=== PATIENT | male | born 1945 | race Caucasian/White ===

== ENCOUNTER 2019-10-27 06:15 | Outpatient (RCR) | payer OTHER, SELFPAY | END 2019-11-16 00:01 | LOC: ONCMED 06:15 | PROVIDERS: Family Provider Internal Medicine; Visit Provider Internal Medicine Hematology & Oncology | DX: Z45.2 Encounter for adjustment and management of vascular access device (principal) ==

== ENCOUNTER 2019-11-24 05:56 | Outpatient (RCR) | payer OTHER, SELFPAY | END 2019-12-17 23:59 | disposition home or self-care (01) | LOC: ONCMED 05:56 | PROVIDERS: Family Provider Internal Medicine; PCP Internal Medicine; Visit Provider Internal Medicine Hematology & Oncology | DX: Z45.2 Encounter for adjustment and management of vascular access device (principal) | CPT/HCPCS: 36591 ==

== ENCOUNTER 2019-12-22 05:53 | Outpatient (RCR) | payer OTHER, SELFPAY | END 2019-12-22 23:59 | disposition home or self-care (01) | LOC: ONCMED 05:53 | PROVIDERS: Family Provider Internal Medicine; PCP Internal Medicine; Visit Provider Internal Medicine Hematology & Oncology | DX: Z45.2 Encounter for adjustment and management of vascular access device (principal) | CPT/HCPCS: 96523 ==

== ENCOUNTER 2020-01-10 08:06 | Outpatient (CLI) | payer OTHER, SELFPAY ==
--- NOTE | 2020-01-10 08:15 | CT_ITS ---
WS: [id number] CT ABDOMEN AND PELVIS WITH CONTRAST HISTORY: HEMATURIA, history of lymphoma. TECHNIQUE: Imaging performed of the abdomen and pelvis with IV contrast. Two phase imaging of the ab domen. Coronal and sagittal reformats are submitted. All CT scans at [facility] use at le ast one of these dose optimization techniques: automated exposure control; mA and/or kV adjustment pe r patient size (includes targeted exams where dose is matched to clinical indication); or iterative r econstruction. IV CONTRAST: Omnipaque 300; 95 mL IV. Oral contrast: No DLP: 2261.94 mGycm COMPARISON: PET/CT 07/31/2019 Lower thorax: Mild dependent changes at the lung bases. No pneumonia. Heart is normal size. Small hia jazmyne hernia. Liver/biliary system: Normal size liver with diffuse decreased attenuation from hepatic steatosis. Mi ld variable density throughout the liver with a few scattered hypodensities. These are too small to c haracterize and could've been present on prior studies but not very well seen. No bile duct dilatatio n. Gallbladder: Single gallstone present without acute cholecystitis. Pancreas: Normal. Spleen: Small splenule. No enlargement. 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 Presen t on prior studies with no increase in size and measures 10 mm in diameter. LEFT adrenal gland is neg ative. Right kidney: Normal size kidney. 3 mm hypodensity posterior RIGHT upper pole. Mild perinephric stran ding. No stones or obstruction. No filling defects in the urological system. Left kidney: Normal size kidney with a few scattered hypodensities. The largest in the upper pole sheri sures 8 mm. These are probably small cysts but too small to characterize. No solid mass. No stone or obstruction. Good excretion from the kidney with no filling defects. Aorta: Mild atherosclerosis with no aneurysm. Lymphadenopathy: None. Free fluid: None. GI tract: Mild fecal retention. No evidence for appendicitis. No diverticulitis or diverticulosis. Abdominal wall: Fat-containing umbilical hernia. Pelvis: Negative urinary bladder. There are no filling defects in the urinary bladder. No bladder wal l thickening. There are a few calcifications in the central prostate gland. Benign inguinal lymph nod es. Bones: Straightening of the normal lumbar lordosis. Advanced degenerative disc disease at L4-5 throug h L5-S1. No fractures. No osteoblastic or osteolytic bone disease. CT/CT abdomen pelvis w con* [id number] IMPRESSION: 1. No renal mass, obstruction or calcifications identified. 2. A few scattered cysts within each kidney. 3. Negative urinary bladder. 4. Prostate gland calcifications. 5. Mild constipation. 6. Hepatic steatosis.
[2020-01-10] MEDS: iohexol 300 mg/mL 100 mL Btl IV (08:35)
== END 2020-01-10 08:07 | disposition home or self-care (01) ==
PROVIDERS: Family Provider Internal Medicine; PCP Internal Medicine; Visit Provider Internal Medicine
DX: K59.00 Constipation, unspecified (principal); K76.0 Fatty (change of) liver, not elsewhere classified; R31.9 Hematuria, unspecified; N42.9 Disorder of prostate, unspecified; Z85.72 Personal history of non-Hodgkin lymphomas
CPT/HCPCS: 74177; Q9967

== ENCOUNTER 2020-01-19 09:47 | Outpatient (CLI) | payer OTHER, SELFPAY ==
[2020-01-19 10:13] LABS: Basophils % 0.5 %; Eosinophils # 0.1 10^3/uL (0.0-0.8); Eosinophils % 1.6 %; Hematocrit 40.6 % (42.0-52.0); Hemoglobin 13.2 g/dL (11.7-16.6); Lymphocytes # 2.5 10^3/uL (0.8-4.8); Lymphocytes % 33.9 %; Mean Corpuscular HGB Conc 32.5 g/dL (30.0-36.0); Mean Corpuscular Hemoglobin 27.6 pg (28.0-34.0); Mean Corpuscular Volume 84.9 fL (80-94); Mean Platelet Volume 9.8 fL (7.4-10.4); Monocytes # 0.8 10^3/uL (0.2-0.9); Monocytes % 11.2 %; Neutrophils # 3.9 10^3/uL (1.8-7.7); Neutrophils % 52.7 %; Nucleated Red Blood Cells % 0 %; Platelet Count 226 10^3/cmm (130-400); Red Blood Count 4.78 10^6/uL (4.1-5.3); Red Cell Distribution Width 15.4 % (12.1-15.1); White Blood Count 7.4 10^3/uL (4.0-10.0)
[2020-01-19 10:29] LABS: Alanine Aminotransferase 52 U/L (0-41); Albumin Level 4.1 g/dL (3.5-5.2); Alkaline Phosphatase 92 IU/L (40-130); Anion Gap 15.7 (5-19); Aspartate Amino Transferase 37 U/L (0-40); Blood Urea Nitrogen 19 mg/dL (8-23); Calcium 9.5 mg/dL (8.5-10.5); Carbon Dioxide 24 mmol/L (22-29); Chloride 102 mmol/L (98-107); Globulin 3.1 g/dL (1.3-4.6); Glucose 153 mg/dL (65-115); Lactate Dehydrogenase 167 U/L (135-225); Potassium 3.7 mmol/L (3.5-5.1); Sodium 138 mmol/L (136-145); Total Bilirubin 0.4 mg/dL (0.15-1.2); Total Protein 7.2 g/dL (6.6-8.7)
--- NOTE | 2020-01-19 12:54 | ONC FU_ITS ---
Dr. Catalan follow up note Patient: Lion Aiken Unit #: [id number]: [id number] Dicatated By: Stephanie Catalan M.D.Date of Visit:Jan 19, 2020 Onc Med Follow-up/Prog Note History of Present Illness: Mr. Aiken is a 74-year-old, gentleman with a recent history of progressive right cervical/supraclavicular lymphadenopathy. He has been following with his primary care physician and was given course of oral antibiotic. He did not have any improvement and was referred to ENT for evaluation. On 11/28/[address] scan of neck showed significant right cervical chain lymphadenopathy with extension into supraclavicular region. The largest lymph node at the supraclavicular level III regions measured 3.5 x 2.3 cm. Right intraparotid lobulated mass measuring 1.8 x 1.8 cm. There was an additional cluster along the tail of parotid gland. No laryngeal mass seen. On 12/04/2017 he underwent needle core biopsy of right neck mass. 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 PET/CT from 01/17/18 reported adenopathy at the head and neck area consisting of multiple hypermetabolic lymph nodes bilaterally, more prominent on the right than the left. Intra-parotid, right jugulodigastric, right posterior triangle, bilateral submental, bilateral submandibular and bilateral supraclavicular nodes are consistent with described lymphoma. Right posterior triangle nodes with SUVs of up to 36.2 with right jugulodigastric chain nodes having SUV up to 31.8. Bilateral axillary nodes are FDG positive. There are hypermetabolic mediastinal lymph nodes, subcarinal, paratracheal and bilateral hilar territories at the level of the abdomen- small FDG positive nodes are noted. Most pelvic lymph nodes are radiographically benign and FDG negative. There was no evidence of involvement in the bone marrow. Mr Aiken was offered treatment with R-CHOP. He began his first cycle on 02/10/2018. He did present to the ER on 02/20/2018 with abdominal pain and was treated for gastritis. responded well to Zantac BID. PET/CT imaging from 03/28/2018 reveals partial response to therapy with complete resolution of lymphoma from the level of the chest to the level of the pelvis. No evidence of new lesions, marrow involvement or extranodal disease . Mr Aiken completed his 6th cycle of R-CHOP on 05/26/2018. He has been advised to proceed with maintenance Rituxan 375 mg/m2 every other month on 07/27/18. Patient was referred to lymphoma clinic at [facility] where, on January 25 [address] Florence, and his recommendations were considering involved field radiation therapy to the right neck and observation and if there is a recurrence he would consider R-JOELLE regimen, considering patient age he would not consider hyper CVAD and also as per his evaluation patient is not a candidate for allogeneic stem cell transplantation. Other option would be BTK inhibitors such as ibrutinib or acalabrutinib He also has clinical trial for mentle cell lymphoma but patient is not interested in going to the [facility]. And he also suggested to discontinue maintenance therapy with Rituxan , tolerated radiation therapy to the right neck well and Completed on 03/01/2019 Follow-up CT PET scan done on 07/31/2019 showed the right posterior triangle lymph node seen on prior study has resolved. Reactive mediastinal nodes are stable. Mild inflammatory activity in chronic right lower lobe infiltrate is stable. Patient had episode of hematuria for which he underwent CT scan of abdomen pelvis on 01/10/2020 which showed no renal mass, obstruction or calcification. A few scattered cysts within each kidney. Negative urinary bladder. Hepatic steatosis Came for follow-up, denies any specific complaints, no night sweats, no fever, no weight loss and other weight gain. Denies any peripheral lymphadenopathy. Off-and-on mild hematuria, recently underwent CT scan of abdomen pelvis showed no obvious abnormality , as per patient he is supposed to see urologist in [place] ,[place]. Denies jaundice denies any right upper quadrant pain or discomfort denies starting any new medication. Medications: Airborne 1 Tablet Tablet, chewable Oral daily, AmLODIPine Besylate 1 (10 mg) Tablet Oral daily, Aspirin 1 Tablet (of 81 mg) Oral daily, Atenolol 0.5 Tablet (of 100 mg) Oral daily, Atorvastatin Calcium 0.5 Tablet (of 40 mg) Oral daily, BuPROPion HCl 1 (150 mg) Tablet Oral daily, Cholecalciferol 1 (2000 Units) Capsule Oral daily, Gabapentin 2 Tablet (of 300 mg) Oral b.i.d., HydroCHLOROthiazide 0.5 Tablet (of 25 mg) Oral daily, Lisinopril 1 (40 mg) Tablet Oral daily, MetFORMIN HCl 0.5 Tablet (of 1000 mg) Oral b.i.d. Allergies: No Known Allergies. Review of Systems: Review of Systems is not available for this patient. Vital Signs: Performed on Jan 19, 2020 11:43 Height - 73.00 in Weight - 229.8 lbs (LOW) BSA - 2.28 sq.m BMI - 30.32 (HIGH) Temperature - 98.0 F (LOW) Pulse - 65 /min Respiration - 20 /min BP - 148/75 mm(hg) (HIGH) O2 Sat - 97 % Pain - 0 Performance Status: 0 - Fully active, able to carry on all predisease activities without restrictions. (ECOG) Physical Examination: ENMT - No oral exudates, ulcers, masses, thrush or mucositis. Oropharynx clear. Tongue normal, Respiratory - Lungs are clear to auscultation without rhonchi or wheezing, Cardiovascular - Regular rate and rhythm of heart, Abdomen - Non-tender, non-distended, Good bowel sounds. No guarding or rebound tenderness. No pulsatile masses, Extremities - no edema. Lab/Imaging: Test performed on Aug 04, 2019 10:35 LDH (Total) 166 U/L Sodium 138 mmol/L Potassium 3.8 mmol/L Chloride 101 mmol/L CO2 23 mmol/L Anion Gap 17.8 BUN 16 mg/dL Creatinine 1.0 mg/dL Cr Clearance (Est) 98.6200 mL/min Glucose 151 mg/dl Calcium 9.4 mg/dL Protein, Total 7.3 g/dL Albumin 4.2 g/dL Globulin 3.1 gm/dL Bilirubin, Total 0.2 mg/dL ALT (SGPT) 34 U/L AST (SGOT) 23 U/L Alkaline Phosphatase 90 U/L WBC 6.1 /cmm RBC 4.74 10 6/cmm HGB 13.6 g/dl HCT 39.8 % MCV 84.0 /cmm MCH 28.7 pg MCHC 34.2 g/dl RDW 15.8 % Platelet Count 221 10 3/cmm MPV 8.1 fl Neutrophils 3.2 10 3/cmm Lymphocytes 2.0 10 3/cmm Monocytes 0.7 10 3/cmm Eosinophils 0.1 10 3/cmm Basophils 0.0 10 3/cmm Neutrophil % 52.4 % Lymphocyte % 33.2 % Monocyte % 11.5 % Eosinophil % 2.4 % Basophils % 0.5 % Impression: Large B-cell lymphoma, mantle cell lymphoma, blastoid variant. Immunohistochemistry showed strongly positive for CD20, CD5, cyclin D1,SOX 11, BCL 2, CMYC, Mum 1, and CD23 Ki-67 demonstrated marked increased proliferative rate 60-80% IPI score 3 with high proliferative index and strongly positive for SOX 11, CT scan of neck done on 11/28/2017 showed significant right cervical chain lymphadenopathy with extension into supraclavicular and level III regions. The largest lymph node measured 3.5 x 2.3 cm, next Right intraparotid lobulated mass measuring 1.8 x 1.8 cm, there is an additional cluster along the tail of parotid gland. These may be abnormal lymph nodes or a primary parotid tumor. No laryngeal mass seen CT PET scan done on 01/17/2018 showed multiple hypermetabolic cervical lymph nodes more prominent on right side, intra parotid, right jugulodigastric, right posterior triangle, bilateral submental and bilateral submandibular bilateral supraclavicular, there are hypermetabolic mediastinal lymph nodes in the subcarinal, paratracheal, bilateral hilar and external iliac lymph nodes bilaterally. With a normal spleen and liver. Stage III. discussed with Mr Aiken the CT PET scan report which showed lymph node involvement on both sides of diaphragm which was making stage III with no B symptoms. He was complaining of heartburn, indigestion could be simple PUD or need to rule out mantle cell involvement. Mr Aiken was advised to consider EGD and colonoscopy. Colonoscopy is pending at this visit. His IPI score is high intermediate risk, but highly Ki-67 in the range of 60-80% with strong expression of SOX 11 and being blastoid variant; Mr Aiken was advised to consider systemic chemotherapy upfront. Mr Aiken has no WEBBING WEAVER symptoms and the PET/CT did not report bone marrow involvement, so we will not pursue spinal fluid evaluation at this time. Mr Aiken was offered treatment with R-CHOP. He began his first cycle on 02/10/2018. Cycle 3 was given on 03/24/2018. PET/CT imaging from 03/28/20185 reveals partial response to therapy with complete resolution of lymphoma from th level of the chest to the level of the pelvis. No evidence of new lesions, marrow involvement or extranodal disease . He has completed [address]-CHOP. [address] PET scan done on 06/20/2018 showed interval improvement in the right cervical posterior triangle lymph node since prior study however there is new, subtle increased activity in mediastinal lymph nodes, in the right peritracheal and bilateral hilar distributions this. Right hilar lymph node has SUV 3.9 concerning for recurrent malignancy. Mr Aiken has been offered maintenance therapy with Rituxan 375 mg/M2 every 2 months Starting on 07/27/2018 followup PET/CT after 3rd dose . Done on 12/26/2018 showed this is recurrence of lymphoma in right posterior cervical triangle lymph node. The index node now measure 1.4 x 1.2 cm with an SUV of 28.8. Other, subcentimeter nodes in the same territory are FDG positive as well consistent with micrometastatic disease. Low-grade activity in mediastinal nodes is not significant different from the previous study and are most likely reactive Patient was referred to lymphoma clinic at [facility] where he saw , on 01/25/2019 and his recommendations were clinical trial for Mantle cell lymphoma but patient declined. And other option would be involved field radiation therapy to right neck and followed by observation in case relapse then consider R-JOELLE regimen as patient is not a candidate for allogeneic stem cell transplantation. Other option would be BTK inhibitor like ibrutinib or acalabrutinib. And also suggested to discontinue maintenance therapy with Rituxan considering toxicity and questionable benefits Status post involved field radiation therapy to the right neck completed on 03/01/2019 Plan: Discussed with patient regarding his labs white blood count 7.4 hemoglobin 13.2 hematocrit 40.6 platelets 226,000 CMP and LDH within normal limit except ALT 52, AST 37 compared to in normal range in 08/05/2019 Clinically, patient is doing well with no B symptoms or peripheral lymphadenopathy. His follow-up lab shows normal CBC and CMP except mild elevated transaminases and patient had CT scan of abdomen pelvis done for evaluation of off-and-on hematuria showed normal size liver with diffuse decreased attenuation from hepatic steatosis, patient admit gaining weight. Patient was advised to lose weight and keep up appointment with urologist in [place], [place] for evaluation of hematuria. As far as lymphoma is concern clinically, and radiologically and metabolically he is in remission, we'll continue monitor and he will return to clinic in 6 months with CBC CMP and LDH and will monitor his liver function test visit worsening we'll consider referring him to [facility] for evaluation. Signed By: Stephanie Catalan M.D. <<Signature on File>>
== END 2020-01-19 09:48 | disposition home or self-care (01) ==
LOC: ONCMED 09:51
PROVIDERS: Family Provider Internal Medicine; PCP Internal Medicine; Visit Provider Internal Medicine Hematology & Oncology
DX: C83.11 Mantle cell lymphoma, lymph nodes of head, face, and neck (principal); K76.0 Fatty (change of) liver, not elsewhere classified; R31.9 Hematuria, unspecified; Z79.891 Long term (current) use of opiate analgesic; Z79.82 Long term (current) use of aspirin; Z79.84 Long term (current) use of oral hypoglycemic drugs; Z92.21 Personal history of antineoplastic chemotherapy; Z92.25 Personal history of immunosuppression therapy; Z92.3 Personal history of irradiation
CPT/HCPCS: 36591; 80053; 83615; 85025; G0463

== ENCOUNTER 2020-02-16 10:14 | Outpatient (CLI) | payer OTHER, SELFPAY | END 2020-02-16 10:15 | disposition home or self-care (01) | LOC: ONCMED 10:15 | PROVIDERS: Family Provider Internal Medicine; PCP Internal Medicine; Visit Provider Internal Medicine Hematology & Oncology | DX: Z45.2 Encounter for adjustment and management of vascular access device (principal) | CPT/HCPCS: 96523 ==

== ENCOUNTER 2020-03-17 10:17 | Outpatient (CLI) | payer OTHER, SELFPAY | END 2020-03-17 10:18 | disposition home or self-care (01) | LOC: ONCMED 10:18 | PROVIDERS: Family Provider Internal Medicine; PCP Internal Medicine; Visit Provider Internal Medicine Hematology & Oncology | DX: C83.11 Mantle cell lymphoma, lymph nodes of head, face, and neck (principal); D70.8 Other neutropenia | CPT/HCPCS: 96523 ==

== ENCOUNTER 2020-04-19 10:06 | Outpatient (CLI) | payer OTHER, SELFPAY | END 2020-04-19 10:07 | disposition home or self-care (01) | LOC: ONCMED 10:08 | PROVIDERS: Family Provider Internal Medicine; PCP Internal Medicine; Visit Provider Internal Medicine Hematology & Oncology | DX: Z45.2 Encounter for adjustment and management of vascular access device (principal); C83.11 Mantle cell lymphoma, lymph nodes of head, face, and neck; D70.8 Other neutropenia | CPT/HCPCS: 96523 ==

== ENCOUNTER 2020-05-22 10:17 | Outpatient (CLI) | payer OTHER, SELFPAY | END 2020-05-22 10:18 | disposition home or self-care (01) | LOC: ONCMED 10:19 | PROVIDERS: PCP Emergency Medicine Emergency Medical Services; Visit Provider Internal Medicine Hematology & Oncology | DX: Z45.2 Encounter for adjustment and management of vascular access device (principal); C83.11 Mantle cell lymphoma, lymph nodes of head, face, and neck; D70.8 Other neutropenia | CPT/HCPCS: 96523 ==

== ENCOUNTER 2020-06-30 09:45 | Outpatient (CLI) | payer OTHER, SELFPAY ==
[2020-06-30 10:24] LABS: Basophils % 0.6 %; Eosinophils % 0.7 %; Hematocrit 42.2 % (42.0-52.0); Hemoglobin 13.7 g/dL (11.7-16.6); Lymphocytes # 2.2 10^3/uL (0.8-4.8); Lymphocytes % 39.5 %; Mean Corpuscular HGB Conc 32.5 g/dL (30.0-36.0); Mean Corpuscular Hemoglobin 28.6 pg (28.0-34.0); Mean Corpuscular Volume 88.1 fL (80-94); Mean Platelet Volume 10.2 fL (7.4-10.4); Monocytes # 0.8 10^3/uL (0.2-0.9); Monocytes % 14.2 %; Neutrophils # 2.44 10^3/uL (1.8-7.7); Neutrophils % 44.8 %; Nucleated Red Blood Cells % 0 %; Platelet Count 173 10^3/cmm (130-400); Red Blood Count 4.79 10^6/uL (4.1-5.3); Red Cell Distribution Width 15.9 % (12.1-15.1); White Blood Count 5.4 10^3/uL (4.0-10.0)
[2020-06-30 10:36] LABS: Alanine Aminotransferase 107 U/L (0-41); Albumin Level 4.1 g/dL (3.5-5.2); Alkaline Phosphatase 81 IU/L (40-130); Anion Gap 13.7 (5-19); Aspartate Amino Transferase 84 U/L (0-40); Blood Urea Nitrogen 18 mg/dL (8-23); Calcium 9.2 mg/dL (8.5-10.5); Carbon Dioxide 25 mmol/L (22-29); Chloride 103 mmol/L (98-107); Globulin 2.8 g/dL (1.3-4.6); Glucose 128 mg/dL (65-115); Lactate Dehydrogenase 205 U/L (135-225); Osmolality Calculated 284 mOsm/kg (285-295); Potassium 3.7 mmol/L (3.5-5.1); Sodium 138 mmol/L (136-145); Total Bilirubin 0.5 mg/dL (0.15-1.2); Total Protein 6.9 g/dL (6.6-8.7)
--- NOTE | 2020-06-30 12:32 | ONC FU_ITS ---
Dr. Catalan follow up note Patient: Lion Aiken Unit #: [id number]: 1945 Dicatated By: Stephanie Catalan M.D.Date of Visit:Jun 30, 2020 Onc Med Follow-up/Prog Note History of Present Illness: Mr. Aiken is a 74-year-old, gentleman with a recent history of progressive right cervical/supraclavicular lymphadenopathy. He has been following with his primary care physician and was given course of oral antibiotic. He did not have any improvement and was referred to ENT for evaluation. On 11/28/[address] scan of neck showed significant right cervical chain lymphadenopathy with extension into supraclavicular region. The largest lymph node at the supraclavicular level III regions measured 3.5 x 2.3 cm. Right intraparotid lobulated mass measuring 1.8 x 1.8 cm. There was an additional cluster along the tail of parotid gland. No laryngeal mass seen. On 12/04/2017 he underwent needle core biopsy of right neck mass. 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 PET/CT from 01/17/18 reported adenopathy at the head and neck area consisting of multiple hypermetabolic lymph nodes bilaterally, more prominent on the right than the left. Intra-parotid, right jugulodigastric, right posterior triangle, bilateral submental, bilateral submandibular and bilateral supraclavicular nodes are consistent with described lymphoma. Right posterior triangle nodes with SUVs of up to 36.2 with right jugulodigastric chain nodes having SUV up to 31.8. Bilateral axillary nodes are FDG positive. There are hypermetabolic mediastinal lymph nodes, subcarinal, paratracheal and bilateral hilar territories at the level of the abdomen- small FDG positive nodes are noted. Most pelvic lymph nodes are radiographically benign and FDG negative. There was no evidence of involvement in the bone marrow. Mr Aiken was offered treatment with R-CHOP. He began his first cycle on 02/10/2018. He did present to the ER on 02/20/2018 with abdominal pain and was treated for gastritis. responded well to Zantac BID. PET/CT imaging from 03/28/2018 reveals partial response to therapy with complete resolution of lymphoma from the level of the chest to the level of the pelvis. No evidence of new lesions, marrow involvement or extranodal disease . Mr Aiken completed his 6th cycle of R-CHOP on 05/26/2018. He has been advised to proceed with maintenance Rituxan 375 mg/m2 every other month on 07/27/18. Patient was referred to lymphoma clinic at [facility] where, on January 25 [address] Florecne, and his recommendations were considering involved field radiation therapy to the right neck and observation and if there is a recurrence he would consider R-JOELLE regimen, considering patient age he would not consider hyper CVAD and also as per his evaluation patient is not a candidate for allogeneic stem cell transplantation. Other option would be BTK inhibitors such as ibrutinib or acalabrutinib He also has clinical trial for mentle cell lymphoma but patient is not interested in going to the [facility]. And he also suggested to discontinue maintenance therapy with Rituxan , tolerated radiation therapy to the right neck well and Completed on 03/01/2019 Follow-up CT PET scan done on 07/31/2019 showed the right posterior triangle lymph node seen on prior study has resolved. Reactive mediastinal nodes are stable. Mild inflammatory activity in chronic right lower lobe infiltrate is stable. Patient had episode of hematuria for which he underwent CT scan of abdomen pelvis on 01/10/2020 which showed no renal mass, obstruction or calcification. A few scattered cysts within each kidney. Negative urinary bladder. Hepatic steatosis Came for follow-up, denies any specific complaints, no fever chills, no nausea or vomiting, no diarrhea or constipation, no night sweats, no peripheral lymphadenopathy, no abdominal fullness, no recurrent fever, no weight loss. Medications: Airborne 1 Tablet Tablet, chewable Oral daily, AmLODIPine Besylate 1 (10 mg) Tablet Oral daily, Aspirin 1 Tablet (of 81 mg) Oral daily, Atenolol 0.5 Tablet (of 100 mg) Oral daily, Atorvastatin Calcium 0.5 Tablet (of 40 mg) Oral daily, BuPROPion HCl 1 (150 mg) Tablet Oral daily, Cholecalciferol 1 (2000 Units) Capsule Oral daily, Gabapentin 2 Tablet (of 300 mg) Oral b.i.d., HydroCHLOROthiazide 0.5 Tablet (of 25 mg) Oral daily, Lisinopril 1 (40 mg) Tablet Oral daily, MetFORMIN HCl 0.5 Tablet (of 1000 mg) Oral b.i.d. Allergies: No Known Allergies. Review of Systems: Constitutional - Appetite is fair and weight is stable. No fever, chills, hot flashes, or night sweats. Energy level is fair, ENMT - No sinus congestion/drainage. No mouth sores. No sore throat or difficulty swallowing, Hematologic/Lymphatic - No abnormal bruising or bleeding, Respiratory - No shortness of breath. No cough. No pleuritic pain or hemoptysis, Cardiovascular - No angina pain. No palpitations, Gastrointestinal - No nausea or vomiting. Occasional heartburn or acid reflux. No diarrhea or constipation. No blood in the stool or black stools, Genitourinary (M) - No dysuria or hematuria. No urinary frequency. No urgency or incontinence, Musculoskeletal - No joint or bone pain, Integumentary - denies rash or skin lesions, Neurologic - No headache or dizziness. No numbness/paresthesias or other focal neurologic symptoms, Psychiatric - No anxiety or depression. No insomnia. Vital Signs: Performed on Jun 30, 2020 11:24 Height - 73.00 in Weight - 230.0 lbs (HIGH) BSA - 2.28 sq.m BMI - 30.35 (HIGH) Temperature - 98.8 F Pulse - 74 /min Respiration - 20 /min BP - 142/72 mm(hg) (HIGH) O2 Sat - 96 % Pain - 0 Performance Status: 0 - Fully active, able to carry on all predisease activities without restrictions. (ECOG) Physical Examination: ENMT - No mouth sores, no thrush, no Jaundice, Respiratory - Lungs are clear, Cardiovascular - Regular rate and rhythm of heart, Abdomen - Soft, bowel sounds present, Extremities - No visible edema, no rash, no peripheral lymphadenopathy. Lab/Imaging: Test performed on Jan 19, 2020 10:00 LDH (Total) 167 U/L Sodium 138 mmol/L Potassium 3.7 mmol/L Chloride 102 mmol/L CO2 24 mmol/L Anion Gap 15.7 BUN 19 mg/dL Creatinine 1.1 mg/dL Cr Clearance (Est) 89.50 mL/min Glucose 153 mg/dL Calcium 9.5 mg/dL Protein, Total 7.2 g/dL Albumin 4.1 g/dL Globulin 3.1 g/dL Bilirubin, Total 0.4 mg/dL ALT (SGPT) 52 U/L AST (SGOT) 37 U/L Alkaline Phosphatase 92 IU/L WBC 7.4 10 3/uL RBC 4.78 10 6/uL HGB 13.2 g/dL HCT 40.6 % MCV 84.9 fL MCH 27.6 pg MCHC 32.5 g/dL RDW 15.4 % Platelet Count 226 10 3/cmm MPV 9.8 fL Neutrophils 3.9 10 3/uL Lymphocytes 2.5 10 3/uL Monocytes 0.8 10 3/uL Eosinophils 0.1 10 3/uL Basophils 0.0 10 3/uL Neutrophil % 52.7 % Lymphocyte % 33.9 % Monocyte % 11.2 % Eosinophil % 1.6 % Basophils % 0.5 % Impression: Large B-cell lymphoma, mantle cell lymphoma, blastoid variant. Immunohistochemistry showed strongly positive for CD20, CD5, cyclin D1,SOX 11, BCL 2, CMYC, Mum 1, and CD23 Ki-67 demonstrated marked increased proliferative rate 60-80% IPI score 3 with high proliferative index and strongly positive for SOX 11, CT scan of neck done on 11/28/2017 showed significant right cervical chain lymphadenopathy with extension into supraclavicular and level III regions. The largest lymph node measured 3.5 x 2.3 cm, next Right intraparotid lobulated mass measuring 1.8 x 1.8 cm, there is an additional cluster along the tail of parotid gland. These may be abnormal lymph nodes or a primary parotid tumor. No laryngeal mass seen CT PET scan done on 01/17/2018 showed multiple hypermetabolic cervical lymph nodes more prominent on right side, intra parotid, right jugulodigastric, right posterior triangle, bilateral submental and bilateral submandibular bilateral supraclavicular, there are hypermetabolic mediastinal lymph nodes in the subcarinal, paratracheal, bilateral hilar and external iliac lymph nodes bilaterally. With a normal spleen and liver. Stage III. discussed with Mr Aiken the CT PET scan report which showed lymph node involvement on both sides of diaphragm which was making stage III with no B symptoms. He was complaining of heartburn, indigestion could be simple PUD or need to rule out mantle cell involvement. Mr Aiken was advised to consider EGD and colonoscopy. Colonoscopy is pending at this visit. His IPI score is high intermediate risk, but highly Ki-67 in the range of 60-80% with strong expression of SOX 11 and being blastoid variant; Mr Aiken was advised to consider systemic chemotherapy upfront. Mr Aiken has no [employer] symptoms and the PET/CT did not report bone marrow involvement, so we will not pursue spinal fluid evaluation at this time. Mr Aiken was offered treatment with R-CHOP. He began his first cycle on 02/10/2018. Cycle 3 was given on 03/24/2018. PET/CT imaging from 03/28/20185 reveals partial response to therapy with complete resolution of lymphoma from th level of the chest to the level of the pelvis. No evidence of new lesions, marrow involvement or extranodal disease . He has completed 6 cycles [address] R-CHOP. CT PET scan done on 06/20/2018 showed interval improvement in the right cervical posterior triangle lymph node since prior study however there is new, subtle increased activity in mediastinal lymph nodes, in the right peritracheal and bilateral hilar distributions this. Right hilar lymph node has SUV 3.9 concerning for recurrent malignancy. Mr Aiken has been offered maintenance therapy with Rituxan 375 mg/M2 every 2 months Starting on 07/27/2018 followup PET/CT after 3rd dose . Done on 12/26/2018 showed this is recurrence of lymphoma in right posterior cervical triangle lymph node. The index node now measure 1.4 x 1.2 cm with an SUV of 28.8. Other, subcentimeter nodes in the same territory are FDG positive as well consistent with micrometastatic disease. Low-grade activity in mediastinal nodes is not significant different from the previous study and are most likely reactive Patient was referred to lymphoma clinic at [facility] where he saw , on 01/25/2019 and his recommendations were clinical trial for Mantle cell lymphoma but patient declined. And other option would be involved field radiation therapy to right neck and followed by observation in case relapse then consider R-JOELLE regimen as patient is not a candidate for allogeneic stem cell transplantation. Other option would be BTK inhibitor like ibrutinib or acalabrutinib. And also suggested to discontinue maintenance therapy with Rituxan considering toxicity and questionable benefits Status post involved field radiation therapy to the right neck completed on 03/01/2019 Plan: Discussed with patient regarding his labs white blood count 5.4, hemoglobin 13.7 hematocrit 42.2 platelets 173,000 CMP within normal limit except ALT 107 compared to 52 on January 19, 2020 and AST 84 compared to 37 previously bilirubin 0.5 alk phos 83 LDH 205 Clinically, patient is doing well with no new signs symptom suggestive of recurrence of disease but there is a worsening of transaminases level, etiology unclear could be due to fatty liver or infection, we will consider hepatitis profile and also CT scan of abdomen pelvis. Return to clinic in 2 weeks with CMP, hepatitis profile and CT scan of abdomen pelvis. Signed By: Stephanie Catalan M.D. <<Signature on File>>
== END 2020-06-30 09:46 | disposition home or self-care (01) ==
LOC: ONCMED 09:45
PROVIDERS: Visit Provider Internal Medicine Hematology & Oncology
DX: Z08 Encounter for follow-up examination after completed treatment for malignant neoplasm (principal); Z85.72 Personal history of non-Hodgkin lymphomas; F43.10 Post-traumatic stress disorder, unspecified; E11.9 Type 2 diabetes mellitus without complications; Z92.3 Personal history of irradiation
CPT/HCPCS: 36591; 80053; 83615; 85025; 99214

== ENCOUNTER 2020-07-07 13:07 | Emergency (ER) | payer OTHER, SELFPAY ==
[2020-07-07] VITALS (66 sets, daily range): BP systolic 99–187; BP diastolic 49–105; PULSE 57–92; RESP 12–32; TEMP 36.9; O2SAT 87–98; BMI 30.7
--- NOTE | 2020-07-07 13:11 | XR_ITS ---
WS: [id number] EXAM: AP CHEST: PORTABLE UPRIGHT DATE OF EXAM: 07/07/2020, 1406 hours COMPARISON: NONE HISTORY: Patient is 74 years old with dyspnea. History of colon infection.. FINDINGS: The cardiac silhouette is hard to determine secondary to the degree of infiltrate. Considered slight ly enlarged The mediastinal contours are distorted secondary to lordotic positioning. Considered sl ightly prominent. The pulmonary vascularity is is hard to determine secondary to the degree of infi ltrate. Bilateral interstitial infiltrates are demonstrated within both upper lung zones. Additional patchy infiltrate within the left hilar and both lower lobe regions as well. There is no effusion or pneumothorax. Left subclavian port in place with the catheter ending in the SVC region. XR/XR chest 1V portable [id number] IMPRESSION: Fairly extensive bilateral infiltrates. No pneumothorax.
--- NOTE | 2020-07-07 13:14 | ECG_ITS ---
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 Measurements Intervals [place] Rate: 63 P: 58 VA: 158 QRS: -6 QRSD: 98 T: -12 QT: 358 QTc: 368 Interpretive Statements SINUS RHYTHM NONSPECIFIC T-WAVE ABNORMALITY Compared to ECG 12/12/2017 15:38:16 T-wave abnormality now present Electronically Signed On 07-08-2020 19:35:29 CDT by Moo Chatman M.D. [email or web address] Image by [email or web address] [id number]
--- NOTE | 2020-07-07 13:20 | ED_ITS ---
HPI - SOB/Dyspnea General: Chief Complaint: Shortness of Breath/Dyspnea Stated Complaint: Covid +, SOB Source: patient and EMS Mode of arrival: EMS Limitations: no limitations History of Present Illness: HPI Narrative: Mr. Aiken is a nice 74-year-old male who comes in with report of altered mental status and hypoxia. Patient was found by family who called EMS secondary to these findings. EMS reports that first responders got a pulse ox in the 60s and then upon EMS arrival the patient had a pulse ox in the low 80s. The patient was placed on a nonrebreather with an and 95 mask over this and brought in for evaluation by EMS without any other interventions. EMS stated that this got the patient's pulse ox into the low 90s. The patient has been sick for the past 5 days and tested positive for the COVID-19 virus last Friday. He states that he must have gotten sicker through the night but otherwise denies any other complaints. He denies chest pain, back pain, headache, abdominal pain, vomiting or diarrhea. The patient is short of breath. Associated symptoms: Reports fever(s); Deny abdominal pain, chest congestion, chest pain, diaphoresis, dizziness, extremity pain, hemoptysis, lightheadedness, nausea, orthopnea, palpitations, syncope or vomiting Review of Systems Const: Reports: fever(s), chills, body aches, fatigue and malaise; Denies: diaphoresis Eyes: Denies: change in vision, blurry vision, photophobia, eye discomfort, eye discharge or eye redness ENMT: Denies: throat pain, odynophagia, hoarseness, swelling of lips/tongue, ear or mastoid pain, ear discharge, change in hearing or nasal discharge Card: Denies: chest pain, palpitations, irregular heart rhythm, edema, lightheadedness, syncope, pre-syncope, dyspnea on exertion or orthopnea Resp: Reports: dyspnea; Denies: non-productive cough, wheezing, hemoptysis or chest congestion GI: Denies: abdominal pain, nausea, vomiting, hematemesis, coffee ground emesis, heartburn, diarrhea, constipation, GI cramping, hematochezia or melena : Denies: flank pain, dysuria, urinary frequency, urinary urgency or hematuria Musc: Denies: neck pain, back pain, extremity pain, extremity swelling, joint pain, joint swelling, joint redness, joint warmth or joint stiffness Skin/Breast: Denies: rash, pruritus, erythema or skin tenderness Neuro: Denies: headache(s), numbness in extremities, weakness in extremities, sensory changes, lack of coordination, difficulty walking, dizziness, vertigo, confusion, Slurred speech present or seizure-like activity Theo/Lymph: Denies: easy bruising, easy bleeding, petechiae, purpura or enlarged lymph nodes All/Imm: Denies: urticaria, throat swelling, tongue swelling, facial swelling or acute wheezing PFSH ED PFSH: Medical History (Updated 07/07/20 @ 23:27 by Marika Johnson) Atrial fibrillation DM type 2 (diabetes mellitus, type 2) GERD (gastroesophageal reflux disease) History of lymphoma Hyperlipidemia Hypertension Social History (Updated 07/07/20 @ 13:21 by Rinku Hutchinson RN) Smoking and tobacco status: never smoked Alcohol intake: never Physical Exam Const: COMMON NORMALS: patient oriented x3, no limitations, healthy appearing and well nourished GENERAL APPEARANCE: cooperative, well kempt and well developed HENMT: COMMON NORMALS: normocephalic, atraumatic, external ears normal, EAC's normal and Normal external nose present HEAD & SCALP: normal to inspection, normocephalic and atraumatic FACE & SINUS: normal facial exam and face symmetric NOSE: Normal external nose present and Normal nares present EXTERNAL EAR: Yes external ears normal EXTERNAL AUDITORY CANAL: EAC's normal MOUTH: Normal oral and palatal mucosa present, lip normal and tongue normal Eye: COMMON NORMALS: Equal, round and reactive pupils present and conjunctivae normal GENERAL EYE: appearance normal, both eyes and all related structures ALIGNMENT: Yes alignment normal PERIORBITAL: periorbital findings normal EYELID: eyelids normal CONJUNCTIVA: Yes conjunctivae normal SCLERA: sclerae normal PUPIL: Yes Equal, round and reactive pupils present Neck/C-Spine: COMMON NORMALS: full ROM, no lymphadenopathy, supple, no meningeal signs and no JVD GENERAL: Yes normal visual inspection and Yes trachea midline Chest: COMMONS NORMALS: normal inspection of the chest and normal palpation of entire chest wall Resp: COMMON NORMALS: normal respiratory effort, No retractions, No use of accessory muscles and clear to auscultation bilaterally EFFORT & INSPECTION: Yes able to speak in complete sentences and Yes symmetric chest movement AUSCULTATION: clear to auscultation bilaterally, no crackles, no rales, no rhonchi and no wheezes Cardio: COMMON NORMALS: no JVD, regular rate, regular rhythm, S1 normal heart sound present and S2 normal heart sound present RATE: regular rate RHYTHM: regular rhythm HEART SOUNDS: S1 normal heart sound present, S2 normal heart sound present, no click, no gallops, no murmurs, no rubs and abnormal split S2 GI: COMMON NORMALS: Soft to palpation and No hepatosplenomegaly present PALPATION: Yes Soft to palpation, No Tenderness to palpation present (GI), No Guarding due to palpation present (GI), No Rigid due to palpation, Yes No hep atosplenomegaly present, No Hernia present, No Palpable mass present and No Pulsatile mass present : COMMON NORMALS: Yes no CVA tenderness BLADDER/KIDNEY EXAM: Yes no CVA tenderness Back/Pelvis: COMMON NORMALS: no CVA tenderness, thoracic and lumbar spine normal to inspection, no thoracic nor lumbar tenderness and thoraco-lumbar ROM normal Extremity: COMMON NORMALS: normal to inspection, full ROM, capillary refill normal, no joint enlargement, no clubbing, cyanosis or edema and no calf tenderness Neuro: COMMON NORMALS: patient oriented x3, CN's II-XII intact bilaterally, moves all extremities, no focal motor deficits and no sensory deficits noted MENINGEAL SIGNS: Yes no meningeal signs SPEECH: speech normal Psych: COMMON NORMALS: mental status grossly normal, Normal thought process present, cooperative, normal affect, speech normal and activity/motor behavior normal APPEARANCE: Yes well kempt SPEECH: Yes normal speech THOUGHT PROCESS: Normal thought process present Skin: COMMON NORMALS: no rashes or lesions noted, turgor normal, no jaundice, no petechiae and no mottling GENERAL SKIN EXAM: no rashes or lesions noted and turgor normal Procedures Intubation Time out performed: Yes sedative: Etomidate Mg Given: 20 paralytic: Succinylcholine Mg Given: 150 Laryngoscope: fiber optic video scope ET Tube Size: 8 ET Tube Uncuffed: Yes Tube Placement Confirmation: visualized tube passing through cords, equal breath sounds bilaterally, no breath sounds over epigastrium and confirmation by capnometry Patient Tolerated Procedure: well and no complications Intubation Complications: none Course Vital Signs: Vital signs: Vital Signs Temperature 98.5 F 07/07/20 13:00 Pulse Rate 53 L 07/08/20 03:01 Respiratory Rate 12 07/08/20 03:01 Blood Pressure 120/77 07/08/20 03:01 Pulse Oximetry 90 07/08/20 03:01 MDM - SOB/Dyspnea MDM Narrative: Medical decision making narrative: The patient from time of arrival on has been very sick. He necessitated high flow heated nasal cannula oxygen at 35 L/min and began at 65% FiO2 but this had to be titrated up all the way to 100%. As long as he was upright he had been stable. Both hospitals in [place] could not accept the patient and [facility] with [facility] had no beds. I was able to secure a bed through Dr. Cottrell at the [facility] in [place]. He agreed except the patient in transfer. After discussion he agreed that the patient would need to be intubated as no ground or air ambulance services have the ability to do high flow nasal cannula oxygen and none could do BiPAP because of his COVID status. Patient tolerated intubation well and is currently sedated on fentanyl and propofol. Chest x-ray showed good placement and currently [facility] is in route to come get the patient. 2335 -patient's ABG shows him to be slightly acidotic but more metabolic. I will increase his respiratory rate on his current settings to help compensate. Lab Data: Attestation: I reviewed the patient's lab results. Labs: Lab Results 07/07/20 07/07/20 07/07/20 Range/Units 13:16 13:16 13:16 WBC 9.5 (4.0-10.0) 10^3/ uL RBC 4.70 (4.1-5.3) 10^6/u L Hgb 13.1 (11.7-16.6) g/dL Hct 39.9 L (42.0-52.0) % MCV 84.9 (80-94) fL MCH 27.9 L (28.0-34.0) pg MCHC 32.8 (30.0-36.0) g/dL RDW 15.9 H (12.1-15.1) % Plt Count 159 (130-400) 10^3/c mm MPV 10.6 H (7.4-10.4) fL Neut % (Auto) 73.0 % Lymph % (Auto) 21.8 % Jones % (Auto) 4.5 % Eos % (Auto) 0.0 % Baso % (Auto) 0.2 % Neut # (Auto) 6.91 (1.8-7.7) 10^3/u L Lymph # (Auto) 2.1 (0.8-4.8) 10^3/u L Jones # (Auto) 0.4 (0.2-0.9) 10^3/u L Eos # (Auto) 0.0 (0.0-0.8) 10^3/u L Baso # (Auto) 0.0 (0.0-0.1) 10^3/u L Nucleated RBC % (a uto) 0 % Nucleated RBCs # 0.0 /100WBC ESR (0-10) mm/hr PT 12.70 (12.1-14.9) SECO NDS INR 0.92 (0.8-1.2) D-Dimer (0-0.59) ug/mIFE U Specimen Type Sample Site ABG pH (7.35-7.45) ABG pCO2 (35-45) mmHg ABG pO2 (80.0-100.0) mmH g ABG HCO3 (22-26) mmol/L ABG O2 Saturation ABG Base Excess (-2.0-2.0) mmol/ L Nabeel Test A-a O2 Gradient Hematocrit (42-52) % Hgb O2 Saturation (95-100) % Carboxyhemoglobin (0.4-20.1) %THgb Methemoglobin (0.4-1.5) % Total Hemoglobin (14-18) g/dL Ionized Calcium (1.1-1.4) mmol/L O2 Delivery Device O2 Liters/Min % Mechanical Rate FiO2 % PEEP cmH20 Check Writer ID Sodium 139 (136-145) mmol/L Potassium 3.6 (3.5-5.1) mmol/L Chloride 102 (98-107) mmol/L Carbon Dioxide 23 (22-29) mmol/L Anion Gap 17.6 (5-19) BUN 26 H (8-23) mg/dL Creatinine 1.6 H (0.7-1.2) mg/dL GFR Calculation Not Reportable Glucose 119 H (65-115) mg/dL Calculated Osmolal ity 286 (285-295) mOsm/k g Lactic Acid (0.5-2.2) mmol/L Calcium 8.0 L (8.5-10.5) mg/dL Ferritin (30-400) ng/mL Total Bilirubin 0.6 (0.15-1.2) mg/dL AST 120 H (0-40) U/L ALT 91 H (0-41) U/L Alkaline Phosphata se 59 (40-130) IU/L Troponin T Baselin e (0-15) ng/L Troponin T 120 Min quinault (0-15) ng/L Delta Troponin T (0-10) ABS# Troponin T Hi Sens 6Hr (0-15) ng/L Troponin T Hi Sens 6Hr Delta (0-12) ng/L C-Reactive Protein (0.0-4.9) mg/L NT-Pro-B Natriuret Pep 730 H (0-125) pg/mL Total Protein 6.4 L (6.6-8.7) g/dL Albumin 3.8 (3.5-5.2) g/dL Globulin 2.6 (1.3-4.6) g/dL Urine Color (Yellow) Urine Appearance (CLEAR) Urine pH (5-7) Ur Specific Gravit y (1.005-1.030) Urine Protein (Negative) Urine Glucose (UA) (Normal) Urine Ketones (Negative) Urine Blood (Negative) Urine Nitrate (Negative) Urine Bilirubin (NEGATIVE) Urine Urobilinogen (Negative) mg/dL Ur Leukocyte Karen ase (Negative) Urine RBC (0-2) /hpf Urine WBC (0-5) /hpf Ur Squamous Epith Cells (0-5) Amorphous Sediment Urine Bacteria (NONE) Hyaline Casts Urine Mucus SARS-CoV-2 Ag (Rap id) (Negative) 07/07/20 07/07/20 07/07/20 Range/Units 13:16 13:16 13:16 WBC (4.0-10.0) 10^3/ uL RBC (4.1-5.3) 10^6/u L Hgb (11.7-16.6) g/dL Hct (42.0-52.0) % MCV (80-94) fL MCH (28.0-34.0) pg MCHC (30.0-36.0) g/dL RDW (12.1-15.1) % Plt Count (130-400) 10^3/c mm MPV (7.4-10.4) fL Neut % (Auto) % Lymph % (Auto) % Jones % (Auto) % Eos % (Auto) % Baso % (Auto) % Neut # (Auto) (1.8-7.7) 10^3/u L Lymph # (Auto) (0.8-4.8) 10^3/u L Jones # (Auto) (0.2-0.9) 10^3/u L Eos # (Auto) (0.0-0.8) 10^3/u L Baso # (Auto) (0.0-0.1) 10^3/u L Nucleated RBC % (a uto) % Nucleated RBCs # /100WBC ESR 58 H (0-10) mm/hr PT (12.1-14.9) SECO NDS INR (0.8-1.2) D-Dimer (0-0.59) ug/mIFE U Specimen Type Sample Site ABG pH (7.35-7.45) ABG pCO2 (35-45) mmHg ABG pO2 (80.0-100.0) mmH g ABG HCO3 (22-26) mmol/L ABG O2 Saturation ABG Base Excess (-2.0-2.0) mmol/ L Nabeel Test A-a O2 Gradient Hematocrit (42-52) % Hgb O2 Saturation (95-100) % Carboxyhemoglobin (0.4-20.1) %THgb Methemoglobin (0.4-1.5) % Total Hemoglobin (14-18) g/dL Ionized Calcium (1.1-1.4) mmol/L O2 Delivery Device O2 Liters/Min % Mechanical Rate FiO2 % PEEP cmH20 Check Writer ID Sodium (136-145) mmol/L Potassium (3.5-5.1) mmol/L Chloride (98-107) mmol/L Carbon Dioxide (22-29) mmol/L Anion Gap (5-19) BUN (8-23) mg/dL Creatinine (0.7-1.2) mg/dL GFR Calculation Glucose (65-115) mg/dL Calculated Osmolal ity (285-295) mOsm/k g Lactic Acid 2.2 (0.5-2.2) mmol/L Calcium (8.5-10.5) mg/dL Ferritin (30-400) ng/mL Total Bilirubin (0.15-1.2) mg/dL AST (0-40) U/L ALT (0-41) U/L Alkaline Phosphata se (40-130) IU/L Troponin T Baselin e 52 H (0-15) ng/L Troponin T 120 Min quinault (0-15) ng/L Delta Troponin T (0-10) ABS# Troponin T Hi Sens 6Hr (0-15) ng/L Troponin T Hi Sens 6Hr Delta (0-12) ng/L C-Reactive Protein (0.0-4.9) mg/L NT-Pro-B Natriuret Pep (0-125) pg/mL Total Protein (6.6-8.7) g/dL Albumin (3.5-5.2) g/dL Globulin (1.3-4.6) g/dL Urine Color (Yellow) Urine Appearance (CLEAR) Urine pH (5-7) Ur Specific Gravit y (1.005-1.030) Urine Protein (Negative) Urine Glucose (UA) (Normal) Urine Ketones (Negative) Urine Blood (Negative) Urine Nitrate (Negative) Urine Bilirubin (NEGATIVE) Urine Urobilinogen (Negative) mg/dL Ur Leukocyte Karen ase (Negative) Urine RBC (0-2) /hpf Urine WBC (0-5) /hpf Ur Squamous Epith Cells (0-5) Amorphous Sediment Urine Bacteria (NONE) Hyaline Casts Urine Mucus SARS-CoV-2 Ag (Rap id) (Negative) 07/07/20 07/07/20 07/07/20 Range/Units 13:16 13:16 13:28 WBC (4.0-10.0) 10^3/ uL RBC (4.1-5.3) 10^6/u L Hgb (11.7-16.6) g/dL Hct (42.0-52.0) % MCV (80-94) fL MCH (28.0-34.0) pg MCHC (30.0-36.0) g/dL RDW (12.1-15.1) % Plt Count (130-400) 10^3/c mm MPV (7.4-10.4) fL Neut % (Auto) % Lymph % (Auto) % Jones % (Auto) % Eos % (Auto) % Baso % (Auto) % Neut # (Auto) (1.8-7.7) 10^3/u L Lymph # (Auto) (0.8-4.8) 10^3/u L Jones # (Auto) (0.2-0.9) 10^3/u L Eos # (Auto) (0.0-0.8) 10^3/u L Baso # (Auto) (0.0-0.1) 10^3/u L Nucleated RBC % (a uto) % Nucleated RBCs # /100WBC ESR (0-10) mm/hr PT (12.1-14.9) SECO NDS INR (0.8-1.2) D-Dimer 1.39 H (0-0.59) ug/mIFE U Specimen Type Arterial Sample Site Radial, left ABG pH 7.42 (7.35-7.45) ABG pCO2 32.7 L (35-45) mmHg ABG pO2 108.0 H (80.0-100.0) mmH g ABG HCO3 21.1 L (22-26) mmol/L ABG O2 Saturation 98.3 ABG Base Excess -2.6 L (-2.0-2.0) mmol/ L Nabeel Test Pos A-a O2 Gradient Not Reportable Hematocrit 39.7 L (42-52) % Hgb O2 Saturation 96.8 (95-100) % Carboxyhemoglobin 0.6 (0.4-20.1) %THgb Methemoglobin 0.9 (0.4-1.5) % Total Hemoglobin 12.9 L (14-18) g/dL Ionized Calcium 1.1 (1.1-1.4) mmol/L O2 Delivery Device Nrb O2 Liters/Min 15.0 % Mechanical Rate FiO2 % PEEP cmH20 Check Writer ID Cak Sodium 138.0 (136-145) mmol/L Potassium 3.3 L (3.5-5.1) mmol/L Chloride (98-107) mmol/L Carbon Dioxide (22-29) mmol/L Anion Gap (5-19) BUN (8-23) mg/dL Creatinine (0.7-1.2) mg/dL GFR Calculation Glucose 116.0 H (65-115) mg/dL Calculated Osmolal ity (285-295) mOsm/k g Lactic Acid (0.5-2.2) mmol/L Calcium (8.5-10.5) mg/dL Ferritin 1567 H (30-400) ng/mL Total Bilirubin (0.15-1.2) mg/dL AST (0-40) U/L ALT (0-41) U/L Alkaline Phosphata se (40-130) IU/L Troponin T Baselin e (0-15) ng/L Troponin T 120 Min quinault (0-15) ng/L Delta Troponin T (0-10) ABS# Troponin T Hi Sens 6Hr (0-15) ng/L Troponin T Hi Sens 6Hr Delta (0-12) ng/L C-Reactive Protein 158.5 H (0.0-4.9) mg/L NT-Pro-B Natriuret Pep (0-125) pg/mL Total Protein (6.6-8.7) g/dL Albumin (3.5-5.2) g/dL Globulin (1.3-4.6) g/dL Urine Color (Yellow) Urine Appearance (CLEAR) Urine pH (5-7) Ur Specific Gravit y (1.005-1.030) Urine Protein (Negative) Urine Glucose (UA) (Normal) Urine Ketones (Negative) Urine Blood (Negative) Urine Nitrate (Negative) Urine Bilirubin (NEGATIVE) Urine Urobilinogen (Negative) mg/dL Ur Leukocyte Karen ase (Negative) Urine RBC (0-2) /hpf Urine WBC (0-5) /hpf Ur Squamous Epith Cells (0-5) Amorphous Sediment Urine Bacteria (NONE) Hyaline Casts Urine Mucus SARS-CoV-2 Ag (Rap id) (Negative) 07/07/20 07/07/20 07/07/20 Range/Units 13:33 15:15 17:57 WBC (4.0-10.0) 10^3/ uL RBC (4.1-5.3) 10^6/u L Hgb (11.7-16.6) g/dL Hct (42.0-52.0) % MCV (80-94) fL MCH (28.0-34.0) pg MCHC (30.0-36.0) g/dL RDW (12.1-15.1) % Plt Count (130-400) 10^3/c mm MPV (7.4-10.4) fL Neut % (Auto) % Lymph % (Auto) % Jones % (Auto) % Eos % (Auto) % Baso % (Auto) % Neut # (Auto) (1.8-7.7) 10^3/u L Lymph # (Auto) (0.8-4.8) 10^3/u L Jones # (Auto) (0.2-0.9) 10^3/u L Eos # (Auto) (0.0-0.8) 10^3/u L Baso # (Auto) (0.0-0.1) 10^3/u L Nucleated RBC % (a uto) % Nucleated RBCs # /100WBC ESR (0-10) mm/hr PT (12.1-14.9) SECO NDS INR (0.8-1.2) D-Dimer (0-0.59) ug/mIFE U Specimen Type Sample Site ABG pH (7.35-7.45) ABG pCO2 (35-45) mmHg ABG pO2 (80.0-100.0) mmH g ABG HCO3 (22-26) mmol/L ABG O2 Saturation ABG Base Excess (-2.0-2.0) mmol/ L Nabeel Test A-a O2 Gradient Hematocrit (42-52) % Hgb O2 Saturation (95-100) % Carboxyhemoglobin (0.4-20.1) %THgb Methemoglobin (0.4-1.5) % Total Hemoglobin (14-18) g/dL Ionized Calcium (1.1-1.4) mmol/L O2 Delivery Device O2 Liters/Min % Mechanical Rate FiO2 % PEEP cmH20 Check Writer ID Sodium (136-145) mmol/L Potassium (3.5-5.1) mmol/L Chloride (98-107) mmol/L Carbon Dioxide (22-29) mmol/L Anion Gap (5-19) BUN (8-23) mg/dL Creatinine (0.7-1.2) mg/dL GFR Calculation Glucose (65-115) mg/dL Calculated Osmolal ity (285-295) mOsm/k g Lactic Acid (0.5-2.2) mmol/L Calcium (8.5-10.5) mg/dL Ferritin (30-400) ng/mL Total Bilirubin (0.15-1.2) mg/dL AST (0-40) U/L ALT (0-41) U/L Alkaline Phosphata se (40-130) IU/L Troponin T Baselin e (0-15) ng/L Troponin T 120 Min quinault 45.19 H (0-15) ng/L Delta Troponin T -6.81 L (0-10) ABS# Troponin T Hi Sens 6Hr (0-15) ng/L Troponin T Hi Sens 6Hr Delta (0-12) ng/L C-Reactive Protein (0.0-4.9) mg/L NT-Pro-B Natriuret Pep (0-125) pg/mL Total Protein (6.6-8.7) g/dL Albumin (3.5-5.2) g/dL Globulin (1.3-4.6) g/dL Urine Color Yellow (Yellow) Urine Appearance Clear (CLEAR) Urine pH 5 (5-7) Ur Specific Gravit y 1.010 (1.005-1.030) Urine Protein Neg (Negative) Urine Glucose (UA) Norm (Normal) Urine Ketones Negative (Negative) Urine Blood Neg (Negative) Urine Nitrate Negative (Negative) Urine Bilirubin Neg (NEGATIVE) Urine Urobilinogen Norm (Negative) mg/dL Ur Leukocyte Karen ase Negative (Negative) Urine RBC 0-4 H (0-2) /hpf Urine WBC 0-4 H (0-5) /hpf Ur Squamous Epith Cells 0-4 H (0-5) Amorphous Sediment Not Reportable Urine Bacteria Trace (NONE) Hyaline Casts 0-4 H Urine Mucus Trace SARS-CoV-2 Ag (Rap id) Positive H (Negative) 07/07/20 07/07/20 Range/Units 19:19 23:25 WBC (4.0-10.0) 10^3/ uL RBC (4.1-5.3) 10^6/u L Hgb (11.7-16.6) g/dL Hct (42.0-52.0) % MCV (80-94) fL MCH (28.0-34.0) pg MCHC (30.0-36.0) g/dL RDW (12.1-15.1) % Plt Count (130-400) 10^3/c mm MPV (7.4-10.4) fL Neut % (Auto) % Lymph % (Auto) % Jones % (Auto) % Eos % (Auto) % Baso % (Auto) % Neut # (Auto) (1.8-7.7) 10^3/u L Lymph # (Auto) (0.8-4.8) 10^3/u L Jones # (Auto) (0.2-0.9) 10^3/u L Eos # (Auto) (0.0-0.8) 10^3/u L Baso # (Auto) (0.0-0.1) 10^3/u L Nucleated RBC % (a uto) % Nucleated RBCs # /100WBC ESR (0-10) mm/hr PT (12.1-14.9) SECO NDS INR (0.8-1.2) D-Dimer (0-0.59) ug/mIFE U Specimen Type Arterial Sample Site Radial, left ABG pH 7.33 L (7.35-7.45) ABG pCO2 41.1 (35-45) mmHg ABG pO2 133.0 H (80.0-100.0) mmH g ABG HCO3 21.6 L (22-26) mmol/L ABG O2 Saturation 98.6 ABG Base Excess -4.2 L (-2.0-2.0) mmol/ L Nabeel Test N/a A-a O2 Gradient 68.2 H Hematocrit 42.5 (42-52) % Hgb O2 Saturation 97.7 (95-100) % Carboxyhemoglobin 0.2 L (0.4-20.1) %THgb Methemoglobin 0.8 (0.4-1.5) % Total Hemoglobin 13.9 L (14-18) g/dL Ionized Calcium 1.0 L (1.1-1.4) mmol/L O2 Delivery Device Vent O2 Liters/Min % Mechanical Rate 12.0 FiO2 100.0 % PEEP 10.0 cmH20 Check Writer ID [email or web address] Sodium 143.0 (136-145) mmol/L Potassium 3.3 L (3.5-5.1) mmol/L Chloride (98-107) mmol/L Carbon Dioxide (22-29) mmol/L Anion Gap (5-19) BUN (8-23) mg/dL Creatinine (0.7-1.2) mg/dL GFR Calculation Glucose 179.0 H (65-115) mg/dL Calculated Osmolal ity (285-295) mOsm/k g Lactic Acid (0.5-2.2) mmol/L Calcium (8.5-10.5) mg/dL Ferritin (30-400) ng/mL Total Bilirubin (0.15-1.2) mg/dL AST (0-40) U/L ALT (0-41) U/L Alkaline Phosphata se (40-130) IU/L Troponin T Baselin e (0-15) ng/L Troponin T 120 Min quinault (0-15) ng/L Delta Troponin T (0-10) ABS# Troponin T Hi Sens 6Hr 30.11 H (0-15) ng/L Troponin T Hi Sens 6Hr Delta -21.89 L (0-12) ng/L C-Reactive Protein (0.0-4.9) mg/L NT-Pro-B Natriuret Pep (0-125) pg/mL Total Protein (6.6-8.7) g/dL Albumin (3.5-5.2) g/dL Globulin (1.3-4.6) g/dL Urine Color (Yellow) Urine Appearance (CLEAR) Urine pH (5-7) Ur Specific Gravit y (1.005-1.030) Urine Protein (Negative) Urine Glucose (UA) (Normal) Urine Ketones (Negative) Urine Blood (Negative) Urine Nitrate (Negative) Urine Bilirubin (NEGATIVE) Urine Urobilinogen (Negative) mg/dL Ur Leukocyte Karen ase (Negative) Urine RBC (0-2) /hpf Urine WBC (0-5) /hpf Ur Squamous Epith Cells (0-5) Amorphous Sediment Urine Bacteria (NONE) Hyaline Casts Urine Mucus SARS-CoV-2 Ag (Rap id) (Negative) Imaging Data^: CXR: Radiologist's impression: [address] [id number] XRay Report Signed Patient: Lion Aiken Unit #: [id number] : 1945 Age/Sex: 74 / M ADM Date: 07/07/20 Loc: ER Room/Bed: Attending Dr: Ordering Provider/Ordering MD: Marika Johnson DO Date of Service: 07/07/20 Procedure(s): XR chest 1V portable [id number] Accession Number(s): [id number] Report Number: [id number] WS: [id number] EXAM: AP CHEST: PORTABLE UPRIGHT DATE OF EXAM: 07/07/2020, 1406 hours COMPARISON: NONE HISTORY: Patient is 74 years old with dyspnea. History of colon infection.. FINDINGS: The cardiac silhouette is hard to determine secondary to the degree of infiltrate. Considered slightly enlarged The mediastinal contours are distorted secondary to lordotic positioning. Considered slightly prominent. The pulmonary vascularity is is hard to determine secondary to the degree of infiltrate. Bilateral interstitial infiltrates are demonstrated within both upper lung zones. Additional patchy infiltrate within the left hilar and both lower lobe regions as well. There is no effusion or pneumothorax. Left subclavian port in place with the catheter ending in the SVC region. XR/XR chest 1V portable [id number] IMPRESSION: Fairly extensive bilateral infiltrates. No pneumothorax. Dictated By: Nehemiah Wlaton MD Signed By: Nehemiah Walton MD Signed Date/Time: 07/07/20 1404 DD/ 1400 Post Intubation CXR: Attestation: I personally reviewed and interpreted this imaging study as fo llows: My impression: ET tube and NG tube with good placement. Bilateral infiltrates present. EKG Data^: EKG 1: Attestation: I personally reviewed and interpreted this EKG as follows: EKG Interpretation Date: 07/07/20 EKG interpretation time: 13:40 Interpretation: Normal sinus rhythm at 63 beats a minute, nonspecific ST and T wave changes. EKG 2: Attestation: I personally reviewed and interpreted this EKG as follows: EKG Interpretation Date: 07/07/20 EKG interpretation time: 15:19 Interpretation: Normal sinus rhythm at 63 beats a minute, no acute ST or T wave changes. EKG 3: Attestation: I personally reviewed and interpreted this EKG as follows: EKG Interpretation Date: 07/07/20 EKG interpretation time: 19:53 Interpretation: Normal sinus rhythm at 62 beats a minute, nonspecific ST and T wave changes. Discharge Plan Discharge Patient Disposition: Xfer Short-Term Hosp Clinical Impression: Viral pneumonia, COVID-19 virus infection, Hypoxemia Condition: Stable Discharge Date/Time: 07/08/20 02:50 Coding Level of Care Code ED Price Accuracy Supervisor for Chg Fwd Exam Comprehensive
[2020-07-07] MEDS: piperacillin-tazobactam 3.375 GM in sodium chloride 0.9% (plus) 50 ML IV (13:22)
[2020-07-07] MEDS: ondansetron 2 mg/ML SDV 2 mL 4 MG IVP (13:23)
[2020-07-07] MEDS: dexamethasone 4 mg/mL INJ 8 MG IVP (13:23)
[2020-07-07 13:28] LABS: Basophils % 0.2 %; Hematocrit 39.9 % (42.0-52.0); Hemoglobin 13.1 g/dL (11.7-16.6); Lymphocytes # 2.1 10^3/uL (0.8-4.8); Lymphocytes % 21.8 %; Mean Corpuscular HGB Conc 32.8 g/dL (30.0-36.0); Mean Corpuscular Hemoglobin 27.9 pg (28.0-34.0); Mean Corpuscular Volume 84.9 fL (80-94); Mean Platelet Volume 10.6 fL (7.4-10.4); Monocytes # 0.4 10^3/uL (0.2-0.9); Monocytes % 4.5 %; Neutrophils # 6.91 10^3/uL (1.8-7.7); Nucleated Red Blood Cells % 0 %; Platelet Count 159 10^3/cmm (130-400); Red Cell Distribution Width 15.9 % (12.1-15.1); White Blood Count 9.5 10^3/uL (4.0-10.0)
[2020-07-07] MEDS: sodium chloride 0.9% 1,000 ML 100 ML IV (13:28)
[2020-07-07 13:40] LABS: ABG PCO2 32.7 mmHg (35-45); ABG PH Result 7.42 (7.35-7.45); Arterial Blood Gas Hematocrit 39.7 % (42-52); Base Excess ABG -2.6 mmol/L (-2.0-2.0); Blood Gas Allen Test Pos; Blood Gas Operator Identificat CAK; Blood Gas Sample Site Radial, left; Blood Gas Sample Type Arterial; Carboxyhemoglobin 0.6 %THgb (0.4-20.1); HCO3 ABG 21.1 mmol/L (22-26); HGB O2 Sat 96.8 % (95-100); Ionized Calcium Level - ABG 1.1 mmol/L (1.1-1.4); Methemoglobin 0.9 % (0.4-1.5); Oxygen Device NRB; Oxygen Saturation ABG 98.3; Potassium Level - ABG 3.3 mmol/L (3.5-5.0); Total Hemoglobin 12.9 g/dL (14-18)
[2020-07-07 13:42] LABS: INR 0.92 (0.8-1.2)
[2020-07-07 13:48] LABS: Lactic Sepsis W/Reflex 2.2 mmol/L (0.5-2.2); Troponin(5th) Baseline 52 ng/L (0-15)
[2020-07-07 13:57] LABS: Alanine Aminotransferase 91 U/L (0-41); Albumin Level 3.8 g/dL (3.5-5.2); Alkaline Phosphatase 59 IU/L (40-130); Anion Gap 17.6 (5-19); Aspartate Amino Transferase 120 U/L (0-40); Blood Urea Nitrogen 26 mg/dL (8-23); Carbon Dioxide 23 mmol/L (22-29); Chloride 102 mmol/L (98-107); Globulin 2.6 g/dL (1.3-4.6); Glucose 119 mg/dL (65-115); NT Pro B Type Natriuretic Pept 730 pg/mL (0-125); Osmolality Calculated 286 mOsm/kg (285-295); Potassium 3.6 mmol/L (3.5-5.1); Sodium 139 mmol/L (136-145); Total Bilirubin 0.6 mg/dL (0.15-1.2); Total Protein 6.4 g/dL (6.6-8.7)
--- NOTE | 2020-07-07 14:02 | PC.NURSE ---
nurse swabbed pt for COVID 19 perez virus. pt already on droplet isolation precautions
[2020-07-07 14:03] LABS: SARS Covid-2 Antigen Positive (Negative)
[2020-07-07 15:06] LABS: Reflex Lactate Order REFLEX LACTIC ORDERD
--- NOTE | 2020-07-07 15:14 | ECG_ITS ---
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 Measurements Intervals [place] Rate: 63 P: 52 [place]: 169 QRS: -11 QRSD: 92 T: -12 QT: 415 QTc: 426 Interpretive Statements SINUS RHYTHM NONSPECIFIC T-WAVE ABNORMALITY Compared to ECG 07/07/2020 13:40:15 No significant changes Electronically Signed On 07-09-2020 20:02:21 CDT by Moo Chatman M.D. [email or web address]
[2020-07-07 15:50] LABS: Troponin 5 2HR 45.19 ng/L (0-15); Troponin 5 2HR Delta -6.81 ABS# (0-10)
[2020-07-07 18:04] LABS: D Dimer 1.39 ug/mIFEU (0-0.59)
[2020-07-07 18:08] LABS: C Reactive Protein 158.5 mg/L (0.0-4.9)
[2020-07-07 18:17] LABS: Bilirubin Urine Neg (NEGATIVE); Blood Urine Neg (Negative); Glucose Urine UA Norm (Normal); Ketones Urine Negative (Negative); Leukocyte Esterase Urine Negative (Negative); Nitrate Urine Negative (Negative); Protein Urine Neg (Negative); RBC Urine 0-4 /hpf (0-2); Urine Appearance Clear (CLEAR); Urine Color Yellow (Yellow); Urobilinogen Urine Norm (Negative); pH Urine 5 (5-7)
[2020-07-07 18:18] LABS: Add Urine Culture? No; Bacteria Urine TRACE; Hyaline Casts Urine 0-4; Mucus Urine TRACE; Squamous Epithelial Cell Urine 0-4 (0-5); WBC Urine 0-4 /hpf (0-5)
[2020-07-07 18:26] LABS: Ferritin 1567 ng/mL (30-400)
[2020-07-07 18:35] LABS: Erythrocyte Sedimentation Rate 58 mm/hr (0-10)
--- NOTE | 2020-07-07 19:04 | PC.NURSE ---
patient report received from EMA Dobbs and care transferred to EMA Alfaro
--- NOTE | 2020-07-07 19:14 | ECG_ITS ---
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 Measurements Intervals [place] Rate: 62 P: 52 [place]: 164 QRS: -13 QRSD: 97 T: -11 QT: 421 QTc: 431 Interpretive Statements SINUS RHYTHM NONSPECIFIC T-WAVE ABNORMALITY Compared to ECG 07/07/2020 15:19:29 No significant changes Electronically Signed On 07-09-2020 19:57:03 CDT by Moo Chatman M.D. [email or web address]
[2020-07-07 19:48] LABS: Troponin 5 6HR 30.11 ng/L (0-15)
--- NOTE | 2020-07-07 19:55 | PC.NURSE ---
EKG done at 1950 and shown to ER doctor
[2020-07-07] MEDS: FUROsemide 10 mg/mL SDV 4mL 40 MG IVP (19:58)
[2020-07-07] MEDS: succinylcholine 20 mg/mL SDV 10mL 150 MG IVP (22:51)
[2020-07-07] MEDS: vecuronium 10 mg SDV IVP (22:52)
[2020-07-07] MEDS: propofol 1,000 MG/100 ML INJ 9 MG IV (22:54)
--- NOTE | 2020-07-07 22:55 | XR_ITS ---
WS: [id number] EXAM: AP CHEST: PORTABLE UPRIGHT DATE OF EXAM: 07/07/2020, 2302 hours COMPARISON: Chest x-ray from 1406 hours same date. HISTORY: Patient is 74 years old with respiratory failure. Status post intubation.. FINDINGS: The cardiac silhouette is normal in size. The mediastinal contours show interval placement of an e ndotracheal tube ending midclavicular level. There is also has been placement of a enteric tube which crosses the thoracic esophagus. Left subclavian port remains in place with the catheter tip ending i n the SVC region.. The pulmonary vascularity is congested. There is progressive developing interst itial and slight alveolar infiltrates bilaterally considered fairly severe. Whether this is pneumonia or pulmonary edema or a combination of both is uncertain. There is no effusion or pneumothorax. No acute bony abnormality is seen. XR/XR chest 1V portable [id number] IMPRESSION: Supporting devices as described. Worsening bilateral interstitial and alveolar infiltrate/edema.
[2020-07-07 23:32] LABS: ABG PCO2 41.1 mmHg (35-45); ABG PH Result 7.33 (7.35-7.45); Alveolar-Arterial Oxygen Gradi 68.2 mmHg (5-10); Arterial Blood Gas Hematocrit 42.5 % (42-52); Base Excess ABG -4.2 mmol/L (-2.0-2.0); Blood Gas Sample Site Radial, left; Blood Gas Sample Type Arterial; Carboxyhemoglobin 0.2 %THgb (0.4-20.1); HCO3 ABG 21.6 mmol/L (22-26); HGB O2 Sat 97.7 % (95-100); Methemoglobin 0.8 % (0.4-1.5); Oxygen Device VENT; Oxygen Saturation ABG 98.6; Potassium Level - ABG 3.3 mmol/L (3.5-5.0); Total Hemoglobin 13.9 g/dL (14-18)
[2020-07-08] VITALS (21 sets, daily range): BP systolic 80–134; BP diastolic 49–77; PULSE 51–71; RESP 12–20; O2SAT 88–97
[2020-07-08] MEDS: propofol 1,000 MG/100 ML INJ 24 MG IV (02:51)
--- NOTE | 2020-07-08 03:04 | PC.NURSE ---
Patient loaded into stretcher by [employer] crew and nurse. Patient taken back into [facility] at approx 0055 due to helicopter having technical difficulties unable to fly. Patient taken by second [employer] crew and nurses and respiratory helicopter.
== END 2020-07-08 02:50 | disposition short-term general hospital (02) ==
PROVIDERS: Emergency Provider Emergency Medicine
DX: U07.1 COVID-19 (principal); J12.89 Other viral pneumonia; R09.02 Hypoxemia; I48.91 Unspecified atrial fibrillation; E11.9 Type 2 diabetes mellitus without complications; E78.5 Hyperlipidemia, unspecified; I10 Essential (primary) hypertension; Z85.72 Personal history of non-Hodgkin lymphomas
CPT/HCPCS: 12345; 31500; 36600; 71045; 80051; 80053; 81001; 82728; 82810; 83605; 83880; 83986; 84484; 85025; 85378; 85610; 85651; 86140; 87040; 87205; 87426; 93005; 94799; 96360; 96361; 96365; 96366; 96367; 96368; 96375; 99285; 99291; J0330; J1100; J1940; J2405; J2543; J2704; J3010; J3490; J7030

== ENCOUNTER 2020-08-30 06:14 | Outpatient (CLI) | payer OTHER, SELFPAY | END 2020-08-30 06:15 | disposition home or self-care (01) | LOC: ONCMED 06:16 | PROVIDERS: Visit Provider Internal Medicine Hematology & Oncology | DX: Z45.2 Encounter for adjustment and management of vascular access device (principal) | CPT/HCPCS: 96523 ==

== ENCOUNTER 2020-09-04 08:56 | Outpatient (CLI) | payer OTHER, SELFPAY ==
[2020-09-01] MEDS: iohexol 300 mg/mL 50 mL Btl PO (14:26)
--- NOTE | 2020-09-04 09:00 | CT_ITS ---
WS: [id number] CT ABDOMEN AND PELVIS WITH CONTRAST HISTORY: LYMPHOMA TECHNIQUE: Imaging performed of the abdomen and pelvis with IV contrast. Single phase imaging of the abdomen. Coronal and sagittal reformats are submitted. All CT scans at [facility] use at least one of these dose optimization techniques: automated exposure control; mA and/or kV adjustment per patient size (includes targeted exams where dose is matched to clinical indication); or iterativ e reconstruction. IV CONTRAST: Omnipaque 300; 95 mL IV. Oral contrast: Yes. DLP: 1166.38 mGycm COMPARISON: 01/10/2020, PET/CT 07/31/2019. Lower thorax: Mild groundglass attenuation at the lung bases. New since the prior exam. Heart is norm al size. No hiatal hernia. Liver/biliary system: Hypodensities in the RIGHT and LEFT lobes of the liver are too small to charact erize. No bile duct dilatation. Gallbladder: Cholelithiasis without evidence for acute cholecystitis. No gallbladder wall thickening or pericholecystic edema. Pancreas: Normal. Spleen: Normal. Adrenal glands: Normal. Right kidney: Normal size kidney. Hypodensities are too small to characterize in the upper pole. No o bstruction. Left kidney: Normal size kidney. Numerous hypodensities are stable. No solid mass. Aorta: Mild atherosclerosis with no aneurysm. Lymphadenopathy: None. Free fluid: None. GI tract: Normal appendix. Mild constipation. No obstruction. Abdominal wall: Unremarkable abdominal wall. No hernia. Pelvis: Prostate gland is slightly enlarged with central calcification. No free fluid or adenopathy. Negative urinary bladder. Small subcentimeter iliac chain lymph nodes. Bones: Mild degenerative disc disease throughout the lumbar spine. CT/CT abdomen pelvis w con* [id number] IMPRESSION: 1. No recurrent lymphadenopathy in the abdomen or pelvis. 2. Cholelithiasis without acute cholecystitis. 3. Hepatic and renal hypodensities which are probably cysts. No change.
[2020-09-04] MEDS: iohexol 300 mg/mL 50 mL Btl PO (09:41)
[2020-09-04] MEDS: iohexol 300 mg/mL 100 mL Btl IV (11:04)
== END 2020-09-04 08:57 | disposition home or self-care (01) ==
PROVIDERS: Visit Provider Internal Medicine Hematology & Oncology
DX: C85.90 Non-Hodgkin lymphoma, unspecified, unspecified site (principal); K80.20 Calculus of gallbladder without cholecystitis without obstruction
CPT/HCPCS: 74177; Q9967

== ENCOUNTER 2020-09-13 05:47 | Outpatient (CLI) | payer OTHER, SELFPAY ==
[2020-09-13 09:07] LABS: Basophils # 0.1 10^3/uL (0.0-0.1); Basophils % 0.7 %; Eosinophils # 0.2 10^3/uL (0.0-0.8); Eosinophils % 2.2 %; Hemoglobin 12.7 g/dL (11.7-16.6); Lymphocytes # 4.5 10^3/uL (0.8-4.8); Lymphocytes % 53.3 %; Mean Corpuscular Hemoglobin 27.2 pg (28.0-34.0); Mean Corpuscular Volume 87.8 fL (80-94); Mean Platelet Volume 9.6 fL (7.4-10.4); Monocytes # 0.8 10^3/uL (0.2-0.9); Monocytes % 9.1 %; Neutrophils # 2.93 10^3/uL (1.8-7.7); Neutrophils % 34.5 %; Nucleated Red Blood Cells % 0 %; Platelet Count 252 10^3/cmm (130-400); Red Blood Count 4.67 10^6/uL (4.1-5.3); Red Cell Distribution Width 16.7 % (12.1-15.1); White Blood Count 8.5 10^3/uL (4.0-10.0)
[2020-09-13 09:30] LABS: Alanine Aminotransferase 44 U/L (0-41); Alkaline Phosphatase 84 IU/L (40-130); Anion Gap 13.8 (5-19); Aspartate Amino Transferase 30 U/L (0-40); Blood Urea Nitrogen 13 mg/dL (8-23); Calcium 9.4 mg/dL (8.5-10.5); Carbon Dioxide 25 mmol/L (22-29); Chloride 105 mmol/L (98-107); Globulin 2.9 g/dL (1.3-4.6); Glucose 143 mg/dL (65-115); Lactate Dehydrogenase 162 U/L (135-225); Osmolality Calculated 293 mOsm/kg (285-295); Potassium 3.8 mmol/L (3.5-5.1); Sodium 140 mmol/L (136-145); Total Bilirubin 0.2 mg/dL (0.15-1.2); Total Protein 6.9 g/dL (6.6-8.7)
--- NOTE | 2020-09-13 11:28 | ONC FU_ITS ---
Dr. Catalan follow up note Patient: Lion Aiken Unit #: [id number]: 1945 Dicatated By: Stephanie Catalan M.D.Date of Visit:Sep 13, 2020 Onc Med Follow-up/Prog Note History of Present Illness: Mr. Aiken is a 75-year-old, gentleman with a recent history of progressive right cervical/supraclavicular lymphadenopathy. He has been following with his primary care physician and was given course of oral antibiotic. He did not have any improvement and was referred to ENT for evaluation. On 11/28/[address] scan of neck showed significant right cervical chain lymphadenopathy with extension into supraclavicular region. The largest lymph node at the supraclavicular level III regions measured 3.5 x 2.3 cm. Right intraparotid lobulated mass measuring 1.8 x 1.8 cm. There was an additional cluster along the tail of parotid gland. No laryngeal mass seen. On 12/04/2017 he underwent needle core biopsy of right neck mass. 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 PET/CT from 01/17/18 reported adenopathy at the head and neck area consisting of multiple hypermetabolic lymph nodes bilaterally, more prominent on the right than the left. Intra-parotid, right jugulodigastric, right posterior triangle, bilateral submental, bilateral submandibular and bilateral supraclavicular nodes are consistent with described lymphoma. Right posterior triangle nodes with SUVs of up to 36.2 with right jugulodigastric chain nodes having SUV up to 31.8. Bilateral axillary nodes are FDG positive. There are hypermetabolic mediastinal lymph nodes, subcarinal, paratracheal and bilateral hilar territories at the level of the abdomen- small FDG positive nodes are noted. Most pelvic lymph nodes are radiographically benign and FDG negative. There was no evidence of involvement in the bone marrow. Mr Aiken was offered treatment with R-CHOP. He began his first cycle on 02/10/2018. He did present to the ER on 02/20/2018 with abdominal pain and was treated for gastritis. responded well to Zantac BID. PET/CT imaging from 03/28/2018 reveals partial response to therapy with complete resolution of lymphoma from the level of the chest to the level of the pelvis. No evidence of new lesions, marrow involvement or extranodal disease . Mr Aiken completed his 6th cycle of R-CHOP on 05/26/2018. He has been advised to proceed with maintenance Rituxan 375 mg/m2 every other month on 07/27/18. Patient was referred to lymphoma clinic at [facility] where, on January 25 [address] Florence, and his recommendations were considering involved field radiation therapy to the right neck and observation and if there is a recurrence he would consider R-JOELLE regimen, considering patient age he would not consider hyper CVAD and also as per his evaluation patient is not a candidate for allogeneic stem cell transplantation. Other option would be BTK inhibitors such as ibrutinib or acalabrutinib He also has clinical trial for mentle cell lymphoma but patient is not interested in going to the [place]. And he also suggested to discontinue maintenance therapy with Rituxan , tolerated radiation therapy to the right neck well and Completed on 03/01/2019 Follow-up CT PET scan done on 07/31/2019 showed the right posterior triangle lymph node seen on prior study has resolved. Reactive mediastinal nodes are stable. Mild inflammatory activity in chronic right lower lobe infiltrate is stable. Patient had episode of hematuria for which he underwent CT scan of abdomen pelvis on 01/10/2020 which showed no renal mass, obstruction or calcification. A few scattered cysts within each kidney. Negative urinary bladder. Hepatic steatosis, Underwent follow-up CT scan on September 04, 2020 for progressive transaminases and it showed no recurrent lymphadenopathy in the abdomen or pelvis, hepatic and renal hypodensities are probably cysts, no change. Cholelithiasis without acute cholecystitis. Came for follow-up, denies any specific complaint except patient was admitted to [facility] in [place] in June 2020 with Covid 19 infection and he was intubated and remained on vent for 10 days, of total month stay in the hospital, now has recovered well., Has lost significant weight, but denies any night sweats, fever, but weight loss again due to hospitalization. No jaundice, no nausea or vomiting, no diarrhea constipation. Medications: Airborne 1 Tablet Tablet, chewable Oral daily, AmLODIPine Besylate 1 (10 mg) Tablet Oral daily, Aspirin 1 Tablet (of 81 mg) Oral daily, Atenolol 0.5 Tablet (of 100 mg) Oral daily, Atorvastatin Calcium 0.5 Tablet (of 40 mg) Oral daily, BuPROPion HCl 1 (150 mg) Tablet Oral daily, Cholecalciferol 1 (2000 Units) Capsule Oral daily, Gabapentin 2 Tablet (of 300 mg) Oral b.i.d., HydroCHLOROthiazide 0.5 Tablet (of 25 mg) Oral daily, Lisinopril 1 (40 mg) Tablet Oral daily, MetFORMIN HCl 0.5 Tablet (of 1000 mg) Oral b.i.d. Allergies: No Known Allergies. Review of Systems: Review of Systems is not available for this patient. Vital Signs: Performed on Sep 13, 2020 10:26 Height - 73.00 in Weight - 216.8 lbs (LOW) BSA - 2.23 sq.m BMI - 28.60 Temperature - 98.2 F (LOW) Pulse - 78 /min Respiration - 16 /min BP - 158/80 mm(hg) (HIGH) O2 Sat - 95 % (LOW) Pain - 0 Performance Status: 0 - Fully active, able to carry on all predisease activities without restrictions. (ECOG) Physical Examination: ENMT - No mouth sores, no thrush, no jaundice, Hematologic/Lymphatic - No tender or palpable lymph nodes in the cervical, supraclavicular, axillary or inguinal area, Respiratory - Lungs are clear to auscultation, Cardiovascular - Regular rate and rhythm of heart, Abdomen - Soft, bowel sounds present, Extremities - No visible edema. Lab/Imaging: Most recent lab results are not available for this patient. Impression: Large B-cell lymphoma, mantle cell lymphoma, blastoid variant. Immunohistochemistry showed strongly positive for CD20, CD5, cyclin D1,SOX 11, BCL 2, CMYC, Mum 1, and CD23 Ki-67 demonstrated marked increased proliferative rate 60-80% IPI score 3 with high proliferative index and strongly positive for SOX 11, CT scan of neck done on 11/28/2017 showed significant right cervical chain lymphadenopathy with extension into supraclavicular and level III regions. The largest lymph node measured 3.5 x 2.3 cm, next Right intraparotid lobulated mass measuring 1.8 x 1.8 cm, there is an additional cluster along the tail of parotid gland. These may be abnormal lymph nodes or a primary parotid tumor. No laryngeal mass seen CT PET scan done on 01/17/2018 showed multiple hypermetabolic cervical lymph nodes more prominent on right side, intra parotid, right jugulodigastric, right posterior triangle, bilateral submental and bilateral submandibular bilateral supraclavicular, there are hypermetabolic mediastinal lymph nodes in the subcarinal, paratracheal, bilateral hilar and external iliac lymph nodes bilaterally. With a normal spleen and liver. Stage III. discussed with Mr Aiken the CT PET scan report which showed lymph node involvement on both sides of diaphragm which was making stage III with no B symptoms. He was complaining of heartburn, indigestion could be simple PUD or need to rule out mantle cell involvement. Mr Aiken was advised to consider EGD and colonoscopy. Colonoscopy is pending at this visit. His IPI score is high intermediate risk, but highly Ki-67 in the range of 60-80% with strong expression of SOX 11 and being blastoid variant; Mr Aiken was advised to consider systemic chemotherapy upfront. 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 Mr Aiken was offered treatment with R-CHOP. He began his first cycle on 02/10/2018. Cycle 3 was given on 03/24/2018. PET/CT imaging from 03/28/20185 reveals partial response to therapy with complete resolution of lymphoma from th level of the chest to the level of the pelvis. No evidence of new lesions, marrow involvement or extranodal disease . He has completed [address] cycles [address] R-CHOP. [address] PET scan done on 06/20/2018 showed interval improvement in the right cervical posterior triangle lymph node since prior study however there is new, subtle increased activity in mediastinal lymph nodes, in the right peritracheal and bilateral hilar distributions this. Right hilar lymph node has SUV 3.9 concerning for recurrent malignancy. Mr Aiken has been offered maintenance therapy with Rituxan 375 mg/M2 every 2 months Starting on 07/27/2018 followup PET/CT after 3rd dose . Done on 12/26/2018 showed this is recurrence of lymphoma in right posterior cervical triangle lymph node. The index node now measure 1.4 x 1.2 cm with an SUV of 28.8. Other, subcentimeter nodes in the same territory are FDG positive as well consistent with micrometastatic disease. Low-grade activity in mediastinal nodes is not significant different from the previous study and are most likely reactive Patient was referred to lymphoma clinic at [facility] where he saw , on 01/25/2019 and his recommendations were clinical trial for Mantle cell lymphoma but patient declined. And other option would be involved field radiation therapy to right neck and followed by observation in case relapse then consider R-JOELLE regimen as patient is not a candidate for allogeneic stem cell transplantation. Other option would be BTK inhibitor like ibrutinib or acalabrutinib. And also suggested to discontinue maintenance therapy with Rituxan considering toxicity and questionable benefits Status post involved field radiation therapy to the right neck completed on 03/01/2019 Plan: Discussed with patient regarding his labs white blood count 8.5 hemoglobin 12.7 hematocrit 41 platelets 2 52,000, CMP within normal limits ALT 44 compared to 107 on June 30, 2020 and AST 30 compared to 84 on June 30, 2020, And CT scan of abdomen pelvis findings Clinically, patient has no new signs symptom suggestive of disease progression but he was recently discharged from hospital where he was treated as inpatient for Covid 19 infection, now recovering well. His follow-up CT scan which was done for progressive transaminases level showed no evidence of lymphadenopathy, his lab work-up shows transaminase level has improved, could be due to weight loss causing. Improvement in hepatic steatosis Patient return to clinic in 6 months with CBC CMP and LDH Signed By: Stephanie Catalan M.D. <<Signature on File>>
== END 2020-09-13 05:48 | disposition home or self-care (01) ==
LOC: ONCMED 05:48
PROVIDERS: Visit Provider Internal Medicine Hematology & Oncology
DX: C83.11 Mantle cell lymphoma, lymph nodes of head, face, and neck (principal); R63.4 Abnormal weight loss; Z86.19 Personal history of other infectious and parasitic diseases; Z92.3 Personal history of irradiation
CPT/HCPCS: 36591; 80053; 83615; 85025; G0463

== ENCOUNTER 2020-10-03 08:55 | Outpatient (CLI) | payer OTHER, SELFPAY | END 2020-10-03 08:56 | disposition home or self-care (01) | LOC: ONCMED 08:56 | PROVIDERS: Visit Provider Nurse Practitioner | DX: Z45.2 Encounter for adjustment and management of vascular access device (principal) | CPT/HCPCS: 96523 ==

== ENCOUNTER 2020-10-31 11:16 | Outpatient (CLI) | payer OTHER, SELFPAY | END 2020-10-31 11:17 | disposition home or self-care (01) | LOC: ONCMED 11:17 | PROVIDERS: Visit Provider Nurse Practitioner | DX: Z45.2 Encounter for adjustment and management of vascular access device (principal) | CPT/HCPCS: 96523 ==

== ENCOUNTER 2020-12-05 11:13 | Outpatient (CLI) | payer OTHER, SELFPAY | END 2020-12-05 11:14 | disposition home or self-care (01) | LOC: ONCMED 11:14 | PROVIDERS: PCP Family Medicine; Visit Provider Nurse Practitioner | DX: Z45.2 Encounter for adjustment and management of vascular access device (principal) | CPT/HCPCS: 96523 ==

== ENCOUNTER 2021-01-15 13:45 | Outpatient (CLI) | payer OTHER, SELFPAY | END 2021-01-15 13:46 | disposition home or self-care (01) | LOC: ONCMED 13:46 | PROVIDERS: PCP Family Medicine; Visit Provider Nurse Practitioner | DX: Z45.2 Encounter for adjustment and management of vascular access device (principal) | CPT/HCPCS: 96523 ==

== ENCOUNTER 2021-02-20 13:06 | Outpatient (CLI) | payer OTHER, MEDICARE, SELFPAY | END 2021-02-20 13:07 | disposition home or self-care (01) | PROVIDERS: PCP Family Medicine; Visit Provider Internal Medicine Hematology & Oncology | DX: Z45.2 Encounter for adjustment and management of vascular access device (principal) | CPT/HCPCS: 96523 ==

== ENCOUNTER 2021-03-14 08:30 | Outpatient (CLI) | payer OTHER, MEDICARE, SELFPAY ==
[2021-03-14 09:22] LABS: Basophils # 0.1 10^3/uL (0.0-0.1); Basophils % 0.7 %; Eosinophils # 0.2 10^3/uL (0.0-0.8); Eosinophils % 2.1 %; Hematocrit 41.2 % (42.0-52.0); Hemoglobin 13.1 g/dL (11.7-16.6); Lymphocytes # 3.9 10^3/uL (0.8-4.8); Mean Corpuscular HGB Conc 31.8 g/dL (30.0-36.0); Mean Corpuscular Hemoglobin 27.6 pg (28.0-34.0); Mean Corpuscular Volume 86.9 fL (80-94); Mean Platelet Volume 9.9 fL (7.4-10.4); Monocytes # 0.7 10^3/uL (0.2-0.9); Monocytes % 9.1 %; Neutrophils # 2.78 10^3/uL (1.8-7.7); Neutrophils % 36.7 %; Nucleated Red Blood Cells % 0 %; Platelet Count 245 10^3/cmm (130-400); Red Blood Count 4.74 10^6/uL (4.1-5.3); Red Cell Distribution Width 15.7 % (12.1-15.1); White Blood Count 7.6 10^3/uL (4.0-10.0)
[2021-03-14 09:55] LABS: Alanine Aminotransferase 46 U/L (0-41); Alkaline Phosphatase 77 IU/L (40-130); Chloride 102 mmol/L (98-107); Lactate Dehydrogenase 165 U/L (135-225); Potassium 3.6 mmol/L (3.5-5.1); Sodium 138 mmol/L (136-145)
[2021-03-14 10:17] LABS: Anion Gap 14.6 (5-19); Aspartate Amino Transferase 32 U/L (0-40); Blood Urea Nitrogen 17 mg/dL (8-23); Calcium 8.7 mg/dL (8.5-10.5); Carbon Dioxide 25 mmol/L (22-29); Globulin 2.9 g/dL (1.3-4.6); Glucose 129 mg/dL (65-115); Osmolality Calculated 289 mOsm/kg (285-295); Total Bilirubin 0.3 mg/dL (0.15-1.2); Total Protein 6.9 g/dL (6.6-8.7)
--- NOTE | 2021-03-14 11:14 | ONC FU_ITS ---
Dr. Catalan follow up note Patient: Lion Aiken Unit #: [id number]: [id number] Dicatated By: Stephanie Catalan M.D.Date of Visit:Mar 14, 2021 Onc Med Follow-up/Prog Note History of Present Illness: Mr. Aiken is a 75-year-old, gentleman with a recent history of progressive right cervical/supraclavicular lymphadenopathy. He has been following with his primary care physician and was given course of oral antibiotic. He did not have any improvement and was referred to ENT for evaluation. On 11/28/[address] scan of neck showed significant right cervical chain lymphadenopathy with extension into supraclavicular region. The largest lymph node at the supraclavicular level III regions measured 3.5 x 2.3 cm. Right intraparotid lobulated mass measuring 1.8 x 1.8 cm. There was an additional cluster along the tail of parotid gland. No laryngeal mass seen. On 12/04/2017 he underwent needle core biopsy of right neck mass. 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 PET/CT from 01/17/18 reported adenopathy at the head and neck area consisting of multiple hypermetabolic lymph nodes bilaterally, more prominent on the right than the left. Intra-parotid, right jugulodigastric, right posterior triangle, bilateral submental, bilateral submandibular and bilateral supraclavicular nodes are consistent with described lymphoma. Right posterior triangle nodes with SUVs of up to 36.2 with right jugulodigastric chain nodes having SUV up to 31.8. Bilateral axillary nodes are FDG positive. There are hypermetabolic mediastinal lymph nodes, subcarinal, paratracheal and bilateral hilar territories at the level of the abdomen- small FDG positive nodes are noted. Most pelvic lymph nodes are radiographically benign and FDG negative. There was no evidence of involvement in the bone marrow. Mr Aiken was offered treatment with R-CHOP. He began his first cycle on 02/10/2018. He did present to the ER on 02/20/2018 with abdominal pain and was treated for gastritis. responded well to Zantac BID. PET/CT imaging from 03/28/2018 reveals partial response to therapy with complete resolution of lymphoma from the level of the chest to the level of the pelvis. No evidence of new lesions, marrow involvement or extranodal disease . Mr Aiken completed his 6th cycle of R-CHOP on 05/26/2018. He has been advised to proceed with maintenance Rituxan 375 mg/m2 every other month on 07/27/18. Patient was referred to lymphoma clinic at [facility] where, on January 25 [address] Florence, and his recommendations were considering involved field radiation therapy to the right neck and observation and if there is a recurrence he would consider R-JOELLE regimen, considering patient age he would not consider hyper CVAD and also as per his evaluation patient is not a candidate for allogeneic stem cell transplantation. Other option would be BTK inhibitors such as ibrutinib or acalabrutinib He also has clinical trial for mentle cell lymphoma but patient is not interested in going to the [place]. And he also suggested to discontinue maintenance therapy with Rituxan , tolerated radiation therapy to the right neck well and Completed on 03/01/2019 Follow-up CT PET scan done on 07/31/2019 showed the right posterior triangle lymph node seen on prior study has resolved. Reactive mediastinal nodes are stable. Mild inflammatory activity in chronic right lower lobe infiltrate is stable. Patient had episode of hematuria for which he underwent CT scan of abdomen pelvis on 01/10/2020 which showed no renal mass, obstruction or calcification. A few scattered cysts within each kidney. Negative urinary bladder. Hepatic steatosis, Underwent follow-up CT scan on September 04, 2020 for progressive transaminases and it showed no recurrent lymphadenopathy in the abdomen or pelvis, hepatic and renal hypodensities are probably cysts, no change. Cholelithiasis without acute cholecystitis. Came for follow-up, denies any specific complaints, no fever chills, no nausea or vomiting, no diarrhea or constipation, no night sweats, no weight loss rather gain. No peripheral lymphadenopathy, no abdominal fullness Medications: Airborne 1 Tablet Tablet, chewable Oral daily, AmLODIPine Besylate 1 (10 mg) Tablet Oral daily, Aspirin 1 Tablet (of 81 mg) Oral daily, Atenolol 0.5 Tablet (of 100 mg) Oral daily, Atorvastatin Calcium 0.5 Tablet (of 40 mg) Oral daily, BuPROPion HCl 1 (150 mg) Tablet Oral daily, Cholecalciferol 1 (2000 Units) Capsule Oral daily, Gabapentin 2 Tablet (of 300 mg) Oral b.i.d., HydroCHLOROthiazide 0.5 Tablet (of 25 mg) Oral daily, Lisinopril 1 (40 mg) Tablet Oral daily, MetFORMIN HCl 0.5 Tablet (of 1000 mg) Oral b.i.d. Allergies: No Known Allergies. Review of Systems: Review of Systems is not available for this patient. Vital Signs: Performed on Mar 14, 2021 11:00 Height - 73.00 in Weight - 233.0 lbs (HIGH) BSA - 2.30 sq.m BMI - 30.74 (HIGH) Temperature - 97.8 F (LOW) Pulse - 83 /min Respiration - 18 /min BP - 178/82 mm(hg) (HIGH) O2 Sat - 95 % (LOW) Pain - 0 Performance Status: 0 - Fully active, able to carry on all predisease activities without restrictions. (ECOG) Physical Examination: ENMT - No mouth sores, no thrush, no jaundice no cervical lymphadenopathy no axillary lymphadenopathy, Respiratory - Lungs are clear to auscultation, Cardiovascular - Regular rate and rhythm of heart, Abdomen - Soft, bowel sounds present, Extremities - No visible edema. Lab/Imaging: Most recent lab results are not available for this patient. Impression: Large B-cell lymphoma, mantle cell lymphoma, blastoid variant. Immunohistochemistry showed strongly positive for CD20, CD5, cyclin D1,SOX 11, BCL 2, CMYC, Mum 1, and CD23 Ki-67 demonstrated marked increased proliferative rate 60-80% IPI score 3 with high proliferative index and strongly positive for SOX 11, CT scan of neck done on 11/28/2017 showed significant right cervical chain lymphadenopathy with extension into supraclavicular and level III regions. The largest lymph node measured 3.5 x 2.3 cm, next Right intraparotid lobulated mass measuring 1.8 x 1.8 cm, there is an additional cluster along the tail of parotid gland. These may be abnormal lymph nodes or a primary parotid tumor. No laryngeal mass seen CT PET scan done on 01/17/2018 showed multiple hypermetabolic cervical lymph nodes more prominent on right side, intra parotid, right jugulodigastric, right posterior triangle, bilateral submental and bilateral submandibular bilateral supraclavicular, there are hypermetabolic mediastinal lymph nodes in the subcarinal, paratracheal, bilateral hilar and external iliac lymph nodes bilaterally. With a normal spleen and liver. Stage III. discussed with Mr Aiken the CT PET scan report which showed lymph node involvement on both sides of diaphragm which was making stage III with no B symptoms. He was complaining of heartburn, indigestion could be simple PUD or need to rule out mantle cell involvement. Mr Aiken was advised to consider EGD and colonoscopy. Colonoscopy is pending at this visit. His IPI score is high intermediate risk, but highly Ki-67 in the range of 60-80% with strong expression of SOX 11 and being blastoid variant; Mr Aiken was advised to consider systemic chemotherapy upfront. Mr Aiken has no [employer] symptoms and the PET/CT did not report bone marrow involvement, so we will not pursue spinal fluid evaluation at this time. Mr Aiken was offered treatment with R-CHOP. He began his first cycle on 02/10/2018. Cycle 3 was given on 03/24/2018. PET/CT imaging from 03/28/20185 reveals partial response to therapy with complete resolution of lymphoma from th level of the chest to the level of the pelvis. No evidence of new lesions, marrow involvement or extranodal disease . He has completed 6 cycles of R-CHOP. CT PET scan done on 06/20/2018 showed interval improvement in the right cervical posterior triangle lymph node since prior study however there is new, subtle increased activity in mediastinal lymph nodes, in the right peritracheal and bilateral hilar distributions this. Right hilar lymph node has SUV 3.9 concerning for recurrent malignancy. Mr Aiken has been offered maintenance therapy with Rituxan 375 mg/M2 every 2 months Starting on 07/27/2018 followup PET/CT after 3rd dose . Done on 12/26/2018 showed this is recurrence of lymphoma in right posterior cervical triangle lymph node. The index node now measure 1.4 x 1.2 cm with an SUV of 28.8. Other, subcentimeter nodes in the same territory are FDG positive as well consistent with micrometastatic disease. Low-grade activity in mediastinal nodes is not significant different from the previous study and are most likely reactive Patient was referred to lymphoma clinic at [facility] where he saw , on 01/25/2019 and his recommendations were clinical trial for Mantle cell lymphoma but patient declined. And other option would be involved field radiation therapy to right neck and followed by observation in case relapse then consider R-JOELLE regimen as patient is not a candidate for allogeneic stem cell transplantation. Other option would be BTK inhibitor like ibrutinib or acalabrutinib. And also suggested to discontinue maintenance therapy with Rituxan considering toxicity and questionable benefits Status post involved field radiation therapy to the right neck completed on 03/01/2019 Plan: Discussed with patient regarding his labs white blood count 7.6 hemoglobin 13.1 hematocrit 41.2 platelets 245,000 with normal differential CMP within normal limits except ALT 46 compared to 44 previously and AST 32, LDH 165 Clinically, patient is doing well with no new signs symptom, no B symptoms, no peripheral lymphadenopathy on exam, his lab work-up is within normal range including LDH We will continue to monitor and he will return to clinic in 3 months with CBC CMP and LDH Signed By: Stephanie Catalan M.D. <<Signature on File>>
== END 2021-03-14 08:31 | disposition home or self-care (01) ==
LOC: ONCMED 08:33
PROVIDERS: PCP Family Medicine; Visit Provider Internal Medicine Hematology & Oncology
DX: C83.11 Mantle cell lymphoma, lymph nodes of head, face, and neck (principal); D70.1 Agranulocytosis secondary to cancer chemotherapy; T45.1X5A Adverse effect of antineoplastic and immunosuppressive drugs, initial encounter; Z79.899 Other long term (current) drug therapy
CPT/HCPCS: 36591; 80053; 83615; 85025; 99214

== ENCOUNTER 2021-04-24 12:20 | Outpatient (CLI) | payer OTHER, MEDICARE, SELFPAY | END 2021-04-24 12:21 | disposition home or self-care (01) | LOC: ONCMED 12:21 | PROVIDERS: PCP Family Medicine; Visit Provider Internal Medicine Hematology & Oncology | DX: Z45.2 Encounter for adjustment and management of vascular access device (principal) | CPT/HCPCS: 96523 ==

== ENCOUNTER 2021-06-13 12:35 | Outpatient (CLI) | payer OTHER, MEDICARE, SELFPAY ==
[2021-06-13 13:10] LABS: Basophils # 0.1 10^3/uL (0.0-0.1); Basophils % 0.6 %; Eosinophils # 0.2 10^3/uL (0.0-0.8); Eosinophils % 1.9 %; Hematocrit 42.4 % (42.0-52.0); Hemoglobin 13.4 g/dL (11.7-16.6); Lymphocytes # 3.4 10^3/uL (0.8-4.8); Mean Corpuscular HGB Conc 31.6 g/dL (30.0-36.0); Mean Corpuscular Hemoglobin 27.6 pg (28.0-34.0); Mean Corpuscular Volume 87.4 fL (80-94); Monocytes # 0.7 10^3/uL (0.2-0.9); Neutrophils # 3.59 10^3/uL (1.8-7.7); Neutrophils % 45.2 %; Nucleated Red Blood Cells % 0 %; Platelet Count 247 10^3/cmm (130-400); Red Blood Count 4.85 10^6/uL (4.1-5.3); Red Cell Distribution Width 15.9 % (12.1-15.1); White Blood Count 7.9 10^3/uL (4.0-10.0)
[2021-06-13 13:32] LABS: Alanine Aminotransferase 42 U/L (0-41); Alkaline Phosphatase 91 IU/L (40-130); Anion Gap 13.7 (5-19); Aspartate Amino Transferase 28 U/L (0-40); Blood Urea Nitrogen 15 mg/dL (8-23); Calcium 8.7 mg/dL (8.5-10.5); Carbon Dioxide 26 mmol/L (22-29); Chloride 104 mmol/L (98-107); Glucose 130 mg/dL (65-115); Lactate Dehydrogenase 195 U/L (135-225); Osmolality Calculated 293 mOsm/kg (285-295); Potassium 3.7 mmol/L (3.5-5.1); Sodium 140 mmol/L (136-145); Total Bilirubin 0.3 mg/dL (0.15-1.2)
--- NOTE | 2021-06-13 16:55 | ONC FU_ITS ---
Dr. Catalan follow up note Patient: Loin Aiken Unit #: [id number]: [id number] Dicatated By: Stephanie Catalan M.D.Date of Visit:Jun 13, 2021 Onc Med Follow-up/Prog Note History of Present Illness: Mr. Aiken is a 75-year-old, gentleman with a recent history of progressive right cervical/supraclavicular lymphadenopathy. He has been following with his primary care physician and was given course of oral antibiotic. He did not have any improvement and was referred to ENT for evaluation. On 11/28/[address] scan of neck showed significant right cervical chain lymphadenopathy with extension into supraclavicular region. The largest lymph node at the supraclavicular level III regions measured 3.5 x 2.3 cm. Right intraparotid lobulated mass measuring 1.8 x 1.8 cm. There was an additional cluster along the tail of parotid gland. No laryngeal mass seen. On 12/04/2017 he underwent needle core biopsy of right neck mass. 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 PET/CT from 01/17/18 reported adenopathy at the head and neck area consisting of multiple hypermetabolic lymph nodes bilaterally, more prominent on the right than the left. Intra-parotid, right jugulodigastric, right posterior triangle, bilateral submental, bilateral submandibular and bilateral supraclavicular nodes are consistent with described lymphoma. Right posterior triangle nodes with SUVs of up to 36.2 with right jugulodigastric chain nodes having SUV up to 31.8. Bilateral axillary nodes are FDG positive. There are hypermetabolic mediastinal lymph nodes, subcarinal, paratracheal and bilateral hilar territories at the level of the abdomen- small FDG positive nodes are noted. Most pelvic lymph nodes are radiographically benign and FDG negative. There was no evidence of involvement in the bone marrow. Mr Aiken was offered treatment with R-CHOP. He began his first cycle on 02/10/2018. He did present to the ER on 02/20/2018 with abdominal pain and was treated for gastritis. responded well to Zantac BID. PET/CT imaging from 03/28/2018 reveals partial response to therapy with complete resolution of lymphoma from the level of the chest to the level of the pelvis. No evidence of new lesions, marrow involvement or extranodal disease . Mr Aiken completed his 6th cycle of R-CHOP on 05/26/2018. He has been advised to proceed with maintenance Rituxan 375 mg/m2 every other month on 07/27/18. Patient was referred to lymphoma clinic at [facility] where, on January 25 [address] Florence, and his recommendations were considering involved field radiation therapy to the right neck and observation and if there is a recurrence he would consider R-JOELLE regimen, considering patient age he would not consider hyper CVAD and also as per his evaluation patient is not a candidate for allogeneic stem cell transplantation. Other option would be BTK inhibitors such as ibrutinib or acalabrutinib He also has clinical trial for mentle cell lymphoma but patient is not interested in going to the [place]. And he also suggested to discontinue maintenance therapy with Rituxan , tolerated radiation therapy to the right neck well and Completed on 03/01/2019 Follow-up CT PET scan done on 07/31/2019 showed the right posterior triangle lymph node seen on prior study has resolved. Reactive mediastinal nodes are stable. Mild inflammatory activity in chronic right lower lobe infiltrate is stable. Patient had episode of hematuria for which he underwent CT scan of abdomen pelvis on 01/10/2020 which showed no renal mass, obstruction or calcification. A few scattered cysts within each kidney. Negative urinary bladder. Hepatic steatosis, Underwent follow-up CT scan on September 04, 2020 for progressive transaminases and it showed no recurrent lymphadenopathy in the abdomen or pelvis, hepatic and renal hypodensities are probably cysts, no change. Cholelithiasis without acute cholecystitis. Came for follow-up, denies any specific complaints, no fever chills, no nausea or vomiting, no diarrhea or constipation, no night sweats, no weight loss, no recurrent fever, no peripheral lymphadenopathy or abdominal fullness Medications: Airborne 1 Tablet Tablet, chewable Oral daily, AmLODIPine Besylate 1 (10 mg) Tablet Oral daily, Aspirin 1 Tablet (of 81 mg) Oral daily, Atenolol 0.5 Tablet (of 100 mg) Oral daily, Atorvastatin Calcium 0.5 Tablet (of 40 mg) Oral daily, BuPROPion HCl 1 (150 mg) Tablet Oral daily, Cholecalciferol 1 (2000 Units) Capsule Oral daily, Gabapentin 2 Tablet (of 300 mg) Oral b.i.d., HydroCHLOROthiazide 0.5 Tablet (of 25 mg) Oral daily, Lisinopril 1 (40 mg) Tablet Oral daily, MetFORMIN HCl 0.5 Tablet (of 1000 mg) Oral b.i.d. Allergies: No Known Allergies. Review of Systems: Review of Systems is not available for this patient. Vital Signs: Performed on Jun 13, 2021 14:43 Height - 73.00 in Weight - 232 lbs (LOW) BSA - 2.29 sq.m BMI - 30.61 (HIGH) Temperature - 98.4 F Pulse - 73 /min Respiration - 18 /min BP - 151/84 mm(hg) (HIGH) O2 Sat - 98 % Pain - 6 Performance Status: 0 - Fully active, able to carry on all predisease activities without restrictions. (ECOG) Physical Examination: ENMT - No mouth sores, no thrush, no jaundice, no cervical or axillary lymphadenopathy, Respiratory - Lungs are clear to auscultation, Cardiovascular - Regular rate and rhythm of heart , Abdomen - Soft, bowel sounds present, Extremities - No visible edema or rash. Lab/Imaging: Most recent lab results are not available for this patient. Impression: Large B-cell lymphoma, mantle cell lymphoma, blastoid variant. Immunohistochemistry showed strongly positive for CD20, CD5, cyclin D1,SOX 11, BCL 2, CMYC, Mum 1, and CD23 Ki-67 demonstrated marked increased proliferative rate 60-80% IPI score 3 with high proliferative index and strongly positive for SOX 11, CT scan of neck done on 11/28/2017 showed significant right cervical chain lymphadenopathy with extension into supraclavicular and level III regions. The largest lymph node measured 3.5 x 2.3 cm, next Right intraparotid lobulated mass measuring 1.8 x 1.8 cm, there is an additional cluster along the tail of parotid gland. These may be abnormal lymph nodes or a primary parotid tumor. No laryngeal mass seen CT PET scan done on 01/17/2018 showed multiple hypermetabolic cervical lymph nodes more prominent on right side, intra parotid, right jugulodigastric, right posterior triangle, bilateral submental and bilateral submandibular bilateral supraclavicular, there are hypermetabolic mediastinal lymph nodes in the subcarinal, paratracheal, bilateral hilar and external iliac lymph nodes bilaterally. With a normal spleen and liver. Stage III. discussed with Mr Aiken the CT PET scan report which showed lymph node involvement on both sides of diaphragm which was making stage III with no B symptoms. He was complaining of heartburn, indigestion could be simple PUD or need to rule out mantle cell involvement. Mr Aiken was advised to consider EGD and colonoscopy. Colonoscopy is pending at this visit. His IPI score is high intermediate risk, but highly Ki-67 in the range of 60-80% with strong expression of SOX 11 and being blastoid variant; Mr Aiken was advised to consider systemic chemotherapy upfront. Mr Aiken has no [employer]OR [employer] SALES symptoms and the PET/CT did not report bone marrow involvement, so we will not pursue spinal fluid evaluation at this time. Mr Aiken was offered treatment with R-CHOP. He began his first cycle on 02/10/2018. Cycle 3 was given on 03/24/2018. PET/CT imaging from 03/28/20185 reveals partial response to therapy with complete resolution of lymphoma from th level of the chest to the level of the pelvis. No evidence of new lesions, marrow involvement or extranodal disease . He has completed 6 cycles of R-CHOP. [address] PET scan done on 06/20/2018 showed interval improvement in the right cervical posterior triangle lymph node since prior study however there is new, subtle increased activity in mediastinal lymph nodes, in the right peritracheal and bilateral hilar distributions this. Right hilar lymph node has SUV 3.9 concerning for recurrent malignancy. Mr Aiken has been offered maintenance therapy with Rituxan 375 mg/M2 every 2 months Starting on 07/27/2018 followup PET/CT after 3rd dose . Done on 12/26/2018 showed this is recurrence of lymphoma in right posterior cervical triangle lymph node. The index node now measure 1.4 x 1.2 cm with an SUV of 28.8. Other, subcentimeter nodes in the same territory are FDG positive as well consistent with micrometastatic disease. Low-grade activity in mediastinal nodes is not significant different from the previous study and are most likely reactive Patient was referred to lymphoma clinic at [facility] where he saw , on 01/25/2019 and his recommendations were clinical trial for Mantle cell lymphoma but patient declined. And other option would be involved field radiation therapy to right neck and followed by observation in case relapse then consider R-JOELLE regimen as patient is not a candidate for allogeneic stem cell transplantation. Other option would be BTK inhibitor like ibrutinib or acalabrutinib. And also suggested to discontinue maintenance therapy with Rituxan considering toxicity and questionable benefits Status post involved field radiation therapy to the right neck completed on 03/01/2019 Plan: Discussed with patient regarding his labs white blood count 7.9 hemoglobin 13.4 hematocrit 42.4 platelets 247,000 CMP within normal limits including LDH, Clinically, patient doing well with no new signs symptoms, no B symptoms, his lab work-up is within normal range. On physical exam no peripheral lymphadenopathy or organomegaly, He will return to clinic in 6 months with CBC CMP and LDH follow-up CT scan of chest abdomen pelvis Signed By: Stephanie Catalan M.D. <<Signature on File>>
== END 2021-06-13 12:36 | disposition home or self-care (01) ==
LOC: ONCMED 12:38
PROVIDERS: PCP Family Medicine; Visit Provider Internal Medicine Hematology & Oncology
DX: Z08 Encounter for follow-up examination after completed treatment for malignant neoplasm (principal); Z85.72 Personal history of non-Hodgkin lymphomas; K21.9 Gastro-esophageal reflux disease without esophagitis; Z79.899 Other long term (current) drug therapy; Z92.21 Personal history of antineoplastic chemotherapy; Z92.3 Personal history of irradiation
CPT/HCPCS: 36415; 36591; 80053; 83615; 85025; 99214

== ENCOUNTER 2021-07-12 08:52 | Outpatient (CLI) | payer OTHER, MEDICARE, SELFPAY | END 2021-07-12 08:53 | disposition home or self-care (01) | LOC: ONCMED 08:57 | PROVIDERS: PCP Family Medicine; Visit Provider Internal Medicine Hematology & Oncology | DX: Z45.2 Encounter for adjustment and management of vascular access device (principal) | CPT/HCPCS: 96523 ==

== ENCOUNTER 2021-08-09 11:07 | Outpatient (CLI) | payer OTHER, SELFPAY | END 2021-08-09 11:08 | disposition home or self-care (01) | LOC: ONCMED 11:08 | PROVIDERS: PCP Family Medicine; Visit Provider Internal Medicine Hematology & Oncology | DX: Z45.2 Encounter for adjustment and management of vascular access device (principal) | CPT/HCPCS: 96523 ==

== ENCOUNTER 2021-09-07 09:14 | Outpatient (CLI) | payer OTHER, SELFPAY | END 2021-09-07 09:15 | disposition home or self-care (01) | LOC: ONCMED 09:21 | PROVIDERS: PCP Family Medicine; Visit Provider Internal Medicine Hematology & Oncology | DX: Z45.2 Encounter for adjustment and management of vascular access device (principal) | CPT/HCPCS: 96523 ==

== ENCOUNTER 2021-10-05 08:14 | Outpatient (CLI) | payer OTHER, SELFPAY | END 2021-10-05 08:15 | disposition home or self-care (01) | PROVIDERS: PCP Family Medicine; Visit Provider Internal Medicine Hematology & Oncology | DX: Z45.2 Encounter for adjustment and management of vascular access device (principal) | CPT/HCPCS: 96523 ==

== ENCOUNTER 2021-11-02 09:30 | Outpatient (CLI) | payer OTHER, SELFPAY ==
--- NOTE | 2021-11-02 09:35 | CT_ITS ---
WS: [id number] CT CHEST, ABDOMEN AND PELVIS WITH CONTRAST HISTORY: MANTLE CELL LYMPHOMA TECHNIQUE: Contiguous 5 mm axial imaging performed through the chest, abdomen and pelvis with IV cont rast, oral contrast has been provided. Coronal and sagittal reformats chest. Coronal and sagittal ref ormats through the abdomen and pelvis. All CT scans at [facility] use at least one of these d ose optimization techniques: automated exposure control; mA and/or kV adjustment per patient size (in cludes targeted exams where dose is matched to clinical indication); or iterative reconstruction. CONTRAST: Omnipaque 300; 95 mL IV. DLP: 2315.24 mGy.cm COMPARISON: 09/04/2020, 01/10/[address]: Mild scattered areas of groundglass attenuation and scarring throughout both lungs. Similar findings were noted on the prior examinations at the lung bases. No suspicious mass or nodule. No pe ricardial or pleural effusion. There are a few small axillary lymph nodes. Prior CT evaluation through the axilla was the PET/CT fro m 01/17/2018. These lymph nodes were present on the prior CT but they have increased slightly in size a nd number. Some of these lymph nodes are more rounded. RIGHT paratracheal lymph nodes have increased in size measuring up to 11 mm in short axis diameter. There are additional smaller para-aortic lymph nodes. Inferior RIGHT paratracheal lymph node measures 15 mm. Small lymph nodes at the RIGHT hilum me asures up to 13 mm. Subcentimeter subcarinal lymph node. Abdomen CT: Mild diffuse hepatic steatosis. There are numerous small, too small to characterize scatt ered hypodensities throughout the liver which have been previously described. No increase in size or number. Normal portal vein. Gallbladder is normally distended and contains a stone. No bile duct dila tation. Spleen is not enlarged. No pancreatic or adrenal mass. Kidneys are enhancing normally with a few areas of decreased attenuation. Are probably cysts but too small to characterize and similar to p rior studies. Mild atherosclerosis aorta. No ascites. No free air. There are a few small scattered retroperitoneal lymph nodes. These lymph nodes are less than a centim eter but they have minimally increased in size and number. Small inguinal lymph nodes. No GI tract obstruction. There is mild diffuse fecal retention. Normal appendix. Pelvic CT: No free fluid or adenopathy within the pelvis. There are a few very small inguinal lymph n odes which are stable. Urinary bladder is well distended. Mild straightening of the normal lumbar lordosis. No osteoblastic or osteolytic bone disease. CT/CT chest abd pel w con* IMPRESSION: 1. There is been a slight increase in size and number of the mediastinal and a xillary lymph nodes since 01/17/2018 and 09/04/2020. 2. No significant increase in size of the lymph nodes within the abdomen or pe lvis. 3. Hepatic and renal cysts. 4. Cholelithiasis without acute cholecystitis.
[2021-11-02 10:29] LABS: Blood Urea Nitrogen 14 mg/dL (8-23)
[2021-11-02] MEDS: iohexol 300 mg/mL 100 mL Btl IV (11:11)
[2021-11-02] MEDS: iohexol 300 mg/mL 50 mL Btl PO (11:11)
== END 2021-11-02 09:31 | disposition home or self-care (01) ==
LOC: CT 09:33
PROVIDERS: PCP Family Medicine; Visit Provider Internal Medicine Hematology & Oncology
DX: C83.11 Mantle cell lymphoma, lymph nodes of head, face, and neck (principal); K80.20 Calculus of gallbladder without cholecystitis without obstruction; K76.89 Other specified diseases of liver; Q61.02 Congenital multiple renal cysts
CPT/HCPCS: 71260; 74177; 82565; 84520

== ENCOUNTER 2021-11-08 08:19 | Outpatient (CLI) | payer OTHER, SELFPAY ==
[2021-11-08 09:02] LABS: Basophils # 0.1 10^3/uL (0.0-0.1); Basophils % 0.6 %; Eosinophils # 0.2 10^3/uL (0.0-0.8); Eosinophils % 2.5 %; Hematocrit 40.1 % (42.0-52.0); Lymphocytes # 3.1 10^3/uL (0.8-4.8); Lymphocytes % 39.2 %; Mean Corpuscular HGB Conc 32.4 g/dL (30.0-36.0); Mean Corpuscular Hemoglobin 27.1 pg (28.0-34.0); Mean Corpuscular Volume 83.5 fl (80-94); Mean Platelet Volume 10.2 fL (7.4-10.4); Monocytes # 0.8 10^3/uL (0.2-0.9); Monocytes % 10.4 %; Neutrophils # 3.67 10^3/uL (1.8-7.7); Neutrophils % 46.9 %; Nucleated Red Blood Cells % 0 %; Platelet Count 228 10^3/cmm (130-400); Red Cell Distribution Width 16.3 % (12.1-15.1); White Blood Count 7.9 10^3/uL (4.0-10.0)
[2021-11-08 09:45] LABS: Alanine Aminotransferase 29 U/L (0-41); Alkaline Phosphatase 87 IU/L (40-130); Anion Gap 18.5 (5-19); Aspartate Amino Transferase 21 U/L (0-40); Blood Urea Nitrogen 12 mg/dL (8-23); Calcium 8.6 mg/dL (8.5-10.5); Carbon Dioxide 22 mmol/L (22-29); Chloride 102 mmol/L (98-107); Globulin 3.1 g/dL (1.3-4.6); Glucose 128 mg/dL (65-115); Lactate Dehydrogenase 186 U/L (135-225); Osmolality Calculated 289 mOsm/kg (285-295); Potassium 3.5 mmol/L (3.5-5.1); Sodium 139 mmol/L (136-145); Total Bilirubin 0.3 mg/dL (0.15-1.2); Total Protein 7.1 g/dL (6.6-8.7)
--- NOTE | 2021-11-08 15:20 | ONC FU_ITS ---
Dr. Catalan follow up note Patient: Lion Aiken Unit #: [id number]: [id number] Dicatated By: Stephanie Catalan M.D.Date of Visit:Nov 08, 2021 Onc Med Follow-up/Prog Note History of Present Illness: Mr. Aiken is a 76-year-old, gentleman with a recent history of progressive right cervical/supraclavicular lymphadenopathy. He has been following with his primary care physician and was given course of oral antibiotic. He did not have any improvement and was referred to ENT for evaluation. On 11/28/[address] scan of neck showed significant right cervical chain lymphadenopathy with extension into supraclavicular region. The largest lymph node at the supraclavicular level III regions measured 3.5 x 2.3 cm. Right intraparotid lobulated mass measuring 1.8 x 1.8 cm. There was an additional cluster along the tail of parotid gland. No laryngeal mass seen. On 12/04/2017 he underwent needle core biopsy of right neck mass. 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 PET/CT from 01/17/18 reported adenopathy at the head and neck area consisting of multiple hypermetabolic lymph nodes bilaterally, more prominent on the right than the left. Intra-parotid, right jugulodigastric, right posterior triangle, bilateral submental, bilateral submandibular and bilateral supraclavicular nodes are consistent with described lymphoma. Right posterior triangle nodes with SUVs of up to 36.2 with right jugulodigastric chain nodes having SUV up to 31.8. Bilateral axillary nodes are FDG positive. There are hypermetabolic mediastinal lymph nodes, subcarinal, paratracheal and bilateral hilar territories at the level of the abdomen- small FDG positive nodes are noted. Most pelvic lymph nodes are radiographically benign and FDG negative. There was no evidence of involvement in the bone marrow. Mr Aiken was offered treatment with R-CHOP. He began his first cycle on 02/10/2018. He did present to the ER on 02/20/2018 with abdominal pain and was treated for gastritis. responded well to Zantac BID. PET/CT imaging from 03/28/2018 reveals partial response to therapy with complete resolution of lymphoma from the level of the chest to the level of the pelvis. No evidence of new lesions, marrow involvement or extranodal disease . Mr Aiken completed his 6th cycle of R-CHOP on 05/26/2018. He has been advised to proceed with maintenance Rituxan 375 mg/m2 every other month on 07/27/18. Patient was referred to lymphoma clinic at [facility] where, on January 25 [address] Florence, and his recommendations were considering involved field radiation therapy to the right neck and observation and if there is a recurrence he would consider R-JOELLE regimen, considering patient age he would not consider hyper CVAD and also as per his evaluation patient is not a candidate for allogeneic stem cell transplantation. Other option would be BTK inhibitors such as ibrutinib or acalabrutinib He also has clinical trial for mentle cell lymphoma but patient is not interested in going to the [facility]. And he also suggested to discontinue maintenance therapy with Rituxan , tolerated radiation therapy to the right neck well and Completed on 03/01/2019 Follow-up CT PET scan done on 07/31/2019 showed the right posterior triangle lymph node seen on prior study has resolved. Reactive mediastinal nodes are stable. Mild inflammatory activity in chronic right lower lobe infiltrate is stable. Patient had episode of hematuria for which he underwent CT scan of abdomen pelvis on 01/10/2020 which showed no renal mass, obstruction or calcification. A few scattered cysts within each kidney. Negative urinary bladder. Hepatic steatosis, Underwent follow-up CT scan on September 04, 2020 for progressive transaminases and it showed no recurrent lymphadenopathy in the abdomen or pelvis, hepatic and renal hypodensities are probably cysts, no change. Cholelithiasis without acute cholecystitis. Follow-up CT scan of chest abdomen pelvis done on November 02, 2021 shows right paratracheal lymph node has increased in size measuring up to 11 mm in short axis. Additional para-aortic lymph nodes, inferior right paratracheal lymph node measuring 15 mm and subcentimeter subcarinal lymph nodes. Spleen is not enlarged. No significant increase in size of lymph nodes within the abdomen pelvis. Cholelithiasis without acute cholecystitis Came for follow-up, denies any specific complaints, no fever chills, no nausea or vomiting, no diarrhea or constipation, no night sweats no recurrent fever, no weight loss, no peripheral lymphadenopathy, no abdominal fullness Medications: Airborne 1 Tablet Tablet, chewable Oral daily, AmLODIPine Besylate 1 (10 mg) Tablet Oral daily, Aspirin 1 Tablet (of 81 mg) Oral daily, Atenolol 0.5 Tablet (of 100 mg) Oral daily, Atorvastatin Calcium 0.5 Tablet (of 40 mg) Oral daily, BuPROPion HCl 1 (150 mg) Tablet Oral daily, Cholecalciferol 1 (2000 Units) Capsule Oral daily, Gabapentin 2 Tablet (of 300 mg) Oral b.i.d., HydroCHLOROthiazide 0.5 Tablet (of 25 mg) Oral daily, Lisinopril 1 (40 mg) Tablet Oral daily, MetFORMIN HCl 0.5 Tablet (of 1000 mg) Oral b.i.d., Zinc 1 Tablet Oral daily Allergies: No Known Allergies. Review of Systems: Review of Systems is not available for this patient. Vital Signs: Performed on Nov 08, 2021 10:41 Height - 73.00 in Weight - 231.2 lbs (LOW) BSA - 2.29 sq.m BMI - 30.50 (HIGH) Temperature - 98.5 F Pulse - 76 /min Respiration - 18 /min BP - 154/79 mm(hg) (HIGH) O2 Sat - 98 % Pain - 0 Fatigue - 4 Performance Status: 0 - Fully active, able to carry on all predisease activities without restrictions. (ECOG) Physical Examination: ENMT - No mouth sores, no thrush, no jaundice, Respiratory - Lungs are clear to auscultation, Cardiovascular - Regular rate and rhythm of heart, Abdomen - Soft, bowel sounds present, Extremities - No visible edema. Lab/Imaging: Most recent lab results are not available for this patient. Impression: Large B-cell lymphoma, mantle cell lymphoma, blastoid variant. Immunohistochemistry showed strongly positive for CD20, CD5, cyclin D1,SOX 11, BCL 2, CMYC, Mum 1, and CD23 Ki-67 demonstrated marked increased proliferative rate 60-80% IPI score 3 with high proliferative index and strongly positive for SOX 11, CT scan of neck done on 11/28/2017 showed significant right cervical chain lymphadenopathy with extension into supraclavicular and level III regions. The largest lymph node measured 3.5 x 2.3 cm, next Right intraparotid lobulated mass measuring 1.8 x 1.8 cm, there is an additional cluster along the tail of parotid gland. These may be abnormal lymph nodes or a primary parotid tumor. No laryngeal mass seen CT PET scan done on 01/17/2018 showed multiple hypermetabolic cervical lymph nodes more prominent on right side, intra parotid, right jugulodigastric, right posterior triangle, bilateral submental and bilateral submandibular bilateral supraclavicular, there are hypermetabolic mediastinal lymph nodes in the subcarinal, paratracheal, bilateral hilar and external iliac lymph nodes bilaterally. With a normal spleen and liver. Stage III. discussed with Mr Aiken the CT PET scan report which showed lymph node involvement on both sides of diaphragm which was making stage III with no B symptoms. He was complaining of heartburn, indigestion could be simple PUD or need to rule out mantle cell involvement. Mr Aiken was advised to consider EGD and colonoscopy. Colonoscopy is pending at this visit. His IPI score is high intermediate risk, but highly Ki-67 in the range of 60-80% with strong expression of SOX 11 and being blastoid variant; Mr Aiken was advised to consider systemic chemotherapy upfront. Mr Aiken has no CABIN MAN symptoms and the PET/CT did not report bone marrow involvement, so we will not pursue spinal fluid evaluation at this time. Mr Aiken was offered treatment with R-CHOP. He began his first cycle on 02/10/2018. Cycle 3 was given on 03/24/2018. PET/CT imaging from 03/28/20185 reveals partial response to therapy with complete resolution of lymphoma from th level of the chest to the level of the pelvis. No evidence of new lesions, marrow involvement or extranodal disease . He has completed 6 cycles of R-CHOP. CT PET scan done on 06/20/2018 showed interval improvement in the right cervical posterior triangle lymph node since prior study however there is new, subtle increased activity in mediastinal lymph nodes, in the right peritracheal and bilateral hilar distributions this. Right hilar lymph node has SUV 3.9 concerning for recurrent malignancy. Mr Aiken has been offered maintenance therapy with Rituxan 375 mg/M2 every 2 months Starting on 07/27/2018 followup PET/CT after 3rd dose . Done on 12/26/2018 showed this is recurrence of lymphoma in right posterior cervical triangle lymph node. The index node now measure 1.4 x 1.2 cm with an SUV of 28.8. Other, subcentimeter nodes in the same territory are FDG positive as well consistent with micrometastatic disease. Low-grade activity in mediastinal nodes is not significant different from the previous study and are most likely reactive Patient was referred to lymphoma clinic at [facility] where he saw , on 01/25/2019 and his recommendations were clinical trial for Mantle cell lymphoma but patient declined. And other option would be involved field radiation therapy to right neck and followed by observation in case relapse then consider R-JOELLE regimen as patient is not a candidate for allogeneic stem cell transplantation. Other option would be BTK inhibitor like ibrutinib or acalabrutinib. And also suggested to discontinue maintenance therapy with Rituxan considering toxicity and questionable benefits Status post involved field radiation therapy to the right neck completed on 03/01/2019 Plan: Discussed with patient regarding his labs white blood count 7.9 hemoglobin 13 hematocrit 40.1 platelets 228,000 CMP within normal limits LDH 186 and follow-up CT scan of chest abdomen pelvis which shows no significant change with mild central lymphadenopathy, no splenomegaly Clinically, patient doing well with no signs symptoms just of disease progression his follow-up CT scan of abdomen pelvis/chest shows no evidence of disease progression except slightly increased mediastinal lymphadenopathy which is close to centimeter in size. LDH is within normal range, CBC is within normal range, at this point we will continue to monitor and patient return to clinic in 6 months with CBC CMP LDH and follow-up CT scan of chest abdomen pelvis Signed By: Stephanie Catalan M.D. <<Signature on File>>
== END 2021-11-08 08:20 | disposition home or self-care (01) ==
LOC: ONCMED 08:21
PROVIDERS: PCP Family Medicine; Visit Provider Internal Medicine Hematology & Oncology
DX: Z08 Encounter for follow-up examination after completed treatment for malignant neoplasm (principal); R59.1 Generalized enlarged lymph nodes
CPT/HCPCS: 36591; 80053; 83615; 85025; 99214

== ENCOUNTER 2021-12-10 14:12 | Outpatient (CLI) | payer OTHER, SELFPAY | END 2021-12-10 14:13 | disposition home or self-care (01) | PROVIDERS: PCP Family Medicine; Visit Provider Internal Medicine Hematology & Oncology | DX: Z45.2 Encounter for adjustment and management of vascular access device (principal) | CPT/HCPCS: 96523 ==

== ENCOUNTER 2022-01-07 13:45 | Outpatient (CLI) | payer OTHER, SELFPAY | END 2022-01-07 13:46 | disposition home or self-care (01) | PROVIDERS: PCP Family Medicine; Visit Provider Internal Medicine Hematology & Oncology | DX: Z45.2 Encounter for adjustment and management of vascular access device (principal) | CPT/HCPCS: 96523 ==

== ENCOUNTER 2022-02-04 13:55 | Outpatient (CLI) | payer OTHER, SELFPAY | END 2022-02-04 13:56 | disposition home or self-care (01) | PROVIDERS: PCP Family Medicine; Visit Provider Internal Medicine Hematology & Oncology | DX: Z45.2 Encounter for adjustment and management of vascular access device (principal) | CPT/HCPCS: 36591 ==

== ENCOUNTER 2022-03-11 13:17 | Outpatient (CLI) | payer OTHER, SELFPAY | END 2022-03-11 13:18 | disposition home or self-care (01) | PROVIDERS: PCP Family Medicine; Visit Provider Internal Medicine Hematology & Oncology | DX: Z45.2 Encounter for adjustment and management of vascular access device (principal) | CPT/HCPCS: 96523 ==

== ENCOUNTER 2022-04-08 13:00 | Oncology outpatient (recurring) (ONCR) | payer OTHER, SELFPAY | END 2022-04-16 23:59 | disposition home or self-care (01) | PROVIDERS: PCP Family Medicine; Visit Provider Internal Medicine Hematology & Oncology | DX: D70.8 Other neutropenia (principal) | CPT/HCPCS: 96523 ==

== ENCOUNTER 2022-05-29 10:08 | Oncology outpatient (recurring) (ONCR) | payer OTHER, SELFPAY ==
--- NOTE | 2022-05-29 10:30 | CT_ITS ---
WS: [id number] CT CHEST, ABDOMEN, AND PELVIS TECHNIQUE: Contrast-enhanced CT of the chest, abdomen, and pelvis with coronal and sagittal reformatt ed images. CLINICAL INFORMATION: MANTLE CELL LYMPHOMA COMPARISON: November 02, 2021 DLP: 1829.[address] scans at [facility] use at least one of these dose optimization techniques: automated e xposure control; mA and/or kV adjustment per patient size (includes targeted exams where dose is matc hed to clinical indication); or iterative reconstruction. CT CHEST: Both lungs are well aerated. No acute pulmonary infiltrates. No suspicious pulmonary opacities. Alma Delia l caliber thoracic aorta. Mild aortic calcification. Proximal main pulmonary arteries are normal. Sta ble prominent anterior mediastinal, paratracheal, RIGHT hilar and subcarinal lymph nodes. No evidence of progressed lymphadenopathy. Stable prominent LEFT axillary lymph nodes. CT ABDOMEN AND PELVIS: Slightly prominent retroperitoneal, aortocaval, iliac and inguinal lymph nodes unchanged. No evidence of progressed lymphadenopathy in the abdomen or pelvis. Mild diffuse fatty filtration of the liver. A few presumed tiny hepatic cysts. Cholelithiasis. Normal portal vein and splenic vein. Normal pancreatic parenchymal enhancement. Normal spleen. Normal GE ju nction. Distended stomach with food products. Adrenal glands are normal. 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 LEFT adrenal gland is normal. Normal renal parenchymal enhancement. No hy dronephrosis. Incidental renal cysts. Normal caliber abdominal aorta. Aortic calcification. Celiac an d SMA are patent. Prostate calcification. Mild diffuse bladder wall thickening. Rectosigmoid constipation. Normal sigmo id colon. Tiny fat-containing umbilical hernia. Moderate to severe central canal stenosis L3-L4 L4-L5 due to disc osteophyte complex is unchanged. CT/CT chest abd pel w con* IMPRESSION: 1. No evidence of progressed disease in the chest abdomen or pelvis compared t o previous. 2. Lungs are well aerated. No acute pulmonary infiltrates. 3. A few prominent mediastinal and paratracheal lymph nodes and LEFT axillary lymph nodes are unchanged. 4. Stable cholelithiasis.
[2022-05-29] MEDS: barium sulfate 450 mL Oral Susp PO (10:47)
[2022-05-29 12:00] LABS: Blood Urea Nitrogen 17 mg/dL (8-23)
[2022-05-29] MEDS: iohexol 350 mg/mL 100 mL Btl IV (12:11)
== END 2022-06-16 23:59 | disposition home or self-care (01) ==
PROVIDERS: PCP Family Medicine; Visit Provider Internal Medicine Hematology & Oncology
DX: C83.11 Mantle cell lymphoma, lymph nodes of head, face, and neck (principal); D70.8 Other neutropenia
CPT/HCPCS: 71260; 74177; 82565; 84520; Q9967

== ENCOUNTER 2022-08-05 14:18 | Oncology outpatient (recurring) (ONCR) | payer OTHER, SELFPAY ==
[2022-08-05 14:43] LABS: Basophils % 0.6 %; Eosinophils # 0.2 10^3/uL (0.0-0.8); Eosinophils % 2.7 %; Hematocrit 40.8 % (42.0-52.0); Hemoglobin 13.2 g/dL (11.7-16.6); Lymphocytes # 2.6 10^3/uL (0.8-4.8); Lymphocytes % 36.9 %; Mean Corpuscular HGB Conc 32.4 g/dL (30.0-36.0); Mean Corpuscular Hemoglobin 27.7 pg (28.0-34.0); Mean Corpuscular Volume 85.5 fl (80-94); Mean Platelet Volume 9.8 fL (7.4-10.4); Monocytes # 0.5 10^3/uL (0.2-0.9); Monocytes % 6.8 %; Neutrophils # 3.71 10^3/uL (1.8-7.7); Neutrophils % 52.7 %; Nucleated Red Blood Cells % 0 %; Platelet Count 215 10^3/cmm (130-400); Red Blood Count 4.77 10^6/uL (4.1-5.3); Red Cell Distribution Width 16.4 % (12.1-15.1)
[2022-08-05 15:06] LABS: Alanine Aminotransferase 31 U/L (0-41); Albumin Level 4.2 g/dL (3.5-5.2); Alkaline Phosphatase 105 U/L (40-130); Chloride 103 mmol/L (98-107); Lactate Dehydrogenase 198 U/L (135-225); Potassium 3.7 mmol/L (3.5-5.1); Sodium 141 mmol/L (136-145)
[2022-08-05 15:19] LABS: Anion Gap 16.7 (5-19); Aspartate Amino Transferase 22 U/L (0-40); Blood Urea Nitrogen 14 mg/dL (8-23); Calcium 9.2 mg/dL (8.5-10.5); Carbon Dioxide 25 mmol/L (22-29); Globulin 3.4 g/dL (1.3-4.6); Glucose 133 mg/dL (65-115); Osmolality Calculated 294 mOsm/kg (285-295); Total Bilirubin 0.3 mg/dL (0.15-1.2); Total Protein 7.6 g/dL (6.6-8.7)
== END 2022-08-16 23:59 | disposition home or self-care (01) ==
PROVIDERS: PCP Family Medicine; Visit Provider Internal Medicine Hematology & Oncology
DX: D70.8 Other neutropenia; Z92.3 Personal history of irradiation; Z08 Encounter for follow-up examination after completed treatment for malignant neoplasm; Z85.72 Personal history of non-Hodgkin lymphomas
CPT/HCPCS: 36591; 80053; 83615; 85025; 99213; 99214

== ENCOUNTER 2022-09-09 09:42 | Oncology outpatient (recurring) (ONCR) | payer OTHER, SELFPAY ==
[2022-09-09 09:51] VITALS: BP 141/75; PULSE 62; RESP 16; TEMP 36.6; O2SAT 94
== END 2022-09-16 23:59 | disposition home or self-care (01) ==
PROVIDERS: PCP Family Medicine; Visit Provider Internal Medicine Hematology & Oncology
DX: D70.8 Other neutropenia; Z45.2 Encounter for adjustment and management of vascular access device
CPT/HCPCS: 96523

== ENCOUNTER 2022-10-07 09:43 | Oncology outpatient (recurring) (ONCR) | payer OTHER, SELFPAY ==
[2022-10-07 09:50] VITALS: BP 141/72; PULSE 58; RESP 16; TEMP 36.1; O2SAT 99
== END 2022-10-16 23:59 | disposition home or self-care (01) ==
PROVIDERS: PCP Family Medicine; Visit Provider Internal Medicine Hematology & Oncology
DX: Z45.2 Encounter for adjustment and management of vascular access device (principal); D70.8 Other neutropenia
CPT/HCPCS: 96523

== ENCOUNTER 2022-11-12 09:53 | Oncology outpatient (recurring) (ONCR) | payer OTHER, SELFPAY ==
[2022-11-12 10:07] VITALS: BP 138/71; PULSE 64; RESP 16; TEMP 35.9; O2SAT 99
== END 2022-11-16 23:59 | disposition home or self-care (01) ==
PROVIDERS: PCP Family Medicine; Visit Provider Internal Medicine Hematology & Oncology
DX: Z45.2 Encounter for adjustment and management of vascular access device (principal); Z95.828 Presence of other vascular implants and grafts
CPT/HCPCS: 96523

== ENCOUNTER 2022-12-09 09:50 | Oncology outpatient (recurring) (ONCR) | payer OTHER, SELFPAY ==
[2022-12-09 09:59] VITALS: BP 155/74; PULSE 60; RESP 16; TEMP 35.9; O2SAT 98
== END 2022-12-17 23:59 | disposition home or self-care (01) ==
LOC: ONCMED 09:51
PROVIDERS: PCP Family Medicine; Visit Provider Internal Medicine Hematology & Oncology
DX: Z45.2 Encounter for adjustment and management of vascular access device (principal); Z95.828 Presence of other vascular implants and grafts
CPT/HCPCS: 96523

== ENCOUNTER 2023-01-06 09:32 | Oncology outpatient (recurring) (ONCR) | payer OTHER, SELFPAY | END 2023-01-14 23:59 | disposition home or self-care (01) | LOC: ONCMED 09:32 | PROVIDERS: PCP Family Medicine; Visit Provider Internal Medicine Hematology & Oncology | DX: Z45.2 Encounter for adjustment and management of vascular access device (principal); Z95.828 Presence of other vascular implants and grafts ==

== ENCOUNTER 2023-02-03 10:04 | Oncology outpatient (recurring) (ONCR) | payer OTHER, SELFPAY ==
--- NOTE | 2023-02-03 10:18 | CTR_ITS ---
PROCEDURE INFORMATION: Exam: CT Chest With Contrast; Diagnostic Exam date and time: 02/03/2023 11:45 AM Age: 77 years old Clinical indication: Abdominal pain; Localized; Other: Lower abd/pel pain; Prior surgery; Surgery type: Port; Additional info: Follow up/hx of lymphoma TECHNIQUE: Imaging protocol: Diagnostic computed tomography of the chest with contrast. Radiation optimization: All CT scans at this facility use at least one of these dose optimization techniques: automated exposure control; mA and/or kV adjustment per patient size (includes targeted exams where dose is matched to clinical indication); or iterative reconstruction. Contrast material: OMNI 350; Contrast volume: 95 ml; Contrast route: INTRAVENOUS (IV); REPORTING DATA: Count of CT and Cardiac NM exams in prior 12 months: This patient has received [address] and 0 known cardiac nuclear medicine studies in the 12 months prior to the current study. COMPARISON: CT chest abdpel w/*[id number] 05/29/2022 12:05 PM RADIATION DOSE METRICS: Total DLP (mGy-cm): 1447.48 FINDINGS: Tubes, catheters and devices: Left-sided chest port whose tip terminates within the SVC. Lungs: Scattered mild fine interstitial and faint ground-glass opacities intermixed with areas of relative radiolucency more appeared within the mid to upper lung zones mildly progressed from previous exam and may be secondary to reactive small airway disease, mild hypersensitivity pneumonitis or atypical presentation of drug induced pulmonary toxicity. No consolidating infiltrates. Pleural spaces: Unremarkable. No pneumothorax. No pleural effusion. Heart: Heart is not significantly enlarged. No significant coronary artery calcifications. No significant pericardial effusion. Lymph nodes: Mild-moderate mediastinal and bilateral axillary lymphadenopathy presumed lymphomatous in nature mildly progressed from previous exam. Few small paraesophageal and retrocrural lymph nodes likely similar in nature. Vasculature: Unremarkable. No aortic aneurysm. Stomach and bowel: Oral contrast within the mid-distal esophagus consistent with reflux. Bones/joints: Unremarkable. No acute fracture. Soft tissues: Unremarkable. PROCEDURE INFORMATION: Exam: CT Abdomen And Pelvis With Contrast Exam date and time: 02/03/2023 11:45 AM Age: 77 years old Clinical indication: Abdominal pain; Localized; Other: Lower abd/pel pain; Prior surgery; Surgery type: Port; Additional info: Follow up/hx of lymphoma TECHNIQUE: Imaging protocol: Computed tomography of the abdomen and pelvis with contrast. Radiation optimization: All CT scans at this facility use at least one of these dose optimization techniques: automated exposure control; mA and/or kV adjustment per patient size (includes targeted exams where dose is matched to clinical indication); or iterative reconstruction. Contrast material: OMNI 350; Contrast volume: 95 ml; Contrast route: INTRAVENOUS (IV); REPORTING DATA: Count of CT and Cardiac NM exams in prior 12 months: This patient has received [address] and 0 known cardiac nuclear medicine studies in the 12 months prior to the current study. COMPARISON: CT chest abdpel w/*[id number] 05/29/2022 12:05 PM RADIATION DOSE METRICS: Total DLP (mGy-cm): 1447.48 FINDINGS: Lungs: Lung bases are clear. Liver: Fatty infiltration of liver with stable small benign-appearing liver cysts right and left lobe.. Gallbladder and bile ducts: Stable solitary gallstone within the dependent portion the gallbladder which is otherwise unremarkable. Bile ducts not dilated. Pancreas: Unremarkable. Main pancreatic duct is not significantly dilated Spleen: Normal. No splenomegaly. Adrenal glands: Stable small benign myelolipoma right adrenal gland. Left adrenal gland is unremarkable. Kidneys and ureters: There are few small cortical cysts both kidneys too small to adequately characterize otherwise kidneys are unremarkable. Stomach and bowel: Unremarkable. No obstruction. No mucosal thickening. Appendix: No evidence of appendicitis. Intraperitoneal space: Unremarkable. No free air. No significant fluid collection. Vasculature: Unremarkable. No abdominal aortic aneurysm. Lymph nodes: Mild-moderate retroperitoneal, pelvic and right inguinal lymphadenopathy progressed from previous examination and likely lymphomatous in nature. Urinary bladder: Unremarkable as visualized. Reproductive: Unremarkable as visualized. Bones/joints: Degenerative changes lower lumbar spine. No suspicious bone lesions detected. Soft tissues: Unremarkable. CT/CT chest abdpel w/*[id number] IMPRESSION: 1. Mild-moderate mediastinal and bilateral axillary lymphadenopathy mildly progressed from previous exam, presumed lymphomatous in nature. 2. Nonspecific fine interstitial/ground-glass opacities both lung smith slightly progressed from previous exam as discussed above. IMPRESSION: 1. Mild-moderate retroperitoneal, pelvic and inguinal lymphadenopathy developed from previous exam and likely lymphomatous in nature. 2. Stable small benign myelolipoma right adrenal gland. 3. Small benign liver cysts and renal cysts, unchanged.
[2023-02-03 11:04] LABS: Basophils # 0.1 10^3/uL (0.0-0.1); Basophils % 0.7 %; Eosinophils # 0.2 10^3/uL (0.0-0.8); Eosinophils % 3.3 %; Hematocrit 42.3 % (42.0-52.0); Hemoglobin 13.5 g/dL (11.7-16.6); Lymphocytes # 2.2 10^3/uL (0.8-4.8); Lymphocytes % 30.4 %; Mean Corpuscular HGB Conc 31.9 g/dL (30.0-36.0); Mean Corpuscular Hemoglobin 27.2 pg (28.0-34.0); Mean Corpuscular Volume 85.1 fl (80-94); Mean Platelet Volume 9.6 fL (7.4-10.4); Monocytes # 0.6 10^3/uL (0.2-0.9); Monocytes % 8.3 %; Neutrophils # 4.13 10^3/uL (1.8-7.7); Neutrophils % 56.9 %; Nucleated Red Blood Cells % 0 %; Platelet Count 237 10^3/cmm (130-400); Red Blood Count 4.97 10^6/uL (4.1-5.3); Red Cell Distribution Width 16.5 % (12.1-15.1); White Blood Count 7.3 10^3/uL (4.0-10.0)
[2023-02-03 11:17] LABS: Albumin Level 3.9 g/dL (3.5-5.2); Alkaline Phosphatase 88 U/L (40-130); Aspartate Amino Transferase 22 U/L (0-40); Blood Urea Nitrogen 14 mg/dL (8-23); Calcium 9.2 mg/dL (8.5-10.5); Carbon Dioxide 26 mmol/L (22-29); Chloride 101 mmol/L (98-107); Globulin 3.4 g/dL (1.3-4.6); Glucose 172 mg/dL (65-115); Lactate Dehydrogenase 283 U/L (135-225); Osmolality Calculated 289 mOsm/kg (285-295); Sodium 137 mmol/L (136-145); Total Bilirubin 0.2 mg/dL (0.15-1.2); Total Protein 7.3 g/dL (6.6-8.7)
[2023-02-03] MEDS: iohexol 350 mg/mL 500 mL Btl (per mL) PO (11:22)
[2023-02-03 11:27] LABS: Alanine Aminotransferase 31 U/L (0-41)
[2023-02-03] MEDS: iohexol 350 mg/mL 500 mL Btl (per mL) IV (11:51)
== END 2023-02-14 23:59 | disposition home or self-care (01) ==
LOC: ONCMED 10:07 → RAD 10:11 → ONCMED 02-11 04:13
PROVIDERS: PCP Family Medicine; Visit Provider Internal Medicine Hematology & Oncology
DX: Z85.79 Personal history of other malignant neoplasms of lymphoid, hematopoietic and related tissues (principal); Z45.2 Encounter for adjustment and management of vascular access device; Z95.828 Presence of other vascular implants and grafts; R59.0 Localized enlarged lymph nodes; N28.1 Cyst of kidney, acquired; K76.89 Other specified diseases of liver; D17.79 Benign lipomatous neoplasm of other sites
CPT/HCPCS: 36415; 71260; 74177; 80053; 83615; 85025; Q9967

== ENCOUNTER 2023-02-26 10:45 | Oncology outpatient (recurring) (ONCR) | payer OTHER, SELFPAY ==
[2023-02-26 11:16] VITALS: BP 148/74; PULSE 58; TEMP 36.4; O2SAT 97
[2023-02-26 11:31] LABS: Basophils # 0.1 10^3/uL (0.0-0.1); Basophils % 1.1 %; Eosinophils # 0.3 10^3/uL (0.0-0.8); Eosinophils % 3.6 %; Hematocrit 41.1 % (42.0-52.0); Hemoglobin 13.5 g/dL (11.7-16.6); Lymphocytes # 2.4 10^3/uL (0.8-4.8); Lymphocytes % 33.5 %; Mean Corpuscular HGB Conc 32.8 g/dL (30.0-36.0); Mean Corpuscular Hemoglobin 27.6 pg (28.0-34.0); Mean Platelet Volume 9.6 fL (7.4-10.4); Monocytes # 0.7 10^3/uL (0.2-0.9); Neutrophils # 3.69 10^3/uL (1.8-7.7); Neutrophils % 51.2 %; Nucleated Red Blood Cells % 0 %; Platelet Count 212 10^3/cmm (130-400); Red Blood Count 4.89 10^6/uL (4.1-5.3); Red Cell Distribution Width 16.5 % (12.1-15.1); White Blood Count 7.2 10^3/uL (4.0-10.0)
[2023-02-26 11:50] LABS: Alanine Aminotransferase 40 U/L (0-41); Alkaline Phosphatase 85 U/L (40-130); Anion Gap 14.9 (5-19); Aspartate Amino Transferase 28 U/L (0-40); Blood Urea Nitrogen 11 mg/dL (8-23); Calcium 9.1 mg/dL (8.5-10.5); Carbon Dioxide 26 mmol/L (22-29); Chloride 102 mmol/L (98-107); Globulin 3.5 g/dL (1.3-4.6); Glucose 120 mg/dL (65-115); Osmolality Calculated 289 mOsm/kg (285-295); Potassium 3.9 mmol/L (3.5-5.1); Sodium 139 mmol/L (136-145); Total Bilirubin 0.3 mg/dL (0.15-1.2); Total Protein 7.5 g/dL (6.6-8.7)
[2023-02-26 11:52] LABS: Lactate Dehydrogenase 280 U/L (135-225)
== END 2023-03-16 23:59 | disposition home or self-care (01) ==
PROVIDERS: PCP Family Medicine; Visit Provider Internal Medicine Hematology & Oncology
DX: Z08 Encounter for follow-up examination after completed treatment for malignant neoplasm; Z85.72 Personal history of non-Hodgkin lymphomas; R59.0 Localized enlarged lymph nodes; K76.89 Other specified diseases of liver; N28.1 Cyst of kidney, acquired; Z87.891 Personal history of nicotine dependence; Z92.21 Personal history of antineoplastic chemotherapy; Z92.3 Personal history of irradiation
CPT/HCPCS: 80053; 83615; 85025; 99214

== ENCOUNTER 2023-03-03 07:27 | Outpatient (CLI) | payer OTHER, SELFPAY ==
--- NOTE | 2023-03-03 07:37 | US_ITS ---
WS: [id number] ULTRASOUND SOFT TISSUES RIGHT inguinal canal. HISTORY: PAIN IN R INGUINAL AREA/? HERNIA COMPARISON: CT 02/03/2023 TECHNIQUE: 2-D and color Doppler imaging is submitted. There are multiple normal-appearing lymph nodes in the RIGHT inguinal canal. The largest measures 3.8 x 1.8 cm. There is a normal fatty hilum. There are several mildly prominent lymph nodes in the RIGHT inguinal region. Normal central fatty hilum. The cortex is not thickened and there is no increased v ascularity. US/US soft tissue/extremity [id number] IMPRESSION: Numerous normal-appearing lymph nodes in the RIGHT inguinal region.
== END 2023-03-03 07:28 | disposition home or self-care (01) ==
LOC: RAD 07:29
PROVIDERS: PCP Family Medicine; Visit Provider Emergency Medicine Emergency Medical Services
DX: R10.2 Pelvic and perineal pain (principal)
CPT/HCPCS: 76882

== ENCOUNTER → 2023-03-17 13:55 | Outpatient (BNVA) | payer OTHER, SELFPAY | PROVIDERS: PCP Family Medicine; Visit Provider Dermatology | DX: L57.0 Actinic keratosis (principal); L81.4 Other melanin hyperpigmentation; L82.1 Other seborrheic keratosis; Z85.828 Personal history of other malignant neoplasm of skin; Z87.891 Personal history of nicotine dependence | CPT/HCPCS: 17000; 17003; 99213 ==

== ENCOUNTER 2023-03-24 11:37 | Oncology outpatient (recurring) (ONCR) | payer OTHER, SELFPAY | END 2023-04-16 23:59 | disposition home or self-care (01) | LOC: ONCMED 11:37 | PROVIDERS: PCP Family Medicine; Visit Provider Internal Medicine Hematology & Oncology | DX: Z45.2 Encounter for adjustment and management of vascular access device (principal); D70.8 Other neutropenia; Z85.79 Personal history of other malignant neoplasms of lymphoid, hematopoietic and related tissues | CPT/HCPCS: 96523 ==

== ENCOUNTER 2023-04-22 07:41 | Oncology outpatient (recurring) (ONCR) | payer OTHER, SELFPAY ==
[2023-04-22 08:10] VITALS: BP 151/77; PULSE 61; RESP 16; TEMP 36.5; O2SAT 97
== END 2023-05-16 23:59 | disposition home or self-care (01) ==
PROVIDERS: PCP Family Medicine; Visit Provider Internal Medicine Hematology & Oncology
DX: Z45.2 Encounter for adjustment and management of vascular access device (principal)
CPT/HCPCS: 96523; J1642

== ENCOUNTER 2023-05-05 12:49 | Outpatient (CLI) | payer OTHER, SELFPAY ==
--- NOTE | 2023-05-05 13:30 | CT_ITS ---
WS: [id number] CT CHEST, ABDOMEN, AND PELVIS TECHNIQUE: Contrast-enhanced CT of the chest, abdomen, and pelvis with coronal and sagittal reformatt ed images. CLINICAL INFORMATION: surveillance COMPARISON: February 03, 2023 DLP: 1418.[address] scans at [facility] use at least one of these dose optimization techniques: automated e xposure control; mA and/or kV adjustment per patient size (includes targeted exams where dose is matc hed to clinical indication); or iterative reconstruction. CT CHEST: Both lungs are well aerated. No acute pulmonary infiltrates. No focal pneumonia or pleural fluid. Bul ky anterior mediastinal, pretracheal, peribronchial and subcarinal lymphadenopathy. Bulky RIGHT great er than LEFT hilar lymphadenopathy. Bulky bilateral axillary lymphadenopathy. This is progressed comp ared to February 03, 2023. Largest pretracheal lymph node measures 2.7 CM. Largest LEFT axillary lymph n ode measures 2.7 x 1.5 cm also progressed compared to previous. A few tiny thyroid nodules. Normal caliber thoracic aorta. Proximal main pulmonary arteries are alma delia l. Mild thoracic curve. Mild thoracic kyphosis. Hypertrophic changes thoracic spine. Prominent lymph nod es at the thoracic inlet. Supraclavicular and subpectoral lymphadenopathy. CT ABDOMEN AND PELVIS:Progressed periaortic and retroperitoneal lymphadenopathy. Aortic bifurcation a nd bilateral iliac lymphadenopathy. Pelvic sidewall lymphadenopathy. External iliac and inguinal lym phadenopathy. This is progressed compared to previous. Largest conglomeration of lymph nodes LEFT ret roperitoneal measuring 3.2 cm. Largest RIGHT inguinal lymph node measuring 2.8 cm. Large aortocaval l ymph node measuring 2.8 cm. Hepatomegaly. Diffuse fatty infiltration liver. Small RIGHT hepatic cyst. Gallbladder calculus. Alma Delia l spleen. Small esophageal hiatal hernia. RIGHT adrenal myolipoma measuring 14 mm. LEFT adrenal gland is normal.. Normal pancreatic parenchymal enhancement. Normal caliber abdominal aorta. Mild aortic calcification. Prostate calcification. Norm al sigmoid colon. No evidence of high-grade small or large bowel obstruction. Normal appendix in the RIGHT lower quadrant. Normal renal parenchymal enhancement. No hydronephrosis. Small renal cysts. Advanced spondylitic changes lumbar spine. Disc space narrowing L3-L4 and L4-L5 with moderate to latoya re central canal stenosis. CT/CT chest abdpel w/*[id number] IMPRESSION: 1. Progressed lymphadenopathy in the chest abdomen pelvis compared to previous . 2. Mild hepatomegaly with diffuse fatty infiltration liver. 3. Cholelithiasis. 4. Small esophageal hiatal hernia. 5. No other significant interval changes.
[2023-05-05 14:10] LABS: Blood Urea Nitrogen 11 mg/dL (8-23)
[2023-05-05] MEDS: iohexol 350 mg/mL 500 mL Btl (per mL) PO (14:14)
[2023-05-05] MEDS: iohexol 350 mg/mL 500 mL Btl (per mL) IV (14:15)
== END 2023-05-05 12:50 | disposition home or self-care (01) ==
PROVIDERS: PCP Family Medicine; Visit Provider Internal Medicine Hematology & Oncology
DX: C83.10 Mantle cell lymphoma, unspecified site (principal); K80.20 Calculus of gallbladder without cholecystitis without obstruction; K44.9 Diaphragmatic hernia without obstruction or gangrene; Q61.02 Congenital multiple renal cysts; K76.89 Other specified diseases of liver; R16.0 Hepatomegaly, not elsewhere classified
CPT/HCPCS: 71260; 74177; 82565; 84520; Q9967

== ENCOUNTER → 2023-05-19 12:10 | Outpatient (BNVA) | payer OTHER, SELFPAY | PROVIDERS: PCP Family Medicine; Visit Provider Nurse Practitioner Family | DX: Z53.9 Procedure and treatment not carried out, unspecified reason (principal) | CPT/HCPCS: 99214 ==

== ENCOUNTER 2023-05-31 06:12 | Outpatient (CLI) | payer OTHER, SELFPAY ==
--- NOTE | 2023-05-31 11:30 | PETR_ITS ---
PROCEDURE INFORMATION: Exam: PET/CT Skull Base to Mid-thigh Exam date and time: 05/31/2023 12:16 PM Age: 77 years old Clinical indication: Condition or disease; Primary cancer: Mantle cell lymphoma; Follow-up oncological assessment; Symptoms: Increased lymphadenopathy LABS AND CLINICAL REPORTS: Glucose: 102 mg/dl Treatment strategy for malignancy (PET staging): Restaging (PS) TECHNIQUE: Imaging protocol: Following at least four-hour fasting and following the injection of radiopharmaceutical, low dose CT images were obtained. Then, PET images were obtained. Attenuation corrected images were constructed using the CT scan. Fused images of PET and CT were reviewed. The standardized uptake values (SUV) reported below are maximum values within a region of interest, expressed in gm/ml. Exam includes orbital meatal line to mid-thigh. Radiopharmaceutical: 13.25 mCi F-18 FDG (Fluorodeoxyglucose), IV. Time of imaging post radiopharmaceutical administration: 1 hour Injection site: Left antecubital COMPARISON: CT chest, abdomen and pelvis 05/05/2023, PT PET Scan 07/31/2019 7:36 AM FINDINGS: Tubes, catheters and devices: A left subclavian central venous port catheter terminates in the SVC. Brain: Visualized brain has normal physiologic uptake. Pharynx: No abnormal uptake. Larynx: No abnormal uptake. Lungs, pleura and trachea: No abnormal uptake. There is a right upper lobe calcified granuloma.Mild dependent streaky density in the lungs is consistent with atelectasis. Heart: Normal physiologic uptake. Mediastinal space: No abnormal uptake. Liver: No abnormal uptake. A non radiotracer avid lateral right liver lobe 7 mm low-density structure on series 3, image 75 likely represents a benign cyst or hemangioma. Gallbladder and bile ducts: No abnormal uptake. A stone in the gallbladder is noted. Pancreas: No abnormal uptake. Spleen: No abnormal uptake. Adrenal glands: No abnormal uptake. 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 Kidneys and ureters: Normal physiologic uptake. Previously noted low-density lesions in the kidneys on the prior CT from 05/05/2023 are not well delineated without intravenous contrast. Stomach and bowel: No abnormal uptake. Vasculature: No abnormal uptake. Lymph nodes: There is new radiotracer avid lymphadenopathy compared with the prior PET-CT. Radiotracer avid lymph nodes in the left neck are noted deep to the sternocleidomastoid muscle and in the supraclavicular region. Examples: Deep to the sternocleidomastoid muscle on series 3, image 33 measuring 1.6 x 1.4 cm on series 3, image 33, SUV max 39.2 superior to the left clavicle measuring 1.2 x 0.7 cm on series 3, image 29, SUV max 23.1. Clustered radiotracer avid lymph nodes are noted along the left lateral aspect of the thyroid gland, for example measuring 1.8 x 1.2 cm on series 3, image 36, SUV max 43.5. Bilateral subpectoral and axillary region lymph nodes are most prominent on the left, for example where a laterally located lymph node measures 3.7 x 2.6 cm on series 3, image 44, SUV max 36.3. Small foci of uptake which may be within lymph nodes in the right arm are noted, for example on series 3, image 22, SUV max 11.8 measuring 7 mm. Radiotracer avid mediastinal and bilateral hilar, periesophageal and bilateral retrocrural lymph nodes are identified. For example a cluster of subcarinal lymph nodes demonstrates an overall measurement of 6.6 x 2.4 cm on series 3, image 60, SUV max 39.6. A lymph node posterior to the descending aorta measures 1.2 cm on image 63, SUV max 31.2. There are moderately enlarged retroperitoneal lymph nodes with elevated uptake, for example in the right periaortic space on image 110 measuring 3.7 cm in diameter, SUV max 47.6. Radiotracer avid lymph nodes anterior to the pancreatic head are noted, most prominent on series 3, image 94 measuring 2.0 x 1.1 cm, SUV max 21.9. A mesenteric lymph node in the anterior abdomen on series 3, image 89 measures 1.6 x 1.2 cm, SUV max 30.7. Prominent radiotracer avid bilateral common, external and internal iliac chain lymph nodes and bilateral inguinal region lymph nodes are radiotracer avid. For example, a right external iliac chain lymph node on series 3, image 141 measures 3.7 x 1.8 cm, SUV max 49.0. A left inguinal region lymph node measures 2.9 x 1.5 cm on series 3, image 158, SUV max 35.3. Lymph nodes in the chest, abdomen and pelvis appears similar in size compared with 05/05/2023. Bones/joints: No abnormal uptake in the visualized axial and appendicular skeleton. Degenerative changes within the spine are noted. Moderate bilateral glenohumeral joint primary osteoarthritic changes. Soft tissues: No abnormal uptake in the visualized head, neck, chest, abdomen, pelvis, and extremities. METRICS: Mediastinal blood pool: SUV max 1.7 Liver uptake: SUV max 2.7, SUV mean 1.9 [facility] [id number] IMPRESSION: 1. Findings are consistent with interval progression of neoplastic involvement since the prior PET-CT. New radiotracer avid lymphadenopathy within the neck, chest, abdomen and pelvis compared with the prior PET-CT is noted consistent with malignancy. Deauville score: 5 2. Small foci of uptake in the right arm are noted in the soft tissues, likely within additional small radiotracer avid neoplastic lymph nodes or nodules. 3. Non radiotracer avid low-density lesions previously noted in the kidneys are not well assessed by PET-CT but are statistically consistent with benign cysts. 4. Additional nonurgent findings as detailed above. Deauville Scorin: No uptake 2: Uptake < or = mediastinal blood pool (max SUV) 3: Uptake > mediastinal blood pool (max SUV) but < or = liver (max SUV) 4: Uptake moderately higher than liver (uptake > maximum SUV of the liver) 5: Uptake markedly higher than liver (uptake 2-3x > maximum SUV of the liver) and/or new lesions
== END 2023-05-31 06:13 | disposition home or self-care (01) ==
LOC: RAD 06-02 06:12
PROVIDERS: PCP Family Medicine; Visit Provider Nurse Practitioner Family
DX: C83.11 Mantle cell lymphoma, lymph nodes of head, face, and neck (principal)
CPT/HCPCS: 78815; A9552

== ENCOUNTER 2023-06-04 09:30 | Oncology outpatient (recurring) (ONCR) | payer OTHER, SELFPAY ==
[2023-05-19 12:16] VITALS: BP 162/76; PULSE 95; RESP 18; TEMP 36.4; O2SAT 96
[2023-05-19 12:29] LABS: Basophils # 0.1 10^3/uL (0.0-0.1); Basophils % 0.6 %; Eosinophils # 0.2 10^3/uL (0.0-0.8); Eosinophils % 2.4 %; Hematocrit 40.3 % (42.0-52.0); Hemoglobin 13.1 g/dL (11.7-16.6); Lymphocytes # 2.9 10^3/uL (0.8-4.8); Lymphocytes % 35.8 %; Mean Corpuscular HGB Conc 32.5 g/dL (30.0-36.0); Mean Corpuscular Hemoglobin 27.9 pg (28.0-34.0); Mean Corpuscular Volume 85.7 fl (80-94); Mean Platelet Volume 9.6 fL (7.4-10.4); Monocytes # 0.9 10^3/uL (0.2-0.9); Monocytes % 10.9 %; Neutrophils # 3.99 10^3/uL (1.8-7.7); Neutrophils % 49.9 %; Nucleated Red Blood Cells % 0 %; Platelet Count 209 10^3/cmm (130-400); Red Cell Distribution Width 16.3 % (12.1-15.1)
[2023-05-19 12:48] LABS: Alanine Aminotransferase 47 U/L (0-41); Albumin Level 4.1 g/dL (3.5-5.2); Alkaline Phosphatase 85 U/L (40-130); Anion Gap 17.9 (5-19); Aspartate Amino Transferase 39 U/L (0-40); Blood Urea Nitrogen 15 mg/dL (8-23); Calcium 8.7 mg/dL (8.5-10.5); Carbon Dioxide 24 mmol/L (22-29); Chloride 102 mmol/L (98-107); Globulin 3.3 g/dL (1.3-4.6); Glucose 130 mg/dL (65-115); Osmolality Calculated 293 mOsm/kg (285-295); Potassium 3.9 mmol/L (3.5-5.1); Sodium 140 mmol/L (136-145); Total Bilirubin 0.3 mg/dL (0.15-1.2); Total Protein 7.4 g/dL (6.6-8.7)
[2023-06-04 09:15] VITALS: BP 173/75; PULSE 80; RESP 18; TEMP 36.5; O2SAT 93
[2023-06-04 09:25] LABS: Basophils # 0.1 10^3/uL (0.0-0.1); Basophils % 0.6 %; Eosinophils # 0.3 10^3/uL (0.0-0.8); Eosinophils % 3.4 %; Hemoglobin 13.1 g/dL (11.7-16.6); Lymphocytes # 2.7 10^3/uL (0.8-4.8); Lymphocytes % 32.1 %; Mean Corpuscular Hemoglobin 27.1 pg (28.0-34.0); Mean Corpuscular Volume 84.7 fl (80-94); Mean Platelet Volume 9.8 fL (7.4-10.4); Monocytes # 0.8 10^3/uL (0.2-0.9); Monocytes % 9.6 %; Neutrophils # 4.51 10^3/uL (1.8-7.7); Neutrophils % 54.1 %; Nucleated Red Blood Cells % 0 %; Platelet Count 218 10^3/cmm (130-400); Red Blood Count 4.84 10^6/uL (4.1-5.3); White Blood Count 8.3 10^3/uL (4.0-10.0)
[2023-06-04 09:46] LABS: Alanine Aminotransferase 44 U/L (0-41); Albumin Level 4.1 g/dL (3.5-5.2); Alkaline Phosphatase 91 U/L (40-130); Anion Gap 18.1 (5-19); Aspartate Amino Transferase 26 U/L (0-40); Blood Urea Nitrogen 13 mg/dL (8-23); Calcium 9.4 mg/dL (8.5-10.5); Carbon Dioxide 25 mmol/L (22-29); Chloride 101 mmol/L (98-107); Globulin 3.1 g/dL (1.3-4.6); Glucose 134 mg/dL (65-115); Osmolality Calculated 292 mOsm/kg (285-295); Potassium 4.1 mmol/L (3.5-5.1); Sodium 140 mmol/L (136-145); Total Bilirubin 0.3 mg/dL (0.15-1.2); Total Protein 7.2 g/dL (6.6-8.7)
== END 2023-06-16 23:59 | disposition home or self-care (01) ==
PROVIDERS: Nurse Practitioner Family; PCP Family Medicine; Visit Provider Internal Medicine Hematology & Oncology
DX: C83.10 Mantle cell lymphoma, unspecified site (principal); Z85.79 Personal history of other malignant neoplasms of lymphoid, hematopoietic and related tissues
CPT/HCPCS: 36591; 80053; 85025; 99214; J1642

== ENCOUNTER 2023-07-08 08:22 | Oncology outpatient (recurring) (ONCR) | payer OTHER, SELFPAY ==
[2023-07-07 14:40] VITALS: BP 155/77; PULSE 90; RESP 18; TEMP 36.3; O2SAT 96
[2023-07-07 14:55] LABS: Basophils % 0.4 %; Eosinophils # 0.2 10^3/uL (0.0-0.8); Hematocrit 39.2 % (42.0-52.0); Hemoglobin 12.5 g/dL (11.7-16.6); Lymphocytes # 2.4 10^3/uL (0.8-4.8); Lymphocytes % 31.1 %; Mean Corpuscular HGB Conc 31.9 g/dL (30.0-36.0); Mean Corpuscular Hemoglobin 26.9 pg (28.0-34.0); Mean Corpuscular Volume 84.5 fl (80-94); Mean Platelet Volume 9.6 fL (7.4-10.4); Monocytes # 0.9 10^3/uL (0.2-0.9); Monocytes % 11.6 %; Neutrophils # 4.19 10^3/uL (1.8-7.7); Neutrophils % 53.6 %; Nucleated Red Blood Cells % 0 %; Platelet Count 210 10^3/cmm (130-400); Red Blood Count 4.64 10^6/uL (4.1-5.3); Red Cell Distribution Width 16.5 % (12.1-15.1); White Blood Count 7.8 10^3/uL (4.0-10.0)
[2023-07-07 15:10] LABS: Alanine Aminotransferase 53 U/L (0-41); Albumin Level 4.3 g/dL (3.5-5.2); Alkaline Phosphatase 77 U/L (40-130); Anion Gap 16.8 (5-19); Aspartate Amino Transferase 44 U/L (0-40); Blood Urea Nitrogen 15 mg/dL (8-23); Calcium 9.1 mg/dL (8.5-10.5); Carbon Dioxide 25 mmol/L (22-29); Chloride 103 mmol/L (98-107); Globulin 2.9 g/dL (1.3-4.6); Glucose 118 mg/dL (65-115); Osmolality Calculated 294 mOsm/kg (285-295); Potassium 3.8 mmol/L (3.5-5.1); Sodium 141 mmol/L (136-145); Total Bilirubin 0.4 mg/dL (0.15-1.2); Total Protein 7.2 g/dL (6.6-8.7)
== END 2023-07-17 23:59 | disposition home or self-care (01) ==
PROVIDERS: Internal Medicine Hematology & Oncology; PCP Family Medicine; Visit Provider Internal Medicine Medical Oncology
DX: Z85.79 Personal history of other malignant neoplasms of lymphoid, hematopoietic and related tissues (principal); Z45.2 Encounter for adjustment and management of vascular access device; D70.8 Other neutropenia; C83.10 Mantle cell lymphoma, unspecified site
CPT/HCPCS: 36591; 80053; 85025; 99215; J1642

== ENCOUNTER 2023-07-31 06:20 | Outpatient (CLI) | payer OTHER, SELFPAY ==
--- NOTE | 2023-07-31 07:00 | US_ITS ---
WS: [id number] Complete ABDOMINAL ULTRASOUND HISTORY: Elevated liver enzymes. COMPARISON: None available. Liver: 16.1 cm in length. Normal size liver. Coarse echotexture throughout the liver with no mass. De creased attenuation throughout the liver. No bile duct dilatation. Portal Vein: Normal hepatopetal flow with monophasic waveform. Gallbladder: Cholelithiasis without acute cholecystitis. No gallbladder wall thickening. CBD: 0.3 cm Pancreas: Head and tail are obscured by bowel gas. Otherwise negative. Right kidney: 12.0 cm x 5.3 x 5.5 cm. Cortex:1.4 cm. Normal size and echogenicity. No hydronephrosis or mass. Left kidney: 11.3 cm x 6.1 cm x 5.2 cm. Cortex: 1.4 cm. Normal size and echogenicity. No hydronephrosis or mass. Spleen: Normal size spleen at 10 cm in length. Aorta and IVC: Unremarkable abdominal aorta and IVC. Impression: 1. Cholelithiasis without acute cholecystitis. 2. No bile duct dilatation. 3. Normal size liver with mild hepatic steatosis.
== END 2023-07-31 06:21 | disposition home or self-care (01) ==
LOC: RAD 06:20
PROVIDERS: PCP Family Medicine; Visit Provider Internal Medicine Medical Oncology
DX: R74.01 Elevation of levels of liver transaminase levels (principal); C83.10 Mantle cell lymphoma, unspecified site; K80.20 Calculus of gallbladder without cholecystitis without obstruction; K76.0 Fatty (change of) liver, not elsewhere classified
CPT/HCPCS: 76700

== ENCOUNTER 2023-08-14 11:15 | Oncology outpatient (recurring) (ONCR) | payer OTHER, SELFPAY ==
[2023-07-22 13:51] VITALS: BP 147/71; PULSE 88; RESP 18; TEMP 36.9; O2SAT 93
[2023-07-22 14:14] LABS: Basophils # 0.1 10^3/uL (0.0-0.1); Basophils % 0.7 %; Eosinophils # 0.2 10^3/uL (0.0-0.8); Eosinophils % 1.4 %; Hematocrit 38.8 % (37-53); Lymphocytes # 3.6 10^3/uL (0.8-4.8); Lymphocytes % 30.7 %; Mean Corpuscular HGB Conc 32.2 g/dL (30-55); Mean Corpuscular Hemoglobin 27.2 pg (27-33); Mean Corpuscular Volume 84.3 fl (82-101); Mean Platelet Volume 9.8 fL (7.4-10.4); Monocytes # 1.3 10^3/uL (0.2-0.9); Neutrophils # 6.53 10^3/uL (1.8-7.7); Neutrophils % 55.9 %; Nucleated Red Blood Cells % 0 %; Platelet Count 227 10^3/cmm (157-399); Red Cell Distribution Width 16.5 % (12.1-15.1); White Blood Count 11.68 10^3/uL (3.29-11.43)
[2023-07-22 14:33] LABS: Alanine Aminotransferase 46 U/L (0-41); Albumin Level 4.3 g/dL (3.5-5.2); Alkaline Phosphatase 97 U/L (40-130); Anion Gap 15.2 (5-19); Aspartate Amino Transferase 106 U/L (0-40); Blood Urea Nitrogen 22 mg/dL (8-23); Calcium 9.5 mg/dL (8.5-10.5); Carbon Dioxide 25 mmol/L (22-29); Chloride 100 mmol/L (98-107); Glucose 140 mg/dL (65-115); Osmolality Calculated 288 mOsm/kg (285-295); Potassium 4.2 mmol/L (3.5-5.1); Sodium 136 mmol/L (136-145); Total Bilirubin 0.2 mg/dL (0.15-1.2); Total Protein 7.3 g/dL (6.6-8.7)
[2023-07-22 15:07] LABS: Lactate Dehydrogenase 3066 U/L (135-225)
[2023-07-22 16:18] LABS: Uric Acid 4.5 mg/dL (3.4-7.0)
[2023-08-07 09:40] LABS: Basophils # 0.1 10^3/uL (0.0-0.1); Basophils % 0.8 %; Eosinophils # 0.2 10^3/uL (0.0-0.8); Eosinophils % 2.5 %; Hematocrit 40.5 % (37-53); Lymphocytes # 2.2 10^3/uL (0.8-4.8); Lymphocytes % 28.5 %; Mean Corpuscular HGB Conc 30.9 g/dL (30-55); Mean Corpuscular Hemoglobin 26.3 pg (27-33); Mean Corpuscular Volume 85.3 fl (82-101); Mean Platelet Volume 9.9 fL (7.4-10.4); Monocytes # 0.9 10^3/uL (0.2-0.9); Monocytes % 11.3 %; Neutrophils # 4.45 10^3/uL (1.8-7.7); Neutrophils % 56.6 %; Nucleated Red Blood Cells % 0 %; Platelet Count 227 10^3/cmm (157-399); Red Blood Count 4.75 10^6/uL (3.85-5.65); Red Cell Distribution Width 16.7 % (12.1-15.1); White Blood Count 7.86 10^3/uL (3.29-11.43)
[2023-08-07 10:03] LABS: Alanine Aminotransferase 36 U/L (0-41); Albumin Level 3.9 g/dL (3.5-5.2); Alkaline Phosphatase 81 U/L (40-130); Aspartate Amino Transferase 26 U/L (0-40); Blood Urea Nitrogen 13 mg/dL (8-23); Calcium 8.8 mg/dL (8.5-10.5); Carbon Dioxide 26 mmol/L (22-29); Chloride 102 mmol/L (98-107); Globulin 3.1 g/dL (1.3-4.6); Glucose 159 mg/dL (65-115); Osmolality Calculated 295 mOsm/kg (285-295); Sodium 141 mmol/L (136-145); Total Bilirubin 0.2 mg/dL (0.15-1.2)
[2023-08-07 10:08] LABS: Anion Gap 16.8 (5-19); Bilirubin Direct < 0.20 mg/dL (0.00-0.30); Bilirubin Indirect 0.00001; Potassium 3.8 mmol/L (3.5-5.1)
[2023-08-14 10:50] VITALS: BP 185/77; PULSE 93; RESP 16; TEMP 36.9; O2SAT 96
[2023-08-14 11:01] LABS: Basophils # 0.1 10^3/uL (0.0-0.1); Basophils % 0.7 %; Eosinophils # 0.1 10^3/uL (0.0-0.8); Eosinophils % 1.2 %; Hematocrit 38.2 % (37-53); Lymphocytes % 35.3 %; Mean Corpuscular HGB Conc 32.5 g/dL (30-55); Mean Corpuscular Hemoglobin 27.4 pg (27-33); Mean Corpuscular Volume 84.3 fl (82-101); Mean Platelet Volume 10.7 fL (7.4-10.4); Monocytes # 0.7 10^3/uL (0.2-0.9); Monocytes % 8.6 %; Neutrophils # 4.61 10^3/uL (1.8-7.7); Neutrophils % 53.8 %; Nucleated Red Blood Cells % 0 %; Platelet Count 194 10^3/cmm (157-399); Red Blood Count 4.53 10^6/uL (3.85-5.65); Red Cell Distribution Width 16.6 % (12.1-15.1); White Blood Count 8.56 10^3/uL (3.29-11.43)
[2023-08-14 11:16] LABS: Alanine Aminotransferase 31 U/L (0-41); Albumin Level 4.1 g/dL (3.5-5.2); Alkaline Phosphatase 76 U/L (40-130); Aspartate Amino Transferase 31 U/L (0-40); Blood Urea Nitrogen 15 mg/dL (8-23); Calcium 9.2 mg/dL (8.5-10.5); Carbon Dioxide 27 mmol/L (22-29); Chloride 99 mmol/L (98-107); Globulin 3.1 g/dL (1.3-4.6); Glucose 149 mg/dL (65-115); Osmolality Calculated 292 mOsm/kg (285-295); Sodium 139 mmol/L (136-145); Total Bilirubin 0.5 mg/dL (0.15-1.2); Total Protein 7.2 g/dL (6.6-8.7)
== END 2023-08-16 23:59 | disposition home or self-care (01) ==
PROVIDERS: PCP Family Medicine; Visit Provider Internal Medicine Medical Oncology
DX: Z45.2 Encounter for adjustment and management of vascular access device (principal); C83.10 Mantle cell lymphoma, unspecified site; Z53.9 Procedure and treatment not carried out, unspecified reason
CPT/HCPCS: 36415; 36591; 80053; 82247; 82248; 83615; 84550; 85025; 99214; 99215; J1642

== ENCOUNTER 2023-09-08 10:00 | Oncology outpatient (recurring) (ONCR) | payer OTHER, SELFPAY ==
[2023-08-19 12:35] VITALS: BP 151/69; PULSE 62; RESP 16; TEMP 36.7; O2SAT 97
[2023-08-19 12:53] LABS: Basophils # 0.1 10^3/uL (0.0-0.1); Basophils % 0.7 %; Eosinophils # 0.1 10^3/uL (0.0-0.8); Eosinophils % 1.3 %; Hematocrit 38.7 % (37-53); Lymphocytes # 3.5 10^3/uL (0.8-4.8); Lymphocytes % 38.8 %; Mean Corpuscular HGB Conc 32.6 g/dL (30-55); Mean Corpuscular Hemoglobin 27.5 pg (27-33); Mean Corpuscular Volume 84.3 fl (82-101); Mean Platelet Volume 10.3 fL (7.4-10.4); Monocytes # 0.9 10^3/uL (0.2-0.9); Monocytes % 10.2 %; Neutrophils # 4.34 10^3/uL (1.8-7.7); Neutrophils % 48.4 %; Nucleated Red Blood Cells % 0 %; Platelet Count 204 10^3/cmm (157-399); Red Blood Count 4.59 10^6/uL (3.85-5.65); Red Cell Distribution Width 16.7 % (12.1-15.1); White Blood Count 8.96 10^3/uL (3.29-11.43)
[2023-08-19 13:17] LABS: Alanine Aminotransferase 36 U/L (0-41); Albumin Level 4.2 g/dL (3.5-5.2); Alkaline Phosphatase 71 U/L (40-130); Aspartate Amino Transferase 34 U/L (0-40); Blood Urea Nitrogen 20 mg/dL (8-23); Calcium 9.1 mg/dL (8.5-10.5); Carbon Dioxide 28 mmol/L (22-29); Chloride 101 mmol/L (98-107); Glucose 121 mg/dL (65-115); Osmolality Calculated 294 mOsm/kg (285-295); Sodium 140 mmol/L (136-145); Total Bilirubin 0.4 mg/dL (0.15-1.2); Total Protein 7.2 g/dL (6.6-8.7)
[2023-09-08 09:40] VITALS: BP 142/72; PULSE 64; RESP 16; TEMP 36.8; O2SAT 95
[2023-09-08 10:07] LABS: Basophils # 0.1 10^3/uL (0.0-0.1); Basophils % 0.7 %; Eosinophils # 0.1 10^3/uL (0.0-0.8); Eosinophils % 1.9 %; Hematocrit 38.5 % (37-53); Lymphocytes # 2.8 10^3/uL (0.8-4.8); Lymphocytes % 40.1 %; Mean Corpuscular HGB Conc 31.9 g/dL (30-55); Mean Corpuscular Hemoglobin 27.6 pg (27-33); Mean Corpuscular Volume 86.3 fl (82-101); Mean Platelet Volume 10.6 fL (7.4-10.4); Monocytes # 0.9 10^3/uL (0.2-0.9); Monocytes % 12.9 %; Neutrophils # 3.03 10^3/uL (1.8-7.7); Nucleated Red Blood Cells % 0 %; Platelet Count 189 10^3/cmm (157-399); Red Blood Count 4.46 10^6/uL (3.85-5.65); Red Cell Distribution Width 17.3 % (12.1-15.1); White Blood Count 6.89 10^3/uL (3.29-11.43)
[2023-09-08 10:34] LABS: Alanine Aminotransferase 35 U/L (0-41); Albumin Level 3.9 g/dL (3.5-5.2); Alkaline Phosphatase 73 U/L (40-130); Anion Gap 13.7 (5-19); Aspartate Amino Transferase 28 U/L (0-40); Blood Urea Nitrogen 14 mg/dL (8-23); Carbon Dioxide 27 mmol/L (22-29); Chloride 103 mmol/L (98-107); Globulin 2.9 g/dL (1.3-4.6); Glucose 102 mg/dL (65-115); Osmolality Calculated 291 mOsm/kg (285-295); Potassium 3.7 mmol/L (3.5-5.1); Sodium 140 mmol/L (136-145); Total Bilirubin 0.3 mg/dL (0.15-1.2); Total Protein 6.8 g/dL (6.6-8.7); Uric Acid 3.9 mg/dL (3.4-7.0)
== END 2023-09-16 23:59 | disposition home or self-care (01) ==
PROVIDERS: Nurse Practitioner Family; PCP Family Medicine; Visit Provider Internal Medicine Medical Oncology
DX: C83.10 Mantle cell lymphoma, unspecified site
CPT/HCPCS: 36591; 80053; 84550; 85025; 99214; J1642

== ENCOUNTER → 2023-09-09 10:32 | Outpatient (BNVA) | payer OTHER, SELFPAY | PROVIDERS: PCP Family Medicine; Visit Provider Nurse Practitioner Family | DX: Z85.828 Personal history of other malignant neoplasm of skin (principal); L57.0 Actinic keratosis; L81.4 Other melanin hyperpigmentation; L82.1 Other seborrheic keratosis | CPT/HCPCS: 17004; 99213 ==

== ENCOUNTER 2023-09-23 13:05 | Oncology outpatient (recurring) (ONCR) | payer OTHER, SELFPAY ==
[2023-09-23 13:16] VITALS: BP 146/75; PULSE 95; RESP 16; TEMP 36.7; O2SAT 82
[2023-09-23 13:39] LABS: Basophils % 0.6 %; Eosinophils # 0.1 10^3/uL (0.0-0.8); Eosinophils % 1.4 %; Hematocrit 39.1 % (37-53); Lymphocytes # 2.4 10^3/uL (0.8-4.8); Lymphocytes % 33.6 %; Mean Corpuscular HGB Conc 32.2 g/dL (30-55); Mean Corpuscular Hemoglobin 27.8 pg (27-33); Mean Corpuscular Volume 86.3 fl (82-101); Mean Platelet Volume 10.4 fL (7.4-10.4); Monocytes # 0.7 10^3/uL (0.2-0.9); Neutrophils # 3.97 10^3/uL (1.8-7.7); Neutrophils % 54.8 %; Nucleated Red Blood Cells % 0 %; Platelet Count 179 10^3/cmm (157-399); Red Blood Count 4.53 10^6/uL (3.85-5.65); Red Cell Distribution Width 17.2 % (12.1-15.1); White Blood Count 7.23 10^3/uL (3.29-11.43)
[2023-09-23 14:04] LABS: Alanine Aminotransferase 47 U/L (0-41); Albumin Level 4.2 g/dL (3.5-5.2); Alkaline Phosphatase 77 U/L (40-130); Anion Gap 18.1 (5-19); Aspartate Amino Transferase 33 U/L (0-40); Blood Urea Nitrogen 16 mg/dL (8-23); Calcium 9.1 mg/dL (8.5-10.5); Carbon Dioxide 25 mmol/L (22-29); Chloride 101 mmol/L (98-107); Globulin 2.9 g/dL (1.3-4.6); Glucose 181 mg/dL (65-115); Lactate Dehydrogenase 357 U/L (135-225); Osmolality Calculated 296 mOsm/kg (285-295); Potassium 4.1 mmol/L (3.5-5.1); Sodium 140 mmol/L (136-145); Total Bilirubin 0.3 mg/dL (0.15-1.2); Total Protein 7.1 g/dL (6.6-8.7)
== END 2023-10-16 23:59 | disposition home or self-care (01) ==
PROVIDERS: Nurse Practitioner Family; PCP Family Medicine; Visit Provider Internal Medicine Medical Oncology
DX: C83.10 Mantle cell lymphoma, unspecified site (principal); Z45.2 Encounter for adjustment and management of vascular access device; D70.8 Other neutropenia; Z85.79 Personal history of other malignant neoplasms of lymphoid, hematopoietic and related tissues; Z92.21 Personal history of antineoplastic chemotherapy; Z92.3 Personal history of irradiation
CPT/HCPCS: 36591; 80053; 83615; 85025; 99214; J1642

== ENCOUNTER 2023-10-21 11:23 | Oncology outpatient (recurring) (ONCR) | payer OTHER, SELFPAY ==
[2023-10-21 11:31] VITALS: BP 142/77; PULSE 69; RESP 16; TEMP 36.6; O2SAT 95
[2023-10-21 11:48] LABS: Basophils % 0.5 %; Eosinophils # 0.1 10^3/uL (0.0-0.8); Eosinophils % 1.4 %; Hematocrit 38.1 % (37-53); Lymphocytes # 2.2 10^3/uL (0.8-4.8); Lymphocytes % 33.5 %; Mean Corpuscular HGB Conc 32.3 g/dL (30-55); Mean Corpuscular Hemoglobin 27.6 pg (27-33); Mean Corpuscular Volume 85.6 fl (82-101); Mean Platelet Volume 10.4 fL (7.4-10.4); Monocytes # 0.9 10^3/uL (0.2-0.9); Monocytes % 13.9 %; Neutrophils # 3.24 10^3/uL (1.8-7.7); Neutrophils % 50.1 %; Nucleated Red Blood Cells % 0 %; Platelet Count 165 10^3/cmm (157-399); Red Blood Count 4.45 10^6/uL (3.85-5.65); Red Cell Distribution Width 16.9 % (12.1-15.1); White Blood Count 6.47 10^3/uL (3.29-11.43)
[2023-10-21 12:06] LABS: Alanine Aminotransferase 35 U/L (0-41); Albumin Level 4.2 g/dL (3.5-5.2); Alkaline Phosphatase 83 U/L (40-130); Aspartate Amino Transferase 34 U/L (0-40); Blood Urea Nitrogen 17 mg/dL (8-23); Calcium 8.9 mg/dL (8.5-10.5); Carbon Dioxide 22 mmol/L (22-29); Chloride 100 mmol/L (98-107); Globulin 2.9 g/dL (1.3-4.6); Glucose 109 mg/dL (65-115); Osmolality Calculated 288 mOsm/kg (285-295); Sodium 138 mmol/L (136-145); Total Bilirubin 0.3 mg/dL (0.15-1.2); Total Protein 7.1 g/dL (6.6-8.7)
[2023-10-21 13:01] LABS: Anion Gap 19.7 (5-19); Lactate Dehydrogenase 441 U/L (135-225); Potassium 3.7 mmol/L (3.5-5.1)
== END 2023-11-16 23:59 | disposition home or self-care (01) ==
PROVIDERS: PCP Family Medicine; Visit Provider Internal Medicine Medical Oncology
DX: C83.10 Mantle cell lymphoma, unspecified site (principal); Z45.2 Encounter for adjustment and management of vascular access device; D70.8 Other neutropenia; Z85.79 Personal history of other malignant neoplasms of lymphoid, hematopoietic and related tissues; Z92.21 Personal history of antineoplastic chemotherapy; Z92.3 Personal history of irradiation
CPT/HCPCS: 36591; 80053; 83615; 85025; 99214; J1642

== ENCOUNTER 2023-11-04 13:46 | Outpatient (CLI) | payer OTHER, SELFPAY ==
--- NOTE | 2023-11-04 10:00 | PETR_ITS ---
PROCEDURE INFORMATION: Exam: PET/CT Skull Base to Mid-thigh Exam date and time: 11/04/2023 10:29 AM Age: 78 years old Clinical indication: Condition or disease; Primary cancer: Lymphoma mantle cell; Follow-up oncological assessment; Condition/disease: Elevated ldh; Additional info: Restaging, elevated ldh LABS AND CLINICAL REPORTS: Glucose: 114 mg/dl Treatment strategy for malignancy (PET staging): Restaging (PS) TECHNIQUE: Imaging protocol: Following at least four-hour fasting and following the injection of radiopharmaceutical, low dose CT images were obtained. Then, PET images were obtained. Attenuation corrected images were constructed using the CT scan. Fused images of PET and CT were reviewed. The standardized uptake values (SUV) reported below are maximum values within a region of interest, expressed in gm/ml. Exam includes orbital meatal line to mid-thigh. Radiopharmaceutical: 14.1 mCi F-18 FDG (Fluorodeoxyglucose), IV. Time of imaging post radiopharmaceutical administration: 1 hour Injection site: Right antecubital COM[facility]ISON: [id number] 05/31/2023 12:16 PM FINDINGS: Brain: Visualized brain has normal physiologic uptake. Pharynx: No abnormal uptake. Larynx: No abnormal uptake. Lungs, pleura and trachea: No abnormal uptake. Heart: Normal physiologic uptake. Mediastinal space: No abnormal uptake. Liver: No abnormal uptake. Gallbladder and bile ducts: No abnormal uptake. Pancreas: No abnormal uptake. Spleen: No abnormal uptake. Adrenal glands: No abnormal uptake. Kidneys and ureters: Normal physiologic uptake. Stomach and bowel: No abnormal uptake. Vasculature: No abnormal uptake. Lymph nodes: Redemonstrated numerous enlarged, FDG avid lymph nodes including within the left cervical soft tissues predominantly level 5 nodes, left supraclavicular node, bilateral axillary, left retropectoral, mediastinal, hilar, posterior mediastinal, mesenteric, retroperitoneal periaortic, bilateral external iliac, and bilateral inguinal nodes. A reference point was used at the bulky periaortic adenopathy with a max SUV of 31.9 on today's study previously measuring 33.1 in this same region. There is enlarging lymphadenopathy in this region compared to comparison study. A 2nd reference point is a right inguinal lymph node today measuring up to 2.7 cm in short axis series 3, image 234 previously measuring up to 2 cm in short axis with a SUV max of 42.9 previously an SUV max of 37.6. A 3rd reference point is a right hilar lymph node with a previous max SUV of 31.7 and a max SUV of 15.6 on today's study. Bones/joints: No abnormal uptake in the visualized axial and appendicular skeleton. Soft tissues: No abnormal uptake in the visualized head, neck, chest, abdomen, pelvis, and extremities. [facility] [id number] IMPRESSION: Overall, similar distribution of lymphadenopathy. Mixed response with some nodes showing improvement in max SUV and other regions demonstrating antonieta enlargement and/or increasing max SUV.
== END 2023-11-04 13:47 | disposition home or self-care (01) ==
LOC: RAD 13:46
PROVIDERS: PCP Family Medicine; Visit Provider Nurse Practitioner Family
DX: C83.10 Mantle cell lymphoma, unspecified site (principal); R74.02 Elevation of levels of lactic acid dehydrogenase [LDH]
CPT/HCPCS: 78815; A9552

== ENCOUNTER 2023-12-17 13:30 | Oncology outpatient (recurring) (ONCR) | payer OTHER, SELFPAY ==
[2023-11-19 11:40] VITALS: BP 161/73; PULSE 80; RESP 16; TEMP 36.5; O2SAT 97
[2023-11-19 11:48] LABS: Basophils # 0.1 10^3/uL (0.0-0.1); Basophils % 0.6 %; Eosinophils # 0.1 10^3/uL (0.0-0.8); Eosinophils % 1.4 %; Hematocrit 37.6 % (37-53); Lymphocytes # 3.5 10^3/uL (0.8-4.8); Lymphocytes % 36.1 %; Mean Corpuscular HGB Conc 32.2 g/dL (30-55); Mean Corpuscular Hemoglobin 27.3 pg (27-33); Mean Corpuscular Volume 84.9 fl (82-101); Mean Platelet Volume 9.9 fL (7.4-10.4); Monocytes # 0.9 10^3/uL (0.2-0.9); Monocytes % 9.6 %; Neutrophils # 4.89 10^3/uL (1.8-7.7); Neutrophils % 51.3 %; Nucleated Red Blood Cells % 0 %; Platelet Count 147 10^3/cmm (157-399); Red Blood Count 4.43 10^6/uL (3.85-5.65); White Blood Count 9.55 10^3/uL (3.29-11.43)
[2023-11-19 12:07] LABS: Alanine Aminotransferase 34 U/L (0-41); Albumin Level 4.1 g/dL (3.5-5.2); Alkaline Phosphatase 87 U/L (40-130); Anion Gap 17.9 (5-19); Aspartate Amino Transferase 28 U/L (0-40); Blood Urea Nitrogen 13 mg/dL (8-23); Calcium 9.2 mg/dL (8.5-10.5); Carbon Dioxide 26 mmol/L (22-29); Chloride 99 mmol/L (98-107); Globulin 3.1 g/dL (1.3-4.6); Glucose 119 mg/dL (65-115); Lactate Dehydrogenase 470 U/L (135-225); Osmolality Calculated 289 mOsm/kg (285-295); Potassium 3.9 mmol/L (3.5-5.1); Sodium 139 mmol/L (136-145); Total Bilirubin 0.3 mg/dL (0.15-1.2); Total Protein 7.2 g/dL (6.6-8.7)
[2023-12-17 13:52] LABS: Basophils # 0.1 10^3/uL (0.0-0.1); Basophils % 0.7 %; Eosinophils # 0.1 10^3/uL (0.0-0.8); Eosinophils % 1.3 %; Hematocrit 38.5 % (37-53); Lymphocytes # 3.1 10^3/uL (0.8-4.8); Lymphocytes % 43.9 %; Mean Corpuscular HGB Conc 31.7 g/dL (30-55); Mean Corpuscular Hemoglobin 26.8 pg (27-33); Mean Corpuscular Volume 84.4 fl (82-101); Mean Platelet Volume 10.4 fL (7.4-10.4); Monocytes # 0.9 10^3/uL (0.2-0.9); Monocytes % 13.1 %; Nucleated Red Blood Cells % 0 %; Platelet Count 143 10^3/cmm (157-399); Red Blood Count 4.56 10^6/uL (3.85-5.65); Red Cell Distribution Width 16.9 % (12.1-15.1)
[2023-12-17 14:14] LABS: Alanine Aminotransferase 43 U/L (0-41); Albumin Level 4.1 g/dL (3.5-5.2); Alkaline Phosphatase 79 U/L (40-130); Anion Gap 20.2 (5-19); Aspartate Amino Transferase 32 U/L (0-40); Blood Urea Nitrogen 18 mg/dL (8-23); Calcium 9.3 mg/dL (8.5-10.5); Carbon Dioxide 26 mmol/L (22-29); Chloride 96 mmol/L (98-107); Globulin 3.1 g/dL (1.3-4.6); Glucose 87 mg/dL (65-115); Lactate Dehydrogenase 483 U/L (135-225); Osmolality Calculated 287 mOsm/kg (285-295); Potassium 4.2 mmol/L (3.5-5.1); Sodium 138 mmol/L (136-145); Total Bilirubin 0.4 mg/dL (0.15-1.2); Total Protein 7.2 g/dL (6.6-8.7)
== END 2023-12-17 23:59 | disposition home or self-care (01) ==
PROVIDERS: Internal Medicine; Nurse Practitioner Family; PCP Family Medicine; Visit Provider Internal Medicine Medical Oncology
DX: C83.10 Mantle cell lymphoma, unspecified site; Z95.828 Presence of other vascular implants and grafts; Z87.891 Personal history of nicotine dependence; Z79.899 Other long term (current) drug therapy; Z53.9 Procedure and treatment not carried out, unspecified reason
CPT/HCPCS: 36591; 80053; 83615; 85025; 99214; J1642

== ENCOUNTER 2024-01-26 11:46 | Oncology outpatient (recurring) (ONCR) | payer OTHER, SELFPAY ==
[2024-01-26 12:01] LABS: Basophils # 0.1 10^3/uL (0.0-0.1); Basophils % 0.6 %; Eosinophils # 0.1 10^3/uL (0.0-0.8); Hematocrit 37.3 % (37-53); Lymphocytes # 3.3 10^3/uL (0.8-4.8); Lymphocytes % 37.4 %; Mean Corpuscular HGB Conc 31.1 g/dL (30-55); Mean Corpuscular Hemoglobin 26.7 pg (27-33); Mean Corpuscular Volume 85.9 fl (82-101); Mean Platelet Volume 10.2 fL (7.4-10.4); Monocytes % 11.6 %; Neutrophils # 4.06 10^3/uL (1.8-7.7); Neutrophils % 46.6 %; Nucleated Red Blood Cells % 0 %; Platelet Count 110 10^3/cmm (157-399); Red Blood Count 4.34 10^6/uL (3.85-5.65)
[2024-01-26 12:23] LABS: Alanine Aminotransferase 40 U/L (0-41); Albumin Level 4.1 g/dL (3.5-5.2); Alkaline Phosphatase 78 U/L (40-130); Anion Gap 22.4 (5-19); Aspartate Amino Transferase 43 U/L (0-40); Blood Urea Nitrogen 16 mg/dL (8-23); Calcium 9.1 mg/dL (8.5-10.5); Carbon Dioxide 24 mmol/L (22-29); Chloride 98 mmol/L (98-107); Glucose 106 mg/dL (65-115); Lactate Dehydrogenase 598 U/L (135-225); Osmolality Calculated 292 mOsm/kg (285-295); Potassium 4.4 mmol/L (3.5-5.1); Sodium 140 mmol/L (136-145); Total Bilirubin 0.3 mg/dL (0.15-1.2); Total Protein 7.1 g/dL (6.6-8.7)
== END 2024-02-15 23:59 | disposition home or self-care (01) ==
LOC: ONCMED 11:46
PROVIDERS: Internal Medicine Medical Oncology; PCP Family Medicine; Visit Provider Internal Medicine Medical Oncology
DX: C83.10 Mantle cell lymphoma, unspecified site (principal); Z45.2 Encounter for adjustment and management of vascular access device; D70.8 Other neutropenia; Z85.79 Personal history of other malignant neoplasms of lymphoid, hematopoietic and related tissues; Z92.21 Personal history of antineoplastic chemotherapy; Z92.3 Personal history of irradiation
CPT/HCPCS: 36591; 80053; 83615; 85025

== ENCOUNTER 2024-02-10 09:19 | Outpatient (CLI) | payer OTHER, SELFPAY ==
--- NOTE | 2024-02-10 09:26 | MR_ITS ---
WS: [id number] MRI LUMBAR SPINE NONCONTRAST HISTORY: INTERVERTEBRAL DISC DZ/LOW BACK PAIN COMPARISON: 06/06/2017 TECHNIQUE: Sagittal and axial multisequence imaging is submitted. Straightening and mild curvature lumbar spine. L4 retrolisthesis by 2 mm. No fractures or acute marro w edema. Moderate disc space narrowing and desiccation most significant at L3-4. Osteophytic ridging around th e vertebral bodies. Conus terminates normally at L1. T12-L1: Moderate bilateral ligamentum flavum and facet arthritis with encroaching upon the central ca nal. Mild central and bilateral subarticular recess stenosis. L1-L2: Mild annular disc bulging with mild ligamentum flavum and facet arthritis. Moderate central wi th bilateral subarticular recess encroachment and RIGHT foraminal stenosis. Most significant encroach ment upon the traversing RIGHT L2 nerve root. L2-L3: Diffuse osteophytic ridging and annular disc bulging and facet arthritis. Moderate central, bi lateral subarticular recess and mild foraminal stenosis. Most significant encroachment into the subar ticular recesses upon the traversing L3 nerve roots. L3-L4: Marked osteophytic ridging with severe facet and ligamentum flavum arthritis. Severe central, bilateral subarticular recess and foraminal stenosis, LEFT greater than RIGHT. L4-L5: Diffuse annular disc bulging, osteophytic ridging, severe ligamentum flavum and facet arthriti s. There is a distal disc osteophyte extending into the LEFT subarticular recess. Severe central, kristan ateral subarticular recess and LEFT foraminal stenosis. Moderate RIGHT foraminal stenosis. L5-S1: Diffuse annular disc bulging, osteophytic ridging and facet arthritis. Focal disc osteophyte R IGHT paracentral and subarticular recess with significant encroachment upon the RIGHT S1 nerve root. Severe central, bilateral subarticular recess and foraminal stenosis. Patient has known retroperitoneal lymphadenopathy. Multiple retroperitoneal lymph nodes are identifie d and enlarged. Please refer to the recent PET/CT from 11/04/2023. IMPRESSION: 1. Significant progression of degenerative changes and stenoses throughout the lumbar spine since 17. Multilevel nerve root encroachment as described above. 2. L3-4: Severe central, bilateral subarticular recess and foraminal stenosis. 3. L4-5: Severe central, bilateral subarticular recess and LEFT foraminal stenosis, moderate RIGHT f oraminal stenosis. 4. L5-S1: Severe central and bilateral subarticular recess and foraminal stenosis. 5. L2-3: Moderate central and subarticular recess stenosis. 6. L1-2: Moderate central with bilateral subarticular recess and RIGHT foraminal stenosis. 7. T12-L1: Mild central and bilateral subarticular recess stenosis. 8. Retroperitoneal lymphadenopathy. Patient has known lymphadenopathy. Refer to the PET CT report [facility] 11/04/2023.
== END 2024-02-10 09:20 | disposition home or self-care (01) ==
LOC: RAD 09:20
PROVIDERS: PCP Family Medicine; Visit Provider Family Medicine
DX: M54.2 Cervicalgia (principal); M48.061 Spinal stenosis, lumbar region without neurogenic claudication
CPT/HCPCS: 72148

== ENCOUNTER 2024-04-14 09:12 | Oncology outpatient (recurring) (ONCR) | payer OTHER, SELFPAY ==
--- NOTE | 2024-04-14 09:54 | PC.NURSE ---
Central Line Dressing Change Central line dressing changed on 04/14/24 at 0945 using sterile technique. No redness or drainage at insertion site. Sutures in place. All lumens flushed with saline and heparin. Blood return from all lumens. Claves changed and Swabcaps applied. Patient tolerated well.
[2024-04-14 10:05] LABS: Basophils % 0.8 %; Eosinophils # 0.2 10^3/uL (0.0-0.8); Eosinophils % 3.5 %; Hematocrit 32.1 % (37-53); Lymphocytes # 2.1 10^3/uL (0.8-4.8); Lymphocytes % 43.5 %; Mean Corpuscular HGB Conc 32.1 g/dL (30-55); Mean Corpuscular Hemoglobin 29.7 pg (27-33); Mean Corpuscular Volume 92.5 fl (82-101); Mean Platelet Volume 9.9 fL (7.4-10.4); Monocytes # 0.6 10^3/uL (0.2-0.9); Monocytes % 12.4 %; Neutrophils # 1.89 10^3/uL (1.8-7.7); Neutrophils % 39.2 %; Nucleated Red Blood Cells % 0 %; Platelet Count 163 10^3/cmm (157-399); Red Blood Count 3.47 10^6/uL (3.85-5.65); Red Cell Distribution Width 20.8 % (12.1-15.1); White Blood Count 4.83 10^3/uL (3.29-11.43)
[2024-04-14 10:25] LABS: Alanine Aminotransferase 57 U/L (0-41); Albumin Level 3.8 g/dL (3.5-5.2); Alkaline Phosphatase 97 U/L (40-130); Anion Gap 13.9 (5-19); Aspartate Amino Transferase 42 U/L (0-40); Blood Urea Nitrogen 12 mg/dL (8-23); Calcium 8.9 mg/dL (8.5-10.5); Carbon Dioxide 23 mmol/L (22-29); Chloride 110 mmol/L (98-107); Globulin 2.8 g/dL (1.3-4.6); Glucose 149 mg/dL (65-115); Lactate Dehydrogenase 251 U/L (135-225); Osmolality Calculated 299 mOsm/kg (285-295); Potassium 3.9 mmol/L (3.5-5.1); Sodium 143 mmol/L (136-145); Total Bilirubin 0.5 mg/dL (0.15-1.2); Total Protein 6.6 g/dL (6.6-8.7)
== END 2024-04-16 23:59 | disposition home or self-care (01) ==
PROVIDERS: Nurse Practitioner Family; PCP Family Medicine; Visit Provider Internal Medicine Medical Oncology
DX: Z53.9 Procedure and treatment not carried out, unspecified reason; C83.10 Mantle cell lymphoma, unspecified site
CPT/HCPCS: 36592; 80053; 83615; 85025; 99213

== ENCOUNTER 2024-06-16 10:45 | Oncology outpatient (recurring) (ONCR) | payer OTHER, SELFPAY ==
[2024-06-07 13:20] LABS: Basophils % 0.7 %; Eosinophils # 0.1 10^3/uL (0.0-0.8); Eosinophils % 3.3 %; Hematocrit 28.3 % (37-53); Lymphocytes # 0.9 10^3/uL (0.8-4.8); Mean Corpuscular HGB Conc 32.5 g/dL (30-55); Mean Corpuscular Hemoglobin 31.7 pg (27-33); Mean Corpuscular Volume 97.6 fl (82-101); Mean Platelet Volume 9.1 fL (7.4-10.4); Monocytes # 0.2 10^3/uL (0.2-0.9); Neutrophils % 19.3 %; Nucleated Red Blood Cells % 0 %; Platelet Count 37 10^3/cmm (157-399); Red Cell Distribution Width 19.6 % (12.1-15.1)
[2024-06-07 13:36] LABS: Alanine Aminotransferase 65 U/L (0-41); Alkaline Phosphatase 54 U/L (40-130); Anion Gap 13.9 (5-19); Aspartate Amino Transferase 35 U/L (0-40); Blood Urea Nitrogen 14 mg/dL (8-23); Calcium 8.9 mg/dL (8.5-10.5); Carbon Dioxide 24 mmol/L (22-29); Chloride 108 mmol/L (98-107); Glucose 133 mg/dL (65-115); Lactate Dehydrogenase 250 U/L (135-225); Osmolality Calculated 296 mOsm/kg (285-295); Potassium 3.9 mmol/L (3.5-5.1); Sodium 142 mmol/L (136-145); Total Bilirubin 0.2 mg/dL (0.15-1.2)
[2024-06-07 14:14] LABS: Neutrophils # 0.29 10^3/uL (1.8-7.7)
[2024-06-09] MEDS: filgrastim-sndz 480 mcg/0.8 mL Syringe SUBCUT (12:11)
[2024-06-09 12:14] VITALS: BP 143/72; PULSE 60; TEMP 36.8; O2SAT 99
[2024-06-10] MEDS: filgrastim-sndz 480 mcg/0.8 mL Syringe SUBCUT (11:03)
[2024-06-10 11:06] VITALS: BP 125/71; PULSE 64; RESP 16; TEMP 36.3; O2SAT 97
[2024-06-11 11:04] VITALS: BP 114/69; PULSE 69; RESP 17; TEMP 36.9; O2SAT 96
[2024-06-14 13:14] LABS: Basophils % 0.4 %; Eosinophils # 0.1 10^3/uL (0.0-0.8); Eosinophils % 2.3 %; Hematocrit 27.9 % (37-53); Lymphocytes # 1.4 10^3/uL (0.8-4.8); Lymphocytes % 52.3 %; Mean Corpuscular HGB Conc 33.3 g/dL (30-55); Mean Corpuscular Hemoglobin 32.1 pg (27-33); Mean Corpuscular Volume 96.2 fl (82-101); Mean Platelet Volume 10.1 fL (7.4-10.4); Monocytes # 0.6 10^3/uL (0.2-0.9); Monocytes % 22.5 %; Nucleated Red Blood Cells % 0 %; Platelet Count 35 10^3/cmm (157-399); Red Cell Distribution Width 19.6 % (12.1-15.1); White Blood Count 2.62 10^3/uL (3.29-11.43)
[2024-06-14 13:31] LABS: Alanine Aminotransferase 46 U/L (0-41); Albumin Level 4.1 g/dL (3.5-5.2); Alkaline Phosphatase 66 U/L (40-130); Anion Gap 15.7 (5-19); Aspartate Amino Transferase 32 U/L (0-40); Blood Urea Nitrogen 16 mg/dL (8-23); Calcium 8.8 mg/dL (8.5-10.5); Carbon Dioxide 23 mmol/L (22-29); Chloride 105 mmol/L (98-107); Globulin 2.2 g/dL (1.3-4.6); Glucose 131 mg/dL (65-115); Lactate Dehydrogenase 275 U/L (135-225); Osmolality Calculated 293 mOsm/kg (285-295); Potassium 3.7 mmol/L (3.5-5.1); Sodium 140 mmol/L (136-145); Total Bilirubin 0.3 mg/dL (0.15-1.2); Total Protein 6.3 g/dL (6.6-8.7)
[2024-06-14 15:51] LABS: Neutrophils # 0.55 10^3/uL (1.8-7.7)
[2024-06-15 12:56] VITALS: BP 113/69; PULSE 67; RESP 17; TEMP 36.4; O2SAT 98
[2024-06-15] MEDS: ROMIPLOSTIM SUBCUT (13:33)
[2024-06-16 10:54] VITALS: BP 115/58; PULSE 67; RESP 16; TEMP 36.8; O2SAT 94
[2024-06-16] MEDS: filgrastim-sndz 480 mcg/0.8 mL Syringe SUBCUT (10:56)
== END 2024-06-16 23:59 | disposition home or self-care (01) ==
PROVIDERS: Internal Medicine Medical Oncology; PCP Family Medicine; Visit Provider Internal Medicine Medical Oncology
DX: C83.10 Mantle cell lymphoma, unspecified site (principal); Z53.9 Procedure and treatment not carried out, unspecified reason; Z92.21 Personal history of antineoplastic chemotherapy; D61.810 Antineoplastic chemotherapy induced pancytopenia; T45.1X5A Adverse effect of antineoplastic and immunosuppressive drugs, initial encounter; Z79.899 Other long term (current) drug therapy
CPT/HCPCS: 36591; 80053; 83615; 85025; 96372; 99214; J1442; J2796; Q5101

== ENCOUNTER 2024-06-30 14:45 | Oncology outpatient (recurring) (ONCR) | payer OTHER, SELFPAY ==
[2024-06-17] MEDS: filgrastim-sndz 480 mcg/0.8 mL Syringe SUBCUT (11:11)
[2024-06-17 11:16] VITALS: BP 120/72; PULSE 60; RESP 16; TEMP 36.5; O2SAT 99
[2024-06-23 11:03] LABS: Basophils % 0.6 %; Eosinophils # 0.1 10^3/uL (0.0-0.8); Eosinophils % 1.5 %; Hematocrit 27.3 % (37-53); Lymphocytes # 1.3 10^3/uL (0.8-4.8); Lymphocytes % 38.8 %; Mean Corpuscular Hemoglobin 31.7 pg (27-33); Mean Corpuscular Volume 96.1 fl (82-101); Mean Platelet Volume 10.4 fL (7.4-10.4); Monocytes # 0.5 10^3/uL (0.2-0.9); Monocytes % 14.5 %; Neutrophils % 39.4 %; Nucleated Red Blood Cells % 0 %; Platelet Count 51 10^3/cmm (157-399); Red Blood Count 2.84 10^6/uL (3.85-5.65); Red Cell Distribution Width 19.5 % (12.1-15.1)
[2024-06-23 11:23] LABS: Alanine Aminotransferase 28 U/L (0-41); Alkaline Phosphatase 83 U/L (40-130); Anion Gap 17.3 (5-19); Aspartate Amino Transferase 23 U/L (0-40); Blood Urea Nitrogen 17 mg/dL (8-23); Calcium 8.6 mg/dL (8.5-10.5); Carbon Dioxide 22 mmol/L (22-29); Chloride 105 mmol/L (98-107); Globulin 2.4 g/dL (1.3-4.6); Glucose 159 mg/dL (65-115); Lactate Dehydrogenase 254 U/L (135-225); Osmolality Calculated 297 mOsm/kg (285-295); Potassium 3.3 mmol/L (3.5-5.1); Sodium 141 mmol/L (136-145); Total Bilirubin 0.3 mg/dL (0.15-1.2); Total Protein 6.4 g/dL (6.6-8.7)
[2024-06-23 11:43] LABS: Slide Review Slide Review Perform
[2024-06-23 13:28] VITALS: BP 116/74; PULSE 60; RESP 16; TEMP 36.8; O2SAT 99
[2024-06-23] MEDS: romiplostim 250 mcg SDV 500 MCG SUBCUT (13:47)
[2024-06-28 12:45] LABS: Basophils % 0.5 %; Eosinophils % 1.1 %; Hematocrit 26.9 % (37-53); Lymphocytes # 1.2 10^3/uL (0.8-4.8); Lymphocytes % 33.6 %; Mean Corpuscular HGB Conc 33.1 g/dL (30-55); Mean Corpuscular Hemoglobin 32.1 pg (27-33); Mean Corpuscular Volume 97.1 fl (82-101); Monocytes # 0.4 10^3/uL (0.2-0.9); Monocytes % 11.7 %; Neutrophils # 1.86 10^3/uL (1.8-7.7); Neutrophils % 50.4 %; Nucleated Red Blood Cells % 0 %; Platelet Count 55 10^3/cmm (157-399); Red Blood Count 2.77 10^6/uL (3.85-5.65); Red Cell Distribution Width 19.3 % (12.1-15.1); White Blood Count 3.69 10^3/uL (3.29-11.43)
[2024-06-28 13:03] LABS: Alanine Aminotransferase 25 U/L (0-41); Albumin Level 4.1 g/dL (3.5-5.2); Alkaline Phosphatase 76 U/L (40-130); Anion Gap 14.9 (5-19); Aspartate Amino Transferase 22 U/L (0-40); Blood Urea Nitrogen 17 mg/dL (8-23); Calcium 8.8 mg/dL (8.5-10.5); Carbon Dioxide 24 mmol/L (22-29); Chloride 105 mmol/L (98-107); Globulin 2.6 g/dL (1.3-4.6); Glucose 143 mg/dL (65-115); Lactate Dehydrogenase 267 U/L (135-225); Osmolality Calculated 294 mOsm/kg (285-295); Potassium 3.9 mmol/L (3.5-5.1); Sodium 140 mmol/L (136-145); Total Bilirubin 0.3 mg/dL (0.15-1.2); Total Protein 6.7 g/dL (6.6-8.7)
--- NOTE | 2024-06-28 14:17 | PC.NURSE ---
Patient not due for medication. Rescheduled for Friday. Education given to patient.
[2024-06-30] MEDS: romiplostim 250 mcg SDV 1000 MCG SUBCUT (14:50)
== END 2024-06-30 23:59 | disposition home or self-care (01) ==
PROVIDERS: Internal Medicine Medical Oncology; PCP Family Medicine; Visit Provider Internal Medicine Medical Oncology
DX: C83.10 Mantle cell lymphoma, unspecified site (principal); Z53.9 Procedure and treatment not carried out, unspecified reason; Z79.899 Other long term (current) drug therapy
CPT/HCPCS: 36591; 80053; 83615; 85025; 96372; J2796; Q5101

== ENCOUNTER 2024-07-07 11:40 | Oncology outpatient (recurring) (ONCR) | payer OTHER, SELFPAY ==
[2024-07-07 12:51] LABS: Basophils % 0.8 %; Eosinophils # 0.1 10^3/uL (0.0-0.8); Eosinophils % 2.2 %; Hematocrit 27.6 % (37-53); Lymphocytes # 1.2 10^3/uL (0.8-4.8); Lymphocytes % 32.9 %; Mean Corpuscular HGB Conc 32.2 g/dL (30-55); Mean Corpuscular Hemoglobin 31.3 pg (27-33); Mean Corpuscular Volume 97.2 fl (82-101); Mean Platelet Volume 10.4 fL (7.4-10.4); Monocytes # 0.6 10^3/uL (0.2-0.9); Neutrophils # 1.47 10^3/uL (1.8-7.7); Neutrophils % 41.3 %; Nucleated Red Blood Cells % 0 %; Platelet Count 77 10^3/cmm (157-399); Red Blood Count 2.84 10^6/uL (3.85-5.65); Red Cell Distribution Width 18.5 % (12.1-15.1); White Blood Count 3.56 10^3/uL (3.29-11.43)
[2024-07-07 13:19] LABS: Alanine Aminotransferase 23 U/L (0-41); Alkaline Phosphatase 68 U/L (40-130); Anion Gap 15.7 (5-19); Aspartate Amino Transferase 24 U/L (0-40); Blood Urea Nitrogen 18 mg/dL (8-23); Calcium 8.7 mg/dL (8.5-10.5); Carbon Dioxide 24 mmol/L (22-29); Chloride 106 mmol/L (98-107); Globulin 2.6 g/dL (1.3-4.6); Glucose 164 mg/dL (65-115); Lactate Dehydrogenase 236 U/L (135-225); Osmolality Calculated 300 mOsm/kg (285-295); Potassium 3.7 mmol/L (3.5-5.1); Sodium 142 mmol/L (136-145); Total Bilirubin 0.4 mg/dL (0.15-1.2); Total Protein 6.6 g/dL (6.6-8.7)
[2024-07-07] MEDS: romiplostim 250 mcg SDV 1000 MCG SUBCUT (14:10)
[2024-07-07 14:13] VITALS: BP 134/67; PULSE 59; RESP 16; TEMP 36.8; O2SAT 93
== END 2024-07-07 23:59 | disposition home or self-care (01) ==
LOC: ONCMED 11:40
PROVIDERS: Internal Medicine Medical Oncology; PCP Family Medicine; Visit Provider Internal Medicine Medical Oncology
DX: C83.10 Mantle cell lymphoma, unspecified site (principal); Z79.899 Other long term (current) drug therapy
CPT/HCPCS: 36591; 80053; 83615; 85025; 96372; J2796

== ENCOUNTER 2024-07-14 11:44 | Oncology outpatient (recurring) (ONCR) | payer OTHER, SELFPAY ==
[2024-07-14 12:19] LABS: Basophils % 0.5 %; Eosinophils # 0.2 10^3/uL (0.0-0.8); Eosinophils % 2.6 %; Lymphocytes # 1.6 10^3/uL (0.8-4.8); Lymphocytes % 27.4 %; Mean Corpuscular HGB Conc 31.8 g/dL (30-55); Mean Corpuscular Hemoglobin 31.9 pg (27-33); Mean Corpuscular Volume 100.4 fl (82-101); Mean Platelet Volume 9.7 fL (7.4-10.4); Monocytes # 0.9 10^3/uL (0.2-0.9); Monocytes % 14.5 %; Neutrophils # 2.83 10^3/uL (1.8-7.7); Neutrophils % 48.3 %; Nucleated Red Blood Cells % 0 %; Platelet Count 116 10^3/cmm (157-399); Red Blood Count 2.79 10^6/uL (3.85-5.65); Red Cell Distribution Width 17.7 % (12.1-15.1); White Blood Count 5.85 10^3/uL (3.29-11.43)
[2024-07-14 12:45] LABS: Alanine Aminotransferase 24 U/L (0-41); Albumin Level 4.2 g/dL (3.5-5.2); Alkaline Phosphatase 81 U/L (40-130); Aspartate Amino Transferase 21 U/L (0-40); Blood Urea Nitrogen 21 mg/dL (8-23); Calcium 9.1 mg/dL (8.5-10.5); Carbon Dioxide 23 mmol/L (22-29); Chloride 106 mmol/L (98-107); Globulin 2.4 g/dL (1.3-4.6); Glucose 115 mg/dL (65-115); Osmolality Calculated 298 mOsm/kg (285-295); Sodium 142 mmol/L (136-145); Total Bilirubin 0.5 mg/dL (0.15-1.2); Total Protein 6.6 g/dL (6.6-8.7)
[2024-07-14 12:56] LABS: Slide Review Slide Review Perform
--- NOTE | 2024-07-14 14:23 | PC.NURSE ---
Copy of CBC reviewed with and given to pt. PLT 116, Pt did not need NPlate this week per perameters/lc
== END 2024-07-17 23:59 | disposition home or self-care (01) ==
PROVIDERS: Internal Medicine Medical Oncology; PCP Family Medicine; Visit Provider Internal Medicine Medical Oncology
DX: C83.10 Mantle cell lymphoma, unspecified site (principal)
CPT/HCPCS: 36591; 80053; 85025

== ENCOUNTER 2024-08-11 12:30 | Oncology outpatient (recurring) (ONCR) | payer OTHER, SELFPAY ==
[2024-07-21 12:37] LABS: Basophils % 0.6 %; Eosinophils # 0.2 10^3/uL (0.0-0.8); Eosinophils % 3.5 %; Hematocrit 26.2 % (37-53); Lymphocytes # 1.3 10^3/uL (0.8-4.8); Lymphocytes % 26.4 %; Mean Corpuscular HGB Conc 31.3 g/dL (30-55); Mean Corpuscular Hemoglobin 32.7 pg (27-33); Mean Corpuscular Volume 104.4 fl (82-101); Mean Platelet Volume 10.1 fL (7.4-10.4); Monocytes # 0.7 10^3/uL (0.2-0.9); Monocytes % 14.8 %; Neutrophils # 2.42 10^3/uL (1.8-7.7); Nucleated Red Blood Cells % 0 %; Platelet Count 128 10^3/cmm (157-399); Red Blood Count 2.51 10^6/uL (3.85-5.65); Red Cell Distribution Width 17.5 % (12.1-15.1); White Blood Count 4.85 10^3/uL (3.29-11.43)
--- NOTE | 2024-07-21 12:57 | PC.NURSE ---
Called pt, notified of ANC and Platelet count and pt does not need any injections today per written order. JW
[2024-07-21 13:01] LABS: Alanine Aminotransferase 22 U/L (0-41); Albumin Level 4.2 g/dL (3.5-5.2); Alkaline Phosphatase 79 U/L (40-130); Anion Gap 14.9 (5-19); Aspartate Amino Transferase 21 U/L (0-40); Blood Urea Nitrogen 20 mg/dL (8-23); Calcium 8.6 mg/dL (8.5-10.5); Carbon Dioxide 24 mmol/L (22-29); Chloride 108 mmol/L (98-107); Globulin 2.4 g/dL (1.3-4.6); Glucose 120 mg/dL (65-115); Osmolality Calculated 300 mOsm/kg (285-295); Potassium 3.9 mmol/L (3.5-5.1); Sodium 143 mmol/L (136-145); Total Bilirubin 0.3 mg/dL (0.15-1.2); Total Protein 6.6 g/dL (6.6-8.7)
[2024-07-28 12:32] LABS: Basophils % 0.8 %; Eosinophils # 0.2 10^3/uL (0.0-0.8); Eosinophils % 4.5 %; Hematocrit 25.6 % (37-53); Lymphocytes # 1.5 10^3/uL (0.8-4.8); Lymphocytes % 29.8 %; Mean Corpuscular Hemoglobin 32.9 pg (27-33); Mean Corpuscular Volume 102.8 fl (82-101); Mean Platelet Volume 10.7 fL (7.4-10.4); Monocytes # 0.8 10^3/uL (0.2-0.9); Monocytes % 15.1 %; Neutrophils # 2.42 10^3/uL (1.8-7.7); Neutrophils % 46.9 %; Nucleated Red Blood Cells % 0 %; Platelet Count 179 10^3/cmm (157-399); Red Blood Count 2.49 10^6/uL (3.85-5.65); Red Cell Distribution Width 17.9 % (12.1-15.1); White Blood Count 5.16 10^3/uL (3.29-11.43)
[2024-07-28 12:50] LABS: Alanine Aminotransferase 26 U/L (0-41); Albumin Level 4.1 g/dL (3.5-5.2); Alkaline Phosphatase 80 U/L (40-130); Anion Gap 16.5 (5-19); Aspartate Amino Transferase 25 U/L (0-40); Blood Urea Nitrogen 16 mg/dL (8-23); Calcium 8.6 mg/dL (8.5-10.5); Carbon Dioxide 24 mmol/L (22-29); Chloride 105 mmol/L (98-107); Creatinine Clr Calc Pharmacy 74.3005; Globulin 2.4 g/dL (1.3-4.6); Glucose 109 mg/dL (65-115); Lactate Dehydrogenase 328 U/L (135-225); Osmolality Calculated 296 mOsm/kg (285-295); Potassium 3.5 mmol/L (3.5-5.1); Sodium 142 mmol/L (136-145); Total Bilirubin 0.4 mg/dL (0.15-1.2); Total Protein 6.5 g/dL (6.6-8.7)
--- NOTE | 2024-07-28 13:09 | PC.NURSE ---
Pt notfied of lab results, HGB 8.2 (pt stated he is feeling fine, no weakness or SOB), PLT 179, does not need N-Plate per parameters at this time. Pt voiced understanding/lc
[2024-07-29 11:10] LABS: Iron 76 ug/dL (59-158); Percent Saturation 33.6 % (20-50); Total Iron Binding Capacity 226 mcg/dl; Unsaturated Iron Binding 150 ug/dL (112-347)
[2024-07-29 11:26] LABS: Vitamin B12 919 pg/mL (232-1245)
[2024-08-04 12:29] LABS: Basophils % 0.6 %; Eosinophils # 0.2 10^3/uL (0.0-0.8); Eosinophils % 4.3 %; Hematocrit 26.4 % (37-53); Lymphocytes # 1.3 10^3/uL (0.8-4.8); Lymphocytes % 25.6 %; Mean Corpuscular HGB Conc 31.1 g/dL (30-55); Mean Corpuscular Hemoglobin 32.7 pg (27-33); Mean Corpuscular Volume 105.2 fl (82-101); Mean Platelet Volume 10.4 fL (7.4-10.4); Monocytes # 0.7 10^3/uL (0.2-0.9); Monocytes % 14.6 %; Neutrophils # 2.58 10^3/uL (1.8-7.7); Neutrophils % 50.8 %; Nucleated Red Blood Cells % 0 %; Platelet Count 154 10^3/cmm (157-399); Red Blood Count 2.51 10^6/uL (3.85-5.65); Red Cell Distribution Width 18.4 % (12.1-15.1); White Blood Count 5.08 10^3/uL (3.29-11.43)
[2024-08-04 12:46] LABS: Alanine Aminotransferase 26 U/L (0-41); Albumin Level 4.1 g/dL (3.5-5.2); Alkaline Phosphatase 82 U/L (40-130); Aspartate Amino Transferase 22 U/L (0-40); Blood Urea Nitrogen 17 mg/dL (8-23); Calcium 8.7 mg/dL (8.5-10.5); Carbon Dioxide 25 mmol/L (22-29); Chloride 105 mmol/L (98-107); Creatinine Clr Calc Pharmacy 92.8756; Globulin 2.3 g/dL (1.3-4.6); Glucose 136 mg/dL (65-115); Lactate Dehydrogenase 343 U/L (135-225); Osmolality Calculated 294 mOsm/kg (285-295); Sodium 140 mmol/L (136-145); Total Bilirubin 0.3 mg/dL (0.15-1.2); Total Protein 6.4 g/dL (6.6-8.7)
[2024-08-11 12:47] LABS: Basophils % 0.6 %; Eosinophils # 0.2 10^3/uL (0.0-0.8); Hematocrit 27.5 % (37-53); Lymphocytes # 1.5 10^3/uL (0.8-4.8); Lymphocytes % 29.1 %; Mean Corpuscular HGB Conc 30.5 g/dL (30-55); Mean Corpuscular Hemoglobin 32.1 pg (27-33); Mean Platelet Volume 10.2 fL (7.4-10.4); Monocytes # 0.5 10^3/uL (0.2-0.9); Neutrophils % 54.1 %; Nucleated Red Blood Cells % 0 %; Platelet Count 136 10^3/cmm (157-399); Red Blood Count 2.62 10^6/uL (3.85-5.65); Red Cell Distribution Width 18.6 % (12.1-15.1); White Blood Count 4.99 10^3/uL (3.29-11.43)
--- NOTE | 2024-08-11 13:05 | PC.NURSE ---
Called pt with CBC results. Per parameters, pt does not need NPlate or transfusion today. PLT 136. Hgb 8.4. Pt voiced understanding/lc
[2024-08-11 13:14] LABS: Alanine Aminotransferase 24 U/L (0-41); Albumin Level 4.2 g/dL (3.5-5.2); Alkaline Phosphatase 79 U/L (40-130); Anion Gap 13.8 (5-19); Aspartate Amino Transferase 28 U/L (0-40); Blood Urea Nitrogen 16 mg/dL (8-23); Calcium 8.5 mg/dL (8.5-10.5); Carbon Dioxide 25 mmol/L (22-29); Chloride 105 mmol/L (98-107); Creatinine Clr Calc Pharmacy 82.5561; Globulin 2.3 g/dL (1.3-4.6); Glucose 171 mg/dL (65-115); Lactate Dehydrogenase 353 U/L (135-225); Osmolality Calculated 295 mOsm/kg (285-295); Potassium 3.8 mmol/L (3.5-5.1); Sodium 140 mmol/L (136-145); Total Bilirubin 0.4 mg/dL (0.15-1.2); Total Protein 6.5 g/dL (6.6-8.7)
== END 2024-08-16 23:59 | disposition home or self-care (01) ==
PROVIDERS: Internal Medicine Medical Oncology; Nurse Practitioner Family; PCP Family Medicine; Visit Provider Internal Medicine Medical Oncology
DX: C83.10 Mantle cell lymphoma, unspecified site (principal); Z53.9 Procedure and treatment not carried out, unspecified reason; D61.810 Antineoplastic chemotherapy induced pancytopenia; T45.1X5A Adverse effect of antineoplastic and immunosuppressive drugs, initial encounter; X58.XXXA Exposure to other specified factors, initial encounter; Z85.79 Personal history of other malignant neoplasms of lymphoid, hematopoietic and related tissues; Z92.21 Personal history of antineoplastic chemotherapy; Z92.3 Personal history of irradiation
CPT/HCPCS: 36591; 80053; 82607; 83540; 83550; 83615; 85025; 99214

== ENCOUNTER 2024-10-06 10:30 | Oncology outpatient (recurring) (ONCR) | payer OTHER, SELFPAY ==
[2024-09-21 12:07] LABS: Basophils % 0.5 %; Eosinophils # 0.1 10^3/uL (0.0-0.8); Eosinophils % 3.3 %; Hematocrit 25.7 % (37-53); Lymphocytes # 1.3 10^3/uL (0.8-4.8); Mean Corpuscular HGB Conc 31.1 g/dL (30-55); Mean Corpuscular Hemoglobin 32.5 pg (27-33); Mean Corpuscular Volume 104.5 fl (82-101); Mean Platelet Volume 9.6 fL (7.4-10.4); Monocytes # 0.5 10^3/uL (0.2-0.9); Monocytes % 11.9 %; Neutrophils # 1.88 10^3/uL (1.8-7.7); Neutrophils % 47.8 %; Nucleated Red Blood Cells % 0 %; Platelet Count 74 10^3/cmm (157-399); Red Blood Count 2.46 10^6/uL (3.85-5.65); Red Cell Distribution Width 19.7 % (12.1-15.1); White Blood Count 3.94 10^3/uL (3.29-11.43)
[2024-09-21 12:29] LABS: Alanine Aminotransferase 18 U/L (0-41); Albumin Level 4.3 g/dL (3.5-5.2); Alkaline Phosphatase 79 U/L (40-130); Anion Gap 14.5 (5-19); Aspartate Amino Transferase 15 U/L (0-40); Blood Urea Nitrogen 16 mg/dL (8-23); Calcium 8.7 mg/dL (8.5-10.5); Carbon Dioxide 25 mmol/L (22-29); Chloride 105 mmol/L (98-107); Creatinine Clr Calc Pharmacy 82.7322; Globulin 1.7 g/dL (1.3-4.6); Glucose 158 mg/dL (65-115); Lactate Dehydrogenase 315 U/L (135-225); Osmolality Calculated 296 mOsm/kg (285-295); Potassium 3.5 mmol/L (3.5-5.1); Sodium 141 mmol/L (136-145); Total Bilirubin 0.5 mg/dL (0.15-1.2)
[2024-10-06 11:14] LABS: Basophils % 0.8 %; Eosinophils # 0.1 10^3/uL (0.0-0.8); Hematocrit 25.6 % (37-53); Lymphocytes # 1.5 10^3/uL (0.8-4.8); Lymphocytes % 38.3 %; Mean Corpuscular HGB Conc 30.5 g/dL (30-55); Mean Corpuscular Hemoglobin 32.1 pg (27-33); Mean Corpuscular Volume 105.3 fl (82-101); Monocytes # 0.4 10^3/uL (0.2-0.9); Monocytes % 9.8 %; Neutrophils # 1.85 10^3/uL (1.8-7.7); Neutrophils % 46.1 %; Nucleated Red Blood Cells % 0 %; Platelet Count 104 10^3/cmm (157-399); Red Blood Count 2.43 10^6/uL (3.85-5.65); Red Cell Distribution Width 19.2 % (12.1-15.1)
[2024-10-06 11:33] LABS: Alanine Aminotransferase 17 U/L (0-41); Albumin Level 4.2 g/dL (3.5-5.2); Alkaline Phosphatase 88 U/L (40-130); Anion Gap 14.9 (5-19); Aspartate Amino Transferase 17 U/L (0-40); Blood Urea Nitrogen 16 mg/dL (8-23); Calcium 8.9 mg/dL (8.5-10.5); Carbon Dioxide 25 mmol/L (22-29); Chloride 103 mmol/L (98-107); Creatinine Clr Calc Pharmacy 93.0738; Globulin 2.5 g/dL (1.3-4.6); Glucose 138 mg/dL (65-115); Lactate Dehydrogenase 330 U/L (135-225); Osmolality Calculated 291 mOsm/kg (285-295); Potassium 3.9 mmol/L (3.5-5.1); Sodium 139 mmol/L (136-145); Total Bilirubin 0.4 mg/dL (0.15-1.2); Total Protein 6.7 g/dL (6.6-8.7)
== END 2024-10-16 23:59 | disposition home or self-care (01) ==
PROVIDERS: Internal Medicine Medical Oncology; Nurse Practitioner Family; PCP Family Medicine; Visit Provider Internal Medicine Medical Oncology
DX: C83.10 Mantle cell lymphoma, unspecified site (principal); Z53.9 Procedure and treatment not carried out, unspecified reason
CPT/HCPCS: 36591; 80053; 83615; 85025; 99214

== ENCOUNTER 2024-11-16 09:00 | Oncology outpatient (recurring) (ONCR) | payer OTHER, SELFPAY ==
[2024-10-19 13:22] LABS: Hematocrit 27.5 % (37-53); Mean Corpuscular HGB Conc 30.2 g/dL (30-55); Mean Corpuscular Hemoglobin 32.2 pg (27-33); Mean Corpuscular Volume 106.6 fl (82-101); Mean Platelet Volume 10.3 fL (7.4-10.4); Platelet Count 127 10^3/cmm (157-399); Red Blood Count 2.58 10^6/uL (3.85-5.65); Red Cell Distribution Width 21.2 % (12.1-15.1)
[2024-10-19 13:42] LABS: Alanine Aminotransferase 26 U/L (0-41); Albumin Level 3.9 g/dL (3.5-5.2); Alkaline Phosphatase 76 U/L (40-130); Anion Gap 11.2 (5-19); Aspartate Amino Transferase 16 U/L (0-40); Blood Urea Nitrogen 21 mg/dL (8-23); Calcium 8.7 mg/dL (8.5-10.5); Carbon Dioxide 28 mmol/L (22-29); Chloride 104 mmol/L (98-107); Creatinine Clr Calc Pharmacy 93.3468; Ferritin 304 ng/mL (30-400); Globulin 2.3 g/dL (1.3-4.6); Glucose 155 mg/dL (65-115); Lactate Dehydrogenase 319 U/L (135-225); Osmolality Calculated 296 mOsm/kg (285-295); Potassium 3.2 mmol/L (3.5-5.1); Sodium 140 mmol/L (136-145); Total Bilirubin 0.5 mg/dL (0.15-1.2); Total Protein 6.2 g/dL (6.6-8.7); Uric Acid 5.7 mg/dL (3.4-7.0)
[2024-10-19 13:44] LABS: Slide Review Slide Review Perform
[2024-10-19 13:46] LABS: Absolute Eosinophils 0.1 10^3/cmm (0.0-0.7); Absolute Segmented Neutrophil 3.1 10/cmm (1.6-7.1); Band Neutrophils Absolute 0.1 10^3/cmm (0.0-1.2); Eosinophils 1 %; Lymphocytes 24 %; Lymphocytes Absolute 1.3 10^3/cmm (1.2-3.4); Monocytes Absolute 0.7 10^3/cmm (0.1-0.6); Segmented Neutrophils 59 %; Total Cells Counted 100 (0-100)
[2024-10-19 13:48] LABS: Absolute Neutrophil 3.2 10^3/cmm (1.4-6.5); Anisocytosis 1+; Hypersegmented Polys 1+; Macrocytosis 1+; Platelet Estimate Decreased (Normal); Polychromasia 1+; Schistocytes Trace
[2024-11-03 10:39] LABS: Basophils % 0.3 %; Eosinophils # 0.1 10^3/uL (0.0-0.8); Hematocrit 26.7 % (37-53); Lymphocytes # 1.5 10^3/uL (0.8-4.8); Lymphocytes % 50.3 %; Mean Corpuscular HGB Conc 30.7 g/dL (30-55); Mean Corpuscular Hemoglobin 32.4 pg (27-33); Mean Corpuscular Volume 105.5 fl (82-101); Mean Platelet Volume 10.7 fL (7.4-10.4); Monocytes # 0.3 10^3/uL (0.2-0.9); Neutrophils % 31.7 %; Nucleated Red Blood Cells % 0.7 %; Platelet Count 102 10^3/cmm (157-399); Red Blood Count 2.53 10^6/uL (3.85-5.65); Red Cell Distribution Width 20.4 % (12.1-15.1)
[2024-11-03 10:59] LABS: Alanine Aminotransferase 20 U/L (0-41); Albumin Level 4.1 g/dL (3.5-5.2); Alkaline Phosphatase 77 U/L (40-130); Anion Gap 15.8 (5-19); Aspartate Amino Transferase 18 U/L (0-40); Blood Urea Nitrogen 18 mg/dL (8-23); Calcium 8.8 mg/dL (8.5-10.5); Carbon Dioxide 24 mmol/L (22-29); Chloride 104 mmol/L (98-107); Creatinine Clr Calc Pharmacy 82.9749; Globulin 2.4 g/dL (1.3-4.6); Glucose 172 mg/dL (65-115); Lactate Dehydrogenase 286 U/L (135-225); Osmolality Calculated 296 mOsm/kg (285-295); Potassium 3.8 mmol/L (3.5-5.1); Sodium 140 mmol/L (136-145); Total Bilirubin 0.4 mg/dL (0.15-1.2); Total Protein 6.5 g/dL (6.6-8.7)
[2024-11-03 12:28] LABS: Neutrophils # 0.95 10^3/uL (1.8-7.7)
--- NOTE | 2024-11-03 13:00 | PC.NURSE ---
ANC 960. Spoke with nurse Luciano from Dr. Thrasher's office. Pt will need Zarxio 480 mcg x3 days as previously ordered. Per Sonia Locke pt navigator-PA is still good. Pt notified and will come back today, 11/04 and 11/05 for injections./lc
[2024-11-03] MEDS: filgrastim-sndz 480 mcg/0.8 mL Syringe SUBCUT (14:02)
[2024-11-04] MEDS: filgrastim-sndz 480 mcg/0.8 mL Syringe SUBCUT (13:40)
[2024-11-05] MEDS: filgrastim-sndz 480 mcg/0.8 mL Syringe SUBCUT (12:16)
[2024-11-16 09:47] LABS: Basophils % 0.6 %; Eosinophils # 0.1 10^3/uL (0.0-0.8); Eosinophils % 2.8 %; Hematocrit 27.3 % (37-53); Lymphocytes % 31.9 %; Mean Corpuscular HGB Conc 30.4 g/dL (30-55); Mean Corpuscular Hemoglobin 31.4 pg (27-33); Mean Corpuscular Volume 103.4 fl (82-101); Mean Platelet Volume 10.9 fL (7.4-10.4); Monocytes # 0.2 10^3/uL (0.2-0.9); Monocytes % 6.6 %; Neutrophils # 1.77 10^3/uL (1.8-7.7); Neutrophils % 55.3 %; Nucleated Red Blood Cells % 0 %; Platelet Count 114 10^3/cmm (157-399); Red Blood Count 2.64 10^6/uL (3.85-5.65); Red Cell Distribution Width 19.5 % (12.1-15.1)
[2024-11-16 10:00] LABS: Alanine Aminotransferase 14 U/L (0-41); Albumin Level 4.1 g/dL (3.5-5.2); Alkaline Phosphatase 73 U/L (40-130); Anion Gap 16.7 (5-19); Aspartate Amino Transferase 15 U/L (0-40); Blood Urea Nitrogen 16 mg/dL (8-23); Calcium 8.9 mg/dL (8.5-10.5); Carbon Dioxide 25 mmol/L (22-29); Chloride 104 mmol/L (98-107); Creatinine Clr Calc Pharmacy 74.6774; Globulin 2.5 g/dL (1.3-4.6); Glucose 126 mg/dL (65-115); Lactate Dehydrogenase 247 U/L (135-225); Osmolality Calculated 297 mOsm/kg (285-295); Potassium 3.7 mmol/L (3.5-5.1); Sodium 142 mmol/L (136-145); Total Bilirubin 0.4 mg/dL (0.15-1.2); Total Protein 6.6 g/dL (6.6-8.7)
== END 2024-11-16 23:59 | disposition home or self-care (01) ==
PROVIDERS: Internal Medicine Hematology & Oncology; Internal Medicine Medical Oncology; PCP Family Medicine; Visit Provider Internal Medicine Medical Oncology
DX: Z53.9 Procedure and treatment not carried out, unspecified reason (principal); C83.10 Mantle cell lymphoma, unspecified site; Z87.891 Personal history of nicotine dependence
CPT/HCPCS: 36591; 80053; 82728; 83615; 84550; 85007; 85025; 86850; 86900; 96372; 99213; 99214; Q5101

== ENCOUNTER 2024-12-14 10:02 | Oncology outpatient (recurring) (ONCR) | payer OTHER, SELFPAY ==
[2024-12-14 10:31] LABS: Hematocrit 30.4 % (37-53); Mean Corpuscular HGB Conc 30.3 g/dL (30-55); Mean Corpuscular Hemoglobin 29.8 pg (27-33); Mean Corpuscular Volume 98.4 fl (82-101); Mean Platelet Volume 11.4 fL (7.4-10.4); Platelet Count 113 10^3/cmm (157-399); Red Blood Count 3.09 10^6/uL (3.85-5.65); Red Cell Distribution Width 19.9 % (12.1-15.1); White Blood Count 2.99 10^3/uL (3.29-11.43)
[2024-12-14 10:50] LABS: Alanine Aminotransferase 18 U/L (0-41); Albumin Level 4.1 g/dL (3.5-5.2); Alkaline Phosphatase 72 U/L (40-130); Anion Gap 14.5 (5-19); Aspartate Amino Transferase 18 U/L (0-40); Blood Urea Nitrogen 18 mg/dL (8-23); Calcium 8.5 mg/dL (8.5-10.5); Carbon Dioxide 25 mmol/L (22-29); Chloride 104 mmol/L (98-107); Globulin 2.6 g/dL (1.3-4.6); Glucose 147 mg/dL (65-115); Lactate Dehydrogenase 300 U/L (135-225); Osmolality Calculated 295 mOsm/kg (285-295); Potassium 3.5 mmol/L (3.5-5.1); Sodium 140 mmol/L (136-145); Total Bilirubin 0.3 mg/dL (0.15-1.2); Total Protein 6.7 g/dL (6.6-8.7)
[2024-12-14 10:58] LABS: Slide Review Slide Review Perform
[2024-12-14 10:59] LABS: Absolute Eosinophils 0.2 10^3/cmm (0.0-0.7); Absolute Neutrophil 1.1 10^3/cmm (1.4-6.5); Band Neutrophils Absolute 0.1 10^3/cmm (0.0-1.2); Eosinophils 6 %; Lymphocytes 19 %; Lymphocytes Absolute 1.6 10^3/cmm (1.2-3.4); Monocytes Absolute 0.1 10^3/cmm (0.1-0.6); Platelet Estimate Decreased (Normal); Segmented Neutrophils 32 %; Total Cells Counted 100 (0-100)
== END 2024-12-17 23:59 | disposition home or self-care (01) ==
PROVIDERS: PCP Family Medicine; Visit Provider Internal Medicine Medical Oncology
DX: C83.11 Mantle cell lymphoma, lymph nodes of head, face, and neck (principal); D75.9 Disease of blood and blood-forming organs, unspecified; Z92.850 Personal history of Chimeric Antigen Receptor T-cell therapy; Z87.891 Personal history of nicotine dependence; Z95.828 Presence of other vascular implants and grafts
CPT/HCPCS: 36591; 80053; 83615; 85007; 85025; 99214

== ENCOUNTER → 2024-12-17 09:49 | Outpatient (BNVA) | payer OTHER, SELFPAY | PROVIDERS: PCP Family Medicine; Visit Provider Nurse Practitioner Family | DX: L81.4 Other melanin hyperpigmentation (principal); L82.1 Other seborrheic keratosis; Z08 Encounter for follow-up examination after completed treatment for malignant neoplasm; Z85.828 Personal history of other malignant neoplasm of skin; D48.5 Neoplasm of uncertain behavior of skin; L57.0 Actinic keratosis | CPT/HCPCS: 11102; 17000; 99213 ==

== ENCOUNTER 2024-12-26 18:21 | Inpatient (IN) | payer OTHER, MEDICARE, SELFPAY ==
[2024-12-26] VITALS (11 sets, daily range): BP systolic 89–136; BP diastolic 53–69; PULSE 79–99; RESP 18–40; TEMP 37.1–38.1; O2SAT 76–100; BMI 30.7; BMI 31.4
[2024-12-26 18:37] LABS: ABG PCO2 39.6 mmHg (35-45); ABG PH Result 7.43 (7.35-7.45); Arterial Blood Gas Hematocrit 30.2 % (42-52); Base Excess ABG 1.7 mmol/L (-2.0-2.0); Blood Gas Allen Test Pos; Blood Gas Sample Type Arterial; HCO3 ABG 26.2 mmol/L (22-26); PO2 ABG 55.9 mmHg (80.0-100.0)
--- NOTE | 2024-12-26 18:37 | XRR_ITS ---
PROCEDURE INFORMATION: Exam: XR Chest Exam date and time: 12/26/2024 7:00 PM Age: 79 years old Clinical indication: Shortness of breath; SOB with hypoxia. On bipap. TECHNIQUE: Imaging protocol: Radiologic exam of the chest. Views: 1 view. COMPARISON: CT chest abdpel w/*[id number] 05/05/2023 2:11 PM FINDINGS: Tubes, catheters and devices: Left subclavian Port-A-Cath tip is in the lower SVC. Lungs: Bibasilar consolidation. Pleural spaces: Unremarkable. No pleural effusion. No pneumothorax. Heart/Mediastinum: Unremarkable. No cardiomegaly. Vasculature: Mild atherosclerotic aortic plaques. Bones/joints: Unremarkable. XR/XR chest 1V portable [id number] IMPRESSION: Bibasilar consolidation compatible with multifocal pneumonia. Recommend imaging follow-up after clinical treatment to document resolution
[2024-12-26 18:38] LABS: Blood Gas Operator Identificat MONRO; Blood Gas Sample Site Radial, left; Oxygen Device NRB; PO2 FiO2 Ratio Arterial Blood 55
--- NOTE | 2024-12-26 19:01 | W.ED.SOB ---
HPI - SOB/Dyspnea General: Chief Complaint: Shortness of Breath/Dyspnea Stated Complaint: sob Time Seen by Provider: 12/26/24 18:26 History of Present Illness: HPI Narrative: 79-year-old male patient who has a history of mantle cell lymphoma. He presents with shortness of breath progressing over the last 48 hours since Friday. He has had a cough. Congestion. He arrives by EMS. Evidently his room air saturations were in the 70s at home. He arrives here with saturations in the low 80s on 6 L nasal cannula. He is placed on a nonrebreather mask on arrival to the ER room. He says he is breathing easier now. Related Data Home Medications ?Medication ?Instructions ?Recorded ?Confirmed amlodipine 5 mg tablet 5 mg PO QAM 07/07/20 12/14/24 aspirin 81 mg tablet,delayed 81 mg PO DAILY 07/07/20 12/14/24 release (Aspir-) atenolol 100 mg tablet 50 mg PO QPM 07/07/20 12/14/24 atorvastatin 40 mg tablet 20 mg PO QPM 07/07/20 12/14/24 bupropion HCl 150 mg 24 hr tablet, 150 mg PO QAM 07/07/20 12/14/24 extended release cholecalciferol (vitamin D3) 50 50 mcg PO DAILY 07/07/20 12/14/24 mcg (2,000 unit) tablet gabapentin 100 mg capsule 200 mg PO BID 07/07/20 12/14/24 hydrochlorothiazide 25 mg tablet 12.5 mg PO QAM 07/07/20 12/14/24 lisinopril 40 mg tablet 40 mg PO QPM 07/07/20 12/14/24 metformin 1,000 mg tablet 500 mg PO BID 07/07/20 12/14/24 pantoprazole 40 mg tablet,delayed 40 mg PO QAM 07/07/20 12/14/24 release (Protonix) potassium chloride 20 mEq 10 meq PO QAM 07/07/20 12/14/24 tablet,extended release omega 3-btr-wvw-fish oil 1,200 mg cap PO 02/26/23 12/14/24 (144 mg-216 mg) capsule (Fish Oil) vitamin E (dl, acetate) 45 mg (100 45 mg PO DAILY 07/22/23 12/14/24 unit) capsule tamsulosin 0.4 mg capsule 0.4 mg PO DAILY 12/17/23 12/14/24 benzonatate 200 mg capsule 200 mg PO ONCE PRN 04/14/24 12/14/24 docusate sodium 100 mg capsule 100 mg PO DAILY PRN 04/14/24 12/14/24 sennosides 8.6 mg tablet (senna) 8.6 mg PO ONCE PRN 04/14/24 12/14/24 Previous Rx's ?Medication ?Instructions ?Recorded prochlorperazine maleate 10 mg 10 mg PO Q8H PRN nausea and 07/08/23 tablet (Compazine) vomiting #30 tabs allopurinol 300 mg tablet 300 mg PO DAILY #30 tabs 07/09/23 sulfamethoxazole 800 1 tab PO BID #30 tabs 07/14/23 mg-trimethoprim 160 mg tablet (Bactrim DS) lorazepam 1 mg tablet 0.5 - 1 mg (0.5 - 1 x 1 mg) buccal 10/21/23 Q8H PRN severe nausea and vomiting #30 tabs azithromycin 250 mg tablet See Rx Instructions PO .COMPLEX #6 11/06/23 (Zithromax Z-Florian) tabs Allergies Allergy/AdvReac Type Severity Reaction Status Date / Time No Known Allergies Allergy Verified 12/14/24 11:04 [facility] ED PFSH: Medical History Peripheral neuropathy PTSD (post-traumatic stress disorder) Mantle cell lymphoma Hyperlipidemia GERD (gastroesophageal reflux disease) Hypertension Atrial fibrillation DM type 2 (diabetes mellitus, type 2) Surgical History History of cataract extraction History of colonoscopy History of tonsillectomy Family History Sister Suicide Other Cancer Diabetes Hyperlipidemia Hypertension Denies family history of CAD (coronary artery disease) Clotting disorder Dementia Psychiatric illness Chronic kidney disease (CKD) Anesthesia complication Bleeding disorder Lung disease Stroke Social History Smoking and tobacco/nicotine status: former use of tobacco/nicotine Quit status (tobacco/nicotine): has quit using Year quit tobacco: 2012 Former quit date comment: 20 years Alcohol intake: never Substance/Drug Use: never Physical Exam Const: GENERAL APPEARANCE: cooperative and ill appearing; not frail appearing ORIENTATION/CONSCIOUSNESS: Yes awake, Yes oriented to person, Yes oriented to place and Yes oriented to time HENMT: COMMON NORMALS: normocephalic, atraumatic and Normal external nose present HEAD & SCALP: normocephalic and atraumatic FACE & SINUS: normal facial exam and face symmetric NOSE: Normal external nose present Eye: COMMON NORMALS: Equal, round and reactive pupils present and EOMs intact bilaterally PUPIL: Yes Equal, round and reactive pupils present Neck/C-Spine: GENERAL: Yes trachea midline Chest: CHEST: Yes Symmetrical chest wall rise Resp: EFFORT & INSPECTION: Yes tachypneic and Yes labored AUSCULTATION: rhonchi (Diffuse bilateral) and diminished lung sounds Cardio: COMMON NORMALS: regular rate and regular rhythm RATE: regular rate RHYTHM: regular rhythm GI: COMMON NORMALS: Normal to inspection, nondistended, normoactive bowel sounds present Extremity: COMMON NORMALS: no pedal edema Neuro: KACY COMA SCALE: document GCS findings Kacy coma scale eye opening: Spontaneous [place] coma scale verbal response: Orientated [place] coma scale motor response: Obey commands Kacy coma scale total score: 15 SENSORIUM/ORIENTATION: Yes oriented to person, Yes oriented to place and Yes oriented to time SENSORY EXAM: Yes extremities (intact) Psych: COMMON NORMALS: speech normal SPEECH: Yes normal speech Skin: COMMON NORMALS: no rashes or lesions noted GENERAL SKIN EXAM: no rashes or lesions noted Course Vital Signs: Vital signs: Vital Signs Temperature 98.8 F 12/26/24 18:25 Pulse Rate 92 12/26/24 18:55 Respiratory Rate 18 12/26/24 18:25 Blood Pressure 136/60 12/26/24 18:25 Pulse Oximetry 96 12/26/24 18:55 Oxygen Delivery Me thod Room Air 12/26/24 18:25 Fraction of Inspir ed Oxygen 80 12/26/24 18:55 MDM - SOB/Dyspnea Medical Decision Making 79-year-old male gentleman with a history of mantle cell lymphoma. He is quite hypoxic here. He is placed on BiPAP with excellent response. Heart rate is decreased, down to 90. Blood pressure 102/70, saturation is 96%. His white blood cell count is 0.83, with a neutrophil count of 240. His potassium is 2.9. His creatinine is 1.3. Chest x-ray shows bibasilar consolidation likely multifocal pneumonia. Swabs are negative for COVID flu and RSV. CTA shows the same multifocal pneumonia with bilateral lungs. No PE. Patient's daughter and requested that he be transferred to [facility], as he does receive cancer care there. They have not had any beds available as of today. Patient agrees to stay here for treatment of his acute illness. He is covered with Zosyn and vancomycin after blood cultures in the ER. Lab Data 12/26/24 18:56 12/26/24 18:56 Labs/Radiology: Radiology Impressions Chest X-Ray 12/26/24 18:37 IMPRESSION: Bibasilar consolidation compatible with multifocal pneumonia. Recommend imaging follow-up after clinical treatment to document resolution Chest CTA 12/26/24 19:30 IMPRESSION: 1. Findings compatible with multifocal pneumonia within bilateral lungs. Recommend imaging follow-up after clinical treatment to document resolution. 2. Mildly enlarged mediastinal and hilar lymph nodes may be reactive. However, with a history of lymphoma, residual/recurrent disease is not excluded. Recommend attention on short interval follow-up imaging per oncology protocol. 3. No evidence of pulmonary embolism. 4. Hepatic steatosis. 5. Cholelithiasis. Laboratory Results WBC 0.83 10^3/uL (3.29-11.43) L* 12/26/24 18:56 RBC 3.27 10^6/uL (3.85-5.65) L 12/26/24 18:56 Hgb 9.30 g/dL (11.27-16.99) L 12/26/24 18:56 Hct 30.6 % (37-53) L 12/26/24 18:56 MCV 93.6 fl (82-101) 12/26/24 18:56 MCH 28.4 pg (27-33) 12/26/24 18:56 MCHC 30.4 g/dL (30-55) 12/26/24 18:56 RDW 19.7 % (12.1-15.1) H 12/26/24 18:56 Plt Count 80 10^3/cmm (157-399) L 12/26/24 18:56 MPV 9.9 fL (7.4-10.4) 12/26/24 18:56 Neut % (Auto) 28.9 % 12/26/24 18:56 Lymph % (Auto) 63.9 % 12/26/24 18:56 [place]t % (Auto) 4.8 % 12/26/24 18:56 Eos % (Auto) 0.0 % 12/26/24 18:56 Baso % (Auto) 1.2 % 12/26/24 18:56 Neut # (Auto) 0.24 10^3/uL (1.8-7.7) L* 12/26/24 18:56 Lymph # (Auto) 0.5 10^3/uL (0.8-4.8) L 12/26/24 18:56 [place] # (Auto) 0.0 10^3/uL (0.2-0.9) L 12/26/24 18:56 Eos # (Auto) 0.0 10^3/uL (0.0-0.8) 12/26/24 18:56 Baso # (Auto) 0.0 10^3/uL (0.0-0.1) 12/26/24 18:56 Nucleated RBC % (auto) 0 % 12/26/24 18:56 Nucleated RBCs # 0.0 /100WBC 12/26/24 18:56 D-Dimer 3.96 ug/mLFEU (0-0.59) H 12/26/24 18:56 Specimen Type Arterial 12/26/24 18:24 Sample Site Radial, left 12/26/24 18:24 ABG pH 7.43 (7.35-7.45) 12/26/24 18:24 ABG pCO2 39.6 mmHg (35-45) 12/26/24 18:24 ABG pO2 55.9 mmHg (80.0-100.0) L 12/26/24 18:24 ABG PO2/FiO2 Ratio 55 12/26/24 18:24 ABG HCO3 26.2 mmol/L (22-26) H 12/26/24 18:24 ABG Base Excess 1.7 mmol/L (-2.0-2.0) 12/26/24 18:24 Nabeel Test Pos 12/26/24 18:24 Hematocrit 30.2 % (42-52) L 12/26/24 18:24 O2 Delivery Device Nrb 12/26/24 18:24 O2 Liters/Min 15.0 % 12/26/24 18:24 FiO2 100.0 % 12/26/24 18:24 Derrick Boat Operator ID Nevaeh 12/26/24 18:24 Sodium 139 mmol/L (136-145) 12/26/24 18:56 Potassium 2.9 mmol/L (3.5-5.1) L 12/26/24 18:56 Chloride 99 mmol/L (98-107) 12/26/24 18:56 Carbon Dioxide 26 mmol/L (22-29) 12/26/24 18:56 Anion Gap 16.9 (5-19) 12/26/24 18:56 BUN 30 mg/dL (8-23) H 12/26/24 18:56 Creatinine 1.3 mg/dL (0.7-1.2) H 12/26/24 18:56 GFR Calculation Not Reportable 12/26/24 18:56 Glucose 150 mg/dL (65-115) H 12/26/24 18:56 Calculated Osmolality 297 mOsm/kg (285-295) H 12/26/24 18:56 Lactic Acid 3.2 mmol/L (0.5-2.2) H 12/26/24 18:56 Calcium 8.1 mg/dL (8.5-10.5) L 12/26/24 18:56 Total Bilirubin 1.0 mg/dL (0.15-1.2) 12/26/24 18:56 AST 21 U/L (0-40) 12/26/24 18:56 ALT 14 U/L (0-41) 12/26/24 18:56 Alkaline Phosphatase 39 U/L (40-130) L 12/26/24 18:56 Troponin T Baseline 42 ng/L (0-15) H 12/26/24 18:56 Troponin T 120 Minute 48.97 ng/L (0-15) H 12/26/24 20:53 Delta Troponin T 6.97 ABS# (0-10) 12/26/24 20:53 NT-Pro-B Natriuret Pep 2144 pg/mL (0-450) H 12/26/24 18:56 Total Protein 6.3 g/dL (6.6-8.7) L 12/26/24 18:56 Albumin 3.7 g/dL (3.5-5.2) 12/26/24 18:56 Globulin 2.6 g/dL (1.3-4.6) 12/26/24 18:56 Coronavirus (PCR) Negative (Negative) 12/26/24 19:25 Influenza A (PCR) Negative (Negative) 12/26/24 19:25 Influenza Type B (PCR) Negative (Negative) 12/26/24 19:25 RSV (PCR) Negative (Negative) 12/26/24 19:25 All radiology interpretation(s) finalized by discharge Critical Care Time Critical Care Time: Critical Care Time: Yes Total Critical Care Time: 40 Attestation: This case had a high probability of a clinically significant, sudden, or life threatening deterioration of this patient's condition which required my full and direct attention, intervention and personal management. Time is independent of any procedures performed. Discharge Plan Discharge Patient Disposition: Admitted As Inpatient Admit Provider: Mckenzie Brothers Clinical Impression: Neutropenia, Bilateral pneumonia, Acute hypoxemic respiratory failure Condition: Serious Coding Level of Care Code ED [employer] for [employer]
[2024-12-26 19:07] LABS: Basophils % 1.2 %; Hematocrit 30.6 % (37-53); Lymphocytes # 0.5 10^3/uL (0.8-4.8); Lymphocytes % 63.9 %; Mean Corpuscular HGB Conc 30.4 g/dL (30-55); Mean Corpuscular Hemoglobin 28.4 pg (27-33); Mean Corpuscular Volume 93.6 fl (82-101); Mean Platelet Volume 9.9 fL (7.4-10.4); Monocytes % 4.8 %; Neutrophils % 28.9 %; Nucleated Red Blood Cells % 0 %; Platelet Count 80 10^3/cmm (157-399); Red Blood Count 3.27 10^6/uL (3.85-5.65); Red Cell Distribution Width 19.7 % (12.1-15.1)
[2024-12-26 19:22] LABS: Troponin(5th) Baseline 42 ng/L (0-15)
[2024-12-26 19:23] LABS: Lactic Sepsis W/Reflex 3.2 mmol/L (0.5-2.2)
[2024-12-26 19:26] LABS: D Dimer 3.96 ug/mLFEU (0-0.59)
[2024-12-26] MEDS: methylPREDNISolone sod succ 125 mg/2 mL INJ IV (19:29)
--- NOTE | 2024-12-26 19:30 | CTR_ITS ---
PROCEDURE INFORMATION: Exam: CTA Chest With Contrast Exam date and time: 12/26/2024 7:45 PM Age: 79 years old Clinical indication: Abnormal findings; Abnormal diagnostic tests; Elevated d-dimer; Shortness of breath; SOB with hypoxia. Dimer 3.96. History of lymphoma; Additional info: Shortness of breath hypoxia TECHNIQUE: Imaging protocol: Computed tomographic angiography of the chest with contrast. Exam focused on the arteries. 3D rendering (Not supervised by radiologist): MIP and/or 3D reconstructed images were created by the technologist. Radiation optimization: All CT scans at this facility use at least one of these dose optimization techniques: automated exposure control; mA and/or kV adjustment per patient size (includes targeted exams where dose is matched to clinical indication); or iterative reconstruction. Contrast material: OMNI 350; Contrast volume: 75 ml; Contrast route: INTRAVENOUS (IV); COMPARISON: 1. PT PET skull to thigh SUBS [id number] 11/04/2023 10:29 AM 2. CR (CHEST, ) 12/26/2024 7:00 PM RADIATION DOSE METRICS: Total DLP (mGy-cm): 453.68 FINDINGS: Limitations: Suboptimal image quality due to motion artifact. Pulmonary arteries: Normal. No pulmonary emboli. Aorta: Mild atherosclerotic aortic calcifications thoracic aortic aneurysm. Thyroid: 8 mm left thyroid nodule is likely of no clinical significance. Lungs: Patchy consolidative and ground-glass opacities in the right upper lobe, left upper lobe/lingula, and bilateral lower lobes. A few areas of tree-in-bud nodularity are also seen. Pleural spaces: Unremarkable. No pneumothorax. No pleural effusion. Heart: Unremarkable. No cardiomegaly. No pericardial effusion. Lymph nodes: A few mildly enlarged mediastinal lymph nodes are seen. Right lower paratracheal node measures up to 1.4 cm short axis. Precarinal lymph node measures 1.6 cm. Subcarinal node measures 1.5 cm. Right hilar node measures 1.5 cm. The size of the nodes is overall decreased since 11/04/2023. Calcified mediastinal and right hilar lymph nodes. Liver: Mild hepatic steatosis. Gallbladder and biliary ducts: Cholelithiasis without CT evidence of acute cholecystitis. Bones/joints: Degenerative changes of the spine. No acute fracture. Soft tissues: Unremarkable. CT/CT angio chest PE protcl [id number] IMPRESSION: 1. Findings compatible with multifocal pneumonia within bilateral lungs. Recommend imaging follow-up after clinical treatment to document resolution. 2. Mildly enlarged mediastinal and hilar lymph nodes may be reactive. However, with a history of lymphoma, residual/recurrent disease is not excluded. Recommend attention on short interval follow-up imaging per oncology protocol. 3. No evidence of pulmonary embolism. 4. Hepatic steatosis. 5. Cholelithiasis.
[2024-12-26 19:32] LABS: Neutrophils # 0.24 10^3/uL (1.8-7.7); Slide Review Slide Review Perform; White Blood Count 0.83 10^3/uL (3.29-11.43)
[2024-12-26 19:40] LABS: Alanine Aminotransferase 14 U/L (0-41); Albumin Level 3.7 g/dL (3.5-5.2); Alkaline Phosphatase 39 U/L (40-130); Anion Gap 16.9 (5-19); Aspartate Amino Transferase 21 U/L (0-40); Blood Urea Nitrogen 30 mg/dL (8-23); Calcium 8.1 mg/dL (8.5-10.5); Carbon Dioxide 26 mmol/L (22-29); Chloride 99 mmol/L (98-107); Creatinine Clr Calc Pharmacy 57.2762; Globulin 2.6 g/dL (1.3-4.6); Glucose 150 mg/dL (65-115); NT Pro B Type Natriuretic Pept 2144 pg/mL (0-450); Osmolality Calculated 297 mOsm/kg (285-295); Sodium 139 mmol/L (136-145); Total Protein 6.3 g/dL (6.6-8.7)
[2024-12-26 19:42] LABS: Potassium 2.9 mmol/L (3.5-5.1)
[2024-12-26] MEDS: iohexol 350 mg/mL 500 mL Btl (per mL) IV (19:59)
[2024-12-26] MEDS: piperacillin-tazobactam 4.5 GM in sodium chloride 0.9% (plus) 50 ML IV (20:04)
[2024-12-26] MEDS: vancomycin 1,250 MG/250 ML PIGGYBACK 166.67 MG IV (20:05)
[2024-12-26 20:22] LABS: Influenza A NEGATIVE (Negative); Influenza B NEGATIVE (Negative); Respiratory Syncytial Virus Ce NEGATIVE (Negative); SARS-CoV-2 PCR NEGATIVE (Negative)
[2024-12-26 20:48] LABS: Reflex Lactate Order REFLEX LACTIC ORDERD
[2024-12-26 21:17] LABS: Troponin 5 2HR 48.97 ng/L (0-15); Troponin 5 2HR Delta 6.97 ABS# (0-10)
--- NOTE | 2024-12-26 21:55 | PM.HP ---
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 Patient is stating that he started getting sick for last few days, he has been extremely weak and lethargic, does not use oxygen at baseline, no chest pain diarrhea or high-grade fever Patient was hypoxic 70% at home as per the EMS, secondary to increased work of breathing he was put on BiPAP He has been given septic bolus, broad-spectrum antibiotics for neutropenia Daughter asked to be transferred to [facility] but they do not have any beds, they are agreeable to stay here to get treatment for pneumonia and neutropenia Review of Systems Const: Reports: chills Eyes: Denies: change in vision ENMT: Denies: throat pain Card: Denies: chest pain Resp: Reports: dyspnea and productive cough GI: Denies: abdominal pain : Denies: flank pain Musc: Denies: neck pain Medications/Allergies Home Medications ?Medication ?Instructions ?Recorded ?Confirmed ?Last Taken ?Type amlodipine 5 mg tablet 5 mg PO QAM 07/07/20 12/14/24 Unknown History aspirin 81 mg tablet,delayed 81 mg PO DAILY 07/07/20 12/14/24 Unknown History release (Aspir-) atenolol 100 mg tablet 50 mg PO QPM 07/07/20 12/14/24 Unknown History atorvastatin 40 mg tablet 20 mg PO QPM 07/07/20 12/14/24 Unknown History bupropion HCl 150 mg 24 hr tablet, 150 mg PO QAM 07/07/20 12/14/24 Unknown History extended release cholecalciferol (vitamin D3) 50 50 mcg PO DAILY 07/07/20 12/14/24 Unknown History mcg (2,000 unit) tablet gabapentin 100 mg capsule 200 mg PO BID 07/07/20 12/14/24 Unknown History hydrochlorothiazide 25 mg tablet 12.5 mg PO QAM 07/07/20 12/14/24 Unknown History lisinopril 40 mg tablet 40 mg PO QPM 07/07/20 12/14/24 Unknown History metformin 1,000 mg tablet 500 mg PO BID 07/07/20 12/14/24 Unknown History pantoprazole 40 mg tablet,delayed 40 mg PO QAM 07/07/20 12/14/24 Unknown History release (Protonix) potassium chloride 20 mEq 10 meq PO QAM 07/07/20 12/14/24 Unknown History tablet,extended release omega 6-vbp-nwy-fish oil 1,200 mg cap PO 02/26/23 12/14/24 Unknown History (144 mg-216 mg) capsule (Fish Oil) prochlorperazine maleate 10 mg 10 mg PO Q8H PRN nausea and 07/08/23 12/14/24 Unknown Rx tablet (Compazine) vomiting #30 tabs allopurinol 300 mg tablet 300 mg PO DAILY #30 tabs 07/09/23 12/14/24 Unknown Rx sulfamethoxazole 800 1 tab PO BID #30 tabs 07/14/23 12/14/24 Unknown Rx mg-trimethoprim 160 mg tablet (Bactrim DS) vitamin E (dl, acetate) 45 mg (100 45 mg PO DAILY 07/22/23 12/14/24 Unknown History unit) capsule lorazepam 1 mg tablet 0.5 - 1 mg (0.5 - 1 x 1 mg) buccal 10/21/23 12/14/24 Unknown Rx Q8H PRN severe nausea and vomiting #30 tabs azithromycin 250 mg tablet See Rx Instructions PO .COMPLEX #6 11/06/23 12/14/24 Unknown Rx (Zithromax Z-Florian) tabs tamsulosin 0.4 mg capsule 0.4 mg PO DAILY 12/17/23 12/14/24 Unknown History benzonatate 200 mg capsule 200 mg PO ONCE PRN 04/14/24 12/14/24 Unknown History docusate sodium 100 mg capsule 100 mg PO DAILY PRN 04/14/24 12/14/24 Unknown History sennosides 8.6 mg tablet (senna) 8.6 mg PO ONCE PRN 04/14/24 12/14/24 Unknown History Allergies Allergy/AdvReac Type Severity Reaction Status Date / Time No Known Allergies Allergy Verified 12/14/24 11:04 PFSH Acute PFSH: Medical History Peripheral neuropathy PTSD (post-traumatic stress disorder) Mantle cell lymphoma Hyperlipidemia GERD (gastroesophageal reflux disease) Hypertension Atrial fibrillation DM type 2 (diabetes mellitus, type 2) Surgical History History of cataract extraction History of colonoscopy History of tonsillectomy Family History Sister Suicide Other Cancer Diabetes Hyperlipidemia Hypertension Denies family history of CAD (coronary artery disease) Clotting disorder Dementia Psychiatric illness Chronic kidney disease (CKD) Anesthesia complication Bleeding disorder Lung disease Stroke Social History Smoking and tobacco/nicotine status: former use of tobacco/nicotine Quit status (tobacco/nicotine): has quit using Year quit tobacco: 2012 Former quit date comment: 20 years Alcohol intake: never Substance/Drug Use: never Vitals/I&O/Wt Last Vital Signs Temp 98.8 F 12/26/24 18:25 Pulse 92 12/26/24 18:55 Resp 18 12/26/24 18:25 BP 136/60 12/26/24 18:25 Pulse Ox 96 12/26/24 18:55 O2 Del Method Room Air 12/26/24 18:25 FiO2 80 12/26/24 18:55 Weight last 48 hrs Weight 99.79 kg Physical Exam Narrative: Patient clinically looks dehydrated Low blood pressure GCS 15 Nonfocal Pleasant during my follow-up BiPAP settings 12/6/pressure rate 12, FiO2 70% Rhonchi with coarse crackles Abdomen soft NIH 0 S1, S2 Data 12/26/24 18:56 12/26/24 18:56 Micro: Microbiology 12/26/24 18:59 Blood Culture - Preliminary Blood SPECIMEN COLLECTED 12/26/24 18:56 Blood Culture - Preliminary Blood SPECIMEN COLLECTED A&P Assessment and plan (1) Bilateral pneumonia: (2) Acute hypoxemic respiratory failure: (3) Mantle cell lymphoma: Qualifiers: Lymphoma site: unspecified region Qualified Code(s): C83.10 - Mantle cell lymphoma, unspecified site (4) GERD (gastroesophageal reflux disease): (5) DM type 2 (diabetes mellitus, type 2): (6) Atrial fibrillation: (7) Sepsis: (8) Neutropenia: Plan Sepsis Immunocompromise Neutropenia Start double antipseudomonal coverage cefepime and Zosyn Request MRSA PCR nares Patient received septic bolus No skin mottling No sign of confusion No signs of PE, respiratory panel negative Neutropenia Chemotherapy-induced? Versus infection Hold DVT prophylaxis Will give Neupogen 1 dose Monitor hemoglobin Acute hypoxia: To decrease work of breathing he was put on BiPAP Does not use oxygen at home Monitor for ARDS Hypotension: Patient clinical looks dehydrated: Hold antihypertensive regimen Hypokalemia: Replenished hold hydrochlorothiazide Mantle cell lymphoma: Enrolled in CAR-T trial Allopurinol to be continued Cardiac diet Neutropenic precautions Full code DVT prophylaxis SCDs secondary to thrombocytopenia Hold prophylaxis of Bactrim and Z-Florian for worsening creatinine PDMP PDMP Reviewed: Not Reviewed Attestations Medical Necessity Statement*: More than 2 midnights anticipated Coding Level of Care Code Acute Code for [facility] Fwd Diagnoses Bilateral pneumonia J18.9 Acute hypoxemic respiratory failure J96.01 Mantle cell lymphoma, unspecified body region C83.10 Lymphoma site: unspecified region GERD (gastroesophageal reflux disease) K21.9 DM type 2 (diabetes mellitus, type 2) E11.9 Atrial fibrillation I48.91 Sepsis A41.9 Neutropenia D70.9
[2024-12-26 21:59] LABS: Lactic Acid level (Lactate) 3.3 mmol/L (0.5-2.2)
[2024-12-26 23:38] LABS: Procalcitonin 16.72 ng/mL (0-0.5)
[2024-12-26] MEDS: lidocaine 1% 5 ML in potassium chloride premix 100 ML 26.25 ML IV (23:47)
[2024-12-27] VITALS (10 sets, daily range): BP systolic 109–144; BP diastolic 63–70; PULSE 74–92; RESP 15–32; TEMP 36.6–37; O2SAT 92–99
--- NOTE | 2024-12-27 00:38 | ECG_ITS ---
[facility]: 2024-12-27 Pat Name: Lion Aiken Department: Room: 271 Gender: Male Radio Personality: : 1945 Requested By: Gildardo Triplett Order Number: [id number] Huma MD: Freedom Guidry M.D. Measurements Intervals Yoder Rate: 86 P: 67 AR: 160 QRS: 7 QRSD: 92 T: 57 QT: 375 QTc: 450 Interpretive Statements SINUS RHYTHM Compared to ECG 07/07/2020 19:53:02 T-wave abnormality no longer present Electronically Signed On 12-29-2024 18:11:38 BILINGUAL MEDICAL ASSISTANT by Freedom Guidry M.D. [email or web address]
[2024-12-27 00:42] LABS: Vitamin B12 966 pg/mL (232-1245)
[2024-12-27] MEDS: efferdent effervescent 1 EACH DENTAL (00:45)
[2024-12-27 00:59] LABS: Lymphocytes # 0.4 10^3/uL (0.8-4.8); Lymphocytes % 52.4 %; Mean Corpuscular Hemoglobin 28.3 pg (27-33); Mean Corpuscular Volume 94.4 fl (82-101); Mean Platelet Volume 9.4 fL (7.4-10.4); Monocytes # 0.1 10^3/uL (0.2-0.9); Monocytes % 6.1 %; Neutrophils % 40.3 %; Nucleated Red Blood Cells % 0 %; Platelet Count 55 10^3/cmm (157-399); Red Blood Count 2.86 10^6/uL (3.85-5.65); Red Cell Distribution Width 19.6 % (12.1-15.1)
[2024-12-27 01:01] LABS: MRSA PCR OZH (swab) NOT DETECTED (Negative)
[2024-12-27 01:24] LABS: Anion Gap 18.2 (5-19); Blood Urea Nitrogen 32 mg/dL (8-23); Calcium 7.3 mg/dL (8.5-10.5); Carbon Dioxide 22 mmol/L (22-29); Chloride 104 mmol/L (98-107); Creatinine Clr Calc Pharmacy 50.1685; Glucose 151 mg/dL (65-115); Magnesium 1.3 mg/dL (1.7-2.3); Osmolality Calculated 302 mOsm/kg (285-295); Phosphorus 2.5 mg/dL (2.5-4.5); Potassium 3.2 mmol/L (3.5-5.1); Sodium 141 mmol/L (136-145)
[2024-12-27 01:25] LABS: Troponin 5 6HR 39.44 ng/L (0-15)
[2024-12-27 01:41] LABS: C Reactive Protein 451.8 mg/L (0.0-4.9); Troponin 5 6HR Delta -2.56 ng/L (0-12)
[2024-12-27 02:18] LABS: Neutrophils # 0.33 10^3/uL (1.8-7.7); White Blood Count 0.82 10^3/uL (3.29-11.43)
[2024-12-27 02:19] LABS: Slide Review Slide Review Perform
[2024-12-27] MEDS: piperacillin-tazobactam 3.375 GM in sodium chloride 0.9% (100 ml) 100 ML IV ×3 (05:04→17:22)
[2024-12-27 06:47] LABS: Glucose Point of Care 187 mg/dL (70-110)
--- NOTE | 2024-12-27 07:44 | P.PN_ITS ---
Subjective 2 Subjective: She is feeling slightly better. Vitals/I&O/Wt Last Vital Signs Temp 98.6 F 12/28/24 04:00 Pulse 78 12/28/24 04:00 Resp 18 12/28/24 04:00 BP 101/62 12/28/24 04:00 Pulse Ox 95 12/28/24 04:00 O2 Del Method Nasal Cannula 12/28/24 04:00 O2 Flow Rate 4 12/28/24 04:00 FiO2 70 12/27/24 04:00 12/27/24 12/28/24 12/28/24 22:59 06:59 14:59 Intake Total 1060 / 1800 840 / 2640 100 / 100 Output Total 550 / 950 500 / 1450 Balance 510 / 850 340 / 1190 100 / 100 Weight last 48 hrs Weight 101.559 kg Weight 101.469 kg Weight 102.058 kg Weight 99.79 kg Physical Exam 2 Const: COMMON NORMALS: patient oriented x3 and alert GENERAL APPEARANCE: c ooperative ORIENTATION/CONSCIOUSNESS: Yes awake HENMT: COMMON NORMALS: oropharynx normal Neck/C-Spine: COMMON NORMALS: no JVD Resp: AUSCULTATION: rhonchi and wheezes Cardio: COMMON NORMALS: no JVD, regular rhythm, S1 normal heart sound present, S2 normal heart sound present and No murmurs present (Cardio) RHYTHM: regular rhythm HEART SOUNDS: S1 normal heart sound present and S2 normal heart sound present GI: COMMON NORMALS: Normal to inspection, nondistended, normoactive bowel sounds present, Soft to palpation and non-tender PALPATION: Yes Soft to palpation Extremity: COMMON NORMALS: no joint enlargement and no pedal edema Neuro: COMMON NORMALS: patient oriented x3 and moves all extremities S ENSORIUM/ORIENTATION: Yes alert Skin: COMMON NORMALS: no rashes or lesions noted GENERAL SKIN EXAM: no rashes or lesions noted Data 12/28/24 06:03 12/28/24 06:03 Micro: Microbiology 12/26/24 18:59 Blood Culture - Preliminary Blood NEGATIVE TO DATE 12/26/24 18:56 Blood Culture - Preliminary Blood NEGATIVE TO DATE A&P Assessment and plan (1) Bilateral pneumonia: (2) Acute hypoxemic respiratory failure: (3) Mantle cell lymphoma: Qualifiers: Lymphoma site: unspecified region Qualified Code(s): C83.10 - Mantle cell lymphoma, unspecified site (4) GERD (gastroesophageal reflux disease): (5) DM type 2 (diabetes mellitus, type 2): (6) Atrial fibrillation: (7) Sepsis: (8) Neutropenia: Plan Sepsis Reviewed vitals, CBC, CMP, CTA,Blood cultures pending, so far reassuring some mild improvement in his symptoms, still continue to require 4 L nasal cannula oxygen. Neutropenic. Has received a dose of Neupogen this morning. 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 Continue antibiotic coverage with Zosyn, cefepime, empiric coverage with linezolid for now, monitor for risk of cytopenia. Monitor for risk of encephalopathy, cytopenia, Alford-Obi syndrome, C. difficile. MRSA PCR reviewed, negative. Will discontinue linezolid. Immunocompromise Neutropenia: Received a dose of Neupogen. Repeat CBC. Start double antipseudomonal coverage cefepime and Zosyn Request MRSA PCR nares Patient received septic bolus No skin mottling No sign of confusion No signs of PE, respiratory panel negative Acute hypoxia:Weaned off BiPAP. Continue to require 4 L nasal cannula oxygen. Continue oxygen support. Wean down as tolerating. Does not use oxygen at home Monitor for ARDS Hypotension: Improving. On presentation patient clinical looks dehydrated: Hold antihypertensive regimen Hypokalemia: Repeat chemistry. Magnesium. Hold hydrochlorothiazide Mantle cell lymphoma: Enrolled in CAR-T trial Allopurinol to be continued Cardiac diet Neutropenic precautions Full code DVT prophylaxis SCDs secondary to thrombocytopenia Hold prophylaxis of Bactrim and Z-Florian for worsening creatinine PDMP PDMP Reviewed: Not Reviewed Attestations 2 Medical Necessity Statement*: Continue admission for assessment management of sepsis, multifocal pneumonia, new hypoxia and gentleman with underlying mantle cell lymphoma. and High MDM includes amount and/or complexity of data reviewed/ordered [ resulted lab(s)/test(s), ordered lab(s)/test(s) and other healthcare professional discussion] and described risk of complication, morbidity or mortality of management as documented Diagnoses Bilateral pneumonia J18.9 Acute hypoxemic respiratory failure J96.01 Mantle cell lymphoma, unspecified body region C83.10 Lymphoma site: unspecified region GERD (gastroesophageal reflux disease) K21.9 DM type 2 (diabetes mellitus, type 2) E11.9 Atrial fibrillation I48.91 Sepsis A41.9 Neutropenia D70.9
[2024-12-27] MEDS: budesonide 0.5 mg/2 mL Neb INHALATION ×2 (09:00→20:14)
[2024-12-27] MEDS: ipratropium-albuterol 3 mL Neb INHALATION (09:00)
[2024-12-27] MEDS: insulin lispro 100 unit/1 mL SUBCUT ×4 (09:06→21:58)
[2024-12-27] MEDS: aspirin 81 mg EC Tablet PO (09:07)
[2024-12-27] MEDS: sennosides-docusate Tablet 1 TAB PO (09:07)
[2024-12-27] MEDS: cefepime 2,000 mg SDV 2000 MG IVP (09:07)
[2024-12-27] MEDS: tamsulosin 0.4 mg Capsule PO (09:07)
[2024-12-27] MEDS: allopurinol 300 mg Tablet PO (09:07)
[2024-12-27] MEDS: filgrastim-sndz 480 mcg/0.8 mL Syringe SUBCUT (09:08)
--- NOTE | 2024-12-27 10:09 | PC.CHAP ---
Pastoral Care Encounter/Spiritual Assessment Type of Contact [] Declined structured cabling technician visit [] Patient/Family/Request visit [] Outpatient visit [] Follow-up visit [] Physician referral [] Code/Alert [x] Routine visit [] Staff referral [] Actively dying [] Patient sleeping [] Family support [] [] Out of room [] Palliative care [] [] Receiving care in room [] Pre-surgical visit [] Trauma [] Long length of stay [] ICU visit [] Other: Relational/Emotional Strength [] Patient feels connected with others/family/visitors/staff [] Distress [] Loneliness/isolation [] Abandonment Spirituality of Patient [] Person of Shanae [] Attends Yarsanism of their Shanae [] Believes in Prayer [] Reads Bible or Hindu materials [] There are Spiritual issues to be addressed Director Of Staff Development Interventions [] Prayer [] Active listening [] Non-anxious presence [] Spiritual/emotional support [] Crisis/trauma care [] Spiritual counseling [] Bereavement support [] Provided bereavement packet [] Provided Bible/devotional materials [] Provided toy/stuffed animal, coloring book to patient or family member [] Provided Communion [] Anointing/[place] [] Salvation [] Completed spiritual assessment [] Other: Impact on Illness or Injury [] Angry [] Fearful [] Anxious [] Often cries [] Exhaustion [] Unable to work [] Unable to attend shinto [] Unable to walk/stand [] Unable to read [] Unable to drive [] Unable to eat/drink [] Unable to sleep [] Unable to be with family [] Patient intubated [] Other: Summary precaution Time spent with patient
[2024-12-27 11:28] LABS: Glucose Point of Care 284 mg/dL (70-110)
[2024-12-27] MEDS: linezolid premix 600 MG/300 ML PREMIX 300 MG IV ×2 (12:54→21:58)
--- NOTE | 2024-12-27 13:47 | USCV_ITS ---
Lion Aiken Age: 79 Gender: M : 1945 Exam Date: 12/27/2024 18:46 Ordering Phys: Ezio Gr MD Technologist: ZORAIDA Exam Location: [facility] [place] Indication: assess for dvt HISTORY: assess for dvt patient is in reverse isolation PROCEDURES: Venous duplex imaging was performed in bilateral lower extremities. The following venous structures were evaluated: common femoral vein, profunda vein, proximal portion of the greater saphenous vein, superficial femoral vein, and the popliteal vein. In addition, the posterior tibial and peroneal veins were evaluated. Serial compression, augmentation maneuvers, and spectral Doppler flow evaluation were performed, which were normal. Bilaterally, the common femoral, superficial femoral, profunda femoral, popliteal, posterior tibial, greater saphenous veins, and the peroneal veins were identified and interrogated in the standard fashion. These veins were found to be easily compressible with spontaneous blood flow. No evidence of thrombus noted. CONCLUSIONS No evidence of right lower extremity DVT. No evidence of left lower extremity DVT. Matt Lima MD (Electronically Signed) Final Date: 28 December 2024 08:58 S
[2024-12-27 17:09] LABS: Glucose Point of Care 299 mg/dL (70-110)
[2024-12-27 20:30] LABS: Glucose Point of Care 286 mg/dL (70-110)
[2024-12-27] MEDS: cefepime 1,000 mg SDV 1000 MG IVP (21:04)
[2024-12-28] VITALS (7 sets, daily range): BP systolic 101–179; BP diastolic 56–73; PULSE 70–133; RESP 16–19; TEMP 36.3–37; O2SAT 91–99
[2024-12-28] MEDS: piperacillin-tazobactam 3.375 GM in sodium chloride 0.9% (100 ml) 100 ML IV ×3 (03:12→17:17)
[2024-12-28 06:13] LABS: Glucose Point of Care 153 mg/dL (70-110)
[2024-12-28 06:14] LABS: Basophils % 0.5 %; Eosinophils % 0.5 %; Lymphocytes # 0.5 10^3/uL (0.8-4.8); Lymphocytes % 25.1 %; Mean Corpuscular HGB Conc 30.7 g/dL (30-55); Mean Corpuscular Hemoglobin 28.7 pg (27-33); Mean Corpuscular Volume 93.4 fl (82-101); Monocytes # 0.2 10^3/uL (0.2-0.9); Monocytes % 8.4 %; Neutrophils # 1.05 10^3/uL (1.8-7.7); Nucleated Red Blood Cells % 0 %; Platelet Count 55 10^3/cmm (157-399); Red Blood Count 2.89 10^6/uL (3.85-5.65); Red Cell Distribution Width 19.5 % (12.1-15.1); White Blood Count 1.91 10^3/uL (3.29-11.43)
[2024-12-28 06:30] LABS: Add RBC Morph Yes; Slide Review Slide Review Perform
[2024-12-28 06:31] LABS: Anisocytosis 1+; Poikilocytosis 1+; RBC Morph Comp No; Schistocytes Trace
[2024-12-28 06:35] LABS: Alanine Aminotransferase 17 U/L (0-41); Alkaline Phosphatase 31 U/L (40-130); Anion Gap 17.4 (5-19); Aspartate Amino Transferase 20 U/L (0-40); Blood Urea Nitrogen 36 mg/dL (8-23); Calcium 8.1 mg/dL (8.5-10.5); Carbon Dioxide 23 mmol/L (22-29); Chloride 107 mmol/L (98-107); Creatinine Clr Calc Pharmacy 75.0782; Globulin 3.3 g/dL (1.3-4.6); Glucose 151 mg/dL (65-115); Osmolality Calculated 309 mOsm/kg (285-295); Potassium 3.4 mmol/L (3.5-5.1); Sodium 144 mmol/L (136-145); Total Bilirubin 0.6 mg/dL (0.15-1.2); Total Protein 6.3 g/dL (6.6-8.7)
[2024-12-28 06:47] LABS: Magnesium 1.9 mg/dL (1.7-2.3)
[2024-12-28] MEDS: sennosides-docusate Tablet 1 TAB PO (08:38)
[2024-12-28] MEDS: allopurinol 300 mg Tablet PO (08:38)
[2024-12-28] MEDS: aspirin 81 mg EC Tablet PO (08:38)
[2024-12-28] MEDS: tamsulosin 0.4 mg Capsule PO (08:39)
[2024-12-28] MEDS: cefepime 1,000 mg SDV 1000 MG IVP ×2 (08:39→21:13)
[2024-12-28] MEDS: insulin lispro 100 unit/1 mL SUBCUT ×4 (08:39→21:14)
[2024-12-28] MEDS: ipratropium-albuterol 3 mL Neb INHALATION (10:00)
[2024-12-28] MEDS: budesonide 0.5 mg/2 mL Neb INHALATION (10:00)
[2024-12-28 11:22] LABS: Glucose Point of Care 190 mg/dL (70-110)
--- NOTE | 2024-12-28 11:43 | P.PN_ITS ---
Subjective 2 Subjective: He is feeling slightly better today. He is producing phlegm. Has been using the flutter valve. Vitals/I&O/Wt Last Vital Signs Temp 97.4 F L 12/28/24 11:07 Pulse 76 12/28/24 11:07 Resp 16 12/28/24 11:07 BP 107/56 12/28/24 11:07 Pulse Ox 94 12/28/24 11:07 O2 Del Method Nasal Cannula 12/28/24 11:07 O2 Flow Rate 5 12/28/24 11:07 FiO2 70 12/27/24 04:00 12/27/24 12/28/24 12/28/24 22:59 06:59 14:59 Intake Total 1060 / 1800 840 / 2640 100 / 100 Output Total 550 / 950 500 / 1450 200 / 200 Balance 510 / 850 340 / 1190 -100 / -100 Weight last 48 hrs Weight 101.559 kg Weight 101.469 kg Weight 102.058 kg Weight 99.79 kg Physical Exam 2 Const: COMMON NORMALS: patient oriented x3 and alert GENERAL APPEARANCE: c ooperative ORIENTATION/CONSCIOUSNESS: Yes awake HENMT: COMMON NORMALS: oropharynx normal Neck/C-Spine: COMMON NORMALS: no JVD Resp: OTHER: Few crackles, wheezing resolved, improvement in rhonchi. Cardio: COMMON NORMALS: no JVD, regular rhythm, S1 normal heart sound present, S2 normal heart sound present and No murmurs present (Cardio) RHYTHM: regular rhythm HEART SOUNDS: S1 normal heart sound present and S2 normal heart sound present GI: COMMON NORMALS: Normal to inspection, nondistended, normoactive bowel sounds present, Soft to palpation and non-tender PALPATION: Yes Soft to palpation Extremity: COMMON NORMALS: no joint enlargement and no pedal edema Neuro: COMMON NORMALS: patient oriented x3 and moves all extremities S ENSORIUM/ORIENTATION: Yes alert Skin: COMMON NORMALS: no rashes or lesions noted GENERAL SKIN EXAM: no rashes or lesions noted Data 12/28/24 06:03 12/28/24 06:03 Micro: Microbiology 12/26/24 18:59 Blood Culture - Preliminary Blood NEGATIVE TO DATE 12/26/24 18:56 Blood Culture - Preliminary Blood NEGATIVE TO DATE A&P Assessment and plan (1) Bilateral pneumonia: (2) Acute hypoxemic respiratory failure: (3) Mantle cell lymphoma: Qualifiers: Lymphoma site: unspecified region Qualified Code(s): C83.10 - Mantle cell lymphoma, unspecified site (4) GERD (gastroesophageal reflux disease): (5) DM type 2 (diabetes mellitus, type 2): (6) Atrial fibrillation: (7) Sepsis: (8) Neutropenia: Plan Sepsis Reviewed vitals, CBC, CMP, blood culture, so far negative, improving sepsis, so far fevers resolved. Neutropenia so far with improvement, ANC up to 1050. Reviewed MRSA PCR, noted negative. Discontinued linezolid. Continue Zosyn, cefepime for now. Sputum culture if he is able to provide. Continue neutropenic precautions. Repeat blood counts. Received Neupogen on 12/27. With multifocal pneumonia, discussed with him, discussed with nursing, caseworker protective services. Continue antibiotic coverage with Zosyn, cefepime, empiric coverage with linezolid for now, monitor for risk of cytopenia. Monitor for risk of encephalopathy, cytopenia, Alford-Obi syndrome, C. difficile. Continue pulmonary toilet, flutter valve. Continues to require 5 L of oxygen. Discussed with caseworker protective services. Immunocompromise Neutropenia: Received a dose of Neupogen. Repeat CBC. Start double antipseudomonal coverage cefepime and Zosyn Request MRSA PCR nares Patient received septic bolus No skin mottling No sign of confusion No signs of PE, respiratory panel negative Acute hypoxia: Continues to require 5 L oxygen by nasal cannula. Not normally on oxygen. Continue to support oxygenation, wean down as tolerating. He is doing a bit better today in terms of performance per discussion with physical therapist, got up and worked with physical therapy. Continue treatment of multifocal pneumonia. Pulmonary toilet. Weaned off BiPAP. Continue to require 4 L nasal cannula oxygen. Continue oxygen support. Wean down as tolerating. Does not use oxygen at home Monitor for ARDS Hypotension: Improving. On presentation patient clinical looks dehydrated: Hold antihypertensive regimen Hypokalemia: Will give potassium supplement, reviewed magnesium, noted 1.9. Supple magnesium as well. Repeat chemistry and magnesium. Repeat chemistry. Magnesium. Hold hydrochlorothiazide Mantle cell lymphoma: Enrolled in CAR-T trial Allopurinol to be continued Cardiac diet Neutropenic precautions Full code DVT prophylaxis SCDs secondary to thrombocytopenia Hold prophylaxis of Bactrim and Z-Florian for worsening creatinine PDMP PDMP Reviewed: Not Reviewed Attestations 2 Medical Necessity Statement*: Continue admission for assessment management of multifocal pneumonia in his room and with neutropenia, mantle cell lymphoma. and High MDM includes amount and/or complexity of data reviewed/ordered [ resulted lab(s)/test(s), ordered lab(s)/test(s) and other healthcare professional discussion] and described risk of complication, morbidity or mortality of management as documented Diagnoses Bilateral pneumonia J18.9 Acute hypoxemic respiratory failure J96.01 Mantle cell lymphoma, unspecified body region C83.10 Lymphoma site: unspecified region GERD (gastroesophageal reflux disease) K21.9 DM type 2 (diabetes mellitus, type 2) E11.9 Atrial fibrillation I48.91 Sepsis A41.9 Neutropenia D70.9
[2024-12-28] MEDS: potassium chloride ER 20 mEq Tablet PO (11:54)
[2024-12-28] MEDS: magnesium sulfate premix 1 GM/100 ML PIGGYBACK IV (11:54)
--- NOTE | 2024-12-28 16:28 | ECG_ITS ---
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 Measurements Intervals [place] Rate: 139 P: 0 MI: 0 QRS: 1 QRSD: 90 T: 61 QT: 305 QTc: 465 Interpretive Statements ATRIAL FIBRILLATION WITH RAPID VENTRICULAR RESPONSE NONSPECIFIC ST & T-WAVE ABNORMALITY ABNORMAL RHYTHM ECG Compared to ECG 12/27/2024 01:09:55 T-wave abnormality now present Sinus rhythm no longer present Electronically Signed On 12-29-2024 18:11:53 SIGNAL TOWER DIRECTOR by Freedom Guidry M.D. [email or web address]
[2024-12-28 16:44] LABS: Glucose Point of Care 160 mg/dL (70-110)
[2024-12-28] MEDS: metoprolol tartrate 25 mg Tablet PO (17:16)
[2024-12-28 20:55] LABS: Glucose Point of Care 294 mg/dL (70-110)
[2024-12-29] VITALS (10 sets, daily range): BP systolic 115–142; BP diastolic 56–73; PULSE 75–93; RESP 16–31; TEMP 36.4–37.2; O2SAT 91–100
[2024-12-29] MEDS: piperacillin-tazobactam 3.375 GM in sodium chloride 0.9% (100 ml) 100 ML IV ×2 (02:30→11:25)
[2024-12-29 03:11] LABS: Hematocrit 25.8 % (37-53); Mean Corpuscular HGB Conc 30.2 g/dL (30-55); Mean Corpuscular Hemoglobin 28.5 pg (27-33); Mean Corpuscular Volume 94.2 fl (82-101); Mean Platelet Volume 10.5 fL (7.4-10.4); Platelet Count 47 10^3/cmm (157-399); Red Blood Count 2.74 10^6/uL (3.85-5.65); Red Cell Distribution Width 19.7 % (12.1-15.1); White Blood Count 2.18 10^3/uL (3.29-11.43)
[2024-12-29 03:37] LABS: Alanine Aminotransferase 18 U/L (0-41); Alkaline Phosphatase 37 U/L (40-130); Anion Gap 13.3 (5-19); Aspartate Amino Transferase 17 U/L (0-40); Blood Urea Nitrogen 29 mg/dL (8-23); Calcium 8.1 mg/dL (8.5-10.5); Carbon Dioxide 25 mmol/L (22-29); Chloride 106 mmol/L (98-107); Creatinine Clr Calc Pharmacy 93.8477; Globulin 2.9 g/dL (1.3-4.6); Glucose 152 mg/dL (65-115); Osmolality Calculated 301 mOsm/kg (285-295); Potassium 3.3 mmol/L (3.5-5.1); Sodium 141 mmol/L (136-145); Total Bilirubin 0.5 mg/dL (0.15-1.2); Total Protein 5.9 g/dL (6.6-8.7)
[2024-12-29 04:16] LABS: Absolute Segmented Neutrophil 0.4 10/cmm (1.6-7.1); Band Neutrophils Absolute 0.2 10^3/cmm (0.0-1.2); Eosinophils 1 %; Lymphocytes 15 %; Monocytes Absolute 0.1 10^3/cmm (0.1-0.6); Segmented Neutrophils 18 %; Slide Review Slide Review Perform; Total Cells Counted 50 (0-100)
[2024-12-29 04:17] LABS: Anisocytosis 1+; Platelet Estimate Decreased (Normal); Poikilocytosis 1+; Smudge Cells Trace
[2024-12-29 04:18] LABS: Dohle Bodies Trace
[2024-12-29 04:20] LABS: Absolute Neutrophil 0.6 10^3/cmm (1.4-6.5)
[2024-12-29 06:30] LABS: Glucose Point of Care 172 mg/dL (70-110)
[2024-12-29] MEDS: budesonide 0.5 mg/2 mL Neb INHALATION (08:52)
[2024-12-29] MEDS: insulin lispro 100 unit/1 mL SUBCUT ×2 (08:58→11:24)
[2024-12-29] MEDS: allopurinol 300 mg Tablet PO (08:59)
[2024-12-29] MEDS: cefepime 1,000 mg SDV 1000 MG IVP (08:59)
[2024-12-29] MEDS: tamsulosin 0.4 mg Capsule PO (08:59)
[2024-12-29] MEDS: metoprolol tartrate 25 mg Tablet PO (08:59)
[2024-12-29] MEDS: aspirin 81 mg EC Tablet PO (08:59)
[2024-12-29] MEDS: sennosides-docusate Tablet 1 TAB PO (08:59)
[2024-12-29 10:38] LABS: LAB Peripheral Smear Sent for Review
[2024-12-29 10:52] LABS: Glucose Point of Care 163 mg/dL (70-110)
[2024-12-29] MEDS: potassium chloride ER 20 mEq Tablet PO (11:26)
--- NOTE | 2024-12-29 12:06 | PM.TDS ---
Transfer Summary Providers Date of Admission: 12/26/24 21:13 Date of Discharge/Transfer: 12/29/24 Attending Provider at Admission: Mckenzie Brothers MD Attending Provider at Transfer: Ezio Gr Primary Care Provider: Linda Muller MD Transfer Plans: Anticipated date of transfer: 12/29/24. Diagnoses at Discharge Discharge Diagnosis (1) Bilateral pneumonia: Status: Acute (2) Acute hypoxemic respiratory failure: Status: Acute (3) Mantle cell lymphoma: Status: Acute Qualifiers: Lymphoma site: unspecified region Qualified Code(s): C83.10 - Mantle cell lymphoma, unspecified site (4) GERD (gastroesophageal reflux disease): Status: Acute (5) DM type 2 (diabetes mellitus, type 2): Status: Acute (6) Atrial fibrillation: Status: Acute (7) Sepsis: Status: Acute (8) Neutropenia: Status: Acute Reason for Visit Reason for Visit sob Brief History: Lion Aiken is a 79 year old male with history of right neck mass status post biopsy 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 Patient is stating that he started getting sick for last few days, he has been extremely weak and lethargic, does not use oxygen at baseline, no chest pain diarrhea or high-grade fever Patient was hypoxic 70% at home as per the EMS, secondary to increased work of breathing he was put on BiPAP He has been given septic bolus, broad-spectrum antibiotics for neutropenia Daughter asked to be transferred to [facility] but they do not have any beds, they are agreeable to stay here to get treatment for pneumonia and neutropenia Hospital Course Hospital Course He was assessed with CTA which showed no obvious PE, multifocal pneumonia, mediastinal lymphadenopathy. Lower extremity duplex negative for DVT. With ANC of 330 on presentation, was given a dose of Neupogen, empirically treated with cefepime and Zosyn for antipseudomonal coverage, as well as linezolid was transiently added. MRSA PCR was checked and negative. Linezolid since de-escalated. He was transiently improving yesterday, but today had a difficult night again, with dyspnea, insomnia. This morning blood counts are worse as well, ANC down to 600, additionally with noted bands, 9%, without atypical lymphocytes, 1% eosinophils, 2% myelocytes, trace MR cells, trace dully bodies, 1+ poikilocytosis, 1+ anisocytosis. Platelets also declined down to 47,000 from 55,000. Platelets were 80,000 on presentation. Hemoglobin also noted decreased down to 7.8. Peripheral smear is requested. SCD only for VTE prophylaxis. He is on low-dose aspirin. Small amounts of blood-tinged to sputum. Sputum culture is requested. Blood cultures so far negative continues on oxygen supplementation, requiring 5 L by nasal cannula. Not normally on oxygen. Received small months of potassium supplementation for minor hypokalemia. With recurrent neutropenia, with his care team being over at [facility], he is excepted for further assessment management there under the care of Dr. Thrasher. Physical Exam Narrative: Tired, somnolent, had a restless night. Dozing off but wakes up to voice. Answering appropriately. Without pain, discomfort or new symptoms. No dysphagia or pain on swallowing. No thrush. He has been using his flutter valve. Const: COMMON NORMALS: patient oriented x3 and alert GENERAL APPEARANCE: cooperative ORIENTATION/CONSCIOUSNESS: Yes awake HENMT: COMMON NORMALS: oropharynx normal Neck/C-Spine: COMMON NORMALS: no JVD Resp: COMMON NORMALS: normal respiratory effort AUSCULTATION: rhonchi and wheezes (Scant) Cardio: COMMON NORMALS: no JVD, regular rhythm, S1 normal heart sound present, S2 normal heart sound present and No murmurs present (Cardio) RHYTHM: regular rhythm HEART SOUNDS: S1 normal heart sound present and S2 normal heart sound present GI: COMMON NORMALS: Normal to inspection, nondistended, normoactive bowel sounds present, Soft to palpation and non-tender PALPATION: Yes Soft to palpation Extremity: COMMON NORMALS: no joint enlargement and no pedal edema Neuro: COMMON NORMALS: patient oriented x3 and moves all extremities SENSORIUM/ORIENTATION: Yes alert Skin: COMMON NORMALS: no rashes or lesions noted GENERAL SKIN EXAM: no rashes or lesions noted TS Data Studies Completed and Pending Pending at discharge Category Date Time Status Blood Culture Stat Lab 12/26/24 18:59 Results Complete Blood Count w/Auto AM LABS Lab 12/30/24 04:00 Ordered Comprehensive Metabolic Panel AM LABS Lab 12/30/24 04:00 Ordered Completed Studies During Hospitalization Category Date Time Status CT angio chest PE protcl [id number] Urgent Cat Scan 12/26/24 19:30 Completed XR chest 1V portable [id number] Stat Exams 12/26/24 18:37 [place] [id number] Routine Ultrasound 12/27/24 13:47 Completed Laboratory Last Values WBC 2.18 10^3/uL (3.29-11.43) L 12/29/24 02:43 RBC 2.74 10^6/uL (3.85-5.65) L 12/29/24 02:43 Hgb 7.80 g/dL (11.27-16.99) L 12/29/24 02:43 Hct 25.8 % (37-53) L 12/29/24 02:43 MCV 94.2 fl (82-101) 12/29/24 02:43 MCH 28.5 pg (27-33) 12/29/24 02:43 MCHC 30.2 g/dL (30-55) 12/29/24 02:43 RDW 19.7 % (12.1-15.1) H 12/29/24 02:43 Plt Count 47 10^3/cmm (157-399) L 12/29/24 02:43 MPV 10.5 fL (7.4-10.4) H 12/29/24 02:43 Neut % (Auto) 55.0 % 12/28/24 06:03 Lymph % (Auto) Not Reportable 12/29/24 02:43 [place] % (Auto) Not Reportable 12/29/24 02:43 Eos % (Auto) 0.5 % 12/28/24 06:03 Baso % (Auto) 0.5 % 12/28/24 06:03 Neut # (Auto) 1.05 10^3/uL (1.8-7.7) L 12/28/24 06:03 Lymph # (Auto) Not Reportable 12/29/24 02:43 [place] # (Auto) Not Reportable 12/29/24 02:43 Eos # (Auto) 0.0 10^3/uL (0.0-0.8) 12/28/24 06:03 Baso # (Auto) 0.0 10^3/uL (0.0-0.1) 12/28/24 06:03 Nucleated RBC % (auto) 0 % 12/28/24 06:03 Total Counted 50 (0-100) 12/29/24 02:43 Atypical Lymphs % Not Reportable 12/29/24 02:43 Absolute Neutrophils 0.6 10^3/cmm (1.4-6.5) L* 12/29/24 02:43 Segmented Neutrophils 18 % 12/29/24 02:43 Band Neutrophils 9.0 % 12/29/24 02:43 Lymphocytes (Manual) 15 % 12/29/24 02:43 Monocytes (Manual) 3.0 % 12/29/24 02:43 Absolute Monocytes 0.1 10^3/cmm (0.1-0.6) 12/29/24 02:43 Eosinophils (Manual) 1 % 12/29/24 02:43 Absolute Eosinophils 0.0 10^3/cmm (0.0-0.7) 12/29/24 02:43 Basophils (Manual) 0.0 % 12/29/24 02:43 Absolute Basophils 0.0 10^3/cmm (0.0-0.2) 12/29/24 02:43 Myelocytes 2.0 % 12/29/24 02:43 Nucleated RBCs # 0.0 /100WBC 12/28/24 06:03 Smudge Cells Trace 12/29/24 02:43 Dohle Bodies Trace 12/29/24 02:43 Platelet Estimate Decreased (Normal) 12/29/24 02:43 Poikilocytosis 1+ H 12/29/24 02:43 Anisocytosis 1+ H 12/29/24 02:43 Schistocytes Trace 12/28/24 06:03 Peripher Smr Path Cons Sent for review 12/29/24 02:43 D-Dimer 3.96 ug/mLFEU (0-0.59) H 12/26/24 18:56 Specimen Type Arterial 12/26/24 18:24 Sample Site Radial, left 12/26/24 18:24 ABG pH 7.43 (7.35-7.45) 12/26/24 18:24 ABG pCO2 39.6 mmHg (35-45) 12/26/24 18:24 ABG pO2 55.9 mmHg (80.0-100.0) L 12/26/24 18:24 ABG PO2/FiO2 Ratio 55 12/26/24 18:24 ABG HCO3 26.2 mmol/L (22-26) H 12/26/24 18:24 ABG Base Excess 1.7 mmol/L (-2.0-2.0) 12/26/24 18:24 Nabeel Test Pos 12/26/24 18:24 Hematocrit 30.2 % (42-52) L 12/26/24 18:24 O2 Delivery Device Nrb 12/26/24 18:24 O2 Liters/Min 15.0 % 12/26/24 18:24 FiO2 100.0 % 12/26/24 18:24 Extract Puller ID Monro 12/26/24 18:24 Sodium 141 mmol/L (136-145) 12/29/24 02:43 Potassium 3.3 mmol/L (3.5-5.1) L 12/29/24 02:43 Chloride 106 mmol/L (98-107) 12/29/24 02:43 Carbon Dioxide 25 mmol/L (22-29) 12/29/24 02:43 Anion Gap 13.3 (5-19) 12/29/24 02:43 BUN 29 mg/dL (8-23) H 12/29/24 02:43 Creatinine 0.8 mg/dL (0.7-1.2) 12/29/24 02:43 GFR Calculation Not Reportable 12/29/24 02:43 Glucose 152 mg/dL (65-115) H 12/29/24 02:43 POC Glucose 163 mg/dL (70-110) H 12/29/24 10:49 Calculated Osmolality 301 mOsm/kg (285-295) H 12/29/24 02:43 Lactic Acid 3.2 mmol/L (0.5-2.2) H 12/26/24 18:56 Lactic Acid (Sepsis) 3.3 mmol/L (0.5-2.2) H 12/26/24 21:36 Calcium 8.1 mg/dL (8.5-10.5) L 12/29/24 02:43 Phosphorus 2.5 mg/dL (2.5-4.5) 12/27/24 00:50 Magnesium 1.9 mg/dL (1.7-2.3) 12/28/24 06:03 Total Bilirubin 0.5 mg/dL (0.15-1.2) 12/29/24 02:43 AST 17 U/L (0-40) 12/29/24 02:43 ALT 18 U/L (0-41) 12/29/24 02:43 Alkaline Phosphatase 37 U/L (40-130) L 12/29/24 02:43 Troponin T Baseline 42 ng/L (0-15) H 12/26/24 18:56 Troponin T 120 Minute 48.97 ng/L (0-15) H 12/26/24 20:53 Delta Troponin T 6.97 ABS# (0-10) 12/26/24 20:53 Troponin T Hi Sens 6Hr 39.44 ng/L (0-15) H 12/27/24 00:50 Troponin T Hi Sens 6Hr Delta -2.56 ng/L (0-12) L 12/27/24 00:50 C-Reactive Protein 451.8 mg/L (0.0-4.9) H 12/27/24 00:50 NT-Pro-B Natriuret Pep 2144 pg/mL (0-450) H 12/26/24 18:56 Total Protein 5.9 g/dL (6.6-8.7) L 12/29/24 02:43 Albumin 3.0 g/dL (3.5-5.2) L 12/29/24 02:43 Globulin 2.9 g/dL (1.3-4.6) 12/29/24 02:43 Vitamin B12 966 pg/mL (232-1245) 12/26/24 18:56 Procalcitonin 16.72 ng/mL (0-0.5) H 12/26/24 18:56 Nasal MRSA (PCR) Not detected (Negative) 12/26/24 22:55 Coronavirus (PCR) Negative (Negative) 12/26/24 19:25 Influenza A (PCR) Negative (Negative) 12/26/24 19:25 Influenza Type B (PCR) Negative (Negative) 12/26/24 19:25 RSV (PCR) Negative (Negative) 12/26/24 19:25 Radiology Impressions Chest X-Ray 12/26/24 18:37 IMPRESSION: Bibasilar consolidation compatible with multifocal pneumonia. Recommend imaging follow-up after clinical treatment to document resolution Chest CTA 12/26/24 19:30 IMPRESSION: 1. Findings compatible with multifocal pneumonia within bilateral lungs. Recommend imaging follow-up after clinical treatment to document resolution. 2. Mildly enlarged mediastinal and hilar lymph nodes may be reactive. However, with a history of lymphoma, residual/recurrent disease is not excluded. Recommend attention on short interval follow-up imaging per oncology protocol. 3. No evidence of pulmonary embolism. 4. Hepatic steatosis. 5. Cholelithiasis. Recent Clincial Data Last Vital Signs Temp 98.9 F 12/29/24 07:18 Pulse 88 12/29/24 09:01 Resp 18 12/29/24 08:53 BP 142/73 12/29/24 07:18 Pulse Ox 94 12/29/24 08:53 O2 Del Method High Flow Nasal Cannula 12/29/24 08:53 O2 Flow Rate 5 12/29/24 08:53 FiO2 70 12/29/24 04:40 Vital Signs Temp Pulse Resp BP Pulse Ox O2 Del Method O2 Flow Rate 12/29/24 09:01 88 12/29/24 08:53 93 18 94 High Flow Nasal Cannula 5 12/29/24 07:18 98.9 F 89 16 142/73 96 Nasal Cannula 5 12/29/24 04:40 76 99 12/29/24 04:00 98.8 F 76 17 137/69 100 BiPAP 12/29/24 01:48 75 99 FiO2 12/29/24 09:01 12/29/24 08:53 12/29/24 07:18 12/29/24 04:40 70 12/29/24 04:00 12/29/24 01:48 70 Intake & Output/Weight 12/27/24 12/28/24 12/29/24 12/30/24 06:59 06:59 06:59 06:59 Intake Total 105 / 105 2640 / 2640 1580 / 1580 240 / 240 Output Total 225 / 225 1450 / 1450 1000 / 1000 500 / 500 Balance -120 / -120 1190 / 1190 580 / 580 -260 / -260 Weight 101.469 kg 101.559 kg 101.333 kg Vitals Last Vital Signs Temp 98.9 F 12/29/24 07:18 Pulse 88 12/29/24 09:01 Resp 18 12/29/24 08:53 BP 142/73 12/29/24 07:18 Pulse Ox 94 12/29/24 08:53 O2 Del Method High Flow Nasal Cannula 12/29/24 08:53 O2 Flow Rate 5 12/29/24 08:53 FiO2 70 12/29/24 04:40 TS Medications Medications Acetaminophen (Acetaminophen 500 Mg Tablet) 500 mg PO Q4H PRN PRN Reason: fever Albuterol/Ipratropium (Ipratropium-Albuterol 3 Ml Neb) 3 ml INHALATION Q6H PRN PRN Reason: SHORTNESS OF BREATH Last Admin: 12/28/24 10:00 Dose: 3 ml Allopurinol (Allopurinol 300 Mg Tablet) 300 mg PO DAILY DION Last Admin: 12/29/24 08:59 Dose: 300 mg Aspirin (Aspirin 81 Mg Ec Tablet) 81 mg PO DAILY DION Last Admin: 12/29/24 08:59 Dose: 81 mg Budesonide (Budesonide 0.5 Mg/2 Ml Neb) 0.5 mg INHALATION BID.RESPIRATORY DION Last Admin: 12/29/24 08:52 Dose: 0.5 mg Cefepime HCl (Cefepime 1,000 Mg Sdv) 1,000 mg IVP Q12H DION; Protocol Last Admin: 12/29/24 08:59 Dose: 1,000 mg Denture Adhesive (Efferdent Effervescent) 1 each DENTAL PRN PRN PRN Reason: denture globe cleaner Last Admin: 12/27/24 00:45 Dose: 1 each Glucagon (Glucagon 1 Mg/Ml Kit 1 Ml) 1 mg IM ONCE PRN; Protocol PRN Reason: Adult Acute Hypoglycemia Nursing Prot. Dextrose (D5w) 500 mls @ 0 mls/hr IV ONCE PRN; Protocol PRN Reason: Adult Acute Hypoglycemia Prot Dextrose (D10w) 125 mls @ 750 mls/hr IV PRN PRN; Protocol PRN Reason: Adult Acute Hypoglycemia Nursing Protocol Dextrose (D10w) 250 mls @ 1,000 mls/hr IV PRN PRN; Protocol PRN Reason: Adult Acute Hypoglycemia Nursing Protocol Piperacillin Sod/Tazobactam (Sod 3.375 gm/ Sodium Chloride) 100 mls @ 25 mls/hr IV 0200,1000,1800 [facility] Last Admin: 12/29/24 11:25 Dose: 25 mls/hr Insulin Human Lispro (Insulin Lispro 100 Unit/1 Ml) 0 unit SUBCUT WM&BEDTIME [facility]; Protocol Last Admin: 12/29/24 11:24 Dose: 4 unit Metoprolol Tartrate (Metoprolol Tartrate 25 Mg Tablet) 25 mg PO BID@0900,2100 [facility] Last Admin: 12/29/24 08:59 Dose: 25 mg Morphine Sulfate (Morphine Ir 15 Mg Tablet) 15 mg PO Q6H PRN PRN Reason: MODERATE PAIN Ondansetron HCl (Ondansetron 2 Mg/Ml Sdv 2 Ml) 4 mg IVP Q6H PRN PRN Reason: NAUSEA AND VOMITING Senna/Docusate Sodium (Sennosides-Docusate Tablet) 1 tab PO DAILY [facility] Last Admin: 12/29/24 08:59 Dose: 1 tab Tamsulosin HCl (Tamsulosin 0.4 Mg Capsule) 0.4 mg PO DAILY [facility] Last Admin: 12/29/24 08:59 Dose: 0.4 mg Discontinued Medications Albuterol/Ipratropium (Ipratropium-Albuterol 3 Ml Neb) 3 ml INHALATION ONCE ONE Stop: 12/26/24 18:38 Last Admin: 12/27/24 08:11 Dose: Not Given Cefepime HCl (Cefepime 2,000 Mg Sdv) 2,000 mg IVP Q12H [facility]; Protocol Last Admin: 12/27/24 09:07 Dose: 2,000 mg Filgrastim (Filgrastim 480 Mcg/1.6 Ml Sdv) 480 mcg SUBCUT NOW ONE Stop: 12/26/24 23:01 Last Admin: 12/26/24 23:54 Dose: Not Given Filgrastim (Filgrastim 480 Mcg/1.6 Ml Sdv) 480 mcg SUBCUT ONCE ONE Stop: 12/27/24 09:01 Filgrastim-Sndz (Filgrastim-Sndz 480 Mcg/0.8 Ml Syringe) 480 mcg SUBCUT ONCE ONE Stop: 12/27/24 09:01 Last Admin: 12/27/24 09:08 Dose: 480 mcg Heparin Sodium (Porcine) (Heparin 5,000 Unit/Ml Inj 1 Ml) 5,000 unit SUBCUT Q12H DION Sodium Chloride (Sodium Chloride 0.9%) 2,993.7 mls @ 2,993.7 mls/hr 30 ml/kg infuse over 1 hr (2993.7 ml) IV .Q1H ONE Stop: 12/26/24 20:32 Last Admin: 12/26/24 20:07 Dose: 2,993.7 mls/hr Vancomycin HCl (Vancocin) 1,250 mg in 250 mls @ 166.667 mls/hr IV ONCE ONE; Protocol Stop: 12/26/24 21:02 Last Admin: 12/26/24 20:05 Dose: 166.67 mls/hr Piperacillin Sod/Tazobactam (Sod 4.5 gm/ Sodium Chloride) 50 mls @ 100 mls/hr IV ONCE ONE; Protocol Stop: 12/26/24 20:02 Last Admin: 12/26/24 20:04 Dose: 100 mls/hr Piperacillin Sod/Tazobactam (Sod / Sodium Chloride) 50 mls @ 0 mls/hr [id number] CONT DION; Protocol Lidocaine HCl 5 ml/ Potassium (Chloride) 105 mls @ 26.25 mls/hr IV ONCE ONE Stop: 12/26/24 23:01 Last Infusion: 12/27/24 04:10 Dose: Infused Linezolid (Zyvox Premix) 600 mg in 300 mls @ 300 mls/hr IV Q12H DION; Protocol Last Infusion: 12/27/24 23:21 Dose: Infused Magnesium Sulfate/Dextrose (Magnesium Sulfate Premix) 1 gm in 100 mls @ 200 mls/hr IV ONCE ONE Stop: 12/28/24 12:17 Last Infusion: 12/28/24 12:58 Dose: Infused Iohexol (Iohexol 350 Mg/Ml 500 Ml Btl (Per Ml)) 0 ml IV ONCE ONE Stop: 12/26/24 20:00 Last Admin: 12/26/24 19:59 Dose: 75 ml Methylprednisolone Sodium Succinate (Methylprednisolone Sod Succ 125 Mg/2 Ml Inj) 125 mg IV ONCE ONE Stop: 12/26/24 18:38 Last Admin: 12/26/24 19:29 Dose: 125 mg Potassium Chloride (Potassium Chloride Er 20 Meq Tablet) 20 meq PO ONCE ONE Stop: 12/28/24 11:49 Last Admin: 12/28/24 11:54 Dose: 20 meq Potassium Chloride (Potassium Chloride Er 20 Meq Tablet) 20 meq PO ONCE ONE Stop: 12/29/24 09:14 Last Admin: 12/29/24 11:26 Dose: 20 meq Allergies No Known Allergies Allergy (Verified 12/14/24 11:04) Home Medications aspirin 81 mg tablet,delayed release (Aspir-) 81 mg PO DAILY 07/07/20 [History Confirmed 12/27/24] atenolol 100 mg tablet 100 mg PO QPM 07/07/20 [History Confirmed 12/27/24] atorvastatin 40 mg tablet 40 mg PO QPM 07/07/20 [History Confirmed 12/27/24] bupropion HCl 150 mg 24 hr tablet, extended release 150 mg PO QAM 07/07/20 [History Confirmed 12/27/24] cholecalciferol (vitamin D3) 50 mcg (2,000 unit) tablet 50 mcg PO DAILY 07/07/20 [History Confirmed 12/27/24] hydrochlorothiazide 25 mg tablet 25 mg PO QAM 07/07/20 [History Confirmed 12/27/24] lisinopril 40 mg tablet 20 mg PO QPM 07/07/20 [History Confirmed 12/27/24] metformin 1,000 mg tablet 500 mg PO BID 07/07/20 [History Confirmed 12/27/24] pantoprazole 40 mg tablet,delayed release (Protonix) 40 mg PO QAM 07/07/20 [History Confirmed 12/27/24] potassium chloride 20 mEq tablet,extended release 10 meq PO QAM 07/07/20 [History Confirmed 12/27/24] omega 6-bmu-uhc-fish oil 1,200 mg (144 mg-216 mg) capsule (Fish Oil) 1 cap PO DAILY 02/26/23 [History Confirmed 12/27/24] allopurinol 300 mg tablet 300 mg PO DAILY #30 tabs 07/09/23 [Rx Confirmed 12/27/24] vitamin E (dl, acetate) 45 mg (100 unit) capsule 45 mg PO DAILY 07/22/23 [History Confirmed 12/27/24] lorazepam 1 mg tablet 0.5 - 1 mg (0.5 - 1 x 1 mg) buccal Q8H PRN severe nausea and vomiting #30 tabs 10/21/23 [Rx Confirmed 12/27/24] tamsulosin 0.4 mg capsule 0.4 mg PO DAILY 12/17/23 [History Confirmed 12/27/24] sennosides 8.6 mg tablet (senna) 8.6 mg PO ONCE PRN Constipation 04/14/24 [History Confirmed 12/27/24] amlodipine 10 mg tablet 10 mg PO DAILY 12/27/24 [History Confirmed 12/27/24] folic acid 400 mcg tablet 0.4 mg PO DAILY 12/27/24 [History Confirmed 12/27/24] gabapentin 300 mg capsule 300 mg PO BID 12/27/24 [History Confirmed 12/27/24] sitagliptin 100 mg tablet 100 mg PO DAILY 12/27/24 [History Confirmed 12/27/24] valacyclovir 500 mg tablet 500 mg PO DAILY 12/27/24 [History Confirmed 12/27/24] Discharge Plan Discharge Patient Disposition: Xfer Short-Term Hosp Condition: Serious Prescriptions: No Action omega 5-gex-dsf-fish oil [Fish Oil] 1,200 (144-216) mg capsule 1 cap PO DAILY vitamin E (dl, acetate) 45 mg (100 unit) capsule 45 mg PO DAILY lorazepam 1 mg tablet 0.5 - 1 mg buccal Q8H PRN (Reason: severe nausea and vomiting) Qty: 30 2RF sennosides [senna] 8.6 mg tablet 8.6 mg PO ONCE PRN (Reason: Constipation) tamsulosin 0.4 mg capsule 0.4 mg PO DAILY allopurinol 300 mg tablet 300 mg PO DAILY Qty: 30 0RF Rx Instructions: EXPEDITE TO PATIENT. Resending due to patient states [facility]. atorvastatin 40 mg Tablet 40 mg PO QPM Rx Instructions: medication on med list pt brought in atenolol 100 mg Tablet 100 mg PO QPM Rx Instructions: medication on med list pt brought in aspirin [Aspir-81] 81 mg Tablet,Delayed Release (Dr/Ec) 81 mg PO DAILY Rx Instructions: medication on med list pt brought in pantoprazole [Protonix] 40 mg Tablet,Delayed Release (Dr/Ec) 40 mg PO QAM Rx Instructions: medication on med list pt brought in metformin 1,000 mg Tablet 500 mg PO BID Rx Instructions: medication on med list pt brought in hydrochlorothiazide 25 mg Tablet 25 mg PO QAM Rx Instructions: medication on med list pt brought in lisinopril 40 mg Tablet 20 mg PO QPM Rx Instructions: medication on med list pt brought in bupropion HCl 150 mg Tablet Extended Release 24 Hr 150 mg PO QAM Rx Instructions: medication on med list pt brought in cholecalciferol (vitamin D3) 50 mcg (2,000 unit) Tablet 50 mcg PO DAILY Rx Instructions: medication on med list pt brought in potassium chloride 20 mEq Tablet Extended Release 10 meq PO QAM Rx Instructions: medication on med list pt brought in valacyclovir 500 mg Tablet 500 mg PO DAILY folic acid 400 mcg Tablet 0.4 mg PO DAILY amlodipine 10 mg Tablet 10 mg PO DAILY gabapentin 300 mg Capsule 300 mg PO BID sitagliptin 100 mg Tablet 100 mg PO DAILY Referrals: Linda Muller MD [Primary Care Provider] - Patient Instructions: Opioid Safety Transfer Attestations Time Spent in Transfer Care: greater than 30 min Quality Metrics Clinical Quality Measures [ No reported AMI, CVA or VTE this stay] Coding Level of Care Code 63508 Total time (in minutes) for Discharge: 50 Diagnoses Bilateral pneumonia J18.9 Acute hypoxemic respiratory failure J96.01 Mantle cell lymphoma, unspecified body region C83.10 Lymphoma site: unspecified region GERD (gastroesophageal reflux disease) K21.9 DM type 2 (diabetes mellitus, type 2) E11.9 Atrial fibrillation I48.91 Sepsis A41.9 Neutropenia D70.9
--- NOTE | 2024-12-29 15:25 | PC.SOCIAL ---
IMM UPDATED IMM dated and initialed, copy given to patient and copy placed in chart
--- NOTE | 2024-12-29 15:35 | PC.NURSE ---
G[facility] Setter called radiology and had all images from current stay cloud dropped to [place] in [place].
--- NOTE | 2024-12-29 16:19 | PC.NURSE ---
[facility] called for an update on patient. No bed available at this time.
--- NOTE | 2024-12-29 16:52 | PC.NURSE ---
Called [facility] for report. Contacted [facility] spoke to [facility] and stated they would have a ride in 30 to 45 minutes. updated on bed.
[2024-12-29 17:05] LABS: Glucose Point of Care 113 mg/dL (70-110)
[2024-12-29] MEDS: guaiFENesin 600 mg Tablet 1200 MG PO (17:29)
== END 2024-12-29 17:44 | disposition short-term general hospital (02) | DRG 871 ==
LOC: ER 20:23 → MEDSURG 21:24
PROVIDERS: Admitting Provider Internal Medicine; Emergency Provider Emergency Medicine; PCP Family Medicine; Visit Provider Internal Medicine
DX: A41.9 Sepsis, unspecified organism (principal); J18.9 Pneumonia, unspecified organism; J96.01 Acute respiratory failure with hypoxia; C83.10 Mantle cell lymphoma, unspecified site; K21.9 Gastro-esophageal reflux disease without esophagitis; E11.9 Type 2 diabetes mellitus without complications; I48.91 Unspecified atrial fibrillation; D70.3 Neutropenia due to infection; Z92.21 Personal history of antineoplastic chemotherapy; Z92.3 Personal history of irradiation; G47.00 Insomnia, unspecified; Z79.82 Long term (current) use of aspirin; E87.6 Hypokalemia; Z79.84 Long term (current) use of oral hypoglycemic drugs; G62.9 Polyneuropathy, unspecified; F43.10 Post-traumatic stress disorder, unspecified; E78.5 Hyperlipidemia, unspecified; I95.9 Hypotension, unspecified; Z87.891 Personal history of nicotine dependence
CPT/HCPCS: 36415; 36416; 36600; 71045; 71275; 80048; 80053; 80503; 82607; 82803; 82962; 83605; 83735; 83880; 84100; 84145; 84484; 85007; 85025; 85378; 86140; 87040; 87637; 93005; 93970; 94640; 94660; 96365; 96367; 96372; 96375; 97110; 97116; 97161; 99291; J0692; J1815; J2020; J2543; J2919; J3370; J3475; J3480; J7030; J7626; Q5101

== ENCOUNTER 2025-01-12 10:16 | Oncology outpatient (recurring) (ONCR) | payer OTHER, SELFPAY ==
[2025-01-12 10:47] LABS: Basophils % 1.3 %; Eosinophils # 0.1 10^3/uL (0.0-0.8); Eosinophils % 3.6 %; Hematocrit 32.3 % (37-53); Lymphocytes # 1.5 10^3/uL (0.8-4.8); Lymphocytes % 49.5 %; Mean Corpuscular HGB Conc 31.9 g/dL (30-55); Mean Corpuscular Hemoglobin 28.9 pg (27-33); Mean Corpuscular Volume 90.7 fl (82-101); Mean Platelet Volume 10.9 fL (7.4-10.4); Monocytes # 0.1 10^3/uL (0.2-0.9); Monocytes % 4.6 %; Neutrophils % 35.8 %; Nucleated Red Blood Cells % 0 %; Platelet Count 139 10^3/cmm (157-399); Red Blood Count 3.56 10^6/uL (3.85-5.65); Red Cell Distribution Width 18.5 % (12.1-15.1); White Blood Count 3.07 10^3/uL (3.29-11.43)
[2025-01-12 11:03] LABS: Alanine Aminotransferase 26 U/L (0-41); Albumin Level 3.8 g/dL (3.5-5.2); Alkaline Phosphatase 106 U/L (40-130); Anion Gap 15.9 (5-19); Aspartate Amino Transferase 18 U/L (0-40); Blood Urea Nitrogen 12 mg/dL (8-23); Calcium 9.9 mg/dL (8.5-10.5); Carbon Dioxide 29 mmol/L (22-29); Chloride 102 mmol/L (98-107); Globulin 3.1 g/dL (1.3-4.6); Glucose 128 mg/dL (65-115); Lactate Dehydrogenase 170 U/L (135-225); Osmolality Calculated 297 mOsm/kg (285-295); Potassium 3.9 mmol/L (3.5-5.1); Sodium 143 mmol/L (136-145); Total Bilirubin 0.4 mg/dL (0.15-1.2); Total Protein 6.9 g/dL (6.6-8.7)
[2025-01-12 11:20] LABS: Slide Review Slide Review Perform
== END 2025-01-14 23:59 | disposition home or self-care (01) ==
LOC: ONCMED 10:16
PROVIDERS: Internal Medicine Medical Oncology; PCP Family Medicine; Visit Provider Internal Medicine
DX: C83.11 Mantle cell lymphoma, lymph nodes of head, face, and neck (principal); D75.9 Disease of blood and blood-forming organs, unspecified; Z92.850 Personal history of Chimeric Antigen Receptor T-cell therapy; Z87.891 Personal history of nicotine dependence; Z95.828 Presence of other vascular implants and grafts
CPT/HCPCS: 36591; 80053; 83615; 85025; 86850; 86900

== ENCOUNTER 2025-02-01 12:54 | Oncology outpatient (recurring) (ONCR) | payer OTHER, SELFPAY ==
[2025-02-01 13:28] LABS: Basophils % 0.7 %; Eosinophils # 0.2 10^3/uL (0.0-0.8); Eosinophils % 5.6 %; Hematocrit 31.5 % (37-53); Lymphocytes # 2.2 10^3/uL (0.8-4.8); Lymphocytes % 49.9 %; Mean Corpuscular HGB Conc 30.5 g/dL (30-55); Mean Corpuscular Volume 88.5 fl (82-101); Monocytes # 0.4 10^3/uL (0.2-0.9); Monocytes % 8.1 %; Neutrophils # 1.45 10^3/uL (1.8-7.7); Neutrophils % 33.6 %; Nucleated Red Blood Cells % 0 %; Platelet Count 128 10^3/cmm (157-399); Red Blood Count 3.56 10^6/uL (3.85-5.65); Red Cell Distribution Width 18.7 % (12.1-15.1); White Blood Count 4.31 10^3/uL (3.29-11.43)
[2025-02-01 13:49] LABS: Alanine Aminotransferase 14 U/L (0-41); Alkaline Phosphatase 79 U/L (40-130); Anion Gap 15.2 (5-19); Aspartate Amino Transferase 14 U/L (0-40); Blood Urea Nitrogen 13 mg/dL (8-23); Calcium 8.7 mg/dL (8.5-10.5); Carbon Dioxide 27 mmol/L (22-29); Chloride 105 mmol/L (98-107); Globulin 2.5 g/dL (1.3-4.6); Glucose 152 mg/dL (65-115); Lactate Dehydrogenase 201 U/L (135-225); Osmolality Calculated 301 mOsm/kg (285-295); Potassium 3.2 mmol/L (3.5-5.1); Sodium 144 mmol/L (136-145); Total Bilirubin 0.3 mg/dL (0.15-1.2); Total Protein 6.5 g/dL (6.6-8.7)
== END 2025-02-14 23:59 | disposition home or self-care (01) ==
PROVIDERS: Internal Medicine Medical Oncology; PCP Family Medicine; Visit Provider Internal Medicine
DX: C83.11 Mantle cell lymphoma, lymph nodes of head, face, and neck (principal); D75.9 Disease of blood and blood-forming organs, unspecified; M25.512 Pain in left shoulder; M25.511 Pain in right shoulder; Z87.891 Personal history of nicotine dependence; Z79.899 Other long term (current) drug therapy
CPT/HCPCS: 36591; 80053; 83615; 85025; 99214

== ENCOUNTER 2025-03-15 13:00 | Oncology outpatient (recurring) (ONCR) | payer OTHER, SELFPAY ==
[2025-02-15 13:35] LABS: Basophils # 0.1 10^3/uL (0.0-0.1); Basophils % 0.9 %; Eosinophils # 0.3 10^3/uL (0.0-0.8); Hematocrit 35.7 % (37-53); Lymphocytes # 2.5 10^3/uL (0.8-4.8); Lymphocytes % 46.6 %; Mean Corpuscular HGB Conc 30.5 g/dL (30-55); Mean Corpuscular Hemoglobin 26.3 pg (27-33); Mean Corpuscular Volume 86.2 fl (82-101); Mean Platelet Volume 10.6 fL (7.4-10.4); Monocytes # 0.3 10^3/uL (0.2-0.9); Neutrophils # 2.06 10^3/uL (1.8-7.7); Neutrophils % 38.6 %; Nucleated Red Blood Cells % 0 %; Platelet Count 144 10^3/cmm (157-399); Red Blood Count 4.14 10^6/uL (3.85-5.65); Red Cell Distribution Width 18.4 % (12.1-15.1); White Blood Count 5.34 10^3/uL (3.29-11.43)
[2025-02-15 13:52] LABS: Alanine Aminotransferase 17 U/L (0-41); Albumin Level 4.3 g/dL (3.5-5.2); Alkaline Phosphatase 75 U/L (40-130); Anion Gap 14.4 (5-19); Aspartate Amino Transferase 17 U/L (0-40); Blood Urea Nitrogen 17 mg/dL (8-23); Calcium 8.8 mg/dL (8.5-10.5); Carbon Dioxide 24 mmol/L (22-29); Chloride 104 mmol/L (98-107); Globulin 2.8 g/dL (1.3-4.6); Glucose 163 mg/dL (65-115); Lactate Dehydrogenase 239 U/L (135-225); Osmolality Calculated 293 mOsm/kg (285-295); Potassium 3.4 mmol/L (3.5-5.1); Sodium 139 mmol/L (136-145); Total Bilirubin 0.4 mg/dL (0.15-1.2); Total Protein 7.1 g/dL (6.6-8.7)
[2025-03-15 12:14] LABS: Basophils # 0.1 10^3/uL (0.0-0.1); Basophils % 0.8 %; Eosinophils # 0.6 10^3/uL (0.0-0.8); Eosinophils % 9.3 %; Hematocrit 33.6 % (37-53); Lymphocytes % 33.4 %; Mean Corpuscular HGB Conc 30.4 g/dL (30-55); Mean Corpuscular Hemoglobin 24.8 pg (27-33); Mean Corpuscular Volume 81.6 fl (82-101); Mean Platelet Volume 9.8 fL (7.4-10.4); Monocytes # 0.3 10^3/uL (0.2-0.9); Monocytes % 4.5 %; Neutrophils # 2.92 10^3/uL (1.8-7.7); Neutrophils % 48.2 %; Nucleated Red Blood Cells % 0 %; Platelet Count 165 10^3/cmm (157-399); Red Blood Count 4.12 10^6/uL (3.85-5.65); White Blood Count 6.05 10^3/uL (3.29-11.43)
[2025-03-15 12:33] LABS: Alanine Aminotransferase 16 U/L (0-41); Albumin Level 3.9 g/dL (3.5-5.2); Alkaline Phosphatase 79 U/L (40-130); Anion Gap 14.6 (5-19); Aspartate Amino Transferase 15 U/L (0-40); Blood Urea Nitrogen 13 mg/dL (8-23); Calcium 8.8 mg/dL (8.5-10.5); Carbon Dioxide 27 mmol/L (22-29); Chloride 102 mmol/L (98-107); Creatinine Clr Calc Pharmacy 82.5561; Globulin 3.1 g/dL (1.3-4.6); Glucose 178 mg/dL (65-115); Lactate Dehydrogenase 188 U/L (135-225); Osmolality Calculated 295 mOsm/kg (285-295); Potassium 3.6 mmol/L (3.5-5.1); Sodium 140 mmol/L (136-145); Total Bilirubin 0.4 mg/dL (0.15-1.2)
[2025-03-15 14:56] LABS: Ferritin 179 ng/mL (30-400); Iron 35 ug/dL (59-158); Percent Saturation 13.5 % (20-50); Total Iron Binding Capacity 259 mcg/dl; Unsaturated Iron Binding 224 ug/dL (112-347)
== END 2025-03-16 23:59 | disposition home or self-care (01) ==
PROVIDERS: Nurse Practitioner Family; PCP Family Medicine; Visit Provider Internal Medicine Medical Oncology
DX: Z53.9 Procedure and treatment not carried out, unspecified reason; C83.11 Mantle cell lymphoma, lymph nodes of head, face, and neck; R03.0 Elevated blood-pressure reading, without diagnosis of hypertension; D75.9 Disease of blood and blood-forming organs, unspecified; D64.9 Anemia, unspecified; Z87.891 Personal history of nicotine dependence; Z85.79 Personal history of other malignant neoplasms of lymphoid, hematopoietic and related tissues; Z79.899 Other long term (current) drug therapy
CPT/HCPCS: 36591; 80053; 82728; 83540; 83550; 83615; 85025; 99214

== ENCOUNTER 2025-04-12 13:33 | Inpatient (IN) | payer OTHER, MEDICARE, SELFPAY ==
[2025-04-12] VITALS (27 sets, daily range): BP systolic 88–134; BP diastolic 48–84; PULSE 67–96; RESP 12–27; TEMP 36.6–37.4; O2SAT 86–98; BMI 25.1
--- NOTE | 2025-04-12 13:47 | XRR_ITS ---
PROCEDURE INFORMATION: Exam: XR Chest Exam date and time: 04/12/2025 1:50 PM Age: 79 years old Clinical indication: Shortness of breath; HX of lypmhoma; Additional info: Possible sepsis TECHNIQUE: Imaging protocol: Radiologic exam of the chest. Views: 1 view. COMPARISON: CT angio chest PE protcl [id number] 12/26/2024 7:45 PM FINDINGS: Tubes, catheters and devices: Left chest port catheter is demonstrated. Catheter tip overlies the SVC region. Lungs: Lung volumes are decreased. [id number] bilateral perihilar and basilar interstitial lung opacities, suggesting pulmonary edema versus infiltrates. Linear density identified within bilateral lower lungs. Pleural spaces: No pleural effusion. No pneumothorax. Heart/Mediastinum: Mediastinum and magdalena appear unremarkable. Vasculature: Mild atherosclerotic calcification demonstrated within the aorta. Diaphragm: Elevation of the right hemidiaphragm is demonstrated. Bones/joints: Diffusely decreased bone density. Moderate to severe generalized bony degenerative changes. XR/XR chest 1V portable [id number] IMPRESSION: 1. [id number]-[id number] pulmonary edema versus infiltrates. 2. Linear bilateral lower chest pulmonary atelectasis, or scarring. Decreased lung volumes.
--- NOTE | 2025-04-12 13:49 | W.ED.WEAKNES ---
HPI - Weakness General: Chief complaint: Weakness Stated complaint: Weakness x 4 day Time Seen by Provider: 04/12/25 13:35 Source: patient and EMS Mode of arrival: EMS Limitations: no limitations History of Present Illness: 79-year-old male here with MS he has a history of lymphoma states that he has been feeling weak having low-grade fevers over the last 4 days. States has had a slight cough as well. When EMS arrived they state his pulse ox was in the 70s he is not typically wear oxygen they have him on 6 L he is awake and alert answering my questions Associated symptoms: Reports chills and fever(s); Denies chest pain, headache(s), nausea or vomiting Review of Systems Const: Reports: fever(s), chills and fatigue; Denies: body aches or change in appetite Eyes: Denies: blurry vision or eye discomfort ENMT: Denies: throat pain or dental pain Card: Denies: chest pain Resp: Reports: dyspnea and non-productive cough GI: Denies: abdominal pain, nausea, vomiting or diarrhea Musc: Denies: neck pain or back pain Skin/Breast: Denies: rash Neuro: Denies: headache(s) PFSH ED PFSH: Medical History Peripheral neuropathy PTSD (post-traumatic stress disorder) Mantle cell lymphoma Hyperlipidemia GERD (gastroesophageal reflux disease) Hypertension Atrial fibrillation DM type 2 (diabetes mellitus, type 2) Surgical History History of cataract extraction History of colonoscopy History of tonsillectomy Family History Sister Suicide Other Cancer Diabetes Hyperlipidemia Hypertension Denies family history of CAD (coronary artery disease) Clotting disorder Dementia Psychiatric illness Chronic kidney disease (CKD) Anesthesia complication Bleeding disorder Lung disease Stroke Social History Smoking and tobacco/nicotine status: former use of tobacco/nicotine Quit status (tobacco/nicotine): has quit using Year quit tobacco: 2012 Former quit date comment: 20 years Alcohol intake: never Substance/Drug Use: never Physical Exam Const: COMMON NORMALS: patient oriented x3 GENERAL APPEARANCE: ill appearing HENMT: COMMON NORMALS: normocephalic and atraumatic HEAD & SCALP: normocephalic and atraumatic Eye: COMMON NORMALS: Equal, round and reactive pupils present and EOMs intact bilaterally PUPIL: Yes Equal, round and reactive pupils present Neck/C-Spine: COMMON NORMALS: full ROM and supple Chest: COMMONS NORMALS: normal inspection of the chest and normal palpation of entire chest wall Resp: COMMON NORMALS: No retractions and No use of accessory muscles EFFORT & INSPECTION: Yes respiratory distress AUSCULTATION: rales Cardio: COMMON NORMALS: regular rate, regular rhythm and No murmurs present (Cardio) RATE: regular rate RHYTHM: regular rhythm GI: COMMON NORMALS: Normal to inspection, nondistended, normoactive bowel sounds present, Soft to palpation, non-tender and no masses PALPATION: Yes Soft to palpation Extremity: COMMON NORMALS: normal to inspection and full ROM Neuro: COMMON NORMALS: patient oriented x3, moves all extremities and no focal motor deficits Psych: COMMON NORMALS: mental status grossly normal, Normal thought process present and cooperative THOUGHT PROCESS: Normal thought process present Skin: COMMON NORMALS: no rashes or lesions noted and no wounds GENERAL SKIN EXAM: no rashes or lesions noted Course Vital Signs: Vital signs: Vital Signs Temperature 99.4 F 04/12/25 13:35 Pulse Rate 79 04/12/25 16:18 Respiratory Rate 18 04/12/25 13:35 Blood Pressure 112/53 04/12/25 16:18 Pulse Oximetry 92 04/12/25 16:18 Oxygen Delivery Me thod Nasal Cannula 04/12/25 16:18 Oxygen Flow Rate 6 04/12/25 16:18 MDM - Weakness Medical Decision Making Patient presents here with generalized weakness shortness of breath he has been hypoxic here requiring 6 L found to have a pneumonia did give him sepsis bolus along with IV antibiotic spoke to hospitalist will admit at this time. Medical Records I reviewed the patient's medical records. Lab Data I reviewed the patient's lab results. 04/12/25 14:17 04/12/25 14:17 Radiology Impressions Chest X-Ray 04/12/25 13:47 IMPRESSION: 1. Nfhb-lk-jpyllcit pulmonary edema versus infiltrates. 2. Linear bilateral lower chest pulmonary atelectasis, or scarring. Decreased lung volumes. Laboratory Results WBC 7.13 10^3/uL (3.29-11.43) 04/12/25 14:17 RBC 4.08 10^6/uL (3.85-5.65) 04/12/25 14:17 Hgb 9.40 g/dL (11.27-16.99) L 04/12/25 14:17 Hct 30.6 % (37-53) L 04/12/25 14:17 MCV 75.0 fl (82-101) L 04/12/25 14:17 MCH 23.0 pg (27-33) L 04/12/25 14:17 MCHC 30.7 g/dL (30-55) 04/12/25 14:17 RDW 18.8 % (12.1-15.1) H 04/12/25 14:17 Plt Count 230 10^3/cmm (157-399) 04/12/25 14:17 MPV 10.6 fL (7.4-10.4) H 04/12/25 14:17 Neut % (Auto) 69.9 % 04/12/25 14:17 Lymph % (Auto) 16.5 % 04/12/25 14:17 Gilliam % (Auto) 3.6 % 04/12/25 14:17 Eos % (Auto) 1.1 % 04/12/25 14:17 Baso % (Auto) 0.8 % 04/12/25 14:17 Neut # (Auto) 4.97 10^3/uL (1.8-7.7) 04/12/25 14:17 Lymph # (Auto) 1.2 10^3/uL (0.8-4.8) 04/12/25 14:17 Gilliam # (Auto) 0.3 10^3/uL (0.2-0.9) 04/12/25 14:17 Eos # (Auto) 0.1 10^3/uL (0.0-0.8) 04/12/25 14:17 Baso # (Auto) 0.1 10^3/uL (0.0-0.1) 04/12/25 14:17 Nucleated RBC % (auto) 0 % 04/12/25 14:17 Nucleated RBCs # 0.0 /100WBC 04/12/25 14:17 Pathologist Review Cancelled 04/12/25 14:17 Hypersegmented Polys Cancelled 04/12/25 14:17 Smudge Cells Cancelled 04/12/25 14:17 Toxic Granulation Cancelled 04/12/25 14:17 Toxic Vacuolation Cancelled 04/12/25 14:17 Dohle Bodies Cancelled 04/12/25 14:17 Kisha Rods Cancelled 04/12/25 14:17 Giant Platelets Cancelled 04/12/25 14:17 Dimorphic RBCs Cancelled 04/12/25 14:17 Polychromasia Cancelled 04/12/25 14:17 Hypochromasia Cancelled 04/12/25 14:17 Poikilocytosis Cancelled 04/12/25 14:17 Basophilic Stippling Cancelled 04/12/25 14:17 Anisocytosis Cancelled 04/12/25 14:17 Microcytosis Cancelled 04/12/25 14:17 Macrocytosis Cancelled 04/12/25 14:17 Spherocytes Cancelled 04/12/25 14:17 Sickle Cells Cancelled 04/12/25 14:17 Target Cells Cancelled 04/12/25 14:17 Tear Drop Cells Cancelled 04/12/25 14:17 Ovalocytes Cancelled 04/12/25 14:17 Stomatocytes Cancelled 04/12/25 14:17 Helmet Cells Cancelled 04/12/25 14:17 [place] Bodies Cancelled 04/12/25 14:17 Vanda Cells Cancelled 04/12/25 14:17 Acanthocytes (Spur) Cancelled 04/12/25 14:17 Rouleaux Cancelled 04/12/25 14:17 Schistocytes Cancelled 04/12/25 14:17 PT 15.20 SECONDS (12.1-14.9) H 04/12/25 14:17 INR 1.12 (0.8-1.2) 04/12/25 14:17 Specimen Type Arterial 04/12/25 14:14 Sample Site Brachial, right 04/12/25 14:14 ABG pH 7.46 (7.35-7.45) H 04/12/25 14:14 ABG pCO2 34.2 mmHg (35-45) L 04/12/25 14:14 ABG pO2 59.6 mmHg (80.0-100.0) L 04/12/25 14:14 ABG PO2/FiO2 Ratio 165 04/12/25 14:14 ABG HCO3 24.4 mmol/L (22-26) 04/12/25 14:14 ABG O2 Saturation 91.5 04/12/25 14:14 ABG Base Excess 0.9 mmol/L (-2.0-2.0) 04/12/25 14:14 Nabeel Test N/a 04/12/25 14:14 A-a O2 Gradient 20.1 mmHg (5-10) H 04/12/25 14:14 Hematocrit 30.9 % (42-52) L 04/12/25 14:14 Hgb O2 Saturation 90.9 % (95-100) L 04/12/25 14:14 Carboxyhemoglobin 1.2 %THgb (0.4-20.1) 04/12/25 14:14 Methemoglobin < 0.0 % (0.4-1.5) L 04/12/25 14:14 Total Hemoglobin 10.1 g/dL (14-18) L 04/12/25 14:14 Sodium 134.0 mmol/L (131-143) 04/12/25 14:14 Potassium 3.0 mmol/L (3.5-5.0) L 04/12/25 14:14 Glucose 167.0 mg/dL (70-115) H 04/12/25 14:14 Ionized Calcium 1.1 mmol/L (1.1-1.4) 04/12/25 14:14 O2 Delivery Device Nc 04/12/25 14:14 O2 Liters/Min 6.0 % 04/12/25 14:14 FiO2 36.0 % 04/12/25 14:14 Public Works Commissioner ID glc 04/12/25 14:14 Sodium 132 mmol/L (136-145) L 04/12/25 14:17 Potassium 3.1 mmol/L (3.5-5.1) L 04/12/25 14:17 Chloride 96 mmol/L (98-107) L 04/12/25 14:17 Carbon Dioxide 23 mmol/L (22-29) 04/12/25 14:17 Anion Gap 16.1 (5-19) 04/12/25 14:17 BUN 30 mg/dL (8-23) H 04/12/25 14:17 Creatinine 1.0 mg/dL (0.7-1.2) 04/12/25 14:17 GFR Calculation Not Reportable 04/12/25 14:17 Glucose 165 mg/dL (65-115) H 04/12/25 14:17 Calculated Osmolality 284 mOsm/kg (285-295) L 04/12/25 14:17 Lactic Acid 1.5 mmol/L (0.5-2.2) 04/12/25 14:17 Calcium 8.4 mg/dL (8.5-10.5) L 04/12/25 14:17 Total Bilirubin 0.5 mg/dL (0.15-1.2) 04/12/25 14:17 AST 31 U/L (0-40) 04/12/25 14:17 ALT 34 U/L (0-41) 04/12/25 14:17 Alkaline Phosphatase 110 U/L (40-130) 04/12/25 14:17 NT-Pro-B Natriuret Pep 444 pg/mL (0-450) 04/12/25 14:17 Total Protein 6.7 g/dL (6.6-8.7) 04/12/25 14:17 Albumin 2.7 g/dL (3.5-5.2) L 04/12/25 14:17 Globulin 4.0 g/dL (1.3-4.6) 04/12/25 14:17 Procalcitonin 0.80 ng/mL (0-0.5) H 04/12/25 14:17 All radiology interpretation(s) finalized by discharge Discharge Plan Discharge Patient Disposition: Admitted As Inpatient Clinical Impression: Pneumonia, Acute respiratory failure with hypoxia Condition: Stable Coding Level of Care Code ED Medical Bill Processor for Chg Fwd Related Data Home Medications ?Medication ?Instructions ?Recorded ?Confirmed aspirin 81 mg tablet,delayed 81 mg PO DAILY 07/07/20 03/15/25 release (Aspir-) atenolol 100 mg tablet 100 mg PO QPM 07/07/20 03/15/25 atorvastatin 40 mg tablet 40 mg PO QPM 07/07/20 03/15/25 bupropion HCl 150 mg 24 hr tablet, 150 mg PO QAM 07/07/20 03/15/25 extended release cholecalciferol (vitamin D3) 50 50 mcg PO DAILY 07/07/20 03/15/25 mcg (2,000 unit) tablet hydrochlorothiazide 25 mg tablet 25 mg PO QAM 07/07/20 03/15/25 lisinopril 40 mg tablet 20 mg PO QPM 07/07/20 03/15/25 metformin 1,000 mg tablet 500 mg PO BID 07/07/20 03/15/25 pantoprazole 40 mg tablet,delayed 40 mg PO QAM 07/07/20 03/15/25 release (Protonix) omega 2-gww-jbx-fish oil 1,200 mg 1 cap PO DAILY 02/26/23 03/15/25 (144 mg-216 mg) capsule (Fish Oil) vitamin E (dl, acetate) 45 mg (100 45 mg PO DAILY 07/22/23 03/15/25 unit) capsule tamsulosin 0.4 mg capsule 0.4 mg PO DAILY 12/17/23 03/15/25 sennosides 8.6 mg tablet (senna) 8.6 mg PO ONCE PRN Constipation 04/14/24 03/15/25 amlodipine 10 mg tablet 10 mg PO DAILY 12/27/24 03/15/25 folic acid 400 mcg tablet 0.4 mg PO DAILY 12/27/24 03/15/25 gabapentin 300 mg capsule 300 mg PO BID 12/27/24 03/15/25 sitagliptin 100 mg tablet 100 mg PO DAILY 12/27/24 03/15/25 valacyclovir 500 mg tablet 500 mg PO DAILY 12/27/24 03/15/25 Previous Rx's ?Medication ?Instructions ?Recorded allopurinol 300 mg tablet 300 mg PO DAILY #30 tabs 07/09/23 lorazepam 1 mg tablet 0.5 - 1 mg (0.5 - 1 x 1 mg) buccal 10/21/23 Q8H PRN severe nausea and vomiting #30 tabs potassium chloride 20 mEq 20 meq PO DAILY #90 tabs 02/01/25 tablet,extended release Allergies Allergy/AdvReac Type Severity Reaction Status Date / Time No Known Allergies Allergy Verified 03/15/25 12:24
--- NOTE | 2025-04-12 14:00 | ECG_ITS ---
[facility] Test Date: 2025-04-12 Pat Name: Lion Aiken Department: Room: [facility] Gender: Male [employer]: : 1945 Requested By: Cristal Allen Order Number: [id number] Reading MD: NANCY KAY Measurements Intervals [place] Rate: 73 P: 49 MD: 161 QRS: -7 QRSD: 104 T: 10 QT: 413 QTc: 455 Interpretive Statements SINUS RHYTHM Compared to ECG 12/28/2024 16:28:20 Atrial fibrillation no longer present T-wave abnormality no longer present Electronically Signed On 04-20-2025 22:53:59 CDT by NANCY KAY [email or web address]
[2025-04-12] MEDS: acetaminophen 500 mg Tablet 1000 MG PO (14:18)
[2025-04-12] MEDS: sodium chloride 0.9% 2,449.41 ML 2449.41 ML IV (14:18)
[2025-04-12 14:27] LABS: ABG PCO2 34.2 mmHg (35-45); ABG PH Result 7.46 (7.35-7.45); Alveolar-Arterial Oxygen Gradi 20.1 mmHg (5-10); Arterial Blood Gas Hematocrit 30.9 % (42-52); Base Excess ABG 0.9 mmol/L (-2.0-2.0); Blood Gas Operator Identificat glc; Blood Gas Sample Site Brachial, right; Blood Gas Sample Type Arterial; Carboxyhemoglobin 1.2 %THgb (0.4-20.1); HCO3 ABG 24.4 mmol/L (22-26); HGB O2 Sat 90.9 % (95-100); Ionized Calcium Level - ABG 1.1 mmol/L (1.1-1.4); Methemoglobin < 0.0 % (0.4-1.5); Oxygen Device NC; Oxygen Saturation ABG 91.5; PO2 ABG 59.6 mmHg (80.0-100.0); PO2 FiO2 Ratio Arterial Blood 165; Total Hemoglobin 10.1 g/dL (14-18)
[2025-04-12 14:45] LABS: Basophils # 0.1 10^3/uL (0.0-0.1); Basophils % 0.8 %; Eosinophils # 0.1 10^3/uL (0.0-0.8); Eosinophils % 1.1 %; Hematocrit 30.6 % (37-53); Lymphocytes # 1.2 10^3/uL (0.8-4.8); Lymphocytes % 16.5 %; Mean Corpuscular HGB Conc 30.7 g/dL (30-55); Mean Platelet Volume 10.6 fL (7.4-10.4); Monocytes # 0.3 10^3/uL (0.2-0.9); Monocytes % 3.6 %; Neutrophils # 4.97 10^3/uL (1.8-7.7); Neutrophils % 69.9 %; Nucleated Red Blood Cells % 0 %; Platelet Count 230 10^3/cmm (157-399); Red Blood Count 4.08 10^6/uL (3.85-5.65); Red Cell Distribution Width 18.8 % (12.1-15.1); White Blood Count 7.13 10^3/uL (3.29-11.43)
[2025-04-12 14:56] LABS: INR 1.12 (0.8-1.2)
[2025-04-12 15:01] LABS: Lactic Sepsis W/Reflex 1.5 mmol/L (0.5-2.2)
[2025-04-12 15:10] LABS: NT Pro B Type Natriuretic Pept 444 pg/mL (0-450)
[2025-04-12 15:22] LABS: Alanine Aminotransferase 34 U/L (0-41); Albumin Level 2.7 g/dL (3.5-5.2); Alkaline Phosphatase 110 U/L (40-130); Anion Gap 16.1 (5-19); Aspartate Amino Transferase 31 U/L (0-40); Blood Urea Nitrogen 30 mg/dL (8-23); Calcium 8.4 mg/dL (8.5-10.5); Carbon Dioxide 23 mmol/L (22-29); Chloride 96 mmol/L (98-107); Glucose 165 mg/dL (65-115); Osmolality Calculated 284 mOsm/kg (285-295); Potassium 3.1 mmol/L (3.5-5.1); Sodium 132 mmol/L (136-145); Total Bilirubin 0.5 mg/dL (0.15-1.2); Total Protein 6.7 g/dL (6.6-8.7)
[2025-04-12 15:29] LABS: Add RBC Morph No
[2025-04-12 15:30] LABS: Slide Review Slide Review Perform
[2025-04-12] MEDS: VANCOMYCIN ADD-Vantage 1,000 MG in 0.9% NaCl ADD-Vantage 250 ML 250 MG IV (15:33)
[2025-04-12] MEDS: piperacillin-tazobactam 3.375 GM in sodium chloride 0.9% (plus) 50 ML IV ×2 (15:33→20:33)
--- NOTE | 2025-04-12 16:08 | CTR_ITS ---
PROCEDURE INFORMATION: Exam: CTA Chest With Contrast Exam date and time: 04/12/2025 4:58 PM Age: 79 years old Clinical indication: Shortness of breath; Prior surgery; Surgery date: 6+ months; Surgery type: Port; Additional info: Resp failure, h/o lymphoma TECHNIQUE: Imaging protocol: Computed tomographic angiography of the chest with contrast. Exam focused on the arteries. 3D rendering (Not supervised by radiologist): MIP and/or 3D reconstructed images were created by the technologist. Radiation optimization: All CT scans at this facility use at least one of these dose optimization techniques: automated exposure control; mA and/or kV adjustment per patient size (includes targeted exams where dose is matched to clinical indication); or iterative reconstruction. Contrast material: OMNIPAQUE 350; Contrast volume: 100 ml; Contrast route: INTRAVENOUS (IV); COMPARISON: CT angio chest PE protcl [id number] 12/26/2024 7:45 PM RADIATION DOSE METRICS: Total DLP (mGy-cm): 424.79 FINDINGS: Pulmonary arteries: Normal. No pulmonary emboli. Aorta: Unremarkable. No aortic aneurysm. No aortic dissection. Thyroid: Similar left thyroid lobe nodule. Lungs: Interval increased interstitial and ground-glass opacities especially in the upper lobes. Areas of also increased consolidation in the uzlr-froupnf-cthc-right dependent lungs. There is some narrowing of airways to the affected consolidated lungs. Pleural spaces: No significant pleural effusion or pneumothorax. Heart: Unremarkable. No cardiomegaly. No pericardial effusion. Coronary arteries: Mild coronary artery calcifications. Lymph nodes: There is some interval progression of mediastinal and hilar lymphadenopathy. Gallbladder and biliary ducts: Cholelithiasis. Stomach: There is diffuse gastric wall thickening which may be related to underdistention. Bones/joints: Unremarkable. No acute fracture. Soft tissues: Unremarkable. CT/CT angio chest PE protcl [id number] IMPRESSION: 1. Increased ground-glass and interstitial opacities in the bilateral lungs with also areas of increased consolidation of the rbic-rquhffs-gyyo-right lower lobes. Findings may represent an infectious/inflammatory etiology. There is some narrowing of associated bronchi into the consolidated lungs. 2. There is some interval increase in mediastinal and hilar lymphadenopathy. These may be reactive although neoplastic etiologies such as lymphoma must be excluded given the history of mantle lymphoma in the patient. 3. The stomach is underdistended which likely represents an underdistended state however neoplastic etiologies must also be excluded. 4. Cholelithiasis. COMMENTS: Consistent with the [employer]'s Incidental Findings Committee white paper (J Am Kajal Radiol 2015): In patients aged 35 years and older with an incidental thyroid nodule equal to or greater than 1.[address], MRI or extrathyroidal US, further evaluation with dedicated thyroid US is recommended for patients with normal life expectancy and without comorbidities. For smaller nodules without suspicious features, no further evaluation or follow up is recommended.
--- NOTE | 2025-04-12 16:11 | USCV_ITS ---
AttilaPkan Age: 79 Gender: M : 1945 Exam Date: 04/12/2025 19:51 Ordering Phys: Matt Irving MD Technologist: ZORAIDA Exam Location: [facility] [place] Indication: resp failure, lymphoma, DM2, HTN, hypoxia BP: 112 / 53 HR: 82 Rhythm: Sinus Technical Quality: Adequate MEASUREMENTS (Male / Female) Normal Values 2D ECHO LV Diastolic Diameter PLAX 3.6 cm 4.2 - 5.9 / 3.9 - 5.3 cm IVS Diastolic Thickness 1.9 cm 0.6 - 1.0 / 0.6 - 0.9 cm IVS Systolic Thickness 1.8 cm LVPW Diastolic Thickness 1.5 cm 0.6 - 1.0 / 0.6 - 0.9 cm LVPW Systolic Thickness 2.2 cm LVOT Diameter 2.0 cm LV Ejection Fraction 2D Teich 55.7 % LV Ejection Fraction MOD 4C 57.3 % LV Ejection Fraction MOD 2C 75.9 % LV Ejection Fraction 2C AL 78.7 % LA Diameter 3.8 cm Aorta at Sinotubular Diameter 3.0 cm M-MODE LA Ao Ratio MM 1.2 AV Cusp Separation MM 2.0 cm DOPPLER AV Peak Velocity 159.0 cm/s LVOT Peak Velocity 112.0 cm/s AV Area Cont Eq vti 2.9 cm squared AV Area Cont Eq pk 2.2 cm squared MV Peak Velocity 102.0 cm/s MV Area PHT 4.8 cm squared Mitral E to A Ratio 0.8 TR Peak Velocity 261.0 cm/s TR Peak Gradient 27.2 mmHg TV Peak E Velocity 46.0 cm/s PV Peak Velocity 136.0 cm/s FINDINGS Left Ventricle Normal left ventricular size, systolic function and wall thickness, with no regional wall motion abnormalities. Left ventricular ejection fraction is estimated at 60 %. Grade I/IV diastolic dysfunction (abnormal relaxation filling pattern), normal to mildly elevated filling pressures. Right Ventricle The right ventricle is normal in size and function. Right Atrium The right atrium is normal in size. Left Atrium The left atrium is normal in size. Mitral Valve Mildly thickened mitral valve. No mitral valve stenosis. Mild mitral valve regurgitation. Aortic Valve Structurally normal aortic valve without significant sclerosis or stenosis. There is no aortic regurgitation. Tricuspid Valve Structurally normal tricuspid valve without significant stenosis or regurgitation. Pulmonary artery systolic pressure is normal. Pulmonic Valve Structurally normal pulmonic valve without significant stenosis. There is no pulmonic regurgitation. Pericardium Normal pericardium without effusion. Aorta Normal ascending aorta dimension. IVC The inferior vena cava appears normal. CONCLUSIONS Normal left ventricular size, systolic function and wall thickness, with no regional wall motion abnormalities. Left ventricular ejection fraction is estimated at 60 %. Grade I/IV diastolic dysfunction (abnormal relaxation filling pattern), normal to mildly elevated filling pressures. There is no pericardial effusion. No significant valve abnormalities. Right atrial pressure is around 5 mm of mercury. Mckenzie Gabriel MD (Electronically Signed) Final Date: 13 Apr 2025 13:17 S
--- NOTE | 2025-04-12 16:14 | PM.HP ---
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 Denies any sick contacts, dizziness, confusion or headache. Denies having any fever at home. In the ER was found to be hypoxic and hypotensive on presentation for which he required septic bolus after which his blood pressures improved from 80 systolic to 210 systolics requiring up to 6 L of oxygen supplementation Review of Systems General: Reports: 10 or more systems reviewed and unremarkable except in HPI and below Const: Denies: fever(s), chills, body aches, change in appetite, change in weight, malaise, night sweats, diaphoresis, change in sleep pattern, daytime sleepiness or snoring Eyes: Denies: change in vision, blurry vision, photophobia, eye discomfort or eye discharge ENMT: Denies: throat pain, enlarged tonsils, hoarseness, mouth pain, oral sores, dry mouth, tinnitus, nasal congestion or post nasal drip Card: Denies: chest pain, palpitations, irregular heart rhythm, edema, swelling of feet/ankles, lightheadedness, syncope, pre-syncope, dyspnea on exertion, orthopnea, leg pain with exertion or acrocyanosis Resp: Denies: dyspnea, productive cough, non-productive cough, wheezing, stridor, pain on inspiration, change in phlegm color, hemoptysis or chest congestion GI: Denies: abdominal pain, nausea, vomiting, hematemesis, coffee ground emesis, dysphagia, heartburn, diarrhea, constipation, bloating, GI cramping, change in bowel habits, pain on defecation, hematochezia or melena : Denies: flank pain, difficulty urinating, dysuria, urinary frequency, urinary urgency, urinary hesitancy, urinary dribbling, difficulty starting urination, change in urine stream, nocturia or hematuria Musc: Denies: neck pain, back pain, extremity pain, joint pain, joint swelling, joint redness, joint stiffness or limited range of motion Neuro: Denies: headache(s), numbness in extremities, weakness in extremities, sensory changes, lack of coordination, difficulty walking, frequent falls, dizziness, vertigo, confusion, Slurred speech present, difficulty communicating thoughts or seizure-like activity Psych: Denies: anxiety, depression, mood swings, panic attacks, hopelessness or irritability Endo: Denies: polyuria, polydipsia, tired all the time, cold intolerance, excessive sweating, flushing or heat intolerance Theo/Lymph: Denies: easy bruising or easy bleeding All/Imm: Denies: tongue swelling, facial swelling or acute wheezing Medications/Allergies Home Medications ?Medication ?Instructions ?Recorded ?Confirmed ?Last Taken ?Type aspirin 81 mg tablet,delayed 81 mg PO DAILY 07/07/20 03/15/25 Unknown History release (Aspir-) atenolol 100 mg tablet 100 mg PO QPM 07/07/20 03/15/25 Unknown History atorvastatin 40 mg tablet 40 mg PO QPM 07/07/20 03/15/25 Unknown History bupropion HCl 150 mg 24 hr tablet, 150 mg PO QAM 07/07/20 03/15/25 Unknown History extended release cholecalciferol (vitamin D3) 50 50 mcg PO DAILY 07/07/20 03/15/25 Unknown History mcg (2,000 unit) tablet hydrochlorothiazide 25 mg tablet 25 mg PO QAM 07/07/20 03/15/25 Unknown History lisinopril 40 mg tablet 20 mg PO QPM 07/07/20 03/15/25 Unknown History metformin 1,000 mg tablet 500 mg PO BID 07/07/20 03/15/25 Unknown History pantoprazole 40 mg tablet,delayed 40 mg PO QAM 07/07/20 03/15/25 Unknown History release (Protonix) omega 2-gnv-aod-fish oil 1,200 mg 1 cap PO DAILY 02/26/23 03/15/25 Unknown History (144 mg-216 mg) capsule (Fish Oil) allopurinol 300 mg tablet 300 mg PO DAILY #30 tabs 07/09/23 03/15/25 Unknown Rx vitamin E (dl, acetate) 45 mg (100 45 mg PO DAILY 07/22/23 03/15/25 Unknown History unit) capsule lorazepam 1 mg tablet 0.5 - 1 mg (0.5 - 1 x 1 mg) buccal 10/21/23 03/15/25 Unknown Rx Q8H PRN severe nausea and vomiting #30 tabs tamsulosin 0.4 mg capsule 0.4 mg PO DAILY 12/17/23 03/15/25 Unknown History sennosides 8.6 mg tablet (senna) 8.6 mg PO ONCE PRN Constipation 04/14/24 03/15/25 Unknown History amlodipine 10 mg tablet 10 mg PO DAILY 12/27/24 03/15/25 Unknown History folic acid 400 mcg tablet 0.4 mg PO DAILY 12/27/24 03/15/25 Unknown History gabapentin 300 mg capsule 300 mg PO BID 12/27/24 03/15/25 Unknown History sitagliptin 100 mg tablet 100 mg PO DAILY 12/27/24 03/15/25 Unknown History valacyclovir 500 mg tablet 500 mg PO DAILY 12/27/24 03/15/25 Unknown History potassium chloride 20 mEq 20 meq PO DAILY #90 tabs 02/01/25 03/15/25 Unknown Rx tablet,extended release Allergies Allergy/AdvReac Type Severity Reaction Status Date / Time No Known Allergies Allergy Verified 03/15/25 12:24 PFSH Acute PFSH: Medical History Peripheral neuropathy PTSD (post-traumatic stress disorder) Mantle cell lymphoma Hyperlipidemia GERD (gastroesophageal reflux disease) Hypertension Atrial fibrillation DM type 2 (diabetes mellitus, type 2) Surgical History History of cataract extraction History of colonoscopy History of tonsillectomy Family History Sister Suicide Other Cancer Diabetes Hyperlipidemia Hypertension Denies family history of CAD (coronary artery disease) Clotting disorder Dementia Psychiatric illness Chronic kidney disease (CKD) Anesthesia complication Bleeding disorder Lung disease Stroke Social History Smoking and tobacco/nicotine status: former use of tobacco/nicotine Quit status (tobacco/nicotine): has quit using Year quit tobacco: 2012 Former quit date comment: 20 years Alcohol intake: never Substance/Drug Use: never Vitals/I&O/Wt Last Vital Signs Temp 99.4 F 04/12/25 13:35 Pulse 67 04/12/25 14:21 Resp 18 04/12/25 13:35 BP 115/54 04/12/25 13:35 Pulse Ox 89 L 04/12/25 14:21 O2 Del Method Nasal Cannula 04/12/25 14:21 O2 Flow Rate 6 04/12/25 14:21 04/12/25 04/12/25 04/12/25 06:59 14:59 22:59 Intake Total 2449.41 / 2449.41 Balance 2449.41 / 2449.41 Weight last 48 hrs Weight 81.647 kg Physical Exam Quick SOFA Score: Respiratory Rate: 18 Blood Pressure: 88/48 [place] Coma Scale: 15 qSOFA Score: 1 If qSOFA score 2 or greater, continue: PaO2/FiO2 Ratio (mmHg): 165 Blood Pressure Mean: 61 Bilirubin (mg/dl): 0.5 Platelets (x10?/ml): 230 Creatinine (mg/dl): 1.0 SOFA Score: 4 Evaluation: Current stage of sepsis: severe sepsis Sepsis stage criteria used: [facility] Sep-1 and Sepsis-3 Crystalloid fluids: 30 mL/kg crystalloid fluids ordered and initiated within 3 hours Blood cultures ordered: Yes Possible source: pulmonary Focused Exam: Vital signs: Temp Pulse Resp BP Pulse Ox O2 Del Method O2 Flow Rate 04/12/25 16:18 79 112/53 92 Nasal Cannula 6 04/12/25 14:21 67 89 L Nasal Cannula 6 04/12/25 13:35 99.4 F 96 18 115/54 86 L Nasal Cannula 3 Respiratory exam: CTA bilaterally and crackles present Cardiovascular exam: regular rate and regular rhythm Capillary refill: > 3 Seconds Date exam was performed: 04/12/25 Time exam was performed: 16:30 Sepsis Screen No Definite Risk Today, 16:18 Respiratory Rate, (12 - 18) 18 breaths/min Today, 13:35 Blood Pressure 112/53 mmHg Today, 16:18 [place] Coma Scale Score 15 Today, 13:35 Quick SOFA Score 0 Today, 16:18 SOFA Score: ABG PO2/FiO2 Ratio 165 Today, 14:14 [place] Coma Scale Score 15 Today, 13:35 Blood Pressure Mean 72 mmHg Today, 16:18 Total Bilirubin, (0.15-1.2) 0.5 mg/dL Today, 14:17 Platelet Count, (157-399) 230 10^3/cmm Today, 14:17 Creatinine, (0.7-1.2) 1.0 mg/dL Today, 14:17 Data 04/12/25 14:17 04/12/25 14:17 Micro: Microbiology 04/12/25 14:17 Blood Culture - Preliminary Blood SPECIMEN COLLECTED 04/12/25 14:25 Blood Culture - Preliminary Blood SPECIMEN COLLECTED A&P Assessment and plan (1) Acute hypoxemic respiratory failure: Most likely in setting of pneumonia. ABG showing hypoxia and hypocapnia. Check D-dimer, respiratory viral panel, sputum culture, procalcitonin. Recent MRSA swab negative. Check urine bacterial antigen. Depending on D-dimer will plan for CTA chest to rule out PE and for further evaluation of possible bilateral consolidation. Check echocardiogram. Does seem to have cardiomegaly on chest x-ray. Oxygen supplementation keeping saturation over 88%. Currently on 6 L of oxygen supplementation. Solu-Medrol 125 mg one-time followed by 40 mg every 8 hourly. Pulmicort twice daily, DuoNeb every 6 hour. Empirically started on IV Zosyn and azithromycin for atypical coverage. De-escalate as per culture sensitivities. (2) Sepsis: SIRS: Hypotensive, tachycardic Source: Pneumonia End organ damage: Acute respiratory failure Lactic acid within normal limits Patient did receive 30 mL/kg body weight of septic bolus on presentation for hypotension after which his blood pressures improved. Monitor blood pressures. Keep mean artery pressure 65 mmHg. (3) Hypotension: Was hypotensive on presentation requiring fluid bolus. Currently mean artery pressure being maintained over 65. Target blood pressure less than 140/90 mmHg with mean over 65. Hold off on home dose of antihypertensive. Low threshold for ICU admission for vasopressors. (4) Hypertension: All multiple antihypertensive at home including atenolol, amlodipine, lisinopril. Currently on hold given low blood pressures on presentation. (5) Atrial fibrillation: Telemetry. Holding off on home dose of atenolol. If needed will start on low-dose metoprolol depending on heart rate. (6) DM type 2 (diabetes mellitus, type 2): Check A1c. Sliding scale low-dose protocol. (7) Mantle cell lymphoma: (8) Bilateral pneumonia: Plan Full code Carb consistent cardiac diet Protonix for PUD prophylaxis Lovenox for DVT prophylaxis. PDMP PDMP Reviewed: Not Reviewed Attestations Medical Necessity Statement*: Admission for more than 2 midnights for hypoxic respiratory failure with hypotension in setting of pneumonia in a patient with history of lymphoma Diagnoses Acute hypoxemic respiratory failure J96.01 Sepsis A41.9 Sepsis acute organ dysfunction status: with acute organ dysfunction Severe sepsis acute organ dysfunction type: acute respiratory failure Acute respiratory failure type: with hypoxia Severe sepsis shock status: without septic shock Hypotension I95.9 Hypertension I10 Atrial fibrillation I48.91 DM type 2 (diabetes mellitus, type 2) E11.9 Mantle cell lymphoma, unspecified body region C83.10 Lymphoma site: unspecified region Bilateral pneumonia J18.9
[2025-04-12 16:50] LABS: D Dimer 5.58 ug/mLFEU (0-0.59); Thyroid Stimulating Hormone 1.76 uIU/mL (0.27-4.20)
[2025-04-12] MEDS: methylPREDNISolone sod succ 125 mg/2 mL INJ IVP (16:59)
[2025-04-12] MEDS: iohexol 350 mg/mL 500 mL Btl (per mL) IV (17:00)
[2025-04-12 18:33] LABS: Adenovirus Not Detected (NOT DETECT); Chlamydia Pneumoniae Not Detected (NOT DETECT); Coronavirus 229E,HKU1,NL63,OC4 Not Detected (NOT DETECT); Human Metapneumovirus Not Detected (NOT DETECT); Human Rhinovirus/Enterovirus Not Detected (NOT DETECT); Influenza A Not Detected (NOT DETECT); Influenza A H1 Not Detected (NOT DETECT); Influenza A H1-2009 Not Detected (NOT DETECT); Influenza A H3 Not Detected (NOT DETECT); Influenza B Not Detected (NOT DETECT); Mycoplasma Pneumoniae Not Detected (NOT DETECT); Parainfluenza Virus Type 1 Not Detected (NOT DETECT); Parainfluenza Virus Type 2 Not Detected (NOT DETECT); Parainfluenza Virus Type 3 Not Detected (NOT DETECT); Parainfluenza Virus Type 4 Not Detected (NOT DETECT); Respiratory Syncytial Virus A Not Detected (NOT DETECT); Respiratory Syncytial Virus B Not Detected (NOT DETECT); SARS-COV-2 Not Detected (NOT DETECT)
[2025-04-12 18:40] LABS: Bilirubin Urine Negative (Negative); Blood Urine Negative (Negative); Glucose Urine UA Negative (Normal); Ketones Urine Negative (Negative); Leukocyte Esterase Urine Negative (Negative); Nitrate Urine Negative (Negative); Protein Urine Trace (Negative); Specific Gravity, Urine 1.023 (1.005-1.030); Urine Appearance Clear (CLEAR); Urine Color Yellow (Yellow); pH Urine 5.5 (5-7)
[2025-04-12 18:46] LABS: Glucose Point of Care 174 mg/dL (70-110)
[2025-04-12 18:46] LABS: Add Urine Microscopic? YES; Bacteria Urine None Seen /hpf; Hyaline Casts Urine 2.46 /lpf; RBC Urine 0-2 /hpf (0-2); Squamous Epithelial Cell Urine 0-5 /hpf (0-5); WBC Urine 0-5 /hpf (0-5)
[2025-04-12] MEDS: ipratropium-albuterol 3 mL Neb INHALATION (19:24)
[2025-04-12] MEDS: budesonide 0.5 mg/2 mL Neb INHALATION (19:24)
[2025-04-12] MEDS: azithromycin 250 mg Tablet 500 MG PO (20:33)
[2025-04-12] MEDS: pantoprazole 40 mg SDV IVP (20:33)
[2025-04-12] MEDS: enoxaparin 40 mg/0.4 mL Syringe SUBCUT (20:33)
[2025-04-12] MEDS: potassium chloride ER 20 mEq Tablet 40 MEQ PO (20:33)
[2025-04-12] MEDS: atorvastatin 40 mg Tablet PO (20:34)
[2025-04-12] MEDS: gabapentin 300 mg Capsule PO (20:34)
[2025-04-12] MEDS: docusate sodium 100 mg Capsule PO (20:35)
[2025-04-12 20:40] LABS: Glucose Point of Care 236 mg/dL (70-110)
[2025-04-12] MEDS: insulin lispro 100 unit/1 mL SUBCUT (21:26)
[2025-04-12 21:37] LABS: Estmated Average Glucose 151; Hemoglobin A1C 6.9 % (4.0-6.0)
[2025-04-13] VITALS (38 sets, daily range): BP systolic 90–125; BP diastolic 49–92; PULSE 63–94; RESP 12–29; TEMP 35.9; O2SAT 82–97
[2025-04-13] MEDS: methylPREDNISolone sod succ 40 mg/mL INJ IVP ×3 (01:01→16:31)
[2025-04-13 02:45] LABS: Glucose Point of Care 184 mg/dL (70-110)
[2025-04-13] MEDS: ipratropium-albuterol 3 mL Neb INHALATION ×4 (02:57→19:43)
[2025-04-13 03:31] LABS: Hematocrit 35.1 % (37-53); Mean Corpuscular HGB Conc 30.2 g/dL (30-55); Mean Corpuscular Hemoglobin 23.2 pg (27-33); Mean Corpuscular Volume 76.8 fl (82-101); Mean Platelet Volume 10.8 fL (7.4-10.4); Platelet Count 250 10^3/cmm (157-399); Red Blood Count 4.57 10^6/uL (3.85-5.65); Red Cell Distribution Width 18.6 % (12.1-15.1); White Blood Count 8.15 10^3/uL (3.29-11.43)
[2025-04-13 04:00] LABS: Procalcitonin 0.81 ng/mL (0-0.5)
[2025-04-13 04:02] LABS: Alanine Aminotransferase 37 U/L (0-41); Albumin Level 2.9 g/dL (3.5-5.2); Alkaline Phosphatase 123 U/L (40-130); Anion Gap 17.4 (5-19); Aspartate Amino Transferase 43 U/L (0-40); Blood Urea Nitrogen 26 mg/dL (8-23); Calcium 8.8 mg/dL (8.5-10.5); Carbon Dioxide 22 mmol/L (22-29); Chloride 104 mmol/L (98-107); Chol HDL Ratio 2.96 mg/dL (1.0-5.00); Cholesterol 68 mg/dL (0-200); Creatinine Clr Calc Pharmacy 80.4393; Globulin 4.1 g/dL (1.3-4.6); Glucose 195 mg/dL (65-115); HDL Cholesterol 23 mg/dL (60-100); LDL Cholesterol Calculated 28 mg/dL (50-129); LDL HDL Ratio 1.22 RATIO (0.00-3.22); Magnesium 2.3 mg/dL (1.7-2.3); Osmolality Calculated 300 mOsm/kg (285-295); Phosphorus 2.5 mg/dL (2.5-4.5); Potassium 3.4 mmol/L (3.5-5.1); Sodium 140 mmol/L (136-145); Total Bilirubin 0.5 mg/dL (0.15-1.2); Triglycerides 84 mg/dL (0-150)
[2025-04-13 04:03] LABS: Slide Review Slide Review Perform
[2025-04-13 04:04] LABS: Absolute Segmented Neutrophil 6.8 10/cmm (1.6-7.1); Eosinophils 0 %; Lymphocytes 12 %; Monocytes Absolute 0.3 10^3/cmm (0.1-0.6); Platelet Estimate Normal (Normal); Segmented Neutrophils 84 %; Total Cells Counted 100 (0-100)
[2025-04-13] MEDS: buPROPion XL (24 HR) 150 mg Tablet PO (05:57)
--- NOTE | 2025-04-13 06:28 | PC.NURSE ---
Patient has had difficulty voiding throughout shift, only voiding 100 ml with each occurrence, and only when sitting. Scanned bladder following last void and showed [address] Bradley, made aware, new order received to place [facility].
[2025-04-13 08:18] LABS: Glucose Point of Care 190 mg/dL (70-110)
[2025-04-13] MEDS: insulin lispro 100 unit/1 mL SUBCUT ×4 (08:49→20:43)
[2025-04-13] MEDS: aspirin 81 mg EC Tablet PO (08:50)
[2025-04-13] MEDS: docusate sodium 100 mg Capsule PO ×2 (08:50→17:27)
[2025-04-13] MEDS: gabapentin 300 mg Capsule PO ×2 (08:50→17:27)
[2025-04-13] MEDS: allopurinol 300 mg Tablet PO (08:50)
[2025-04-13] MEDS: tamsulosin 0.4 mg Capsule 0.8 MG PO (08:50)
[2025-04-13] MEDS: budesonide 0.5 mg/2 mL Neb INHALATION ×2 (08:57→19:43)
--- NOTE | 2025-04-13 11:10 | P.PN_ITS ---
Subjective 2 Subjective: No acute events overnight. Patient seen sitting comfortably in bed today. States feeling slightly better. Currently on 6 L saturating 95%. During examination turned down to 5 L. Denies any nausea, vomiting, headache. Having his breakfast during examination without concerns for cough. Vitals/I&O/Wt Last Vital Signs Temp 96.7 F L 04/13/25 08:30 Pulse 88 04/13/25 09:23 Resp 20 H 04/13/25 08:57 BP 120/66 04/13/25 08:30 Pulse Ox 90 04/13/25 08:57 O2 Del Method Nasal Cannula 04/13/25 08:57 O2 Flow Rate 5 04/13/25 08:57 04/12/25 04/13/25 04/13/25 22:59 06:59 14:59 Intake Total 2749.41 / 2749.41 290 / 3039.41 Output Total 400 / 400 Balance 2749.41 / 2749.41 -110 / 2639.41 Weight last 48 hrs Weight 93.894 kg Weight 93.894 kg Weight 81.647 kg Physical Exam 2 Narrative: General: No acute distress, AO x3, sick appearing, frail HEENT: PERRLA, pupils bilaterally equal and reactive Chest: Bilateral bronchial breath sounds over lung smith with coarse crackles bilaterally on both sides right more than left, decreased air entry bilaterally in lower zone CVS: S1-S2 regular, no murmurs, no tachycardia, no gallops, no rubs Abdomen: Soft, nontender, no organomegaly, bowel sounds present Neuro: No focal deficits, no facial deformity, AO x3, power 5/5 in all limbs Resp: COMMON NORMALS: clear to auscultation bilaterally AUSCULTATION: clear to auscultation bilaterally and crackles Cardio: COMMON NORMALS: regular rate and regular rhythm RATE: regular rate RHYTHM: regular rhythm Urinary Catheter Management: Rodas Latex: Cath Placed During This Visit: yes Urinary Catheter Date of Insertion: 04/13/25 Urinary Catheter Time of Insertion: 06:30 Data 04/13/25 03:01 04/13/25 03:01 Micro: Microbiology 04/12/25 18:18 Bacterial Antigens - Final Urine Kidney 04/12/25 14:17 Blood Culture - Preliminary Blood SPECIMEN COLLECTED 04/12/25 14:25 Blood Culture - Preliminary Blood SPECIMEN COLLECTED A&P Assessment and plan (1) Acute hypoxemic respiratory failure: Most likely in setting of pneumonia. ABG showing hypoxia and hypocapnia. D-dimer elevated. Negative respiratory viral panel. Appreciate procalcitonin trend. MRSA swab recently negative. Bacterial antigen negative. CTA negative for PE. Appreciate bilateral consolidation. Echocardiogram awaited. Aggressive pulmonary toilet with I-S and Acapella. Will can try chest vest. Oxygen supplementation keeping saturation over 88%. Currently on 6 L of oxygen supplementation. Solu-Medrol 40 mg every 8 hourly. Pulmicort twice daily, DuoNeb every 6 hour. Continue with empiric IV Zosyn and azithromycin for atypical coverage. De- escalate as per culture sensitivities. (2) Sepsis: SIRS: Hypotensive, tachycardic Source: Pneumonia End organ damage: Acute respiratory failure Lactic acid within normal limits Patient did receive 30 mL/kg body weight of septic bolus on presentation for hypotension after which his blood pressures improved. Hold off on any IV fluids for now. Patient oral intake improving. Monitor blood pressures. Keep mean artery pressure 65 mmHg. (3) Hypotension: Resolved. Was hypotensive on presentation requiring fluid bolus. Currently mean artery pressure being maintained over 65. Target blood pressure less than 140/90 mmHg with mean over 65. Hold off on home dose of antihypertensive. (4) Hypertension: All multiple antihypertensive at home including atenolol, amlodipine, lisinopril. Currently on hold given low blood pressures on presentation. (5) Atrial fibrillation: Telemetry. Holding off on home dose of atenolol. If needed will start on low-dose metoprolol depending on heart rate. (6) DM type 2 (diabetes mellitus, type 2): A1c 6.9. Sliding scale low-dose protocol. (7) Mantle cell lymphoma: (8) Bilateral pneumonia: Plan CODE STATUS: Discussed symptoms with the patient. will be the DPOA. Full code Carb consistent cardiac diet Protonix for PUD prophylaxis Lovenox for DVT prophylaxis. Plan for physical therapy next 24 hours. Discharge plan: Plan for discharge home depending on clinical improvement in next 2 to 3 days with or without home health depending on physical therapy eval. Home O2 evaluation prior to discharge. Guarded prognosis. PDMP PDMP Reviewed: Not Reviewed Attestations 2 Medical Necessity Statement*: Requires further hospitalization for management of acute hypoxic respiratory failure in setting of bilateral pneumonia Diagnoses Acute hypoxemic respiratory failure J96.01 Sepsis A41.9 Sepsis acute organ dysfunction status: with acute organ dysfunction Severe sepsis acute organ dysfunction type: acute respiratory failure Acute respiratory failure type: with hypoxia Severe sepsis shock status: without septic shock Hypotension I95.9 Hypertension I10 Atrial fibrillation I48.91 DM type 2 (diabetes mellitus, type 2) E11.9 Mantle cell lymphoma, unspecified body region C83.10 Lymphoma site: unspecified region Bilateral pneumonia J18.9
[2025-04-13 11:23] LABS: Glucose Point of Care 262 mg/dL (70-110)
[2025-04-13] MEDS: piperacillin-tazobactam 3.375 GM in sodium chloride 0.9% (plus) 50 ML IV (16:32)
[2025-04-13 17:27] LABS: Glucose Point of Care 288 mg/dL (70-110)
[2025-04-13] MEDS: atorvastatin 40 mg Tablet PO (17:27)
[2025-04-13] MEDS: pantoprazole 40 mg SDV IVP (19:34)
[2025-04-13 20:36] LABS: Glucose Point of Care 382 mg/dL (70-110)
[2025-04-13] MEDS: enoxaparin 40 mg/0.4 mL Syringe SUBCUT (20:43)
[2025-04-13] MEDS: azithromycin 250 mg Tablet 500 MG PO (20:43)
[2025-04-14] VITALS (24 sets, daily range): BP systolic 96–128; BP diastolic 48–71; PULSE 64–104; RESP 7–24; TEMP 36.2–36.4; O2SAT 88–98
[2025-04-14] MEDS: methylPREDNISolone sod succ 40 mg/mL INJ IVP ×3 (01:25→20:24)
[2025-04-14] MEDS: piperacillin-tazobactam 3.375 GM in sodium chloride 0.9% (plus) 50 ML IV ×3 (01:25→15:38)
[2025-04-14] MEDS: ipratropium-albuterol 3 mL Neb INHALATION ×4 (02:02→20:51)
[2025-04-14 03:24] LABS: Basophils % 0.7 %; Eosinophils % 0.5 %; Hematocrit 27.6 % (37-53); Lymphocytes # 0.6 10^3/uL (0.8-4.8); Lymphocytes % 9.5 %; Mean Corpuscular HGB Conc 29.3 g/dL (30-55); Mean Corpuscular Hemoglobin 22.4 pg (27-33); Mean Corpuscular Volume 76.5 fl (82-101); Mean Platelet Volume 11.4 fL (7.4-10.4); Monocytes # 0.2 10^3/uL (0.2-0.9); Monocytes % 2.7 %; Neutrophils # 4.55 10^3/uL (1.8-7.7); Neutrophils % 77.4 %; Nucleated Red Blood Cells % 0 %; Platelet Count 211 10^3/cmm (157-399); Red Blood Count 3.61 10^6/uL (3.85-5.65); Red Cell Distribution Width 18.5 % (12.1-15.1); White Blood Count 5.88 10^3/uL (3.29-11.43)
[2025-04-14 03:47] LABS: Alanine Aminotransferase 39 U/L (0-41); Albumin Level 2.5 g/dL (3.5-5.2); Alkaline Phosphatase 115 U/L (40-130); Anion Gap 16.3 (5-19); Aspartate Amino Transferase 40 U/L (0-40); Blood Urea Nitrogen 31 mg/dL (8-23); Calcium 8.8 mg/dL (8.5-10.5); Carbon Dioxide 22 mmol/L (22-29); Chloride 104 mmol/L (98-107); Creatinine Clr Calc Pharmacy 80.4393; Globulin 3.5 g/dL (1.3-4.6); Glucose 291 mg/dL (65-115); Magnesium 2.1 mg/dL (1.7-2.3); Osmolality Calculated 305 mOsm/kg (285-295); Phosphorus 2.5 mg/dL (2.5-4.5); Potassium 3.3 mmol/L (3.5-5.1); Sodium 139 mmol/L (136-145); Total Bilirubin 0.2 mg/dL (0.15-1.2)
[2025-04-14 04:08] LABS: Slide Review Slide Review Perform
[2025-04-14] MEDS: potassium chloride ER 20 mEq Tablet 40 MEQ PO (06:07)
[2025-04-14] MEDS: buPROPion XL (24 HR) 150 mg Tablet PO (06:07)
[2025-04-14] MEDS: budesonide 0.5 mg/2 mL Neb INHALATION ×2 (08:07→20:51)
[2025-04-14 08:43] LABS: Glucose Point of Care 315 mg/dL (70-110)
[2025-04-14] MEDS: insulin lispro 100 unit/1 mL SUBCUT ×4 (09:16→20:24)
[2025-04-14] MEDS: aspirin 81 mg EC Tablet PO (09:16)
[2025-04-14] MEDS: gabapentin 300 mg Capsule PO ×2 (09:17→18:19)
[2025-04-14] MEDS: docusate sodium 100 mg Capsule PO ×2 (09:17→18:19)
[2025-04-14] MEDS: tamsulosin 0.4 mg Capsule 0.8 MG PO (09:17)
[2025-04-14] MEDS: allopurinol 300 mg Tablet PO (09:17)
[2025-04-14 11:24] LABS: Glucose Point of Care 353 mg/dL (70-110)
--- NOTE | 2025-04-14 12:49 | P.PN_ITS ---
Subjective 2 Subjective: No acute events overnight. Today morning patient seen sitting up in chair. Is down to room air from 5 L yesterday. More awake and alert. Able to have complete conversation. Denies any nausea, vomiting, headache. States feeling a lot better than yesterday. Vitals/I&O/Wt Last Vital Signs Temp 97.2 F L 04/14/25 08:00 Pulse 84 04/14/25 11:00 Resp 22 H 04/14/25 11:00 BP 103/61 04/14/25 11:00 Pulse Ox 94 04/14/25 11:00 O2 Del Method Room Air 04/14/25 11:00 O2 Flow Rate 2 04/14/25 08:07 04/13/25 04/14/25 04/14/25 22:59 06:59 14:59 Intake Total 290 / 540 170 / 710 Output Total 550 / 550 275 / 275 Balance 290 / 540 -380 / 160 -275 / -275 Weight last 48 hrs Weight 95.254 kg Weight 93.894 kg Weight 93.894 kg Weight 81.647 kg Physical Exam 2 Narrative: General: No acute distress, AO x3, sick appearing, frail HEENT: PERRLA, pupils bilaterally equal and reactive Chest: Bilateral bronchial breath sounds over lung smith with coarse crackles bilaterally on both sides right more than left, decreased air entry bilaterally in lower zone CVS: S1-S2 regular, no murmurs, no tachycardia, no gallops, no rubs Abdomen: Soft, nontender, no organomegaly, bowel sounds present Neuro: No focal deficits, no facial deformity, AO x3, power 5/5 in all limbs Resp: COMMON NORMALS: clear to auscultation bilaterally AUSCULTATION: clear to auscultation bilaterally and crackles Cardio: COMMON NORMALS: regular rate and regular rhythm RATE: regular rate RHYTHM: regular rhythm Urinary Catheter Management: Rodas Latex: Cath Placed During This Visit: yes, but has since been removed by the nurse Reason for Continuing Indwelling Catheter: Accurate Measurement of Urinary Output in Critically Ill Patients Urinary Catheter Date of Insertion: 04/13/25 Urinary Catheter Time of Insertion: 06:30 Date Urinary Catheter Removed: 04/14/25 Time Urinary Catheter Discontinued: 11:05 Data 04/14/25 02:54 04/14/25 02:54 Micro: Microbiology 05/27/25 14:25 Blood Culture - Preliminary Blood NEGATIVE TO DATE 04/12/25 14:17 Blood Culture - Preliminary Blood NEGATIVE TO DATE 04/12/25 18:18 Bacterial Antigens - Final Urine Kidney A&P Assessment and plan (1) Acute hypoxemic respiratory failure: Most likely in setting of pneumonia. ABG showing hypoxia and hypocapnia. D-dimer elevated. Negative respiratory viral panel. Appreciate procalcitonin trend. MRSA swab recently negative. Bacterial antigen negative. CTA negative for PE. Appreciate bilateral consolidation. Echocardiogram awaited. Aggressive pulmonary toilet with I-S and Acapella. Will can try chest vest. Oxygen supplementation keeping saturation over 88%. Currently on 6 L of oxygen supplementation. Solu-Medrol 40 mg every 8 hourly. Pulmicort twice daily, DuoNeb every 6 hour. Continue with empiric IV Zosyn and azithromycin for atypical coverage. De- escalate as per culture sensitivities. (2) Sepsis: SIRS: Hypotensive, tachycardic Source: Pneumonia End organ damage: Acute respiratory failure Lactic acid within normal limits Patient did receive 30 mL/kg body weight of septic bolus on presentation for hypotension after which his blood pressures improved. Hold off on any IV fluids for now. Patient oral intake improving. Monitor blood pressures. Keep mean artery pressure 65 mmHg. (3) Hypotension: Resolved. Was hypotensive on presentation requiring fluid bolus. Currently mean artery pressure being maintained over 65. Target blood pressure less than 140/90 mmHg with mean over 65. Hold off on home dose of antihypertensive. (4) Hypertension: All multiple antihypertensive at home including atenolol, amlodipine, lisinopril. Currently on hold given low blood pressures on presentation. (5) Atrial fibrillation: Telemetry. Holding off on home dose of atenolol. If needed will start on low-dose metoprolol depending on heart rate. (6) DM type 2 (diabetes mellitus, type 2): A1c 6.9. Sliding scale low-dose protocol. (7) Mantle cell lymphoma: (8) Bilateral pneumonia: Plan Patient did have urinary retention overnight for which Rodas catheter was placed. Continue Rodas catheter for now. Strict improved charting. Dose of Flomax increased to 0.8 mg oral daily. CODE STATUS: Discussed symptoms with the patient. will be the DPOA. Full code Carb consistent cardiac diet Protonix for PUD prophylaxis Lovenox for DVT prophylaxis. Plan for physical therapy next 24 hours. Discharge plan: Plan for discharge home depending on clinical improvement in next 2 to 3 days with or without home health depending on physical therapy eval. Home O2 evaluation prior to discharge. Plan for the day: Patient on room air. Oxygen supplementation keeping saturation over 88%. Continued aggressive pulmonary toilet with I-S, flutter valve and chest vest. Follow-up cultures. Continue with IV Zosyn to finish her antibiotic course for overall 5 days. Continue azithromycin to finish a 3-day course. Continue with nebulization treatment. Wean Solu-Medrol 40 mg every 12 hourly. Patient had urinary retention on 04/12 night. Flomax increased to 0.8. Will plan for voiding trial today. Bladder scan and straight cath as needed. Blood sugars elevated most likely in setting of Solu-Medrol. Solu-Medrol decreased as above. For now change sliding scale to moderate dose protocol. Goal blood pressure less than 140/90 mmHg with mean over 65. Currently blood pressures stable off antihypertensive. Continue to hold antihypertensive for now. Repeat chest x-ray Physical therapy. Out of bed to chair. Transfer to [facility]. PDMP PDMP Reviewed: Not Reviewed Attestations 2 Medical Necessity Statement*: Requires further hospitalization for management of acute hypoxic respiratory failure in setting of bilateral pneumonia in a patient with history of lymphoma post CAR-T treatment, urinary retention Diagnoses Acute hypoxemic respiratory failure J96.01 Sepsis A41.9 Sepsis acute organ dysfunction status: with acute organ dysfunction Severe sepsis acute organ dysfunction type: acute respiratory failure Acute respiratory failure type: with hypoxia Severe sepsis shock status: without septic shock Hypotension I95.9 Hypertension I10 Atrial fibrillation I48.91 DM type 2 (diabetes mellitus, type 2) E11.9 Mantle cell lymphoma, unspecified body region C83.10 Lymphoma site: unspecified region Bilateral pneumonia J18.9
--- NOTE | 2025-04-14 12:58 | XR_ITS ---
WS: [id number] Portable AP upright chest, 04/14/2025 Clinical Data: Hypoxia, pneumonia Comparison: Portable chest, 04/12/2025 Findings: No nodules, masses or effusions are seen. The heart is normal. The pulmonary vascularity is not increased. No pneumonia or pneumothorax is seen. The right diaphragm remains elevated. The aortic arch shows mild tortuosity. The left infusion catheter remains in same position. Monitor leads are on the chest wall. 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 XR/XR chest 1V portable [id number] Impression: 1. No pneumonia or pulmonary vascular congestion is seen. 2. Atherosclerosis.
[2025-04-14 17:15] LABS: Glucose Point of Care 301 mg/dL (70-110)
[2025-04-14] MEDS: atorvastatin 40 mg Tablet PO (18:19)
[2025-04-14] MEDS: ascorbic acid 500 mg Tablet PO (18:19)
[2025-04-14] MEDS: pantoprazole 40 mg SDV IVP (18:19)
[2025-04-14 20:20] LABS: Glucose Point of Care 248 mg/dL (70-110)
[2025-04-14] MEDS: enoxaparin 40 mg/0.4 mL Syringe SUBCUT (20:23)
[2025-04-14] MEDS: azithromycin 250 mg Tablet 500 MG PO (20:23)
[2025-04-15] VITALS (17 sets, daily range): BP systolic 100–136; BP diastolic 59–86; PULSE 67–106; RESP 10–23; TEMP 36.6–37.3; O2SAT 89–95
[2025-04-15] MEDS: piperacillin-tazobactam 3.375 GM in sodium chloride 0.9% (plus) 50 ML IV ×3 (00:09→16:09)
[2025-04-15] MEDS: ipratropium-albuterol 3 mL Neb INHALATION ×4 (02:44→19:46)
[2025-04-15] MEDS: buPROPion XL (24 HR) 150 mg Tablet PO (05:51)
[2025-04-15 06:34] LABS: Basophils % 0.7 %; Eosinophils % 0.7 %; Hematocrit 27.4 % (37-53); Lymphocytes # 0.6 10^3/uL (0.8-4.8); Lymphocytes % 11.7 %; Mean Corpuscular HGB Conc 29.9 g/dL (30-55); Mean Corpuscular Hemoglobin 23.2 pg (27-33); Mean Corpuscular Volume 77.6 fl (82-101); Mean Platelet Volume 11.3 fL (7.4-10.4); Monocytes # 0.2 10^3/uL (0.2-0.9); Monocytes % 3.2 %; Neutrophils % 74.2 %; Nucleated Red Blood Cells % 0 %; Platelet Count 244 10^3/cmm (157-399); Red Blood Count 3.53 10^6/uL (3.85-5.65); Red Cell Distribution Width 18.8 % (12.1-15.1); White Blood Count 5.39 10^3/uL (3.29-11.43)
[2025-04-15 06:54] LABS: Alanine Aminotransferase 50 U/L (0-41); Albumin Level 2.5 g/dL (3.5-5.2); Alkaline Phosphatase 123 U/L (40-130); Anion Gap 15.8 (5-19); Aspartate Amino Transferase 45 U/L (0-40); Blood Urea Nitrogen 28 mg/dL (8-23); Calcium 8.8 mg/dL (8.5-10.5); Carbon Dioxide 23 mmol/L (22-29); Chloride 108 mmol/L (98-107); Creatinine Clr Calc Pharmacy 80.9682; Globulin 3.4 g/dL (1.3-4.6); Glucose 179 mg/dL (65-115); Magnesium 1.9 mg/dL (1.7-2.3); Osmolality Calculated 306 mOsm/kg (285-295); Phosphorus 2.9 mg/dL (2.5-4.5); Potassium 3.8 mmol/L (3.5-5.1); Sodium 143 mmol/L (136-145); Total Bilirubin 0.3 mg/dL (0.15-1.2); Total Protein 5.9 g/dL (6.6-8.7)
[2025-04-15 07:47] LABS: Glucose Point of Care 159 mg/dL (70-110)
[2025-04-15] MEDS: budesonide 0.5 mg/2 mL Neb INHALATION ×2 (08:26→19:46)
[2025-04-15] MEDS: insulin lispro 100 unit/1 mL SUBCUT ×4 (08:55→21:13)
[2025-04-15] MEDS: docusate sodium 100 mg Capsule PO (08:56)
[2025-04-15] MEDS: ascorbic acid 500 mg Tablet PO ×2 (08:56→18:06)
[2025-04-15] MEDS: gabapentin 300 mg Capsule PO ×2 (08:56→18:06)
[2025-04-15] MEDS: tamsulosin 0.4 mg Capsule 0.8 MG PO (08:56)
[2025-04-15] MEDS: allopurinol 300 mg Tablet PO (08:56)
[2025-04-15] MEDS: aspirin 81 mg EC Tablet PO (08:56)
[2025-04-15] MEDS: methylPREDNISolone sod succ 40 mg/mL INJ IVP (08:56)
[2025-04-15 12:09] LABS: Glucose Point of Care 175 mg/dL (70-110)
--- NOTE | 2025-04-15 14:19 | P.PN_ITS ---
Subjective 2 Subjective: No acute events overnight. Has remained hemodynamically stable and afebrile. Remains on room air. Working well with incentive spirometry. Vitals/I&O/Wt Last Vital Signs Temp 97.8 F 04/15/25 12:00 Pulse 76 04/15/25 14:00 Resp 22 H 04/15/25 14:00 BP 119/64 04/15/25 14:00 Pulse Ox 92 04/15/25 14:00 O2 Del Method Room Air 04/15/25 14:00 O2 Flow Rate 2 04/14/25 08:07 04/14/25 04/15/25 04/15/25 22:59 06:59 14:59 Intake Total 410 / 760 50 / 810 650 / 650 Output Total 375 / 650 250 / 900 500 / 500 Balance 35 / 110 -200 / -90 150 / 150 Weight last 48 hrs Weight 94.3 kg Weight 95.254 kg Physical Exam 2 Narrative: General: No acute distress, AO x3, sick appearing, frail HEENT: PERRLA, pupils bilaterally equal and reactive Chest: Bilateral bronchial breath sounds over lung smith with coarse crackles bilaterally on both sides right more than left, decreased air entry bilaterally in lower zone CVS: S1-S2 regular, no murmurs, no tachycardia, no gallops, no rubs Abdomen: Soft, nontender, no organomegaly, bowel sounds present Neuro: No focal deficits, no facial deformity, AO x3, power 5/5 in all limbs Resp: COMMON NORMALS: clear to auscultation bilaterally AUSCULTATION: clear to auscultation bilaterally and crackles Cardio: COMMON NORMALS: regular rate and regular rhythm RATE: regular rate RHYTHM: regular rhythm Urinary Catheter Management: Rodas Latex: Cath Placed During This Visit: yes, but has since been removed by the nurse Reason for Continuing Indwelling Catheter: Accurate Measurement of Urinary Output in Critically Ill Patients Urinary Catheter Date of Insertion: 04/13/25 Urinary Catheter Time of Insertion: 06:30 Date Urinary Catheter Removed: 04/14/25 Time Urinary Catheter Discontinued: 11:05 Data 04/15/25 05:38 04/15/25 05:38 A&P Assessment and plan (1) Acute hypoxemic respiratory failure: Most likely in setting of pneumonia. ABG showing hypoxia and hypocapnia. D-dimer elevated. Negative respiratory viral panel. Appreciate procalcitonin trend. MRSA swab recently negative. Bacterial antigen negative. CTA negative for PE. Appreciate bilateral consolidation. Echocardiogram awaited. Aggressive pulmonary toilet with I-S and Acapella. Will can try chest vest. Oxygen supplementation keeping saturation over 88%. Currently on 6 L of oxygen supplementation. Solu-Medrol 40 mg every 8 hourly. Pulmicort twice daily, DuoNeb every 6 hour. Continue with empiric IV Zosyn and azithromycin for atypical coverage. De- escalate as per culture sensitivities. (2) Sepsis: SIRS: Hypotensive, tachycardic Source: Pneumonia End organ damage: Acute respiratory failure Lactic acid within normal limits Patient did receive 30 mL/kg body weight of septic bolus on presentation for hypotension after which his blood pressures improved. Hold off on any IV fluids for now. Patient oral intake improving. Monitor blood pressures. Keep mean artery pressure 65 mmHg. (3) Hypotension: Resolved. Was hypotensive on presentation requiring fluid bolus. Currently mean artery pressure being maintained over 65. Target blood pressure less than 140/90 mmHg with mean over 65. Hold off on home dose of antihypertensive. (4) Hypertension: All multiple antihypertensive at home including atenolol, amlodipine, lisinopril. Currently on hold given low blood pressures on presentation. (5) Atrial fibrillation: Telemetry. Holding off on home dose of atenolol. If needed will start on low-dose metoprolol depending on heart rate. (6) DM type 2 (diabetes mellitus, type 2): A1c 6.9. Sliding scale low-dose protocol. (7) Mantle cell lymphoma: (8) Bilateral pneumonia: Plan Patient did have urinary retention overnight for which Rodas catheter was placed. Continue Rodas catheter for now. Strict improved charting. Dose of Flomax increased to 0.8 mg oral daily. CODE STATUS: Discussed symptoms with the patient. will be the DPOA. Full code Carb consistent cardiac diet Protonix for PUD prophylaxis Lovenox for DVT prophylaxis. Plan for physical therapy next 24 hours. Discharge plan: Plan for discharge home depending on clinical improvement in next 2 to 3 days with or without home health depending on physical therapy eval. Home O2 evaluation prior to discharge. Plan for the day: Continue with aggressive pulmonary toilet. Follow-up cultures. Continue with IV Zosyn for now. Will plan to transition to oral antibiotics on discharge to finish her 5 to 7-day course of antibiotics. Voiding trial passed. Continue with Flomax 0.8 mg daily. Wean Solu-Medrol 40 mg IV daily. Plan to transition to oral steroids taper on discharge. Continue nebulization treatment. Blood pressure stable off antihypertensive. Remains at goal. Hold off on antihypertensive. Continue with physical therapy. Appreciate recommendations. Plan for home health. Discharge planning: Plan to discharge in next 24 hours the patient remains hemodynamically stable, afebrile and on room air. Will plan for home O2 evaluation prior to discharge. PDMP PDMP Reviewed: Not Reviewed Attestations 2 Medical Necessity Statement*: Requires further hospitalization for management of acute hypoxic respiratory failure with severe sepsis in setting of bilateral pneumonia in a patient with history of lymphoma with concerns for recurrence Diagnoses Acute hypoxemic respiratory failure J96.01 Sepsis A41.9 Sepsis acute organ dysfunction status: with acute organ dysfunction Severe sepsis acute organ dysfunction type: acute respiratory failure Acute respiratory failure type: with hypoxia Severe sepsis shock status: without septic shock Hypotension I95.9 Hypertension I10 Atrial fibrillation I48.91 DM type 2 (diabetes mellitus, type 2) E11.9 Mantle cell lymphoma, unspecified body region C83.10 Lymphoma site: unspecified region Bilateral pneumonia J18.9
--- NOTE | 2025-04-15 15:55 | PC.SOCIAL ---
IMM updated IMM dated and initialed copy given to patient and Copy placed in chart.
[2025-04-15 16:53] LABS: Glucose Point of Care 197 mg/dL (70-110)
[2025-04-15] MEDS: atorvastatin 40 mg Tablet PO (18:06)
[2025-04-15] MEDS: pantoprazole 40 mg SDV IVP (18:08)
--- NOTE | 2025-04-15 19:29 | PC.NURSE ---
Shift summary: Pt has much improved over the past 3 days. Went from 6lpm/NC to room air. He is coughing up phlegm. He is self motivated to use his acapello and IS.l He does the PT suggested exercises. He sits up in the chair for most of the day. Rodas removed yesterday. Urination stung twice post. No stinging or burning urination reported since. He goes 150-250 ml at a time. He has had a large soft BM today. Docusate held this evening due to loose stool. He has a good appetite . He has been compliant with fluid restriction all three days. Blood sugars improved today after insulin sliding scale increased yesterday and Solumedrol only given once today versus BID yesterday.
[2025-04-15 21:10] LABS: Glucose Point of Care 246 mg/dL (70-110)
[2025-04-15] MEDS: enoxaparin 40 mg/0.4 mL Syringe SUBCUT (21:13)
[2025-04-16] VITALS (13 sets, daily range): BP systolic 93–153; BP diastolic 47–93; PULSE 91–123; RESP 16–26; TEMP 36.6–38.4; O2SAT 73–95
[2025-04-16] MEDS: piperacillin-tazobactam 3.375 GM in sodium chloride 0.9% (plus) 50 ML IV ×2 (00:31→08:04)
[2025-04-16] MEDS: ipratropium-albuterol 3 mL Neb INHALATION ×2 (01:19→07:53)
[2025-04-16 04:22] LABS: Basophils % 0.9 %; Eosinophils # 0.1 10^3/uL (0.0-0.8); Eosinophils % 2.4 %; Hematocrit 27.4 % (37-53); Mean Corpuscular HGB Conc 30.3 g/dL (30-55); Mean Corpuscular Hemoglobin 22.9 pg (27-33); Mean Corpuscular Volume 75.5 fl (82-101); Mean Platelet Volume 11.2 fL (7.4-10.4); Monocytes # 0.2 10^3/uL (0.2-0.9); Monocytes % 4.7 %; Neutrophils # 2.85 10^3/uL (1.8-7.7); Neutrophils % 60.8 %; Nucleated Red Blood Cells % 0 %; Platelet Count 234 10^3/cmm (157-399); Red Blood Count 3.63 10^6/uL (3.85-5.65); White Blood Count 4.68 10^3/uL (3.29-11.43)
[2025-04-16 04:45] LABS: Alanine Aminotransferase 47 U/L (0-41); Albumin Level 2.7 g/dL (3.5-5.2); Alkaline Phosphatase 128 U/L (40-130); Aspartate Amino Transferase 31 U/L (0-40); Blood Urea Nitrogen 19 mg/dL (8-23); Calcium 8.3 mg/dL (8.5-10.5); Carbon Dioxide 25 mmol/L (22-29); Chloride 103 mmol/L (98-107); Creatinine Clr Calc Pharmacy 90.6719; Glucose 197 mg/dL (65-115); Osmolality Calculated 294 mOsm/kg (285-295); Sodium 138 mmol/L (136-145); Total Bilirubin 0.3 mg/dL (0.15-1.2); Total Protein 5.7 g/dL (6.6-8.7)
[2025-04-16 05:06] LABS: Slide Review Slide Review Perform
[2025-04-16] MEDS: buPROPion XL (24 HR) 150 mg Tablet PO (06:15)
[2025-04-16 07:53] LABS: Glucose Point of Care 175 mg/dL (70-110)
[2025-04-16] MEDS: budesonide 0.5 mg/2 mL Neb INHALATION (07:53)
[2025-04-16] MEDS: ascorbic acid 500 mg Tablet PO (08:04)
[2025-04-16] MEDS: allopurinol 300 mg Tablet PO (08:04)
[2025-04-16] MEDS: aspirin 81 mg EC Tablet PO (08:04)
[2025-04-16] MEDS: docusate sodium 100 mg Capsule PO (08:04)
[2025-04-16] MEDS: tamsulosin 0.4 mg Capsule 0.8 MG PO (08:04)
[2025-04-16] MEDS: gabapentin 300 mg Capsule PO (08:05)
[2025-04-16] MEDS: insulin lispro 100 unit/1 mL SUBCUT (08:05)
[2025-04-16] MEDS: methylPREDNISolone sod succ 40 mg/mL INJ IVP (08:05)
--- NOTE | 2025-04-16 11:17 | P.DS_ITS ---
Discharge Providers Date of Admission: 04/12/25 16:36 Date of Discharge: April 16, 2025 Attending Provider at Admission: Matt Irving MD Attending Provider at Discharge: Matt Irving MD Primary Care Provider: Linda Muller MD Diagnoses at Discharge Discharge Diagnosis (1) Acute hypoxemic respiratory failure: Status: Acute (2) Sepsis: Status: Acute Qualifiers: Acute respiratory failure type: with hypoxia Sepsis acute organ dysfunction status: with acute organ dysfunction Severe sepsis acute organ dysfunction type: acute respiratory failure Severe sepsis shock status: without septic shock (3) Hypotension: Status: Acute (4) Hypertension: Status: Acute (5) Atrial fibrillation: Status: Acute (6) DM type 2 (diabetes mellitus, type 2): Status: Acute (7) Mantle cell lymphoma: Status: Acute Qualifiers: Lymphoma site: unspecified region Qualified Code(s): C83.10 - Mantle cell lymphoma, unspecified site (8) Bilateral pneumonia: Status: Acute Reason for Visit Reason for Visit: Weakness x 4 day Hospital Course Hospital Course Lion Aiken is a 79 year old male with 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 Denies any sick contacts, dizziness, confusion or headache. Denies having any fever at home. In the ER was found to be hypoxic and hypotensive on presentation for which he required septic bolus after which his blood pressures improved from 80 systolic to 110 systolics requiring up to 6 L of oxygen supplementation. Patient was admitted to the hospital further evaluation management of severe sepsis and acute hypoxic respiratory failure in setting of pneumonia. He was started on broad-spectrum antibiotics and aggressive pulmonary toilet. He responded well to the treatment and has been on his baseline oxygen supplementation on room air for last 2 days. He worked well with physical therapy. During hospitalization his antihypertensives were adjusted. He is been discharged back home in stable condition on oral Augmentin and Levaquin for 4 more days with advised to follow-up with a primary care provider within next 2 weeks with a blood pressure diary further adjustment of antihypertensive. His home dose of hydrochlorothiazide and atenolol has been discontinued. He should take metoprolol 25 mg twice daily. Physical Exam Narrative: General: No acute distress, AO x3, sick appearing, frail HEENT: PERRLA, pupils bilaterally equal and reactive Chest: Bilateral bronchial breath sounds over lung smith with coarse crackles bilaterally on both sides right more than left, decreased air entry bilaterally in lower zone CVS: S1-S2 regular, no murmurs, no tachycardia, no gallops, no rubs Abdomen: Soft, nontender, no organomegaly, bowel sounds present Neuro: No focal deficits, no facial deformity, AO x3, power 5/5 in all limbs Resp: COMMON NORMALS: clear to auscultation bilaterally AUSCULTATION: clear to auscultation bilaterally and crackles Cardio: COMMON NORMALS: regular rate and regular rhythm RATE: regular rate RHYTHM: regular rhythm Urinary Catheter Management: Ordas Latex: Cath Placed During This Visit: yes, but has since been removed by the nurse Reason for Continuing Indwelling Catheter: Accurate Measurement of Urinary Output in Critically Ill Patients Urinary Catheter Date of Insertion: 04/13/25 Urinary Catheter Time of Insertion: 06:30 Date Urinary Catheter Removed: 04/14/25 Time Urinary Catheter Discontinued: 11:05 Discharge Data Studies Completed and Pending Completed Studies During Hospitalization Category Date Time Status CTA chest [CT angio chest PE protcl [id number]] Stat Cat Scan 04/12/25 16:08 Completed XR chest 1V portable [id number] Routine Exams 04/14/25 12:58 Completed XR chest 1V portable [id number] Stat Exams 04/12/25 13:47 Completed CV. echo complete* [id number] Routine Ultrasound 04/12/25 16:11 Completed Pending at discharge Category Date Time Status Blood Culture Stat Lab 04/12/25 14:25 Results Sputum Culture and Gram Stain Stat Lab 04/15/25 08:38 Uncollected Radiology Impressions Chest CTA 04/12/25 16:08 IMPRESSION: 1. Increased ground-glass and interstitial opacities in the bilateral lungs with also areas of increased consolidation of the qdwl-qvhculw-chgt-right lower lobes. Findings may represent an infectious/inflammatory etiology. There is some narrowing of associated bronchi into the consolidated lungs. 2. There is some interval increase in mediastinal and hilar lymphadenopathy. These may be reactive although neoplastic etiologies such as lymphoma must be excluded given the history of mantle lymphoma in the patient. 3. The stomach is underdistended which likely represents an underdistended state however neoplastic etiologies must also be excluded. 4. Cholelithiasis. COMMENTS: Consistent with the [employer]'s Incidental Findings Committee white paper (J Am Kajal Radiol 2015): In patients aged 35 years and older with an incidental thyroid nodule equal to or greater than 1.[address], MRI or extrathyroidal US, further evaluation with dedicated thyroid US is recommended for patients with normal life expectancy and without comorbidities. For smaller nodules without suspicious features, no further evaluation or follow up is recommended. Chest X-Ray 04/14/25 12:58 Impression: 1. No pneumonia or pulmonary vascular congestion is seen. 2. Atherosclerosis. Microbiology 04/12/25 14:25 Blood Blood Culture - Preliminary NEGATIVE TO DATE 04/12/25 14:17 Blood Blood Culture - Preliminary NEGATIVE TO DATE 04/12/25 18:18 Urine Kidney Bacterial Antigens - Final Echocardiogram: CONCLUSIONS Normal left ventricular size, systolic function and wall thickness, with no regional wall motion abnormalities. Left ventricular ejection fraction is estimated at 60 %. Grade I/IV diastolic dysfunction (abnormal relaxation filling pattern), normal to mildly elevated filling pressures. There is no pericardial effusion. No significant valve abnormalities. Right atrial pressure is around 5 mm of mercury. Mckenzie Gabriel MD (Electronically Signed) Final Date: 13 Apr 2025 13:17 Laboratory Results WBC 4.68 10^3/uL (3.29-11.43) 04/16/25 03:41 RBC 3.63 10^6/uL (3.85-5.65) L 04/16/25 03:41 Hgb 8.30 g/dL (11.27-16.99) L 04/16/25 03:41 Hct 27.4 % (37-53) L 04/16/25 03:41 MCV 75.5 fl (82-101) L 04/16/25 03:41 MCH 22.9 pg (27-33) L 04/16/25 03:41 MCHC 30.3 g/dL (30-55) 04/16/25 03:41 RDW 19.0 % (12.1-15.1) H 04/16/25 03:41 Plt Count 234 10^3/cmm (157-399) 04/16/25 03:41 MPV 11.2 fL (7.4-10.4) H 04/16/25 03:41 Neut % (Auto) 60.8 % 04/16/25 03:41 Lymph % (Auto) 22.0 % 04/16/25 03:41 [place] % (Auto) 4.7 % 04/16/25 03:41 Eos % (Auto) 2.4 % 04/16/25 03:41 Baso % (Auto) 0.9 % 04/16/25 03:41 Neut # (Auto) 2.85 10^3/uL (1.8-7.7) 04/16/25 03:41 Lymph # (Auto) 1.0 10^3/uL (0.8-4.8) 04/16/25 03:41 [place] # (Auto) 0.2 10^3/uL (0.2-0.9) 04/16/25 03:41 Eos # (Auto) 0.1 10^3/uL (0.0-0.8) 04/16/25 03:41 Baso # (Auto) 0.0 10^3/uL (0.0-0.1) 04/16/25 03:41 Nucleated RBC % (auto) 0 % 04/16/25 03:41 Total Counted 100 (0-100) 04/13/25 03:01 Atypical Lymphs % Not Reportable 04/13/25 03:01 Segmented Neutrophils 84 % 04/13/25 03:01 Band Neutrophils Not Reportable 04/13/25 03:01 Lymphocytes (Manual) 12 % 04/13/25 03:01 Monocytes (Manual) 4.0 % 04/13/25 03:01 Absolute Monocytes 0.3 10^3/cmm (0.1-0.6) 04/13/25 03:01 Eosinophils (Manual) 0 % 04/13/25 03:01 Absolute Eosinophils 0.0 10^3/cmm (0.0-0.7) 04/13/25 03:01 Basophils (Manual) 0.0 % 04/13/25 03:01 Absolute Basophils 0.0 10^3/cmm (0.0-0.2) 04/13/25 03:01 Nucleated RBCs # 0.0 /100WBC 04/16/25 03:41 Pathologist Review Cancelled 04/12/25 14:17 Hypersegmented Polys Cancelled 04/12/25 14:17 Smudge Cells Cancelled 04/12/25 14:17 Toxic Granulation Cancelled 04/12/25 14:17 Toxic Vacuolation Cancelled 04/12/25 14:17 Dohle Bodies Cancelled 04/12/25 14:17 Kisha Rods Cancelled 04/12/25 14:17 Platelet Estimate Normal (Normal) 04/13/25 03:01 Giant Platelets Cancelled 04/12/25 14:17 Dimorphic RBCs Cancelled 04/12/25 14:17 Polychromasia Cancelled 04/12/25 14:17 Hypochromasia Cancelled 04/12/25 14:17 Poikilocytosis Cancelled 04/12/25 14:17 Basophilic Stippling Cancelled 04/12/25 14:17 Anisocytosis Cancelled 04/12/25 14:17 Microcytosis Cancelled 04/12/25 14:17 Macrocytosis Cancelled 04/12/25 14:17 Spherocytes Cancelled 04/12/25 14:17 Sickle Cells Cancelled 04/12/25 14:17 Target Cells Cancelled 04/12/25 14:17 Tear Drop Cells Cancelled 04/12/25 14:17 Ovalocytes Cancelled 04/12/25 14:17 Stomatocytes Cancelled 04/12/25 14:17 Helmet Cells Cancelled 04/12/25 14:17 Ruth-Guin Bodies Cancelled 04/12/25 14:17 Vanda Cells Cancelled 04/12/25 14:17 Acanthocytes (Spur) Cancelled 04/12/25 14:17 Rouleaux Cancelled 04/12/25 14:17 Schistocytes Cancelled 04/12/25 14:17 PT 15.20 SECONDS (12.1-14.9) H 04/12/25 14:17 INR 1.12 (0.8-1.2) 04/12/25 14:17 D-Dimer 5.58 ug/mLFEU (0-0.59) H 04/12/25 14:17 Specimen Type Arterial 04/12/25 14:14 Sample Site Brachial, right 04/12/25 14:14 ABG pH 7.46 (7.35-7.45) H 04/12/25 14:14 ABG pCO2 34.2 mmHg (35-45) L 04/12/25 14:14 ABG pO2 59.6 mmHg (80.0-100.0) L 04/12/25 14:14 ABG PO2/FiO2 Ratio 165 04/12/25 14:14 ABG HCO3 24.4 mmol/L (22-26) 04/12/25 14:14 ABG O2 Saturation 91.5 04/12/25 14:14 ABG Base Excess 0.9 mmol/L (-2.0-2.0) 04/12/25 14:14 Nabeel Test N/a 04/12/25 14:14 A-a O2 Gradient 20.1 mmHg (5-10) H 04/12/25 14:14 Hematocrit 30.9 % (42-52) L 04/12/25 14:14 Hgb O2 Saturation 90.9 % (95-100) L 04/12/25 14:14 Carboxyhemoglobin 1.2 %THgb (0.4-20.1) 04/12/25 14:14 Methemoglobin < 0.0 % (0.4-1.5) L 04/12/25 14:14 Total Hemoglobin 10.1 g/dL (14-18) L 04/12/25 14:14 Sodium 134.0 mmol/L (131-143) 04/12/25 14:14 Potassium 3.0 mmol/L (3.5-5.0) L 04/12/25 14:14 Glucose 167.0 mg/dL (70-115) H 04/12/25 14:14 Ionized Calcium 1.1 mmol/L (1.1-1.4) 04/12/25 14:14 O2 Delivery Device Nc 04/12/25 14:14 O2 Liters/Min 6.0 % 04/12/25 14:14 FiO2 36.0 % 04/12/25 14:14 Shoe Patternmaker ID glc 04/12/25 14:14 Sodium 138 mmol/L (136-145) 04/16/25 03:41 Potassium 4.0 mmol/L (3.5-5.1) 04/16/25 03:41 Chloride 103 mmol/L (98-107) 04/16/25 03:41 Carbon Dioxide 25 mmol/L (22-29) 04/16/25 03:41 Anion Gap 14.0 (5-19) 04/16/25 03:41 BUN 19 mg/dL (8-23) 04/16/25 03:41 Creatinine 0.7 mg/dL (0.7-1.2) 04/16/25 03:41 GFR Calculation Not Reportable 04/16/25 03:41 Glucose 197 mg/dL (65-115) H 04/16/25 03:41 POC Glucose 175 mg/dL (70-110) H 04/16/25 07:51 Estimat Average Glucose 151 04/12/25 14:17 Hemoglobin A1c 6.9 % (4.0-6.0) H 04/12/25 14:17 Calculated Osmolality 294 mOsm/kg (285-295) 04/16/25 03:41 Lactic Acid 1.5 mmol/L (0.5-2.2) 04/12/25 14:17 Calcium 8.3 mg/dL (8.5-10.5) L 04/16/25 03:41 Phosphorus 2.9 mg/dL (2.5-4.5) 04/15/25 05:38 Magnesium 1.9 mg/dL (1.7-2.3) 04/15/25 05:38 Total Bilirubin 0.3 mg/dL (0.15-1.2) 04/16/25 03:41 AST 31 U/L (0-40) 04/16/25 03:41 ALT 47 U/L (0-41) H 04/16/25 03:41 Alkaline Phosphatase 128 U/L (40-130) 04/16/25 03:41 NT-Pro-B Natriuret Pep 444 pg/mL (0-450) 04/12/25 14:17 Total Protein 5.7 g/dL (6.6-8.7) L 04/16/25 03:41 Albumin 2.7 g/dL (3.5-5.2) L 04/16/25 03:41 Globulin 3.0 g/dL (1.3-4.6) 04/16/25 03:41 Triglycerides 84 mg/dL (0-150) 04/13/25 03:01 Cholesterol 68 mg/dL (0-200) 04/13/25 03:01 LDL Cholesterol, Calc 28 mg/dL (50-129) L 04/13/25 03:01 HDL Cholesterol 23 mg/dL (60-100) L 04/13/25 03:01 LDL/HDL Ratio 1.22 RATIO (0.00-3.22) 04/13/25 03:01 Cholesterol/HDL Ratio 2.96 mg/dL (1.0-5.00) 04/13/25 03:01 Procalcitonin 0.81 ng/mL (0-0.5) H 04/13/25 03:01 TSH 1.76 uIU/mL (0.27-4.20) 04/12/25 14:17 Urine Color Yellow (Yellow) 04/12/25 18:18 Urine Appearance Clear (CLEAR) 04/12/25 18:18 Urine pH 5.5 (5-7) 04/12/25 18:18 Ur Specific [place] 1.023 (1.005-1.030) 04/12/25 18:18 Urine Protein Trace (Negative) A 04/12/25 18:18 Urine Glucose (UA) Negative (Normal) 04/12/25 18:18 Urine Ketones Negative (Negative) 04/12/25 18:18 Urine Blood Negative (Negative) 04/12/25 18:18 Urine Nitrate Negative (Negative) 04/12/25 18:18 Urine Bilirubin Negative (Negative) 04/12/25 18:18 Urine Urobilinogen 1.0 mg/dL (Negative) 04/12/25 18:18 Ur Leukocyte Esterase Negative (Negative) 04/12/25 18:18 Urine RBC 0-2 /hpf (0-2) 04/12/25 18:18 Urine WBC 0-5 /hpf (0-5) 04/12/25 18:18 Ur Squamous Epith Cells 0-5 /hpf (0-5) 04/12/25 18:18 Amorphous Sediment Not Reportable 04/12/25 18:18 Urine Bacteria None seen /hpf (NONE) 04/12/25 18:18 Hyaline Casts 2.46 /lpf 04/12/25 18:18 Adenovirus (PCR) Not detected (NOT DETECT) 04/12/25 16:19 C. pneumoniae DNA (PCR) Not detected (NOT DETECT) 04/12/25 16:19 Coronavirus 229E (PCR) Not detected (NOT DETECT) 04/12/25 16:19 Human Metapneumovir PCR Not detected (NOT DETECT) 04/12/25 16:19 Influenza A (H1) PCR Not detected (NOT DETECT) 04/12/25 16:19 Influ A (H1/09) PCR Not detected (NOT DETECT) 04/12/25 16:19 Influenza A (H3) PCR Not detected (NOT DETECT) 04/12/25 16:19 Influenza Type A (PCR) Not detected (NOT DETECT) 04/12/25 16:19 Influenza Type B (PCR) Not detected (NOT DETECT) 04/12/25 16:19 M. pneumoniae (PCR) Not detected (NOT DETECT) 04/12/25 16:19 Parainfluenza 1 (PCR) Not detected (NOT DETECT) 04/12/25 16:19 Parainfluenza 2 (PCR) Not detected (NOT DETECT) 04/12/25 16:19 Parainfluenza 3 (PCR) Not detected (NOT DETECT) 04/12/25 16:19 Parainfluenza 4 (PCR) Not detected (NOT DETECT) 04/12/25 16:19 RSV Type A (PCR) Not detected (NOT DETECT) 04/12/25 16:19 RSV Type B (PCR) Not detected (NOT DETECT) 04/12/25 16:19 Entero/Rhino (PCR) Not detected (NOT DETECT) 04/12/25 16:19 SARS-CoV-2 (PCR) Not detected (NOT DETECT) 04/12/25 16:19 Vitals Last Vital Signs Temp 98.3 F 04/16/25 04:00 Pulse 101 H 04/16/25 10:00 Resp 25 H 04/16/25 10:00 BP 143/93 04/16/25 10:00 Pulse Ox 90 04/16/25 10:00 O2 Del Method Room Air 04/16/25 07:56 O2 Flow Rate 2 04/14/25 08:07 Discharge Plan Discharge Patient Disposition: Home Health Service Condition: Stable Prescriptions: New metoprolol tartrate 25 mg tablet 25 mg PO BID Qty: 60 0RF levofloxacin 750 mg tablet 750 mg PO Q24H 4 Days Qty: 4 0RF amoxicillin-pot clavulanate 875-125 mg tablet 1 tab PO BID 4 Days Qty: 8 0RF Continued omega 1-xen-ztd-fish oil [Fish Oil] 1,200 (144-216) mg capsule 1 cap PO DAILY vitamin E (dl, acetate) 45 mg (100 unit) capsule 45 mg PO DAILY lorazepam 1 mg tablet 0.5 - 1 mg buccal Q8H PRN (Reason: severe nausea and vomiting) Qty: 30 2RF sennosides [senna] 8.6 mg tablet 8.6 mg PO ONCE PRN (Reason: Constipation) potassium chloride 20 mEq tablet extended release 20 meq PO DAILY Qty: 90 0RF allopurinol 300 mg tablet 300 mg PO DAILY Qty: 30 0RF pantoprazole [Protonix] 40 mg Tablet,Delayed Release (Dr/Ec) 40 mg PO QAM Rx Instructions: Take 1 tablet by mouth every morning before a meal . metformin 1,000 mg Tablet 500 mg PO BID Rx Instructions: medication on med list pt brought in lisinopril 40 mg Tablet 20 mg PO QPM Rx Instructions: medication on med list pt brought in bupropion HCl 150 mg Tablet Extended Release 24 Hr 150 mg PO QAM Rx Instructions: medication on med list pt brought in cholecalciferol (vitamin D3) 50 mcg (2,000 unit) Tablet 50 mcg PO DAILY Rx Instructions: medication on med list pt brought in zinc gluconate 50 mg Tablet 50 mg PO DAILY atorvastatin 80 mg Tablet 40 mg PO QPM Rx Instructions: Take 1/2 tablet by mouth every evening to lower Cholesterol ferrous gluconate 324 mg (37.5 mg iron) Tablet 324 mg PO DAILY nystatin 100,000 unit/mL suspension 5 - 10 ml PO BID ascorbic acid (vitamin C) [Vitamin C] 500 mg Tablet 500 mg PO BID valacyclovir 500 mg Tablet 500 mg PO DAILY folic acid 400 mcg Tablet 0.4 mg PO DAILY gabapentin 300 mg Capsule 300 mg PO BID sitagliptin 100 mg Tablet 100 mg PO DAILY Discontinued atenolol 100 mg Tablet 100 mg PO QPM Rx Instructions: medication on med list pt brought in hydrochlorothiazide 25 mg Tablet 25 mg PO QAM Rx Instructions: medication on med list pt brought in Discharge Orders: Discharge Order (Routine); Ordered 04/16/25 Ordered By: Matt Irving Referrals: [facility] ([facility]) [Outside] Linda Muller MD [Primary Care Provider, Family Practice] - 1 week Discharge Diet: Cardiac and Diabetic Discharge Activity: Resume usual activity and Increase activity as tolerated Patient Instructions: Metoprolol (By mouth) (Lopressor, Toprol XL), Amoxicillin (By mouth), Levofloxacin (By mouth), Opioid Safety Activity Restrictions/Additional Instructions: Please call Friday to schedule a follow-up appointment with your primary care provider. Take antibiotic including amoxicillin and Levaquin for next 3 days. Take metoprolol 25 mg twice daily. Do not take atenolol and hydrochlorothiazide for now. Please check your blood pressure daily at home maintain blood pressure diary and follow-up with a primary care provider within next 2 weeks for further adjustment of antihypertensive. Discharge Attestations Time Spent in Discharge Care*: greater than 30 min Specific Discharge Activities: educating patient, educating and/or supporting family/caregiver, discussing with pcp/other providers, discussing with human services case manager/social workers/dc planners, documenting/other paperwork and evaluating patient/reviewing data Status at Discharge: Cognitive status at discharge: cognitively intact , Behavioral status at discharge: cooperative , Functional status at discharge: independent ambulation , Overall status at discharge: patient is back to baseline Quality Metrics Clinical Quality Measures [ No reported AMI, CVA or VTE this stay] Coding Level of Care Code 85073 Total time (in minutes) for Discharge: 65 Diagnoses Acute hypoxemic respiratory failure J96.01 Sepsis A41.9 Acute respiratory failure type: with hypoxia Sepsis acute organ dysfunction status: with acute organ dysfunction Severe sepsis acute organ dysfunction type: acute respiratory failure Severe sepsis shock status: without septic shock Hypotension I95.9 Hypertension I10 Atrial fibrillation I48.91 DM type 2 (diabetes mellitus, type 2) E11.9 Mantle cell lymphoma, unspecified body region C83.10 Lymphoma site: unspecified region Bilateral pneumonia J18.9
== END 2025-04-16 12:05 | disposition home health service (06) | DRG 871 ==
LOC: ER 16:31 → CSU 16:36 → ICU 16:47
PROVIDERS: Admitting Provider Student in an Organized Health Care Education/Training Program; Emergency Provider Emergency Medicine; PCP Family Medicine; Visit Provider Student in an Organized Health Care Education/Training Program
DX: A41.9 Sepsis, unspecified organism (principal); J18.9 Pneumonia, unspecified organism; J96.01 Acute respiratory failure with hypoxia; C83.1A Mantle cell lymphoma, in remission; R65.20 Severe sepsis without septic shock; I10 Essential (primary) hypertension; I48.91 Unspecified atrial fibrillation; E11.42 Type 2 diabetes mellitus with diabetic polyneuropathy; F43.10 Post-traumatic stress disorder, unspecified; E78.5 Hyperlipidemia, unspecified; K21.9 Gastro-esophageal reflux disease without esophagitis; R33.9 Retention of urine, unspecified; Z79.84 Long term (current) use of oral hypoglycemic drugs; Z87.01 Personal history of pneumonia (recurrent); Z87.891 Personal history of nicotine dependence
CPT/HCPCS: 36415; 36416; 36591; 36600; 51702; 71045; 71275; 80051; 80053; 80061; 81001; 82330; 82805; 82962; 83036; 83605; 83735; 83880; 84100; 84145; 84443; 85007; 85025; 85378; 85610; 86403; 87040; 87486; 87581; 87633; 93005; 93306; 94640; 94664; 94669; 96365; 96367; 96372; 96376; 97110; 97116; 97162; 97530; 99285; J1650; J1815; J2470; J2543; J2919; J3370; J7030; J7050; J7626; J9999; Q0144

== ENCOUNTER 2025-05-09 11:00 | Oncology outpatient (recurring) (ONCR) | payer OTHER, SELFPAY ==
[2025-04-25 13:21] LABS: Basophils # 0.1 10^3/uL (0.0-0.1); Basophils % 1.3 %; Eosinophils # 0.5 10^3/uL (0.0-0.8); Eosinophils % 8.1 %; Hematocrit 33.1 % (37-53); Lymphocytes # 2.2 10^3/uL (0.8-4.8); Lymphocytes % 35.7 %; Mean Corpuscular HGB Conc 28.7 g/dL (30-55); Mean Corpuscular Hemoglobin 22.2 pg (27-33); Mean Corpuscular Volume 77.3 fl (82-101); Mean Platelet Volume 10.3 fL (7.4-10.4); Monocytes # 0.4 10^3/uL (0.2-0.9); Monocytes % 6.6 %; Neutrophils % 41.9 %; Nucleated Red Blood Cells % 0 %; Platelet Count 238 10^3/cmm (157-399); Red Blood Count 4.28 10^6/uL (3.85-5.65); Red Cell Distribution Width 19.9 % (12.1-15.1); White Blood Count 6.21 10^3/uL (3.29-11.43)
[2025-04-25 13:40] LABS: Albumin Level 3.5 g/dL (3.5-5.2); Chloride 104 mmol/L (98-107); Potassium 4.1 mmol/L (3.5-5.1); Sodium 140 mmol/L (136-145)
[2025-04-25 13:51] LABS: Alanine Aminotransferase 25 U/L (0-41); Alkaline Phosphatase 122 U/L (40-130); Anion Gap 17.1 (5-19); Aspartate Amino Transferase 17 U/L (0-40); Blood Urea Nitrogen 10 mg/dL (8-23); Carbon Dioxide 23 mmol/L (22-29); Ferritin 570 ng/mL (30-400); Globulin 3.2 g/dL (1.3-4.6); Glucose 120 mg/dL (65-115); Iron 27 ug/dL (59-158); Lactate Dehydrogenase 190 U/L (135-225); Osmolality Calculated 290 mOsm/kg (285-295); Percent Saturation 12.2 % (20-50); Total Bilirubin 0.3 mg/dL (0.15-1.2); Total Iron Binding Capacity 221 mcg/dl; Total Protein 6.7 g/dL (6.6-8.7); Unsaturated Iron Binding 194 ug/dL (112-347)
[2025-04-25 13:53] LABS: Slide Review Slide Review Perform
[2025-05-09 11:15] LABS: Basophils # 0.1 10^3/uL (0.0-0.1); Eosinophils # 0.7 10^3/uL (0.0-0.8); Eosinophils % 11.3 %; Hematocrit 29.7 % (37-53); Lymphocytes # 1.6 10^3/uL (0.8-4.8); Lymphocytes % 28.2 %; Mean Corpuscular HGB Conc 28.3 g/dL (30-55); Mean Corpuscular Volume 77.7 fl (82-101); Monocytes # 0.8 10^3/uL (0.2-0.9); Monocytes % 13.6 %; Neutrophils # 2.38 10^3/uL (1.8-7.7); Neutrophils % 40.9 %; Nucleated Red Blood Cells % 0 %; Platelet Count 124 10^3/cmm (157-399); Red Blood Count 3.82 10^6/uL (3.85-5.65); Red Cell Distribution Width 20.6 % (12.1-15.1); White Blood Count 5.82 10^3/uL (3.29-11.43)
[2025-05-09 11:44] LABS: Alanine Aminotransferase 9 U/L (0-41); Albumin Level 3.3 g/dL (3.5-5.2); Alkaline Phosphatase 86 U/L (40-130); Anion Gap 15.5 (5-19); Aspartate Amino Transferase 8 U/L (0-40); Blood Urea Nitrogen 7 mg/dL (8-23); Calcium 8.3 mg/dL (8.5-10.5); Carbon Dioxide 23 mmol/L (22-29); Chloride 106 mmol/L (98-107); Globulin 2.9 g/dL (1.3-4.6); Glucose 134 mg/dL (65-115); Lactate Dehydrogenase 166 U/L (135-225); Osmolality Calculated 292 mOsm/kg (285-295); Potassium 3.5 mmol/L (3.5-5.1); Sodium 141 mmol/L (136-145); Total Bilirubin 0.4 mg/dL (0.15-1.2); Total Protein 6.2 g/dL (6.6-8.7)
== END 2025-05-16 23:59 | disposition home or self-care (01) ==
PROVIDERS: Internal Medicine Medical Oncology; Nurse Practitioner Family; PCP Family Medicine; Visit Provider Internal Medicine Medical Oncology
DX: Z45.2 Encounter for adjustment and management of vascular access device; D70.9 Neutropenia, unspecified; Z95.828 Presence of other vascular implants and grafts; Z53.9 Procedure and treatment not carried out, unspecified reason
CPT/HCPCS: 36591; 80053; 82728; 83540; 83550; 83615; 85025; 96523; 99214

== ENCOUNTER 2025-05-30 10:12 | Oncology outpatient (recurring) (ONCR) | payer OTHER, SELFPAY ==
[2025-05-30 10:47] LABS: Hematocrit 30.4 % (37-53); Hemoglobin 8.90 g/dL (11.27-16.99); Mean Corpuscular HGB Conc 29.3 g/dL (30-55); Mean Corpuscular Hemoglobin 21.5 pg (27-33); Mean Corpuscular Volume 73.4 fl (82-101); Nucleated Red Blood Cells % 0 %; Platelet Count 207 10^3/cmm (157-399); Red Blood Count 4.14 10^6/uL (3.85-5.65); White Blood Count 6.90 10^3/uL (3.29-11.43)
[2025-05-30 11:01] LABS: Alanine Aminotransferase 7 U/L (0-41); Albumin Level 3.7 g/dL (3.5-5.2); Alkaline Phosphatase 99 U/L (40-130); Anion Gap 14.9 (5-19); Aspartate Amino Transferase 11 U/L (0-40); Blood Urea Nitrogen 9 mg/dL (8-23); Calcium 8.9 mg/dL (8.5-10.5); Carbon Dioxide 25 mmol/L (22-29); Chloride 105 mmol/L (98-107); Creatinine Clr Calc Pharmacy 90.8911; Globulin 3.2 g/dL (1.3-4.6); Glucose 124 mg/dL (65-115); Osmolality Calculated 292 mOsm/kg (285-295); Potassium 3.9 mmol/L (3.5-5.1); Sodium 141 mmol/L (136-145); Total Protein 6.9 g/dL (6.6-8.7); Uric Acid 5.3 mg/dL (3.4-7.0)
[2025-05-30 11:02] LABS: Slide Review Slide Review Perform
[2025-05-30 11:44] LABS: Ferritin 485 ng/mL (30-400); Iron 18 ug/dL (59-158); Total Iron Binding Capacity 192 mcg/dl; Unsaturated Iron Binding 174 ug/dL (112-347)
[2025-05-30 12:00] LABS: Vitamin B12 555 pg/mL (232-1245)
== END 2025-06-16 23:59 | disposition home or self-care (01) ==
PROVIDERS: Internal Medicine; PCP Family Medicine; Visit Provider Internal Medicine Medical Oncology
DX: C83.10 Mantle cell lymphoma, unspecified site (principal); R03.0 Elevated blood-pressure reading, without diagnosis of hypertension; D75.9 Disease of blood and blood-forming organs, unspecified; D64.9 Anemia, unspecified; Z87.891 Personal history of nicotine dependence; D50.9 Iron deficiency anemia, unspecified; D61.810 Antineoplastic chemotherapy induced pancytopenia; T45.1X5A Adverse effect of antineoplastic and immunosuppressive drugs, initial encounter
CPT/HCPCS: 36591; 80053; 82607; 82728; 83540; 83550; 83615; 84550; 85025; 99214

== ENCOUNTER 2025-06-27 11:56 | Oncology outpatient (recurring) (ONCR) | payer OTHER, SELFPAY ==
[2025-06-27 12:42] LABS: Hematocrit 32.4 % (37-53); Hemoglobin 9.10 g/dL (11.27-16.99); Mean Corpuscular HGB Conc 28.1 g/dL (30-55); Mean Corpuscular Hemoglobin 20.0 pg (27-33); Mean Corpuscular Volume 71.4 fl (82-101); Nucleated Red Blood Cells % 0 %; Platelet Count 184 10^3/cmm (157-399); Red Blood Count 4.54 10^6/uL (3.85-5.65); White Blood Count 8.63 10^3/uL (3.29-11.43)
[2025-06-27 13:10] LABS: Alanine Aminotransferase 16 U/L (0-41); Albumin Level 3.8 g/dL (3.5-5.2); Alkaline Phosphatase 93 U/L (40-130); Anion Gap 15.0 (5-19); Aspartate Amino Transferase 11 U/L (0-40); Blood Urea Nitrogen 13 mg/dL (8-23); Calcium 8.9 mg/dL (8.5-10.5); Carbon Dioxide 23 mmol/L (22-29); Chloride 106 mmol/L (98-107); Creatinine Clr Calc Pharmacy 90.2956; Ferritin 479 ng/mL (30-400); Globulin 3.4 g/dL (1.3-4.6); Glucose 142 mg/dL (65-115); Osmolality Calculated 293 mOsm/kg (285-295); Potassium 4.0 mmol/L (3.5-5.1); Sodium 140 mmol/L (136-145); Total Protein 7.2 g/dL (6.6-8.7); Uric Acid 5.3 mg/dL (3.4-7.0)
== END 2025-07-17 23:59 | disposition home or self-care (01) ==
PROVIDERS: Nurse Practitioner Family; PCP Family Medicine; Visit Provider Internal Medicine Medical Oncology
DX: Z08 Encounter for follow-up examination after completed treatment for malignant neoplasm (principal); Z85.72 Personal history of non-Hodgkin lymphomas; D61.810 Antineoplastic chemotherapy induced pancytopenia; T45.1X5A Adverse effect of antineoplastic and immunosuppressive drugs, initial encounter; E11.9 Type 2 diabetes mellitus without complications; Z87.891 Personal history of nicotine dependence; R03.0 Elevated blood-pressure reading, without diagnosis of hypertension; D64.9 Anemia, unspecified; J34.89 Other specified disorders of nose and nasal sinuses; R09.89 Other specified symptoms and signs involving the circulatory and respiratory systems
CPT/HCPCS: 36591; 80053; 82728; 83615; 84550; 85025; 86850; 86900; 99214

== ENCOUNTER 2025-07-16 15:26 | Emergency (ER) | payer OTHER, MEDICARE, SELFPAY ==
--- OUTSIDE RECORDS SUMMARY | 2025-05-31 08:00 | XMS_ITS | Encounter Summary ---
Author Name [facility] Address [address] [place] [id number] Care Team Providers Care Endorsement Clerk Name Role Phone IVAN DUMONT Primary Care Provider Unavailabl e Insurance Providers: All historical and current Section Date Range: From patient's date of to the date document was created. This section includes the names of all active insurance providers for the patient. Insurance Provider Type of Coverage Plan Name Start of Policy Coverage End of Policy Coverage Group Number Member ID Insurance Provider's Telephone Number Policy Calles's Name Patient's Relationship to Policy Calles MEDICARE (WNR) MEDICARE (M) PART A Jul 18, 2012 PART A [id number] ZAYRACELESTINA AN PATIENT MEDICARE (WNR) MEDICARE (M) PART B Jul 18, 2012 PART B [id number] [phone] ZAYRACELESTINA AN PATIENT MEDICARE (WNR) MEDICARE (M) PART A Jul 18, 2012 PART A [id number] CELESTINA IVERSON AN PATIENT MEDICARE (WNR) MEDICARE (M) PART B Jul 18, 2012 PART B [id number] ZAYRACELESTINA AN PATIENT MEDICARE (WNR) MEDICARE (M) PART B Jul 18, 2012 PART B [id number] ZAYRACELESTINA AN PATIENT MEDICARE (WNR) MEDICARE (M) PART A Jul 18, 2012 PART A [id number] CELESTINA IVERSON AN PATIENT Selected Encounter This section includes the information on record at ME for the Encounter. Date/Time Encounter Type Encounter Description Reason Provider Source May 31, 2025 01:00 PM OFF/OP EST MARCH X REQ PHY/QHP PRIMARY CARE/MEDICINE ICD-10-CM J18.9 Pneumonia, unspecified organism DYLAN QUILES IHAntonio Encounter Template Text not used by ME Assessments - Encounter Diagnoses This section includes the primary and secondary diagnoses documented for the Encounter. Date/Time Primary/Secondary Diagnosis Diagnosis Name Provider Source May 31, 2025 04:17 PM PRIMARY Pneumonia, unspecified organism DYLAN QUILES [facility] Plan of Treatment: Future Appointments (+ 6 months) and Future Tests (+/- 45 days) The Plan of Treatment section includes future care activities for the patient [facility] This section includes future appointments and future orders which are active, pending or scheduled. Future Appointments This section includes appointments that were scheduled to occur 6 months from the date of the Encounter, up to a maximum of 20 appointments. The data comes from all [facility]. Appointment Date/Time Appointment Type Appointme nt Facility Name Jun 22, 2025 01:15 PM AMBULATORY - MEDICINE [facility] Jun 22, 2025 02:00 PM AMBULATORY - MEDICINE [facility] Jun 27, 2025 11:45 AM AMBULATORY - MEDICINE [facility] Jul 11, 2025 02:30 PM AMBULATORY - MEDICINE [facility] Jul 26, 2025 01:00 PM AMBULATORY - MEDICINE [facility] Aug 15, 2025 08:30 AM AMBULATORY - MEDICINE [facility] Sep 12, 2025 11:00 AM AMBULATORY - MEDICINE [facility] Sep 13, 2025 12:30 PM AMBULATORY - MEDICINE [facility] Active, Pending, and Scheduled Orders This section includes a listing of several types of active, pending, and scheduled orders, including clinic medications orders, diagnostic test orders, procedure orders and consult orders; where the start date of the order is 45 days before the date of the Encounter or 45 days after the date of theEncounter. The data comes from all [facility]. Test Date/Time Test Type Test Details Facility Name May 06, 2025 12:00 AM Laboratory - Chemistry Order CHOLESTEROL PANEL (PB) GREEN LI/HEP BLD/PLAS PLASMA [facility] May 06, 2025 12:00 AM Laboratory - Chemistry Order COMPREHENSIVE METABOLIC PANEL GREEN LI/HEP BLD/PLAS PLASMA [facility] May 06, 2025 12:00 AM Laboratory - Chemistry Order URINE ALBUMIN PROFILE-ih (PB) URINE,RANDOM [facility] May 09, 2025 03:38 PM Laboratory - Chemistry Order H&H (PB-MA) BLOOD [facility] May 09, 2025 03:38 PM Laboratory - Chemistry Order PLT BLOOD [facility] Jun 28, 2025 08:20 AM Consult Order [facility]-HEMATOLOGY/ONC [id number] Cons Medical Planner's Choice [facility] Jun 29, 2025 02:23 PM Consult Order [facility]-DENTAL GEN [id number] Cons Medical Planner's Choice [facility] [place] Lab Results: +/- 30 days of the encounter This section includes the Chemistry and Hematology Lab Results on record with ME for the patient. Radiology Reports and Pathology Reports are provided separately, in subsequent sections. Lab Results This section contains the Chemistry/Hematology Results that were resulted 30 days before or 30 daysafter the date of the Encounter. Date/Time Source Result Type Result - Unit Interpretation Reference Range Specimen Type Comment May 24, 2025 08:00 AM [facility] OCCULT BLOOD FIT X1 SCREEN FECES Specimen Typ e: FECES No comment entered. Ordering Provider: IVAN DUMONT Report Released Date/Time: May 09, 2025 03:36 PM Reporting Lab: [place] [facility] [address] [place] [address] Performing Lab: [place] [facility] [address] [place] [address] OCCULT BLOOD (FIT) #1 OF 1 Negative May 06, 2025 10:13 AM [facility] B12 SERUM Specimen Type: SERUM No comment entered. Ordering Provider: IVAN DUMONT Report Released Date/Time: Jun 14, 2024 04:32 PM Reporting Lab: [place] [facility] [address] [place] [address] Performing Lab: [place] [facility] [address] [place] [address] B12 598 pg/mL 213-816 May 06, 2025 10:13 AM [facility] FOLATE (PB) SERUM Specimen Typ e: SERUM No comment entered. Ordering Provider: IVAN DUMONT Report Released Date/Time: Jun 14, 2024 04:32 PM Reporting Lab: [place] [facility] [address] [place] [address] Performing Lab: [place] [facility] [address] [place] [address] FOLATE (PB) 11.0 ng/mL 7-20 May 06, 2025 10:13 AM [facility] HGA1C BLOOD Specimen Type: BLOOD No comment entered. Ordering Provider: IVAN DUMONT Report Released Date/Time: Jun 14, 2024 04:32 PM Reporting Lab: [place] [facility] [address] [place] [address] Performing Lab: [place] [facility] [address] [place] [address] HGA1C 6.9 H 4.0-6.0 May 06, 2025 10:13 AM [facility] VITAMIN D, 25-HYDROXY SERUM Specimen Type: SE RUM No comment entered. Ordering Provider: IVAN DUMONT Report Released Date/Time: Jun 14, 2024 04:32 PM Reporting Lab: [place] [facility] [address] [place] [address] Performing Lab: [place] [facility] [address] [place] [address] VITAMIN D, 25-HYDROXY 63.6 ng/mL 30-96 May 06, 2025 10:13 AM [facility] URINE ALBUMIN PROFILE-ih (PB) URINE Specimen Type: URINE No comment entered. Ordering Provider: IVAN DUMONT Report Released Date/Time: Jun 14, 2024 04:32 PM Reporting Lab: [place] [facility] [address] [place] [address] Performing Lab: [place] [facility] [address] [place] [address] URINE ALBUMIN (PB-STL) 16.40 mg/L uACR (PB-MA) 12.57 mg/g 0-30 CREATININE URINE/OTHERS 130.48 mg/dL May 06, 2025 10:13 AM [facility] CHOLESTEROL PANEL (PB) PLASMA Specimen Type: P LASMA No comment entered. Ordering Provider: IVAN DUMONT Report Released Date/Time: Jun 14, 2024 04:32 PM Reporting Lab: [place] [facility] [address] [place] [address] Performing Lab: [place] [facility] [address] [place] [facility] CHOLESTEROL 112 mg/dL 0-200 TRIGLYCERIDE 108 mg/dL 0-150 CALCULATED LDL 55.4 mg/dL HDL(New) 35.0 mg/dL L >40 HDL % OF TOTAL CHOLESTEROL (PB) 31.3 >25 May 06, 2025 10:13 AM [facility] TSH (MA-PB) SERUM Specimen Typ e: SERUM No comment entered. Ordering Provider: IVAN DUMONT Report Released Date/Time: Jun 14, 2024 04:32 PM Reporting Lab: [place] [facility] [address] [place] [address] Performing Lab: [place] [facility] [address] [place] [facility] TSH 1.757 u[IU]/mL 0.47-5 May 06, 2025 10:13 AM [facility] COMPREHENSIVE METABOLIC PANEL PLASMA Specimen Type: PLASMA No comment entered. Ordering Provider: IVAN DUMONT Report Released Date/Time: Jun 14, 2024 04:32 PM Reporting Lab: [place] [facility] [address] [place] [address] Performing Lab: [place] [facility] [address] [place] [address] CREATININE 0.72 mg/dL 0.7-1.3 UREA NITROGEN 11 mg/dL 9-25 GLUCOSE 114 mg/dL H 72-99 SODIUM 144 meq/L 136-145 POTASSIUM 3.9 meq/L 3.5-5 CHLORIDE 109 meq/L H 98-107 CARBON DIOXIDE 26 meq/L 22-31 CALCIUM 8.6 mg/dL 8.4-10.4 PROTEIN 6.7 g/dL 6-8.6 ALBUMIN 3.7 g/dL 3.4-5 TOTAL BILIRUBIN 0.4 mg/dL 0.2-1.2 ALKALINE PHOSPHATASE 93 U/L 40-150 AST/SGOT 12 U/L 5-34 ALT/SGPT 14 U/L 8-40 EGFR (CKD-EPI 2020) 94 May 06, 2025 10:13 AM [facility] CBC BLOOD Specimen Type: BLOOD No comment entered. Ordering Provider: IVAN DUMONT Report Released Date/Time: Jun 14, 2024 04:32 PM Reporting Lab: [place] [facility] [address] [facility] [address] Performing Lab[facility] [place] [facility] [address] [place] [facility] [address] WBC 4.6 10*3/uL 3.6-11.2 RBC 4.18 10*6/uL 4.10-5.70 HGB 9.3 g/dL L 13.1-16.8 HCT 32.8 L 38.2-48.4 MCV 78.5 fL L 80.0-100.0 MCH 22.2 pg L 27.0-34.0 MCHC 28.4 g/dL L 33.0-36.0 PLT 171 10*3/uL 150-400 MPV 10.8 fL 7.5-11.2 NEUTROPHILS 39 MONOCYTES 9 EOSINOPHILS 20 PLT. (SMEAR EST.) ADEQUATE ADEQUATE ANISOCYTOSIS 3+ MICROCYTOSIS 1+ HYPOCHROMIA 2+ RDW 21.0 H 11.8-15.1 ACANTHOCYTES 3+ LYMPHOCYTES 32 LYMPHOCYTES, AUTO % 28.7 MONOCYTES, AUTO % 11.9 NEUTROPHILS, AUTO % 33.3 EOSINOPHILS, AUTO % 20.7 BASOPHILS, AUTO % 1.3 LYMPHOCYTES, ABSOLUTE 1.33 10*3/uL 0.77- 4.50 MONOCYTES, ABSOLUTE 0.55 10*3/uL 0.19-0. 8 NEUTROPHILS, ABSOLUTE 1.55 10*3/uL L 2.10- 8.00 EOSINOPHILS, ABSOLUTE 0.96 10*3/uL H 0.00- 0.60 BASOPHILS, ABSOLUTE 0.06 10*3/uL 0.00-0. 20 OVALOCYTES 2+ IMMATURE GRANS, AUTO % 4.1 IMMATURE GRANS, AUTO ABS 0.19 10*3/uL H 0. 00-0.05 NORMRBC NO IG#-MDIFF 0.00 10*3/uL >0.00 EO#-MDIFF 0.92 10*3/uL H 0.00-0.60 MONO#-MDIFF 0.41 10*3/uL 0.19-0.8 LYMPH#-MDIFF 1.47 10*3/uL 0.77-4.50 NEUT#-MDIFF 1.79 10*3/uL L 2.10-8.00 Vital Signs: All taken on the encounter date This section contains inpatient and outpatient Vital Signs collected on the date of the Encounter. Date/Time Temperature Pulse Blood Pressure Respiratory Rate SP02 Pain Height Weight Body Mass Index Source May 31, 2025 04:06 PM 98 F 78 /min 133/76 mm[Hg] [facility] Social History: Smoking Status (Most current) and Tobacco Use (All prior to encounter date) This section includes the most current, and the historical, smoking and tobacco- related health factors from the [place] facility where the Encounter took place. Current Smoking Status This section includes the most current smoking, or tobacco-related health factor, from the [place] facility where the Encounter took place. Date/Time Current Smoking Status Comment Facil ity Jun 10, 2024 12:30 PM VA-TOBACCO NEVER USED [facility] Tobacco Use History This section includes a history of the smoking, or tobacco-related health factors, that were collected on or before the date of the Encounter. The data comes from the [place] facility where the Encounter took place. Date/Time Smoking Status/Tobacco Use Comment F acility March 26, 2023 10:30 AM VA-TOBACCO FORMER USER [facility] March 26, 2023 10:30 AM [facility] March 26, 2023 10:30 AM VA-TOBACCO QUIT 5 TO < 15 YRS [facility] Dec 02, 2019 12:14 PM CURRENT NON-TOBACC O USER-HX OF USE [facility] April 13, 2019 02:08 PM VA-TOBACCO FORMER USER [facility] April 13, 2019 02:08 PM VA-TOBACCO QUIT 5 TO < 15 YRS [facility] Dec 30, 2018 10:55 AM CURRENT NON-TOBACC O USER-HX OF USE [facility] Dec 30, 2018 10:40 AM CURRENT NON-TOBACC O USER-HX OF USE [facility] May 17, 2015 10:44 AM TOBACCO OFFERED PT MEDS (PROVIDER) [facility] May 17, 2015 10:[address] [facility] SMOKING CLINIC [facility] May 17, 2015 10:44 AM TOBACCO OFFERRED P T MEDS (PROVIDER) [facility] May 17, 2015 10:44 AM TOBACCO OFFERRED S TOP SMOKING CLINIC [facility] Dec 24, 2013 08:33 AM TOBACCO MEDS OFFER ED BUT DECLINED [facility] Dec 24, 2013 08:33 AM TOBACCO OFFERED PT MEDS (PROVIDER) [facility] Dec 24, 2013 08:[address] OP SMOKING CLINIC [facility] Oct 12, 2012 10:26 AM TOBACCO MEDS OFFER ED BUT DECLINED [facility] Oct 12, 2012 10:26 AM TOBACCO OFFERED PT MEDS (PROVIDER) declined [facility] Oct 12, 2012 10:[address] [facility] SMOKING CLINIC declined [facility] Jan 15, 2012 02:50 PM TOBACCO MEDS OFFER ED BUT DECLINED [facility] Jan 15, 2012 02:50 PM TOBACCO OFFERED PT MEDS (PROVIDER) declined [facility] Jan 15, 2012 02:[address] OP SMO[facility] CLINIC declined [facility] Oct 30, 2010 10:54 AM TOBACCO MEDS OFFER ED BUT DECLINED [facility] Oct 30, 2010 10:54 AM TOBACCO OFFERED PT MEDS (PROVIDER) declined [facility] Oct 30, 2010 10:[address] OP SMOKING CLINIC declined [facility] Jan 26, 2009 10:09 AM LIFETIME NON-USER OF TOBACCO [facility] Jul 14, 2008 10:13 AM TOBACCO MEDS OFFER ED BUT DECLINED [facility] Jul 15, 2007 08:44 AM QUIT TOBACCO >7 YEARS AGO [facility] Jun 05, 2006 11:00 AM CURRENT TOBACCO USER [facility] Oct 14, 2005 02:31 PM CURRENT NON-TOBACC O USER-HX OF USE [facility] Jun 12, 2005 03:23 PM CURRENT TOBACCO USER [facility] May 13, 2005 10:09 AM CURRENT TOBACCO USER [facility] April 01, 2005 03:00 PM CURRENT TOBACCO USER [facility] Radiology Reports: +/- 30 days of the encounter Radiology Reports For cases when an order for radiology services may have been completed prior to the date of the Encounter, the report list includes the Radiology Reports that were completed up to 30 days before dateof the Encounter. For cases when an order for radiology services may have been completed after the date of the Encounter, the report list also includes the Radiology Reports that were completed up to30 days after date of the Encounter. The data comes from all [place] treatment facilities. Date/Time Radiology Report Provider Source May 16, 2025 12:17 PM CHEST X-RAY, 2 VIE WS: PATRICIA IVERSON [id number] -[id number] M Exm Date: MAY 16, 2025@12:17 Req Phys: IVAN DUMONT Loc: PB-[facility] PACT [facility] PCP (Req'g L Img Loc: PB-XRAY STAR Service: [place] [address] (Case [id number] COMPLETE) CHEST X-RAY, 2 VIEWS (RAD Detailed) CPT:01061 Reason for Study: fu left infiltrte Clinical History: Report Status: Verified Date Reported: MAY 16, 2025 Date Verified: MAY 16, 2025 Violin Teacher E-Sig: Report: EXAM: Chest x-ray PA and lateral views. FINDINGS: There is a left subclavian injection catheter with the tip over the superior vena cava. There is atherosclerotic change involving the thoracic aorta. There is elevation of the right hemidiaphragm which is a chronic finding. The heart is normal in size. There is no pulmonary vascular congestion. There is very mild atelectasis or infiltrate in the left lung base.. There is blunting of the left costophrenic angle which may represent scarring or a very small left pleural effusion. There is mild degenerative change involving the thoracic spine. Impression: 1. Pleural scarring versus very small left pleural effusion. 2. Very mild atelectasis or infiltrate in the left lung base. 3. Chronic changes. Primary Interpreting Staff: Robert Chan M.D., Radiology (Violin Teacher, no e-sig) /ROBERT MIGUEL [facility] May 06, 2025 10:10 AM CHEST X-RAY, 2 VIE WS: PATRICIA IVERSON [id number] -[id number] M Exm Date: MAY 06, 2025@10:10 Req Phys: IVAN DUMONT Pat Loc: PB-[facility] PACT [facility] PCP (Req'g L Img Loc: PB-XRAY STAR Service: [place] [address] (Case [id number] COMPLETE) CHEST X-RAY, 2 VIEWS (RAD Detailed) CPT:01601 Reason for Study: follow up[ Clinical History: ed follow up pneumonia tx 1 week Report Status: Verified Date Reported: MAY 06, 2025 Date Verified: MAY 06, 2025 Violin Teacher E-Sig: Report: PA and lateral views of the chest reveal mild degenerative skeletal changes with atherosclerotic calcification and mild bilateral pulmonary hyperaeration. There is an Nhcpfr-s-Ygrt via the left subclavian vein. There is irregular density compatible with a small infiltrate in the infrahilar left lung. There is no pleural effusion. Heart size is normal. Impression: Left infrahilar infiltrate Primary Interpreting Staff: CARLOS IQBAL, RADIOLOGIST (Violin Teacher, no e-sig) /[facility] [place] [facility] Encounter Notes: All associated encounter notes This section contains the clinical notes associated to the Encounter. Date/Time Encounter Note(s) Provider Source May 31, 2025 04:06 PM NURSING PROGRESS N OTE: LOCAL TITLE: NURSING NOTE PB STANDARD TITLE: NURSING PROGRESS NOTE DATE OF NOTE: MAY 31, 2025@16:06 ENTRY DATE: MAY 31, 2025@16:06:39 AUTHOR: DYLAN QUILES COSIGNER: URGENCY: STATUS: COMPLETED Blood Pressure: 133/76 Pulse: 78 Temperature: 98 F (36.7 C) Pulse Oximetry: 98% Active Outpatient Medications: Active Outpatient Medications (including Supplies): Active Outpatient Medications Status 1) ASCORBIC ACID 500MG TAB TAKE TWO TABLETS BY MOUTH ONCE A DAY ACTIVE (S) FOR VITAMIN SUPPLEMENTATION. 2) ATENOLOL 100MG TAB TAKE ONE TABLET BY MOUTH ONCE A DAY DO ACTIVE/PARKED NOT TAKE ANTACIDS OR CALCIUM SUPPLEMENTS WITHIN 2 HRS OF TAKING THIS MEDICATION. Indication: FOR HIGH BLOOD PRESSURE 3) ATORVASTATIN CALCIUM 80MG TAB TAKE ONE-HALF TABLET BY MOUTH ACTIVE EVERY EVENING TO LOWER CHOLESTEROL (REPORT ANY MUSCLE PAIN OR WEAKNESS) THIS TABLET IS TO BE CUT IN HALF FOR YOUR DOSE 4) BUPROPION HCL 150MG 24HR SA TAB TAKE ONE TABLET BY MOUTH ACTIVE ONCE A DAY SWALLOW WHOLE - DO NOT CRUSH OR CHEW. 5) CHOLECALCIF 50MCG (D3-2,000UNIT) TAB TAKE ONE TABLET BY ACTIVE MOUTH ONCE A DAY FOR VITAMIN D SUPPLEMENT 6) DICLOFENAC NA 1% TOP GEL APPLY 2 GM TO AFFECTED AREA(S) FOUR ACTIVE TIMES A DAY DO NOT EXCEED MORE THAN 16 GRAMS DAILY TO ANY LOWER EXTREMITY JOINT. NOT MORE THAN 8 GRAMS DAILY TO ANY UPPER EXTREMITY JOINT. MAX 32GM/DAY OVER ALL JOINTS. (MEASURE DOSE WITH RULER ATTACHED INSIDE BOX) Indication: FOR OSTEOARTHRITIS 7) FERROUS GLUCONATE 324MG TAB TAKE ONE TABLET BY MOUTH ONCE A ACTIVE DAY Indication: FOR IRON DEFICIENCY 8) FOLIC ACID 0.4MG TAB TAKE ONE TABLET BY MOUTH TWO TIMES PER ACTIVE WEEK Indication: FOR FOLIC ACID SUPPLEMENTATION 9) GABAPENTIN 300MG CAP TAKE ONE CAPSULE BY MOUTH TWICE A DAY ACTIVE 10) LISINOPRIL 40MG TAB TAKE ONE-HALF TABLET BY MOUTH ONCE A DAY ACTIVE Indication: FOR HIGH BLOOD PRESSURE 11) METFORMIN HCL 500MG 24HR SA TAB TAKE ONE TABLET BY MOUTH ACTIVE TWICE A DAY WITH MEALS . TAKE WITH FOOD. AVOID ALCOHOL. DISCONTINUE BEFORE GETTING XRAY DYE. Indication: FOR DIABETES 12) PANTOPRAZOLE NA 40MG EC TAB TAKE ONE TABLET BY MOUTH EVERY ACTIVE MORNING BEFORE A MEAL TO LOWER STOMACH ACID - TAKE 30 MINUTES BEFORE MEAL(S) 13) SENNOSIDES 8.6MG TAB TAKE ONE TABLET BY MOUTH ONCE A DAY ACTIVE Indication: FOR CONSTIPATION 14) SITAGLIPTIN (EQV-ZITUVIO) 100MG TAB TAKE ONE TABLET BY MOUTH ACTIVE ONCE A DAY Indication: FOR DIABETES 15) ZINC GLUCONATE 50MG TAB TAKE ONE TABLET BY MOUTH ONCE A DAY ACTIVE Active Non-VA Medications Status 1) Non-VA FISH OIL 1000MG (500MG DHA/EPA) CAP 2000MG BY MOUTH ACTIVE THREE TIMES A DAY WITH MEALS Indication: FOR HIGH TRIGLYCERIDES CC: presents to clinic for pneumonia follow up. Subjective: completed second course of antibiotics 2 days ago and was scheduled to come in for follow up. [place] reports he is feeling much better and no longer has pain in his lungs. O/A: [place] is alert and oriented. Respirations easy and non-labored. Lung sounds clear throughout with no congestion. Heart rate regular with no peripheral edema. Denies fevers,chills, malaise, cough, or pain. Reports feeling back to normal. Plan/ Intervention: Return to clinic if any signs of illness. Continue current treatment plan as discussed with PCP. RTC:As scheduled or as needed. Per [facility] Directive 1605.06, wristband documentation: Patient wristband was removed and destroyed by (staff name) Dylan Quiles RN and placed in the designated [employer] bin. /es/ EMA COUGHLIN RHODESJacquie CB Signed: 05/31/2025 16:18 DYLAN QUILES [place]
--- OUTSIDE RECORDS SUMMARY | 2025-06-22 08:15 | XMS_ITS ---
Author Name [facility] [place] [facility] [place] Address [address] [place] [id number] Care Team Providers Care Soda Fountain Manager Name Role Phone IVAN DUMONT Primary Care [...] PART A Jul 18, 2012 PART A [id number] [phone] CELESTINA IVERSON AN PATIENT MEDICARE (WNR) MEDICARE (M) PART B Jul 18, 2012 PART B [id number] [phone] ZAYRACELESTINA AN PATIENT MEDICARE (WNR) MEDICARE (M) PART A Jul 18, 2012 PART A [id number] CELESTINA IVERSON AN PATIENT MEDICARE (WNR) MEDICARE (M) PART B Jul 18, 2012 PART B [id number] ZAYRACELESTINA AN PATIENT MEDICARE (WNR) MEDICARE (M) PART A Jul 18, 2012 PART A [id number] [phone] ZAYRACELESTINA AN PATIENT MEDICARE (WNR) MEDICARE (M) PART B Jul 18, 2012 PART B [id number] [phone] CELESTINA IVERSON AN PATIENT Selected Encounter This section includes the information on record at [place] for the Encounter. Date/Time Encounter Type Encounter Description Reason Provider Source Jun 22, 2025 01:15 PM OFF/OP EST MARCH X REQ PHY/QHP PRIMARY CARE/MEDICINE ICD-10-CM R09.81 Nasal congestion DYLAN QUILES IHAntonio Encounter Template Text not used by [place] Assessments - Encounter Diagnoses This section includes the primary and secondary diagnoses documented for the Encounter. Date/Time Primary/Secondary Diagnosis Diagnosis Name Provider Source Jun 22, 2025 03:14 PM PRIMARY Nasal congestion DYLAN QUILES [facility] Plan of Treatment: Future Appointments (+ 6 months) and Future Tests (+/- 45 days) The Plan of Treatment section includes future care activities for the patient from all [place] [facility] This section includes future appointments and future orders which are active, pending or scheduled. Future Appointments This section includes appointments that were scheduled to occur 6 months from the date of the Encounter, up to a maximum of 20 appointments. The data comes from all [facility]. Appointment Date/Time Appointment Type Appointme nt Facility Name Jun 27, 2025 11:45 AM AMBULATORY - MEDICINE [facility] Jul 11, 2025 02:30 PM AMBULATORY - MEDICINE [facility] Jul 26, 2025 01:00 PM AMBULATORY - MEDICINE [facility] Aug 15, 2025 08:30 AM AMBULATORY - MEDICINE [facility] Sep 12, 2025 11:00 AM AMBULATORY - MEDICINE [facility] Sep 13, 2025 12:30 PM AMBULATORY - MEDICINE [facility] Active, Pending, and Scheduled Orders This section includes a listing of several types of active, pending, and scheduled orders, including clinic medications orders, diagnostic test orders, procedure orders and consult orders; where the start date of the order is 45 days before the date of the Encounter or 45 days after the date of theEncounter. The data comes from all [facility]. Test Date/Time Test Type Test Details Facility Name May 09, 2025 03:38 PM Laboratory - Chemi stry Order H&H (PB-MA) BLOOD [facility] May 09, 2025 03:38 PM Laboratory - Chemi stry Order PLT BLOOD [facility] Jun 28, 2025 08:20 AM Consult Order [facility]-HEMATOLOGY/ONC [id number] Cons Door Clamper's Choice [facility] Jun 29, 2025 02:23 PM Consult Order [facility]-DENTAL GEN [id number] Cons Door Clamper's Choice [facility] Lab Results: +/- 30 days of the encounter This section includes the Chemistry and Hematology Lab Results on record with [place] for the patient. Radiology Reports and Pathology Reports are provided separately, in subsequent sections. Lab Results This section contains the Chemistry/Hematology Results that were resulted 30 days before or 30 daysafter the date of the Encounter. Date/Time Source Result Type Result - Unit Interpretation Reference Range Specimen Type Comment May 24, 2025 08:00 AM [facility] OCCULT BLOOD FIT X1 SCREEN FECES Specimen Typ e: FECES No comment entered. Ordering Provider: IVAN DUMONT Report Released Date/Time: May 09, 2025 03:36 PM Reporting Lab: [facility] [address] [facility] [id number] Performing Lab: [facility] [address] [facility] [id number] OCCULT BLOOD (FIT) #1 OF 1 Negative Vital Signs: All taken on the encounter date This section contains inpatient and outpatient Vital Signs collected on the date of the Encounter. Date/Time Temperature Pulse Blood Pressure Respiratory Rate SP02 Pain Height Weight Body Mass Index Source Jun 22, 2025 01:47 PM 98.3 F 66 /min 142/74 mm[Hg] [facility] Social History: Smoking Status (Most current) and Tobacco Use (All prior to encounter date) This section includes the most current, and the historical, smoking and tobacco- related health factors from the [place] facility where the Encounter took place. Current Smoking Status This section includes the most current smoking, or tobacco-related health factor, from the [place] facility where the Encounter took place. Date/Time Current Smoking Status Comment Camryn ity Jun 10, 2024 12:30 PM VA-TOBACCO NEVER USED [facility] Tobacco Use History This section includes a history of the smoking, or tobacco-related health factors, that were collected on or before the date of the Encounter. The data comes from the [place] facility where the Encounter took place. Date/Time Smoking Status/Tobacco Use Comment F acility March 26, 2023 10:30 AM VA-TOBACCO FORMER USER [facility] March 26, 2023 10:30 AM VA-TOBACCO QUIT 1 TO < 5 YRS [facility] March 26, 2023 10:30 AM VA-TOBACCO QUIT 5 TO < 15 YRS [facility] Dec 02, 2019 12:14 PM CURRENT NON-TOBACC O USER-HX OF USE [facility] April 13, 2019 02:08 PM VA-TOBACCO FORMER USER [facility] April 13, 2019 02:08 PM VA-TOBACCO QUIT 5 TO < 15 YRS [facility] Dec 30, 2018 10:55 AM CURRENT NON-TOBACC O USER-HX OF USE [facility] Dec 30, 2018 10:40 AM CURRENT NON-TOBACC O USER-HX OF USE [facility] May 17, 2015 10:44 AM TOBACCO OFFERED PT MEDS (PROVIDER) [facility] May 17, 2015 10:[address] [facility] SMOKING CLINIC [facility] May 17, 2015 10:44 AM TOBACCO OFFERRED P T MEDS (PROVIDER) [facility] May 17, 2015 10:44 AM TOBACCO OFFERRED S TOP SMOKING CLINIC [facility] Dec 24, 2013 08:33 AM TOBACCO MEDS OFFER ED BUT DECLINED [facility] Dec 24, 2013 08:33 AM TOBACCO OFFERED PT MEDS (PROVIDER) [facility] Dec 24, 2013 08:[address] [facility]MO[facility] Oct 12, 2012 10:26 AM TOBACCO MEDS OFFER ED BUT DECLINED [facility] Oct 12, 2012 10:26 AM TOBACCO OFFERED PT MEDS (PROVIDER) declined [facility] Oct 12, 2012 10:[address] [facility] declined [facility] Jan 15, 2012 02:50 PM TOBACCO MEDS OFFER ED BUT DECLINED [facility] Jan 15, 2012 02:50 PM TOBACCO OFFERED PT MEDS (PROVIDER) declined [facility] Jan 15, 2012 02:[address] [facility] declined [facility] Oct 30, 2010 10:54 AM TOBACCO MEDS OFFER ED BUT DECLINED [facility] Oct 30, 2010 10:54 AM TOBACCO OFFERED PT MEDS (PROVIDER) declined [facility] Oct 30, 2010 10:[address] [facility] declined [facility] Jan 26, 2009 10:09 AM LIFETIME NON-USER OF TOBACCO [facility] Jul 14, 2008 10:13 AM TOBACCO MEDS OFFER ED BUT DECLINED [facility] Jul 15, 2007 08:44 AM QUIT TOBACCO >7 YEARS AGO [facility] Jun 05, 2006 11:00 AM CURRENT TOBACCO USER [facility] Oct 14, 2005 02:31 PM CURRENT NON-TOBACC O USER-HX OF USE [facility] Jun 12, 2005 03:23 PM CURRENT TOBACCO USER [facility] May 13, 2005 10:09 AM CURRENT TOBACCO USER [facility] April 01, 2005 03:00 PM CURRENT TOBACCO USER [facility] Encounter Notes: All associated encounter notes This section contains the clinical notes associated to the Encounter. Date/Time Encounter Note(s) Provider Source Jun 22, 2025 01:46 PM NURSING PROGRESS N OTE: LOCAL TITLE: NURSING NOTE PB STANDARD TITLE: NURSING PROGRESS NOTE DATE OF NOTE: JUN 22, 2025@13:46 ENTRY DATE: JUN 22, 2025@13:46:44 AUTHOR: DYLAN QUILES EXP COSIGNER: URGENCY: STATUS: COMPLETED NURSING NOTE PB Has ADDENDA Blood Pressure: 142/74 Pulse: 66 Temperature: 98.3 F (36.8 C) Pulse Oximetry: 96% Active Outpatient Medications: Active Outpatient Medications (including Supplies): Active Outpatient Medications Status 1) ACCU-CHEK GUIDE (GLUCOSE) TEST STRIP USE 1 STRIP FOR BLOOD ACTIVE TEST DIRECTED 2) ASCORBIC ACID 500MG TAB TAKE TWO TABLETS BY MOUTH ONCE A DAY ACTIVE (S) FOR VITAMIN SUPPLEMENTATION. 3) ATENOLOL 100MG TAB TAKE ONE TABLET BY MOUTH ONCE A DAY DO ACTIVE/PARKED NOT TAKE ANTACIDS OR CALCIUM SUPPLEMENTS WITHIN 2 HRS OF TAKING THIS MEDICATION. Indication: FOR HIGH BLOOD PRESSURE 4) ATORVASTATIN CALCIUM 80MG TAB TAKE ONE-HALF TABLET BY MOUTH ACTIVE EVERY EVENING TO LOWER CHOLESTEROL (REPORT ANY MUSCLE PAIN OR WEAKNESS) THIS TABLET IS TO BE CUT IN HALF FOR YOUR DOSE 5) BUPROPION HCL 150MG 24HR SA TAB TAKE ONE TABLET BY MOUTH ACTIVE ONCE A DAY SWALLOW WHOLE - DO NOT CRUSH OR CHEW. 6) CHOLECALCIF 50MCG (D3-2,000UNIT) TAB TAKE ONE TABLET BY ACTIVE MOUTH ONCE A DAY FOR VITAMIN D SUPPLEMENT 7) DICLOFENAC NA 1% TOP GEL APPLY 2 GM TO AFFECTED AREA(S) FOUR ACTIVE TIMES A DAY DO NOT EXCEED MORE THAN 16 GRAMS DAILY TO ANY LOWER EXTREMITY JOINT. NOT MORE THAN 8 GRAMS DAILY TO ANY UPPER EXTREMITY JOINT. MAX 32GM/DAY OVER ALL JOINTS. (MEASURE DOSE WITH RULER ATTACHED INSIDE BOX) Indication: FOR OSTEOARTHRITIS 8) FERROUS GLUCONATE 324MG TAB TAKE ONE TABLET BY MOUTH ONCE A ACTIVE DAY Indication: FOR IRON DEFICIENCY 9) FOLIC ACID 0.4MG TAB TAKE ONE TABLET BY MOUTH TWO TIMES PER ACTIVE WEEK Indication: FOR FOLIC ACID SUPPLEMENTATION 10) GABAPENTIN 300MG CAP TAKE ONE CAPSULE BY MOUTH TWICE A DAY ACTIVE 11) LISINOPRIL 40MG TAB TAKE ONE-HALF TABLET BY MOUTH ONCE A DAY ACTIVE Indication: FOR HIGH BLOOD PRESSURE 12) METFORMIN HCL 500MG 24HR SA TAB TAKE ONE TABLET BY MOUTH ACTIVE TWICE A DAY WITH MEALS . TAKE WITH FOOD. AVOID ALCOHOL. DISCONTINUE BEFORE GETTING XRAY DYE. Indication: FOR DIABETES 13) PANTOPRAZOLE NA 40MG EC TAB TAKE ONE TABLET BY MOUTH EVERY ACTIVE MORNING BEFORE A MEAL TO LOWER STOMACH ACID - TAKE 30 MINUTES BEFORE MEAL(S) 14) SENNOSIDES 8.6MG TAB TAKE ONE TABLET BY MOUTH ONCE A DAY ACTIVE Indication: FOR CONSTIPATION 15) SITAGLIPTIN (EQV-ZITUVIO) 100MG TAB TAKE ONE TABLET BY MOUTH ACTIVE ONCE A DAY Indication: FOR DIABETES 16) ZINC GLUCONATE 50MG TAB TAKE ONE TABLET BY MOUTH ONCE A DAY ACTIVE Active Non-VA Medications Status 1) Non-VA FISH OIL 1000MG (500MG DHA/EPA) CAP 2000MG BY MOUTH ACTIVE THREE TIMES A DAY WITH MEALS Indication: FOR HIGH TRIGLYCERIDES CC: presents to clinic reporting congestion and cough. Subjective: O/A: Plan/ Intervention: RTC: /uday VASQUEZ RN [place] [facility] Signed: 06/22/2025 14:27 06/22/2025 ADDENDUM STATUS: COMPLETED Note saved in error before completion updated with following: CC: Savannah presents to clinic reporting cough and nasal congestion. Subjective: Savannah states he was recently treated for pneumonia and improved but now he has symptoms that started yesterday. States previous illness started same way and he wants to get treated earlier to prevent worsening of symptoms. Savannah states he has been taking allergy OTC treatment and mucinex to improve symptoms. O/A: Savannah is alert and oriented. Respirations easy and non-labored. Breath sounds decreased throughout lung smith, no wheezes or rales audible. Sao2 96% on room air. Nasal congestion appreciated. Dry non-productive cough also noted. Heart rate regular with no peripheral edema. Plan/ Intervention: Escalated to WYATT Huerta. She assessed . New prescription for levaquin hand delivered to with immediate need form. Ceftriaxone 1 GM given today in clinic. educated that if symptoms worsen or do not improve follow up with PACT team. RTC: As scheduled and as needed. Per [facility] Directive 1605.06, wristband documentation: Patient wristband was removed and destroyed by (staff name) Dylan Quiles RN and placed in the designated [email or web address] bin. /uday VASQUEZ RN [place] [facility] Signed: 06/22/2025 15:14 [facility]
--- OUTSIDE RECORDS SUMMARY | 2025-07-11 09:30 | XMS_ITS | Encounter Summary ---
Author Name Department of [facility] [facility] [place] Organization [facility] [place] Address [address] [place] [id number] Care Team Providers Care Technical Support Professional Name Role Phone ARIELIVAN LOAIZA Primary Care Provider Unavailabl e Insurance Providers: [...] PART A Jul 18, 2012 PART A [id number] CELESTINA AIKEN AN PATIENT MEDICARE (WNR) MEDICARE (M) PART B Jul 18, 2012 PART B [id number] CELESTINA AIKEN AN PATIENT MEDICARE (WNR) MEDICARE (M) PART A Jul 18, 2012 PART A [id number] CELESTINA AIKEN AN PATIENT MEDICARE (WNR) MEDICARE (M) PART B Jul 18, 2012 PART B [id number] CELESTINA AIKEN AN PATIENT MEDICARE (WNR) MEDICARE (M) PART A Jul 18, 2012 PART A [id number] CELESTINA AIKEN AN PATIENT MEDICARE (WNR) MEDICARE (M) PART B Jul 18, 2012 PART B [id number] ZAYRA,NORM AN PATIENT Selected Encounter This section includes the information on record at [place] for the Encounter. Date/Time Encounter Type Encounter Description Reason Provider Source Jul 11, 2025 02:30 PM CHIROPRACT MAN 3-4 [employer] EXP[employer]ER ICD-10-CM M54.2 Cervicalgia TABBY GARCIA Antonio Encounter Template Text not used by [place] Assessments - Encounter Diagnoses This section includes the primary and secondary diagnoses documented for the Encounter. Date/Time Primary/Secondary Diagnosis Diagnosis Name Provider Source Jul 11, 2025 02:53 PM PRIMARY Cervicalgia TABBY GARCIA [facility] Jul 11, 2025 02:53 PM SECONDARY Other low back pain TABBY GARCIA [facility] Jul 11, 2025 02:53 PM SECONDARY Segmental and somatic dysfunction of cervical region TABBY GARCIA [place] [facility] Jul 11, 2025 02:53 PM SECONDARY Segmental and somatic dysfunction of lumbar region TABBY GARCIA [facility] Jul 11, 2025 02:53 PM SECONDARY Segmental and somatic dysfunction of pelvic region TABBY GARCIA [facility] Jul 11, 2025 02:53 PM SECONDARY Segmental and somatic dysfunction of thoracic region TABBY GARCIA [facility] Plan of Treatment: Future Appointments (+ 6 months) and Future Tests (+/- 45 days) The Plan of Treatment section includes future care activities for the patient from all [place] [facility] [place]. This section includes future appointments and future orders which are active, pending or scheduled. Future Appointments This section includes appointments that were scheduled to occur 6 months from the date of the Encounter, up to a maximum of 20 appointments. The data comes from all [place] treatment facilities. Appointment Date/Time Appointment Type Appointme nt Facility Name Jul 26, 2025 01:00 PM AMBULATORY - MEDICINE [facility] Aug 15, 2025 08:30 AM AMBULATORY - MEDICINE [facility] Sep 12, 2025 11:00 AM AMBULATORY - MEDICINE [facility] Sep 13, 2025 12:30 PM AMBULATORY - MEDICINE [facility] Active, Pending, and Scheduled Orders This section includes a listing of several types of active, pending, and scheduled orders, including clinic medications orders, diagnostic test orders, procedure orders and consult orders; where the start date of the order is 45 days before the date of the Encounter or 45 days after the date of theEncounter. The data comes from all [place] treatment facilities. Test Date/Time Test Type Test Details Facility Name Jun 28, 2025 08:20 AM Consult Order COMMUNITY CARE-HEMATOLOGY/ONC [id number] Cons Machine Group Leader's Choice [facility] Jun 29, 2025 02:23 PM Consult Order COMM[facility]ITY CARE-DENTAL GEN [id number] Cons Machine Group Leader's Choice [facility] Social History: Smoking Status (Most current) [...] 10, 2024 12:30 PM VA-TOBACCO NEVER USED [facility] Tobacco Use History This section includes a history of the smoking, or tobacco-related health factors, that were collected on or before the date of the Encounter. The data comes from the [place] facility where the Encounter took place. Date/Time Smoking Status/Tobacco Use Comment F acility March 26, 2023 10:30 AM VA-TOBACCO FORMER USER [facility] March 26, 2023 10:30 AM VA-TOBACCO QUIT 1 TO < 5 YRS [facility] March 26, 2023 10:30 AM VA-TOBACCO QUIT 5 TO < 15 YRS [facility] Dec 02, 2019 12:14 PM CURRENT NON-TOBACC O USER-HX OF USE [facility] April 13, 2019 02:08 PM VA-TOBACCO FORMER USER [facility] April 13, 2019 02:08 PM VA-TOBACCO QUIT 5 TO < 15 YRS [facility] Dec 30, 2018 10:55 AM CURRENT NON-TOBACC O USER-HX OF USE [facility] Dec 30, 2018 10:40 AM CURRENT NON-TOBACC O USER-HX OF USE [facility] May 17, 2015 10:44 AM TOBACCO OFFERED PT MEDS (PROVIDER) [facility] May 17, 2015 10:[address] [facility]MOKING CLINIC [facility] May 17, 2015 10:44 AM TOBACCO OFFERRED P T MEDS (PROVIDER) [facility] May 17, 2015 10:44 AM TOBACCO OFFERRED S TOP SMOKING CLINIC [facility] Dec 24, 2013 08:33 AM TOBACCO MEDS OFFER ED BUT DECLINED [facility] Dec 24, 2013 08:33 AM TOBACCO OFFERED PT MEDS (PROVIDER) [place] [facility] Dec 24, 2013 08:[address] [facility] [place] [facility] Oct 12, 2012 10:26 AM TOBACCO MEDS OFFER ED BUT DECLINED [facility] Oct 12, 2012 10:26 AM TOBACCO OFFERED PT MEDS (PROVIDER) declined [facility] Oct 12, 2012 10:[address] [facility] declined [facility] Jan 15, 2012 02:50 PM TOBACCO MEDS OFFER ED BUT DECLINED [facility] Jan 15, 2012 02:50 PM TOBACCO OFFERED PT MEDS (PROVIDER) declined [place] [facility] Jan 15, 2012 02:[address] [facility] declined [facility] Oct 30, 2010 10:54 AM TOBACCO MEDS OFFER ED BUT DECLINED [place] [facility] Oct 30, 2010 10:54 AM TOBACCO OFFERED PT MEDS (PROVIDER) declined [place] [facility] Oct 30, 2010 10:[address] [facility]MO[facility] declined [facility] Jan 26, 2009 10:09 AM LIFETIME NON-USER OF TOBACCO [facility] Jul 14, 2008 10:13 AM TOBACCO MEDS OFFER ED BUT DECLINED [place] [facility] Jul 15, 2007 08:44 AM QUIT TOBACCO >7 YEARS AGO [facility] Jun 05, 2006 11:00 AM CURRENT TOBACCO USER [place] [facility] Oct 14, 2005 02:31 PM CURRENT NON-TOBACC O USER-HX OF USE [facility] Jun 12, 2005 03:23 PM CURRENT TOBACCO USER [place] [facility] May 13, 2005 10:09 AM CURRENT TOBACCO USER [place] [facility] April 01, 2005 03:00 PM CURRENT TOBACCO USER [facility] Encounter Notes: All associated encounter notes This section contains the clinical notes associated to the Encounter. Date/Time Encounter Note(s) Provider Source Jul 11, 2025 02:45 PM CHIROPRACTIC NOTE: LOCAL TITLE: CHIROPRACTIC FOLLOW UP NOTE PB STANDARD TITLE: CHIROPRACTIC NOTE DATE OF NOTE: JUL 11, 2025@14:45 ENTRY DATE: JUL 11, 2025@14:45:59 AUTHOR: TABBY GARCIA EXP COSIGNER: URGENCY: STATUS: COMPLETED SUBJECTIVE Mr. Aiken is a 79 year old who presents today with left sided neck and shoulder pain. He also notes that he is having some minor low back pain. Mr. Aiken notes his shoulder pain radiates to the left side of his neck. Pain level: 2 OBJECTIVE -PALPATION FINDINGS: -RESTRICTIONS: Left pelvis, L4/5, T12/L1, T4-7, C6/7 -TENDERNESS: T4-7, Left pelvis -HYPERTONICITY: left upper trap. suboccipital mm. ASSESSMENT The prognosis of the patient is good The is stable with care. Segmental dysfunction throughout the pelvis, lumbar, thoracic and cervical spines PLAN Patient was adjusted using: Prone Arthrostim adjustments of the pelvis, lumbar, thoracic and cervical spines. Muscle work was performed on the above hypertonic muscles using: PIR of upper trap and suboccipital mm. Home care recommendations: Continue current home exercises. Return to care: 1 month. Patient felt relief following treatment. /patricia/ TABBY GARCIA DC [facility] Signed: 07/11/2025 14:53 TABBY GARCIA [facility]
--- OUTSIDE RECORDS SUMMARY | 2025-07-16 10:41 | XMS_ITS | Continuity of Care Document ---
Author Name [facility] Organization 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 Unavailable Unavailable Problems Combined list of problems from Department of Defense and Veterans Affairs facilities. It does not include entries that were removed or entered in error. Problem Status Onset Date Problem Type Date of Resolution Comments Source Aortic aneurysm screening normal Active Condition March 26 Entered By: IVAN DUMONT Comment: CT scan done 2019 [place] [facility] Atherosclerosis of coronary artery Active Condition [place] [facility] Benign essential hypertension (SNOMED CT 5811745) Active Condition [place] [facility] Bilateral tinnitus Active Condition [place] [facility] CHF - Congestive heart failure Active Condition Jan 25, 2025 Entered By: CRISS BUTCHER Comment: 12/30/24 - [facility] Cardiac Community Outreach Director - Transthoracic Echocardiogram - Left ventricular diastolic parameters consistent with Grade II diastolic dysfunctionJan 25, 2025 Entered By: CRISS BUTCHER Comment: 12/30/24 - Ejection Fraction is measured at 55% [place] [facility] Chronic low back pain Active Condition [place] [facility] Chronic post-traumatic stress disorder following combat (SNOMED CT 489600200) Active Condition Jan 25, 2025 Entered By: CRISS BUTCHER Comment: Service Connection [place] [facility] Chronic sciatica Active Condition Jan 25, 2025 Entered By: CRISS BUTCHER Comment: Service Connection [place] [facility] Dementia Active Condition [place] [facility] Diabetic neuropathy Active Condition [facility] Disorder of penis Active Condition Mi r 2024 Entered By: CRISS BUTCHER Comment: Service Connection [place] [facility] Ex-tobacco chewer Active Condition Mi r 2024 Entered By: CRISS BUTCHER Comment: Per [facility] chart - quit in 2013 [place] [facility] Exposure to potentially hazardous substance Active Condition [facility] Former smoker Active Condition Jan Entered By: CRISS BUTCHER Comment: Per [facility] chart - [id number] [place] [facility] Gastroesophageal reflux disease without esophagitis (SNOMED CT 635638632) Active Condition [place] [facility] H/O: atrial fibrillation Active Condition [place] [facility] Hematuria (SCT 09907819) Active Condition May 18, 2021 Entered By: IVAN DUMONT Comment: patient sees urology, negative cytology times 01/06/20 and 2020 or cells.Oct 13, 2023 Entered By: IVAN DUMONT Comment: microscopic hematuria, negative poc 09/2023 [place] [facility] History of bilateral cataract extraction Active Condition [place] [facility] History of traumatic brain injury Active Condition Jan 25, 2025 Entered By: CRISS BUTCHER Comment: Kicked in head by a cow when he was a toddler [place] [facility] HLD - Hyperlipidemia (SNOMED CT 31956188) Active Condition [facility] Localized enlarged lymph nodes Active Condition Jan 25, 2025 Entered By: CRISS BUTCHER Comment: 02/12/2024 - US guided biopsy lymph node superficial leftJan 25, 2025 Entered By: CRISS BUTCHER Comment: 03/04/2024 - US guided biopsy lymph node superficial left [place] [facility] Mantle cell lymphoma Active Condition May 18, 2021 Entered By: IVAN DUMONT Comment: ct abdpelvisMay 2022 Entered By: IVAN DUMONT Comment: Dr. Catalan oncology,Jun 03, 2023 Entered By: IVAN DUMONT Comment: lymphoma recurrenceOct 13, 2023 Entered By: IVAN DUMONT Comment: seeing Dr Alvarenga 2023 Entered By: IVAN DUMONT Comment: Dr. 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, 2025 Entered By: IVAN DUMONT Comment: ent consult for biopsy [place] [facility] Obesity (SCT 069311638) Active Condition [place] [facility] Pneumonia ([facility] [id number]) Active Condition Jan 25, 2025 Entered By: CRISS BUTCHER Comment: covid positive 07/07/20, [facility] - int[facility] with vent support [place] [facility] Sleep apnea Active Condition [place] [facility] Steatosis of liver Active Condition [place] [facility] Type 2 diabetes mellitus Active Condition Jan 25, 2025 Entered By: CRISS BUTCHER Comment: Service Connection [place] [facility] Blood chemistry abnormal Inactive Condition 01/25/2025 Jan 01, 2022 Entered By: IVAN DUMONT Comment: cpk, mb, ?? [place] Entered By: IVAN DUMONT Comment: Elevated transaminase, hepatic steatosis. [place] [facility] H/O: obesity Inactive Condition 01/26/2025 [place] [facility] Herniated Disc * (ICD-9-CM 722.2) Inactive Condition 12/13/2015 [place] [facility] Impacted cerumen * (ICD-9-CM 380.4) Inactive Condition 12/13/2015 [facility] Issue of Repeat Prescriptions (ICD-9-CM V68.1) Inactive Condition 12/13/2015 [facility] Laboratory Procedures (ICD-9-CM V72.6) Inactive Condition 12/13/2015 [facility] Other General Medical Examination for Administrative Purposes Inactive Condition 12/13/2015 [place] [facility] Pain in joint involving lower leg (ICD-9-CM 719.46) Inactive Condition 12/13/2015 [facility] [facility] Pain in joint involving shoulder region (ICD-9-CM 719.41) Inactive Condition 12/13/2015 [place] [facility] Retention of Urine ([facility] [id number]) Inactive Condition 01/25/2025 Oct 13, 2023 Entered By: IVAN DUMONT Comment: pos void residual 98 ml [place] [facility] Routine General Medical Examination at a Health Care Facility * (ICD-9-CM V70.0) Inactive Condition 12/13/2015 [facility] Diagnosis: ICD-10-CM M54.2 Cervicalgia Active Diagnosis [facility] Diagnosis: ICD-10-CM J01.20 Acute ethmoidal sinusitis, unspecified Active Diagnosis [facility] Diagnosis: ICD-10-CM R09.81 Nasal congestion Active Diagnosis [facility] Diagnosis: ICD-10-CM J18.9 Pneumonia, unspecified organism Active Diagnosis [facility] Diagnosis: ICD-10-CM R52 Pain, unspecified Active Diagnosis [facility] Diagnosis: ICD-10-CM K08.132 Complete loss of teeth due to caries, class II Active Diagnosis [place] [facility] Diagnosis: ICD-10-CM E11.9 Type 2 diabetes mellitus without complications Active Diagnosis [place] [facility] Diagnosis: ICD-10-CM Z13.5 Encounter for screening for eye and ear disorders Active Diagnosis [place] [facility] Diagnosis: ICD-10-CM Z00.01 Encounter for general adult medical exam w abnormal findings Active Diagnosis [facility] Diagnosis: ICD-10-CM B37.0 Candidal stomatitis Active Diagnosis [facility] Diagnosis: ICD-10-CM M54.59 Other low back pain Active Diagnosis [facility] Diagnosis: ICD-10-CM E78.5 Hyperlipidemia, unspecified Active Diagnosis [facility] Diagnosis: ICD-10-CM Z71.89 Other specified counseling Active Diagnosis [place] [facility] Diagnosis: ICD-10-CM K08.131 Complete loss of teeth due to caries, class I Active Diagnosis [place] [facility] Diagnosis: ICD-10-CM G31.84 Mild cognitive impairment of uncertain or unknown etiology Active Diagnosis [facility] Diagnosis: ICD-10-CM J01.80 Other acute sinusitis Active Diagnosis [facility] Diagnosis: ICD-10-CM I77.6 Arteritis, unspecified Active Diagnosis [facility] Diagnosis: ICD-10-CM H60.92 Unspecified otitis externa, left ear Active Diagnosis [facility] Diagnosis: ICD-10-CM K02.62 Dental caries on smooth surface penetrating into dentin Active Diagnosis [place] [facility] Diagnosis: ICD-10-CM K03.6 Deposits [accretions] on teeth Active Diagnosis [place] [facility] Diagnosis: ICD-10-CM 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 Medication Details Route Status Patient Instructions Prescription Expires Prescription Number Last Dispense Date Ordering Provider Order Date Order Qty Source ALLOPURINOL 300MG TAB TAKE ONE TABLET BY MOUTH ONCE A DAY FOR GOUT TAKE WITH PLENTY OF WATER. ORAL 04/28/2025 [id number] DANILO DUMONT R 2023 90 [facility] ALOGLIPTIN 25MG TAB TAKE ONE TABLET BY MOUTH ONCE A DAY TO LOWER BLOOD SUGAR ORAL DISCONT INUED BY PROVIDE R 02/09/2025 [id number] 4 MIKE NAGEL 2023 30 [facility] AMLODIPINE BESYLATE 10MG TAB TAKE ONE TABLET BY MOUTH ONCE A DAY TO LOWER BLOOD PRESSURE ORAL DISCONT INUED BY PROVIDE R 04/28/2025 [id number] 4 DANILO DUMONT R 2023 90 [facility] AMOXICILLIN TRIHYDRATE 875MG/CLAVU LANATE K 125MG TAB TAKE 1 TABLET BY MOUTH TWICE A DAY FOR SINUS INFECTIO N TAKE WITH FOOD. TAKE UNTIL GONE UNLESS OTHERWIS E DIRECTED . TAKE WITH FOOD. TAKE UNTIL GONE UNLESS OTHERWIS E DIRECTED . ORAL DISCONT INUED BY PROVIDE R 10/28/2024 [id number] 4 DANILO DUMONT R 2023 14 [facility] AMOXICILLIN TRIHYDRATE 875MG/CLAVU LANATE K 125MG TAB TAKE 1 TABLET BY MOUTH TWICE A DAY TAKE WITH FOOD. TAKE UNTIL GONE UNLESS OTHERWIS E DIRECTED . ORAL 05/16/2025 [id number] 5 JIM BARKLEY 2024 8 [place] [facility] ASCORBIC ACID 500MG TAB TAKE TWO TABLETS BY MOUTH ONCE A DAY FOR VITAMIN SUPPLEME NTATION. ORAL SUSPEND ED 09/17/2025 [id number] 5 DANILO DUMONT R 2024 200 [facility] ASCORBIC ACID 500MG TAB TAKE TWO TABLETS BY MOUTH ONCE A DAY FOR VITAMIN SUPPLEME NTATION. ORAL DISCONT INUED 11/11/2024 [id number] 4 DANILO DUMONT 2022 200 [facility] ATENOLOL 100MG TAB TAKE ONE TABLET BY MOUTH ONCE A DAY FOR HIGH BLOOD PRESSURE DO NOT TAKE ANTACIDS OR CALCIUM SUPPLEME NTS WITHIN 2 HRS OF TAKING THIS MEDICATI ON. ORAL ACTIVE 08/10/2025 [id number] LINDSEY CRAIG [address] [place] [address] [facility] ATENOLOL 100MG TAB TAKE ONE TABLET BY MOUTH ONCE A DAY FOR HIGH BLOOD PRESSURE DO NOT TAKE ANTACIDS OR CALCIUM SUPPLEME NTS WITHIN 2 HRS OF TAKING THIS MEDICATI ON. ORAL DISCONT INUED BY CHARLEE R 04/28/2025 [id number] 5 DANILO DUMONT 2023 90 [facility] ATENOLOL 100MG TAB TAKE ONE-HALF TABLET BY MOUTH ONCE A DAY FOR HIGH BLOOD PRESSURE DO NOT TAKE ANTACIDS OR CALCIUM SUPPLEME NTS WITHIN 2 HRS OF TAKING THIS MEDICATI ON. ORAL DISCONT INUED (EDIT) 04/30/2026 [id number] THOMAS ORTA III 2024 45 [place] [facility] ATORVASTATI N CA 80MG TAB TAKE ONE-HALF TABLET BY MOUTH EVERY EVENING TO LOWER CHOLESTE ROL (REPORT ANY MUSCLE PAIN OR WEAKNESS ) THIS TABLET IS TO BE CUT IN HALF FOR YOUR DOSE ORAL ACTIVE 02/19/2026 [id number] 5 MIKE NAGEL 2024 45 [facility] ATORVASTATI N CA 80MG TAB TAKE ONE-HALF TABLET BY MOUTH EVERY EVENING TO LOWER CHOLESTE ROL (REPORT ANY MUSCLE PAIN OR WEAKNESS ) THIS TABLET IS TO BE CUT IN HALF FOR YOUR DOSE ORAL DISCONT INUED 02/16/2025 [id number] 5 MIKE NAGEL 2023 45 [facility] BUPROPION HCL 150MG 24HR TAB,SA TAKE ONE TABLET BY MOUTH ONCE A DAY SWALLOW WHOLE - DO NOT CRUSH OR CHEW. ORAL ACTIVE 10/19/2025 [id number] 5 DANILO DUMONT R [address] [place] [address] [facility] BUPROPION HCL 150MG 24HR TAB,SA TAKE ONE TABLET BY MOUTH ONCE A DAY SWALLOW WHOLE - DO NOT CRUSH OR CHEW. ORAL DISCONT INUED 10/06/2024 [id number] 4 DANILO DUMONT [address] [place] [address] [facility] CHOLECALCIF MARIA DE JESUS 50MCG (2,000UNIT) TAB TAKE ONE TABLET BY MOUTH ONCE A DAY FOR VITAMIN D SUPPLEME NT ORAL ACTIVE 01/15/2026 [id number] 5 DANILO DUMONT 2024 100 [facility] CHOLECALCIF MARIA DE JESUS 50MCG (2,000UNIT) TAB TAKE ONE TABLET BY MOUTH ONCE A DAY FOR VITAMIN D SUPPLEME NT ORAL DISCONT INUED 02/02/2025 [id number] 5 DANILO DUMONT [address] [place] [address] [facility] CIPROFLOXAC IN HCL 500MG TAB TAKE ONE TABLET BY MOUTH TWICE A DAY TAKE 2 HOURS APART FROM DAIRY/AN TACIDS/M ULTI VITAMINS /IRON/ZI NC. TAKE UNTIL GONE UNLESS OTHERWIS E DIRECTED . DO NOT SPLIT, CHEW, OR CRUSH ORAL DISCONT INUED 06/22/2025 [id number] GHOBADI,A RMIN 2023 60 [place] [facility] DAPSONE 100MG TAB TAKE ONE TABLET BY MOUTH ONCE A DAY ORAL DISCONT INUED 06/22/2025 [id number] GHOBADI,A RMIN 2023 30 [place] [facility] DICLOFENAC NA 1% GEL,TOP APPLY 2 GM TO AFFECTED AREA(S) FOUR TIMES A DAY FOR OSTEOART HRITIS DO NOT EXCEED MORE THAN 16 GRAMS DAILY TO ANY LOWER EXTREMIT Y JOINT. NOT MORE THAN 8 GRAMS DAILY TO ANY UPPER EXTREMIT Y JOINT. MAX 32GM/DAY OVER ALL JOINTS. (MEASURE DOSE WITH RULER ATTACHED INSIDE BOX) TOPICA L ACTIVE 08/14/2025 [id number] 4 MIKE NAGEL 2023 100 [facility] FERROUS GLUCONATE 324MG TAB TAKE ONE TABLET BY MOUTH ONCE A DAY FOR IRON DEFICIEN CY ORAL ACTIVE 02/19/2026 [id number] MIKE NAGEL W 2024 100 [facility] FISH OIL 1000MG (500MG DHA/EPA) CAP,ORAL TAKE 2 CAPSULES BY MOUTH THREE TIMES A DAY WITH MEALS ORAL ACTIVE MIKE NAGEL W 2023 [facility] FLUTICASONE PROPIONATE 50MCG/SPRAY SOLN,NASAL, 16GM INSTILL 1 SPRAY IN NOSTRIL( S) ONCE A DAY FOR CHRONIC RHINOSIN USITIS (MUST BE USED DIRECTED FOR MINIMUM OF 21 DAYS TO PROVIDE ADEQUATE BENEFITS ) NASAL 04/28/2025 [id number] 4 DANILO DUMONT R 2023 3 [facility] FOLIC ACID 0.4MG TAB TAKE ONE TABLET BY MOUTH TWO TIMES PER WEEK FOR FOLIC ACID SUPPLEME NTATION ORAL ACTIVE 10/21/2025 [id number] 4 MIKE NAGEL W 2023 100 [facility] GABAPENTIN 300MG CAP TAKE ONE CAPSULE BY MOUTH TWICE A DAY ORAL ACTIVE 02/23/2026 [id number] Paola ALANIS RMARIANA 2024 60 [place] [facility] GABAPENTIN 300MG CAP TAKE ONE CAPSULE BY MOUTH TWICE A DAY ORAL DISCONT INUED 02/11/2025 [id number] 5 Emil TOVAR [facility] 2023 60 [place] [facility] HYDROCHLORO THIAZIDE 25MG TAB TAKE ONE TABLET BY MOUTH EVERY MORNING FOR FLUID RETENTIO N (EDEMA) FOR EXCESSIV E FLUID AND FOR BLOOD PRESSURE ORAL DISCONT INUED BY PROVIDE R 04/28/2025 [id number] 5 DANILO DUMONT R 2023 90 [facility] LEVOFLOXACI N 750MG TAB TAKE ONE TABLET BY MOUTH ONCE A DAY TAKE UNTIL GONE UNLESS OTHERWIS E DIRECTED . SEPARATE FROM ANTACIDS , MULTIVIT AMINS, AND DAIRY PRODUCTS BY 2 HOURS. ORAL 05/16/2025 [id number] JIM BARKLEY 2024 4 [place] [facility] LISINOPRIL 40MG TAB TAKE ONE-HALF TABLET BY MOUTH ONCE A DAY FOR HIGH BLOOD PRESSURE ORAL ACTIVE 02/19/2026 [id number] 5 SHONA MIKE Escobar 2024 45 [facility] LISINOPRIL 40MG TAB TAKE ONE-HALF TABLET BY MOUTH ONCE A DAY FOR HIGH BLOOD PRESSURE ORAL DISCONT INUED 04/28/2025 [id number] 5 DANILO DUMONT 2023 45 [facility] METFORMIN HCL 500MG 24HR TAB,SA TAKE ONE TABLET BY MOUTH TWICE A DAY WITH MEALS FOR DIABETES . TAKE WITH FOOD. AVOID ALCOHOL. DISCONTI NUE BEFORE GETTING XRAY DYE. ORAL ACTIVE 10/21/2025 [id number] 5 SHONAMIKE 2024 180 [facility] CB METFORMIN HCL 500MG 24HR TAB,SA TAKE ONE TABLET BY MOUTH TWICE A DAY WITH MEALS FOR DIABETES . TAKE WITH FOOD. AVOID ALCOHOL. DISCONTI NUE BEFORE GETTING XRAY DYE. ORAL DISCONT INUED 10/21/2025 [id number] 5 SHONA MIKE Escobar 2023 60 [facility] CB METFORMIN HCL 500MG 24HR TAB,SA TAKE TWO TABLETS BY MOUTH TWICE A DAY WITH MEALS FOR DIABETES . TAKE WITH FOOD. AVOID ALCOHOL. DISCONTI NUE BEFORE GETTING XRAY DYE. ORAL DISCONT INUED (EDIT) 04/28/2025 [id number] 4 DANILO DUMONT 2023 120 [facility] METOPROLOL TARTRATE 25MG TAB TAKE ONE TABLET BY MOUTH TWICE A DAY TAKE WITH OR IMMEDIAT AYANA FOLLOWIN G FOOD. ORAL DISCONT INUED 05/16/2025 [id number] 5 JIM BARKLEY 2024 60 [place] [facility] PANTOPRAZOL E NA 40MG TAB,EC TAKE ONE TABLET BY MOUTH EVERY MORNING BEFORE A MEAL TO LOWER STOMACH ACID - TAKE 30 MINUTES BEFORE MEAL(S) ORAL ACTIVE 02/19/2026 [id number] 5 MIKE NAGEL [address] [place] [address] [facility] PANTOPRAZOL E NA 40MG TAB,EC TAKE ONE TABLET BY MOUTH EVERY MORNING BEFORE A MEAL TO LOWER STOMACH ACID - TAKE 30 MINUTES BEFORE MEAL(S) ORAL DISCONT INUED 02/09/2025 [id number] 5 DANILO DUMONT R 2023 90 [facility] POTASSIUM CHLORIDE 20MEQ TAB,SA (DISPERSIBL E) TAKE ONE TABLET BY MOUTH ONCE A DAY TAKE WITH FOOD ORAL DISCONT INUED 05/02/2025 [id number] 5 CHON BOWEN SA 2024 90 [place] [facility] POTASSIUM CHLORIDE 20MEQ TAB,SA (DISPERSIBL E) TAKE ONE TABLET BY MOUTH ONCE A DAY TAKE WITH FOOD ORAL DISCONT INUED 05/19/2025 [id number] 5 MIKE NAGEL [address] [place] [address] [facility] POTASSIUM CHLORIDE 20MEQ TAB,SA (DISPERSIBL E) TAKE ONE-HALF TABLET BY MOUTH ONCE A DAY FOR POTASSIU M SUPPLEME NTATION TAKE WITH FOOD ORAL DISCONT INUED 10/19/2025 [id number] 5 DANILO DUMONT R 2023 45 [facility] POTASSIUM CHLORIDE 20MEQ TAB,SA (DISPERSIBL E) TAKE ONE-HALF TABLET BY MOUTH ONCE A DAY FOR POTASSIU M SUPPLEME NTATION TAKE WITH FOOD ORAL DISCONT INUED 10/06/2024 [id number] 4 DANILO DUMONT R 2023 45 [facility] POTASSIUM CHLORIDE 20MEQ TAB,SA (DISPERSIBL E) TAKE ONE TABLET BY MOUTH ONCE A DAY TAKE WITH FOOD ORAL 05/19/2025 [id number] 5 MIKE NAGEL [address] [place] [address] [facility] PROCHLORPER AZINE MALEATE 10MG TAB TAKE ONE TABLET BY MOUTH THREE TIMES A DAY NEEDED FOR NAUSEA/V OMITING MAY CAUSE DROWSINE SS ORAL 05/27/2024 [id number] 4 DANILO DUMONT 2023 30 [facility] SENNOSIDES 8.6MG TAB TAKE ONE TABLET BY MOUTH ONCE A DAY FOR CONSTIPA TION ORAL ACTIVE 05/05/2026 [id number] 5 DANILO DUMONT 2024 100 [facility] SENNOSIDES 8.6MG TAB TAKE ONE TABLET BY MOUTH ONCE A DAY FOR CONSTIPA TION ORAL DISCONT INUED 04/28/2025 [id number] 5 DANILO DUMONT 2023 100 [facility] SITAGLIPTIN (EQV-ZITUVI O) 100MG TAB TAKE ONE TABLET BY MOUTH ONCE A DAY FOR DIABETES ORAL ACTIVE 02/19/2026 [id number] 5 MIKE NAGEL 2024 90 [facility] SITAGLIPTIN (EQV-ZITUVI O) 100MG TAB TAKE ONE TABLET BY MOUTH ONCE A DAY FOR DIABETES ORAL DISCONT INUED 04/16/2025 [id number] MIKE NAGEL 2023 90 [facility] VALACYCLOVI R HCL 500MG TAB TAKE ONE TABLET BY MOUTH ONCE A DAY ORAL DISCONT INUED 03/29/2026 [id number] Emil TOVAR [facility] 2024 90 [place] [facility] VALACYCLOVI R HCL 500MG TAB TAKE ONE TABLET BY MOUTH ONCE A DAY ORAL DISCONT INUED 12/08/2025 [id number] 5 GHOBADI,A RMIN 2024 30 [place] [facility] VALACYCLOVI R HCL 500MG TAB TAKE ONE TABLET BY MOUTH ONCE A DAY ORAL DISCONT INUED 06/22/2025 [id number] 5 GHOBADI,A RMIN 2023 30 [place] [facility] ZINC GLUCONATE 50MG TAB TAKE ONE TABLET BY MOUTH ONCE A DAY ORAL ACTIVE 03/02/2026 [id number] 5 DANILO DUMONT [address] [place] [address] ZINC GLUCONATE 50MG TAB TAKE ONE TABLET BY MOUTH ONCE A DAY ORAL DISCONT INUED 12/22/2024 [id number] 4 DANILO DUMONT [address] [place] [address] Immunizations Combined list of available immunizations from the Department of Defense and Veterans Affairs facilities. 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 Source INFLUENZA, HIGH-DOSE, QUADRIVALENT 2022 [facility]ASQUES LEFT DELTO ID [id number] A 197 complet ed [facility] INFLUENZA, INJECTABLE, QUADRIVALENT, PRESERVATIVE FREE 2021 150 complet ed [facility] INFLUENZA, INJECTABLE, QUADRIVALENT, PRESERVATIVE FREE 2020 150 complet ed [facility] COVID-19 (MODERNA), MRNA, LNP-S, PF, 100 MCG/0.5 ML DOSE 3 2020 207 complet ed [facility] COVID-19 (MODERNA), MRNA, LNP-S, PF, 100 MCG/0.5ML DOSE OR 50 MCG/0.25ML DOSE 2 2020 207 complet ed HISTORICA L INFORMATI ON - FROM OTHER REGISTRY, [facility] COVID-19 (MODERNA), MRNA, LNP-S, PF, 100 MCG/0.5ML DOSE OR 50 MCG/0.25ML DOSE 1 2020 207 complet ed HISTORICA L INFORMATI ON - FROM OTHER REGISTRY, [facility] INFLUENZA, UNSPECIFIED FORMULATION 2019 88 complet ed [facility] INFLUEN[facility], INJECTABLE, QUADRIVALENT, PRESERVATIVE FREE 2018 150 complet ed [facility] INFLUENZA, INJECTABLE, QUADRIVALENT, PRESERVATIVE FREE 2017 150 complet ed [facility] INFLUENZA, SEASONAL, INJECTABLE, PRESERVATIVE FREE 2016 140 complet ed Right Deltoid [facility] INFLUENZA, SEASONAL, INJECTABLE, PRESERVATIVE FREE 2016 140 complet ed [facility] PNEUMOCOCCAL CONJUGATE PCV 13 2015 133 complet ed [facility] INFLUENZA, SEASONAL, INJECTABLE, PRESERVATIVE FREE 2014 140 complet ed [facility] INFLUENZA, UNSPECIFIED FORMULATION 2013 88 complet ed [facility] TDAP 2013 115 complet ed [facility] INFLUENZA, SEASONAL, INJECTABLE, PRESERVATIVE FREE 2013 140 complet ed [facility] PNEUMOCOCCAL, UNSPECIFIED FORMULATION 2013 109 complet ed [facility] ZOSTER LIVE 1 2011 121 complet ed HISTORICA L INFORMATI ON - FROM OTHER REGISTRY, [facility] Results Combined list of recent chemistry, hematology and other laboratory results from Department of Defense and Veterans Affairs, ranging from 15 months to all on record, depending upon the facility. Order Name Results Value Reference Range Date Interpretation Specimen Comments Source OCCULT BLOOD FIT X1 SCREEN HEMOGLOBIN. GASTROINTES TINAL.LOWER [PRESENCE] IN STOOL BY IMMUNOASSAY Negative 05/24 Specimen Type: FECES No comment entered. Ordering Provider: DANILO DUMONT Report Released Date/Time : May 09, 2025 03:36 PM Reporting Lab: [place] [facility] [address] [place] [address] Performin g Lab: [place] [facility] [address] [place] [address] [facility] HGA1C HEMOGLOBIN A1C/HEMOGLO BIN.TOTAL IN BLOOD 6.9 4.0 - 6.0 05/06 H Specimen Type: BLOOD No comment entered. Ordering Provider: DANILO DUMONT Report Released Date/Time : Jun 14, 2024 04:32 PM Reporting Lab: [place] [facility] [address] [place] [address] Performin g Lab: [place] [facility] [address] [place] [address] [facility] FOLATE (PB) FOLATE [MASS/VOLUM E] IN SERUM OR PLASMA 11.0 ng/mL 7 - 20 05/06 Specimen Type: SERUM No comment entered. Ordering Provider: DANILO DUMONT Report Released Date/Time : Jun 14, 2024 04:32 PM Reporting Lab: [place] [facility] [address] [place] [address] Performin g Lab: [place] [facility] [address] [place] [address] [facility] B12 COBALAMIN (VITAMIN B12) [MASS/VOLUM E] IN SERUM OR PLASMA 598 pg/mL 213 - 816 05/06 Specimen Type: SERUM No comment entered. Ordering Provider: DANILO DUMONT Report Released Date/Time : Jun 14, 2024 04:32 PM Reporting Lab: [place] [facility] [address] [place] [address] Performin g Lab[place] [facility] [address] [place] [address] 8 [facility] VITAMIN D, 25-HYDROXY 25-HYDROXYV ITAMIN D3 [MASS/VOLUM E] IN SERUM OR PLASMA 63.6 ng/mL 30 - 96 05/06 Specimen Type: SERUM No comment entered. Ordering Provider: DANILO DUMONT Report Released Date/Time : Jun 14, 2024 04:32 PM Reporting Lab: [place] [facility] [address] [place] [address] 8 Performin g Lab: [place] [facility] [address] [place] [address] 8 [facility] CHOLESTERO L PANEL (PB) CHOLESTEROL [MASS/VOLUM E] IN SERUM OR PLASMA 112 mg/dL 0 - 200 05/06 Specimen Type: PLASMA No comment entered. Ordering Provider: DANILO DUMONT Report Released Date/Time : Jun 14, 2024 04:32 PM Reporting Lab: [place] [facility] [address] [place] [address] Performin g Lab: [place] [facility] [address] [place] [address] 8 [facility] CHOLESTERO L PANEL (PB) TRIGLYCERID E [MASS/VOLUM E] IN SERUM OR PLASMA 108 mg/dL 0 - 150 05/06 Specimen Type: PLASMA No comment entered. Ordering Provider: KUZAS,DANILO E R Report Released Date/Time : Jun 14, 2024 04:32 PM Reporting Lab: [place] [facility] [address] [place] [address] 8 Performin g Lab: [place] [facility] [address] [place] [address] 8 [facility] CHOLESTERO L PANEL (PB) CHOLESTEROL IN LDL [MASS/VOLUM E] IN SERUM OR PLASMA BY CALCULATION 55.4 mg/dL 05/06 Specimen Type: PLASMA No comment entered. Ordering Provider: DANILO DUMONT Report Released Date/Time : Jun 14, 2024 04:32 PM Reporting Lab: [place] [facility] [address] [place] [address] 8 Performin g Lab: [place] [facility] [address] [place] [address] 8 [facility] CHOLESTERO L PANEL (PB) CHOLESTEROL IN HDL [MASS/VOLUM E] IN SERUM OR PLASMA 35.0 mg/dL 40 05/06 L Specimen Type: PLASMA No comment entered. Ordering Provider: DANILO DUMONT Report Released Date/Time : Jun 14, 2024 04:32 PM Reporting Lab: [place] [facility] [address] [place] [address] 8 Performin g Lab: [place] [facility] [address] [place] [address] 8 [facility] CHOLESTERO L PANEL (PB) CHOLESTEROL IN HDL/CHOLEST MARIA DE JESUS.TOTAL [MASS RATIO] IN SERUM OR PLASMA 31.3 25 05/06 Specimen Type: PLASMA No comment entered. Ordering Provider: DANILO DUMONT Report Released Date/Time : Jun 14, 2024 04:32 PM Reporting Lab: [place] [facility] [address] [place] [address] 8 Performin g Lab: [place] [facility] [address] [place] [address] 8 [facility] URINE ALBUMIN PROFILE-ih (PB) ALBUMIN [MASS/VOLUM E] IN URINE 16.40 mg/L 05/06 Specimen Type: URINE No comment entered. Ordering Provider: DANILO DUMONT Report Released Date/Time : Jun 14, 2024 04:32 PM Reporting Lab: [place] [facility] [address] [place] [address] 8 Performin g Lab: [place] [facility] [address] [place] [address] 8 [facility] URINE ALBUMIN PROFILE-ih (PB) ALBUMIN/CRE ATININE [MASS RATIO] IN URINE 12.57 mg/g 0 - 30 05/06 Specimen Type: URINE No comment entered. Ordering Provider: DANILO DUMONT Report Released Date/Time : Jun 14, 2024 04:32 PM Reporting Lab: [place] [facility] [address] [place] [address] 8 Performin g Lab: [place] [facility] [address] [place] [address] 8 [facility] URINE ALBUMIN PROFILE-ih (PB) CREATININE [MASS/VOLUM E] IN URINE 130.48 mg/dL 05/06 Specimen Type: URINE No comment entered. Ordering Provider: DANILO DUMONT Report Released Date/Time : Jun 14, 2024 04:32 PM Reporting Lab: [place] [facility] [address] [place] [address] 8 Performin g Lab: [place] [facility] [address] [place] [address] 8 [facility] TSH (MA-PB) THYROTROPIN [UNITS/VOLU ME] IN SERUM OR PLASMA 1.757 u[IU]/mL 0.47 - 5 05/06 Specimen Type: SERUM No comment entered. Ordering Provider: DANILO DUMONT Report Released Date/Time : Jun 14, 2024 04:32 PM Reporting Lab: [place] [facility] [address] [place] [address] 8 Performin g Lab: [place] [facility] [address] [place] [address] 8 [facility] COMPREHENS RAVI METABOLIC PANEL CREATININE [MASS/VOLUM E] IN SERUM OR PLASMA 0.72 mg/dL 0.7 - 1.3 05/06 Specimen Type: PLASMA No comment entered. Ordering Provider: DANILO DUMONT Report Released Date/Time : Jun 14, 2024 04:32 PM Reporting Lab: [place] [facility] [address] [place] [address] 8 Performin g Lab: [place] [facility] [address] [place] [address] 8 [facility] COMPREHENS RAVI METABOLIC PANEL UREA NITROGEN [MASS/VOLUM E] IN SERUM OR PLASMA 11 mg/dL 9 - 25 05/06 Specimen Type: PLASMA No comment entered. Ordering Provider: DANILO DUMONT Report Released Date/Time : Jun 14, 2024 04:32 PM Reporting Lab: [place] [facility] [address] [place] [address] 8 Performin g Lab: [place] [facility] [address] [place] [address] 8 [facility] COMPREHENS RAVI METABOLIC PANEL GLUCOSE [MASS/VOLUM E] IN SERUM OR PLASMA 114 mg/dL 72 - 99 05/06 H Specimen Type: PLASMA No comment entered. Ordering Provider: DANILO DUMONT Report Released Date/Time : Jun 14, 2024 04:32 PM Reporting Lab: [place] [facility] [address] [place] [address] 8 Performin g Lab: [place] [facility] [address] [place] [address] 8 [facility] COMPREHENS RAVI METABOLIC PANEL SODIUM [MOLES/VOLU ME] IN SERUM OR PLASMA 144 meq/L 136 - 145 05/06 Specimen Type: PLASMA No comment entered. Ordering Provider: DANILO DUMONT Report Released Date/Time : Jun 14, 2024 04:32 PM Reporting Lab: [place] [facility] [address] [place] [address] 8 Performin g Lab: [place] [facility] [address] [place] [address] 8 [facility] COMPREHENS RAVI METABOLIC PANEL POTASSIUM [MOLES/VOLU ME] IN SERUM OR PLASMA 3.9 meq/L 3.5 - 5 05/06 Specimen Type: PLASMA No comment entered. Ordering Provider: DANILO DUMONT Report Released Date/Time : Jun 14, 2024 04:32 PM Reporting Lab: [place] [facility] [address] [place] [address] 8 Performin g Lab: [place] [facility] [address] [place] [address] 8 [facility] COMPREHENS RAVI METABOLIC PANEL CHLORIDE [MOLES/VOLU ME] IN SERUM OR PLASMA 109 meq/L 98 - 107 05/06 H Specimen Type: PLASMA No comment entered. Ordering Provider: DANILO DUMONT Report Released Date/Time : Jun 14, 2024 04:32 PM Reporting Lab: [place] [facility] [address] [place] [address] 8 Performin g Lab: [place] [facility] [address] [place] [address] 8 [facility] COMPREHENS RAVI METABOLIC PANEL CARBON DIOXIDE, TOTAL [MOLES/VOLU ME] IN SERUM OR PLASMA 26 meq/L 22 - 31 05/06 Specimen Type: PLASMA No comment entered. Ordering Provider: DANILO DUMONT Report Released Date/Time : Jun 14, 2024 04:32 PM Reporting Lab: [place] [facility] [address] [place] [address] 8 Performin g Lab: [place] [facility] [address] [place] [address] 8 [facility] COMPREHENS RAVI METABOLIC PANEL CALCIUM [MASS/VOLUM E] IN SERUM OR PLASMA 8.6 mg/dL 8.4 - 10.4 05/06 Specimen Type: PLASMA No comment entered. Ordering Provider: DANILO DUMONT Report Released Date/Time : Jun 14, 2024 04:32 PM Reporting Lab: [place] [facility] [address] [place] [address] 8 Performin g Lab: [place] [facility] [address] [place] [address] 8 [facility] COMPREHENS RAVI METABOLIC PANEL PROTEIN [MASS/VOLUM E] IN SERUM OR PLASMA 6.7 g/dL 6 - 8.6 05/06 Specimen Type: PLASMA No comment entered. Ordering Provider: DANILO DUMONT Report Released Date/Time : Jun 14, 2024 04:32 PM Reporting Lab: [place] [facility] [address] [place] [address] 8 Performin g Lab: [place] [facility] [address] [place] [address] 8 [facility] COMPREHENS RAVI METABOLIC PANEL ALBUMIN [MASS/VOLUM E] IN SERUM OR PLASMA 3.7 g/dL 3.4 - 5 05/06 Specimen Type: PLASMA No comment entered. Ordering Provider: DANILO DUMONT Report Released Date/Time : Jun 14, 2024 04:32 PM Reporting Lab: [place] [facility] [address] [place] [address] 8 Performin g Lab: [place] [facility] [address] [place] [address] 8 [facility] COMPREHENS RAVI METABOLIC PANEL BILIRUBIN.T OTAL [MASS/VOLUM E] IN SERUM OR PLASMA 0.4 mg/dL 0.2 - 1.2 05/06 Specimen Type: PLASMA No comment entered. Ordering Provider: DANILO DUMONT Report Released Date/Time : Jun 14, 2024 04:32 PM Reporting Lab: [place] [facility] [address] [place] [address] 8 Performin g Lab: [place] [facility] [address] [place] [address] 8 [facility] COMPREHENS RAVI METABOLIC PANEL ALKALINE PHOSPHATASE [ENZYMATIC ACTIVITY/VO LUME] IN SERUM OR PLASMA 93 U/L 40 - 150 05/06 Specimen Type: PLASMA No comment entered. Ordering Provider: DANILO DUMONT Report Released Date/Time : Jun 14, 2024 04:32 PM Reporting Lab: [place] [facility] [address] [place] [address] 8 Performin g Lab: [place] [facility] [address] [place] [address] 8 [facility] COMPREHENS RAVI METABOLIC PANEL ASPARTATE AMINOTRANSF ERASE [ENZYMATIC ACTIVITY/VO LUME] IN SERUM OR PLASMA 12 U/L 5 - 34 05/06 Specimen Type: PLASMA No comment entered. Ordering Provider: DANILO DUMONT Report Released Date/Time : Jun 14, 2024 04:32 PM Reporting Lab: [place] [facility] [address] [place] [address] 8 Performin g Lab: [place] [facility] [address] [place] [address] 8 [facility] COMPREHENS RAVI METABOLIC PANEL ALANINE AMINOTRANSF ERASE [ENZYMATIC ACTIVITY/VO LUME] IN SERUM OR PLASMA 14 U/L 8 - 40 05/06 Specimen Type: PLASMA No comment entered. Ordering Provider: DANILO DUMONT Report Released Date/Time : Jun 14, 2024 04:32 PM Reporting Lab: [place] [facility] [address] [place] [address] 8 Performin g Lab: [place] [facility] [address] [place] [address] 8 [facility] COMPREHENS RAVI METABOLIC PANEL GLOMERULAR FILTRATION RATE/1.73 SQ M.PREDICTED [VOLUME RATE/AREA] IN SERUM, PLASMA OR BLOOD BY CREATININE- BASED FORMULA (CKD-EPI 2020) 94 05/06 Specimen Type: PLASMA No comment entered. Ordering Provider: DANILO DUMONT Report Released Date/Time : Jun 14, 2024 04:32 PM Reporting Lab: [place] [facility] [address] [place] [address] 8 Performin g Lab: [place] [facility] [address] [place] [address] 8 [facility] CBC LEUKOCYTES [#/VOLUME] IN BLOOD BY AUTOMATED COUNT 4.6 10*3/uL 3.6 - 11.2 05/06 Specimen Type: BLOOD No comment entered. Ordering Provider: DANILO DUMONT Report Released Date/Time : Jun 14, 2024 04:32 PM Reporting Lab: [place] [facility] [address] [place] [address] 8 Performin g Lab: [place] [facility] [address] [place] [address] 8 [facility] CBC ERYTHROCYTE S [#/VOLUME] IN BLOOD BY AUTOMATED COUNT 4.18 10*6/uL 4.10 - 5.70 05/06 Specimen Type: BLOOD No comment entered. Ordering Provider: DANILO DUMONT Report Released Date/Time : Jun 14, 2024 04:32 PM Reporting Lab: [place] [facility] [address] [place] [address] 8 Performin g Lab: [place] [facility] [address] [place] [address] 8 [facility] CBC HEMOGLOBIN [MASS/VOLUM E] IN BLOOD 9.3 g/dL 13.1 - 16.8 05/06 L Specimen Type: BLOOD No comment entered. Ordering Provider: DANILO DUMONT Report Released Date/Time : Jun 14, 2024 04:32 PM Reporting Lab: [place] [facility] [address] [place] [address] 8 Performin g Lab: [place] [facility] [address] [place] [phone] 8 [facility] CBC HEMATOCRIT [VOLUME FRACTION] OF BLOOD 32.8 38.2 - 48.4 05/06 L Specimen Type: BLOOD No comment entered. Ordering Provider: DANILO DUMONT Report Released Date/Time : Jun 14, 2024 04:32 PM Reporting Lab: [place] [facility] [address] [place] [address] 8 Performin g Lab: [place] [facility] [address] [place] [phone] 8 [facility] CBC MCV [ENTITIC VOLUME] BY AUTOMATED COUNT 78.5 fL 80.0 - 100.0 05/06 L Specimen Type: BLOOD No comment entered. Ordering Provider: DANILO DUMONT Report Released Date/Time : Jun 14, 2024 04:32 PM Reporting Lab: [place] [facility] [address] [place] [address] 8 Performin g Lab: [place] [facility] [address] [place] [phone] 8 [facility] CBC MCH [ENTITIC MASS] BY AUTOMATED COUNT 22.2 pg 27.0 - 34.0 05/06 L Specimen Type: BLOOD No comment entered. Ordering Provider: DANILO DUMONT Report Released Date/Time : Jun 14, 2024 04:32 PM Reporting Lab: [place] [facility] [address] [place] [address] 8 Performin g Lab: [place] [facility] [address] [place] [address] 8 [facility] CBC MCHC [MASS/VOLUM E] BY AUTOMATED COUNT 28.4 g/dL 33.0 - 36.0 05/06 L Specimen Type: BLOOD No comment entered. Ordering Provider: DANILO DUMONT Report Released Date/Time : Jun 14, 2024 04:32 PM Reporting Lab: [place] [facility] [address] [place] [address] 8 Performin g Lab: [place] [facility] [address] [place] [address] 8 [facility] CBC PLATELETS [#/VOLUME] IN BLOOD BY AUTOMATED COUNT 171 10*3/uL 150 - 400 05/06 Specimen Type: BLOOD No comment entered. Ordering Provider: DANILO DUMONT Report Released Date/Time : Jun 14, 2024 04:32 PM Reporting Lab: [place] [facility] [address] [place] [address] 8 Performin g Lab: [place] [facility] [address] [place] [address] 8 [facility] CBC PLATELET MEAN VOLUME [ENTITIC VOLUME] IN BLOOD BY AUTOMATED COUNT 10.8 fL 7.5 - 11.2 05/06 Specimen Type: BLOOD No comment entered. Ordering Provider: DANILO DUMONT Report Released Date/Time : Jun 14, 2024 04:32 PM Reporting Lab: [place] [facility] [address] [place] [address] 8 Performin g Lab: [place] [facility] [address] [place] [address] 8 [facility] CBC SEGMENTED NEUTROPHILS /100 LEUKOCYTES IN BLOOD BY MANUAL COUNT 39 05/06 Specimen Type: BLOOD No comment entered. Ordering Provider: DANILO DUMONT Report Released Date/Time : Jun 14, 2024 04:32 PM Reporting Lab: [place] [facility] [address] [place] [address] 8 Performin g Lab: [place] [facility] [address] [place] [address] 8 [facility] CBC MONOCYTES/1 00 LEUKOCYTES IN BLOOD BY AUTOMATED COUNT 9 05/06 Specimen Type: BLOOD No comment entered. Ordering Provider: DANILO DUMONT Report Released Date/Time : Jun 14, 2024 04:32 PM Reporting Lab: [place] [facility] [address] [place] [address] 8 Performin g Lab: [place] [facility] [address] [place] [address] 8 [facility] CBC EOSINOPHILS /100 LEUKOCYTES IN BLOOD BY MANUAL COUNT 20 05/06 Specimen Type: BLOOD No comment entered. Ordering Provider: DANILO DUMONT Report Released Date/Time : Jun 14, 2024 04:32 PM Reporting Lab: [place] [facility] [address] [place] [address] 8 Performin g Lab: [place] [facility] [address] [place] [address] 8 [facility] CBC PLATELET ADEQUACY [PRESENCE] IN BLOOD BY LIGHT MICROSCOPY ADEQUATE 05/06 Specimen Type: BLOOD No comment entered. Ordering Provider: DANILO DUMONT Report Released Date/Time : Jun 14, 2024 04:32 PM Reporting Lab: [place] [facility] [address] [place] [address] 8 Performin g Lab: [place] [facility] [address] [place] [address] 8 [facility] CBC ANISOCYTOSI S [PRESENCE] IN BLOOD BY LIGHT MICROSCOPY 3+ 05/06 Specimen Type: BLOOD No comment entered. Ordering Provider: DANILO DUMONT Report Released Date/Time : Jun 14, 2024 04:32 PM Reporting Lab: [place] [facility] [address] [place] [address] 8 Performin g Lab: [place] [facility] [address] [place] [address] 8 [facility] CBC MICROCYTES [PRESENCE] IN BLOOD BY LIGHT MICROSCOPY 1+ 05/06 Specimen Type: BLOOD No comment entered. Ordering Provider: DANILO DUMONT Report Released Date/Time : Jun 14, 2024 04:32 PM Reporting Lab: [place] [facility] [address] [place] [address] 8 Performin g Lab: [place] [facility] [address] [place] [address] 8 [facility] CBC HYPOCHROMIA [PRESENCE] IN BLOOD BY LIGHT MICROSCOPY 2+ 05/06 Specimen Type: BLOOD No comment entered. Ordering Provider: DANILO DUMONT Report Released Date/Time : Jun 14, 2024 04:32 PM Reporting Lab: [place] [facility] [address] [place] [address] 8 Performin g Lab: [place] [facility] [address] [place] [address] 8 [facility] CBC ERYTHROCYTE DISTRIBUTIO N WIDTH [RATIO] BY AUTOMATED COUNT 21.0 11.8 - 15.1 05/06 H Specimen Type: BLOOD No comment entered. Ordering Provider: DANILO DUMONT Report Released Date/Time : Jun 14, 2024 04:32 PM Reporting Lab: [place] [facility] [address] [place] [address] 8 Performin g Lab: [place] [facility] [address] [place] [address] 8 [facility] CBC ACANTHOCYTE S [PRESENCE] IN BLOOD BY LIGHT MICROSCOPY 3+ 05/06 Specimen Type: BLOOD No comment entered. Ordering Provider: DANILO DUMONT Report Released Date/Time : Jun 14, 2024 04:32 PM Reporting Lab: [place] [facility] [address] [place] [address] 8 Performin g Lab: [place] [facility] [address] [place] [address] 8 [facility] CBC LYMPHOCYTES /100 LEUKOCYTES IN BLOOD BY MANUAL COUNT 32 05/06 Specimen Type: BLOOD No comment entered. Ordering Provider: DANILO DUMONT Report Released Date/Time : Jun 14, 2024 04:32 PM Reporting Lab: [place] [facility] [address] [place] [address] 8 Performin g Lab: [place] [facility] [address] [place] [address] 8 [facility] CBC LYMPHOCYTES /100 LEUKOCYTES IN BLOOD BY AUTOMATED COUNT 28.7 05/06 Specimen Type: BLOOD No comment entered. Ordering Provider: DANILO DUMONT Report Released Date/Time : Jun 14, 2024 04:32 PM Reporting Lab: [place] [facility] [address] [place] [address] 8 Performin g Lab: [place] [facility] [address] [place] [address] 8 [facility] CBC MONOCYTES/1 00 LEUKOCYTES IN BLOOD BY AUTOMATED COUNT 11.9 05/06 Specimen Type: BLOOD No comment entered. Ordering Provider: DANILO DUMONT Report Released Date/Time : Jun 14, 2024 04:32 PM Reporting Lab: [place] [facility] [address] [place] [address] 8 Performin g Lab: [place] [facility] [address] [place] [address] [facility] CBC NEUTROPHILS /100 LEUKOCYTES IN BLOOD BY AUTOMATED COUNT 33.3 05/06 Specimen Type: BLOOD No comment entered. Ordering Provider: DANILO DUMONT Report Released Date/Time : Jun 14, 2024 04:32 PM Reporting Lab: [place] [facility] [address] [place] [address] Performin g Lab: [place] [facility] [address] [place] [address] [facility] CBC EOSINOPHILS /100 LEUKOCYTES IN BLOOD BY AUTOMATED COUNT 20.7 05/06 Specimen Type: BLOOD No comment entered. Ordering Provider: DANILO DUMONT Report Released Date/Time : Jun 14, 2024 04:32 PM Reporting Lab: [place] [facility] [address] [place] [address] Performin g Lab: [place] [facility] [address] [place] [address] [facility] CBC BASOPHILS/1 00 LEUKOCYTES IN BLOOD BY AUTOMATED COUNT 1.3 05/06 Specimen Type: BLOOD No comment entered. Ordering Provider: DANILO DUMONT Report Released Date/Time : Jun 14, 2024 04:32 PM Reporting Lab: [place] [facility] [address] [place] [address] Performin g Lab: [place] [facility] [address] [place] [address] [facility] CBC LYMPHOCYTES [#/VOLUME] IN BLOOD BY AUTOMATED COUNT 1.33 10*3/uL 0.77 - 4.50 05/06 Specimen Type: BLOOD No comment entered. Ordering Provider: DANILO DUMONT Report Released Date/Time : Jun 14, 2024 04:32 PM Reporting Lab: [place] [facility] [address] [place] [address] Performin g Lab: [place] [facility] [address] [place] [address] [facility] CBC MONOCYTES [#/VOLUME] IN BLOOD BY AUTOMATED COUNT 0.55 10*3/uL 0.19 - 0.8 05/06 Specimen Type: BLOOD No comment entered. Ordering Provider: DANILO DUMONT Report Released Date/Time : Jun 14, 2024 04:32 PM Reporting Lab: [place] [facility] [address] [place] [address] 8 Performin g Lab: [place] [facility] [address] [place] [address] 8 [facility] CBC NEUTROPHILS [#/VOLUME] IN BLOOD BY AUTOMATED COUNT 1.55 10*3/uL 2.10 - 8.00 05/06 L Specimen Type: BLOOD No comment entered. Ordering Provider: DANILO DUMONT Report Released Date/Time : Jun 14, 2024 04:32 PM Reporting Lab: [place] [facility] [address] [place] [address] Performin g Lab: [place] [facility] [address] [place] [address] 8 [facility] CBC EOSINOPHILS [#/VOLUME] IN BLOOD BY AUTOMATED COUNT 0.96 10*3/uL 0.00 - 0.60 05/06 H Specimen Type: BLOOD No comment entered. Ordering Provider: DANILO DUMONT Report Released Date/Time : Jun 14, 2024 04:32 PM Reporting Lab: [place] [facility] [address] [place] [address] Performin g Lab: [place] [facility] [address] [place] [address] [facility] CBC BASOPHILS [#/VOLUME] IN BLOOD BY AUTOMATED COUNT 0.06 10*3/uL 0.00 - 0.20 05/06 Specimen Type: BLOOD No comment entered. Ordering Provider: DANILO DUMONT Report Released Date/Time : Jun 14, 2024 04:32 PM Reporting Lab: [place] [facility] [address] [place] [address] Performin g Lab: [place] [facility] [address] [place] [address] [facility] CBC OVALOCYTES [PRESENCE] IN BLOOD BY LIGHT MICROSCOPY 2+ 05/06 Specimen Type: BLOOD No comment entered. Ordering Provider: DANILO DUMONT Report Released Date/Time : Jun 14, 2024 04:32 PM Reporting Lab: [place] [facility] [address] [place] [address] Performin g Lab: [place] [facility] [address] [place] [address] 8 [facility] CBC IMMATURE GRANULOCYTE S/100 LEUKOCYTES IN BLOOD BY AUTOMATED COUNT 4.1 05/06 Specimen Type: BLOOD No comment entered. Ordering Provider: DANILO DUMONT Report Released Date/Time : Jun 14, 2024 04:32 PM Reporting Lab: [place] [facility] [address] [place] [address] Performin g Lab: [place] [facility] [address] [place] [address] [facility] CBC IMMATURE GRANULOCYTE S [#/VOLUME] IN BLOOD BY AUTOMATED COUNT 0.19 10*3/uL 0.00 - 0.05 05/06 H Specimen Type: BLOOD No comment entered. Ordering Provider: DANILO DUMONT Report Released Date/Time : Jun 14, 2024 04:32 PM Reporting Lab: [place] [facility] [address] [place] [address] Performin g Lab: [place] [facility] [address] [place] [address] 8 [facility] CBC MANUAL DIFFERENTIA L COMMENT [INTERPRETA TION] IN BLOOD NARRATIVE NO 05/06 Specimen Type: BLOOD No comment entered. Ordering Provider: DANILO DUMONT Report Released Date/Time : Jun 14, 2024 04:32 PM Reporting Lab: [place] [facility] [address] [place] [address] Performin g Lab: [place] [facility] [address] [place] [address] [facility] CBC MANUAL DIFFERENTIA L PERFORMED [PRESENCE] IN BLOOD 0.00 10*3/uL 0.00 05/06 Specimen Type: BLOOD No comment entered. Ordering Provider: DANILO DUMONT Report Released Date/Time : Jun 14, 2024 04:32 PM Reporting Lab: [place] [facility] [address] [place] [address] Performin g Lab: [place] [facility] [address] [place] [address] 8 [facility] CBC EOSINOPHILS [#/VOLUME] IN BLOOD BY MANUAL COUNT 0.92 10*3/uL 0.00 - 0.60 05/06 H Specimen Type: BLOOD No comment entered. Ordering Provider: DANILO DUMONT Report Released Date/Time : Jun 14, 2024 04:32 PM Reporting Lab: [place] [facility] [address] [place] [address] Performin g Lab: [place] [facility] [address] [place] [address] [facility] CBC MONOCYTES [#/VOLUME] IN BLOOD BY MANUAL COUNT 0.41 10*3/uL 0.19 - 0.8 05/06 Specimen Type: BLOOD No comment entered. Ordering Provider: DANILO DUMONT Report Released Date/Time : Jun 14, 2024 04:32 PM Reporting Lab: [place] [facility] [address] [place] [address] Performin g Lab: [place] [facility] [address] [place] [address] [facility] CBC LYMPHOCYTES [#/VOLUME] IN BLOOD BY MANUAL COUNT 1.47 10*3/uL 0.77 - 4.50 05/06 Specimen Type: BLOOD No comment entered. Ordering Provider: DANILO DUMONT Report Released Date/Time : Jun 14, 2024 04:32 PM Reporting Lab: [place] [facility] [address] [place] [address] Performin g Lab: [place] [facility] [address] [place] [address] [facility] CBC NEUTROPHILS [#/VOLUME] IN BLOOD BY MANUAL COUNT 1.79 10*3/uL 2.10 - 8.00 05/06 L Specimen Type: BLOOD No comment entered. Ordering Provider: DANILO DUMONT Report Released Date/Time : Jun 14, 2024 04:32 PM Reporting Lab: [place] [facility] [address] [place] [address] Performin g Lab: [place] [facility] [address] [place] [address] [facility] Vital Signs Combined list of inpatient and outpatient Vital Signs from Department of Defense and Veterans Affairs, ranging from 12 months to all on record, depending upon the facility. Vital Sign Value Date Comments Source SYSTOLIC BLOOD PRESSURE 142 06/22/2025 13:47:00 [facility] DIASTOLIC BLOOD PRESSURE 74 06/22/2025 13:47:00 [facility] TEMPERATURE 98.3 06/22/2025 13:47:00 [facility] [place] [facility] PULSE 66 06/22/2025 13:47:00 [facility] [place] [facility] SYSTOLIC BLOOD PRESSURE 133 05/31/2025 16:06:00 [place] [facility] DIASTOLIC BLOOD PRESSURE 76 05/31/2025 16:06:00 [place] [facility] TEMPERATURE 98 05/31/2025 16:06:00 [place] [facility] PULSE 78 05/31/2025 16:06:00 [facility] [place] [facility] SYSTOLIC BLOOD PRESSURE 172 05/16/2025 13:21:00 [place] [facility] DIASTOLIC BLOOD PRESSURE 79 05/16/2025 13:21:00 [facility] [place] [facility] TEMPERATURE 97.8 05/16/2025 13:21:00 [place] [facility] PULSE 72 05/16/2025 13:21:00 [place] [facility] SYSTOLIC BLOOD PRESSURE 158 05/06/2025 09:46:08 [place] [facility] DIASTOLIC BLOOD PRESSURE 85 05/06/2025 09:46:08 [facility] [place] [facility] PULSE OXIMETRY 95 % 05/06/2025 09:46:08 [facility] [place] [facility] WEIGHT 206.3 05/06/2025 09:46:08 [facility] [place] [facility] BMI 29 kg/m2 05/06/2025 09:46:08 [facility] [place] [facility] PAIN 0 05/06/2025 09:46:08 [facility] [place] [facility] TEMPERATURE 98.6 05/06/2025 09:46:08 [facility] [place] [facility] PULSE 72 05/06/2025 09:46:08 [facility] [place] [facility] RESPIRATION 18 05/06/2025 09:46:08 [facility] [place] [facility] SYSTOLIC BLOOD PRESSURE 118 04/07/2025 15:46:00 [facility] [place] [facility] DIASTOLIC BLOOD PRESSURE 77 04/07/2025 15:46:00 [facility] [place] [facility] TEMPERATURE 97.9 04/07/2025 15:46:00 [facility] [place] [facility] PULSE 94 04/07/2025 15:46:00 [facility] [place] [facility] Encounters Combined list of: 1) Encounters from Department of Veterans Affairs facilities going backup to the last 18 months, not all VA inpatient encounters are included; 2) Encounters from the Department of Defense facilities going backup to [facility] months. 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 [place] [facility] Outpatient Encounter [id number] 02/02 [place] [facility] Outpatient Encounter [id number] 02/09 [facility] Outpatient Encounter [id number] IVAN DUMONT 02/12 [facility] OFFICE O/P NEW LOW 30 MIN [id number] Diagnos is: ICD-10- CM M54.59 Other low back pain RANDI GARCIA 02/15 [facility] Outpatient Encounter [id number] Diagnos is: ICD-10- CM E78.5 Hyperli pidemia , unspeci fied Gage NAGEL 02/15 [facility] [place] [facility] Outpatient Encounter [id number] 02/19 [place] [facility] Outpatient Encounter [id number] 03/10 [facility] Outpatient Encounter [id number] 03/10 [facility] Outpatient Encounter [id number] DALE NORTON 03/20 [facility] Outpatient Encounter [id number] 03/22 [facility] Outpatient Encounter [id number] CUSTRED,TO RRI J 03/29 [facility] Outpatient Encounter [id number] 04/14 [facility] Outpatient Encounter [id number] IVAN DUMONT 04/15 [facility] MTMS BY PHARM ADDL 15 MIN [id number] Diagnos is: ICD-10- CM E78.5 Hyperli pidemia , unspeci fied Gage NAGEL W 04/15 [facility] CHIROPRACT MANJ 3-4 [place] [id number] Diagnos is: ICD-10- CM M54.59 Other low back pain RANDI GARCIA 06/07 [facility] OFFICE O/P EST LOW 20 MIN [id number] Diagnos is: ICD-10- CM Z00.01 Encount er for general adult medical exam w abnorma l finding s IVAN DUMONT 06/10 [facility] Outpatient Encounter [id number] 06/14 [facility] En[facility] [id number] 06/15 [facility] [facility] En[facility] [id number] 06/16 [facility] Out[facility] Encounter [id number] [id number] 06/21 [facility]-4 [place] [id number] Diagnos is: ICD-10- CM M54.59 Other low back pain RANDI GARCIA ASE PATIENCE 07/05 [facility] Outpatient Encounter [id number] 07/23 [facility] Outpatient Encounter [id number] 07/23 [facility]-4 [place] [id number] [id number] Diagnos is: ICD-10- CM M54.59 Other low back pain RANDI GARCIA ASE PATIENCE 07/23 [facility] [place]CT MANJ 3-4 [place] [id number] Diagnos is: ICD-10- CM M54.59 Other low back pain RANDI GARCIA ASE PATIENCE 08/13 [facility] MTMS BY PHARM ADDL 15 MIN [id number] Diagnos is: ICD-10- CM E78.5 Hyperli pidemia , unspeci fied Gage NAGEL 08/13 [facility] [place] MANJ 3-4 [place] [id number] Diagnos is: ICD-10- CM M54.59 Other low back pain RANDI GARCIA ASE PATIENCE 08/23 [facility] Outpatient Encounter [id number] 08/23 [facility] CHIROPRACT MAN 3-4 [place] [id number] Diagnos is: ICD-10- CM M54.59 Other low back pain RANDI GARCIA ASE PATIENCE 09/06 [facility] Outpatient Encounter [id number] 09/09 [facility] Outpatient Encounter [id number] [id number] 09/10 [facility] [place] [facility] Outpatient Encounter [id number] 09/10 [place] [facility] Outpatient Encounter [id number] [id number] 09/13 [facility] [place] [facility] CLEAN/INSP ECT HUGH PART DENT [id number] Diagnos is: ICD-10- CM K03.6 Deposit s [accret ions] on teeth JASON SWANSON 09/14 [place] [facility] [place] [facility] PERIODIC ORAL EVAL EST [id number] Diagnos is: ICD-10- CM K02.62 Dental caries on smooth surface penetra ting into dentin YURI SO 09/[address] [place] [facility] OFF/OP EST MARCH X REQ PHY/QHP [id number] Diagnos is: ICD-10- CM R09.81 Nasal congest ion CUSTRED,TO RRI J 09/28 [facility] Outpatient Encounter [id number] 10/06 [facility] OFF/OP EST MAY X REQ PHY/QHP [id number] [id number] Diagnos is: ICD-10- CM H60.92 Unspeci fied otitis externa , left ear Gage GRIFFIN 10/06 [facility] OFFICE O/P EST MOD 30 MIN [id number] Diagnos is: ICD-10- CM I77.6 Arterit is, unspeci fied YOANA UNGER STEL G 10/06 [facility] CHIROPRACT MANJ 3-4 [place] [id number] [id number] Diagnos is: ICD-10- CM M54.59 Other low back pain RANDI GARCIA 10/08 [facility] MTMS BY PHARM ADDL 15 MIN [id number] Diagnos is: ICD-10- CM E78.5 Hyperli pidemia , unspeci fiGage Fitzpatrick W 10/12 [facility] Outpatient Encounter [id number] 10/19 [facility] Outpatient Encounter [id number] 10/20 [facility] MTMS BY PHARM ADDL 15 MIN [id number] Diagnos is: ICD-10- CM E78.5 Hyperli pidemia , unspeci Gage Metzger DENIS W 10/20 [facility] [place] CHIROPRACT MANJ 3-4 [place] [id number] Diagnos is: ICD-10- CM M54.2 Cervica olvin GARCIA CH WENDY MORIN 10/25 [facility] Outpatient Encounter [id number] 10/27 [facility] REMOVABLE PROSTHODON TIC PROC [id number] [id number] Diagnos is: ICD-10- CM K08.131 Complet e loss of teeth due to caries, class I YURI SO 10/28 [facility] Outpatient Encounter [id number] 11/08 [facility] Outpatient Encounter [id number] [id number] 11/12 [facility] Outpatient Encounter [id number] [id number] 11/16 [facility] Outpatient Encounter [id number] [id number] 11/24 [facility] Outpatient Encounter [id number] [id number] 11/25 [facility] Outpatient Encounter [id number] [id number] 12/01 [facility] Outpatient Encounter [id number] [id number] 12/02 [facility] Outpatient Encounter [id number] [id number] 12/07 [facility] OFF/OP EST MAY X REQ PHY/QHP [id number] Diagnos is: ICD-10- CM J01.80 Other acute sinusit is Gage GRIFFIN 12/10 [facility] [place] MANJ 3-4 [place] [id number] Diagnos is: ICD-10- CM M54.59 Other low back pain RANDI GARCIA 12/10 [facility] Outpatient Encounter [id number] 12/14 [facility] Outpatient Encounter [id number] [id number] 12/14 [facility] Outpatient Encounter [id number] [id number] 12/15 [facility] Outpatient Encounter [id number] [id number] 12/17 [facility] Outpatient Encounter [id number] [id number] APRIL HAYES 12/27 [facility] [place] [facility] Outpatient Encounter [id number] [id number] 12/28 [place] [facility] Outpatient Encounter [id number] [id number] 12/29 [facility] [place] [facility] Outpatient Encounter [id number] [id number] 12/30 [place] [facility] Outpatient Encounter [id number] [id number] 12/31 [facility] Outpatient Encounter [id number] [id number] 01/10 [facility] Outpatient Encounter [id number] [id number] 01/17 [facility] [place] [facility] Outpatient Encounter [id number] [id number] 01/17 [place] [facility] [place] [facility] Outpatient Encounter [id number] 01/17 [place] [facility] Outpatient Encounter [id number] [id number] 01/18 [facility] Outpatient Encounter [id number] [id number] 01/19 [facility] [place] [facility] Outpatient Encounter [id number] [id number] 01/19 [facility] [place] TST [place] PH[place] [id number] [id number] Diagnos is: ICD-10- CM G31.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 etiolog y JIMENA SAINI 01/20 [facility] Outpatient Encounter [id number] [id number] 01/25 [facility] Outpatient Encounter [id number] [id number] 01/25 [facility] Outpatient Encounter [id number] [id number] 01/26 [facility] REMOVABLE PROSTHODON TIC PROC [id number] [id number] Diagnos is: ICD-10- CM K08.131 Complet e loss of teeth due to caries, class I YURI SO 01/26 [place] [facility] Outpatient Encounter [id number] [id number] 01/28 [facility] Encounter [id number] [id number] 01/28 [facility] Outpatient Encounter [id number] [id number] 01/31 [facility] PT EDUCATION NOC INDIVID [id number] [id number] Diagnos is: ICD-10- CM Z71.89 Other specifi ed grief counselor EMILE Manzano 01/31 [facility] Outpatient Encounter [id number] [id number] 01/31 [facility] Outpatient Encounter [id number] 01[facility] MIN [id number] [id number] Diagnos is: ICD-10- CM E78.5 Hyperli pidemia , unspeci fied Gage NAGEL W 02/03 [facility] [place] [facility] Outpatient Encounter [id number] [id number] 02/03 [facility] Outpatient Encounter [id number] [id number] 02/08 [facility] [place] MANJ 3-4 [place] [id number] [id number] Diagnos is: ICD-10- CM M54.59 Other low back pain RANDI GARCIA ASE PATIENCE 02/11 [facility] [place] [facility] Outpatient Encounter [id number] [id number] 02/14 [place] [facility] MTMS BY PHARM ADDL 15 MIN [id number] [id number] Diagnos is: ICD-10- CM E78.5 Hyperli pidemia , unspeci fied Gage NAGEL W 02/18 [facility] [place] MANJ 3-4 [place] [id number] [id number] Diagnos is: ICD-10- CM M54.59 Other low back pain RANDI GARCIA ASE PATIENCE 02/18 [facility] Outpatient Encounter [id number] [id number] 02/18 [facility] Outpatient Encounter [id number] [id number] 02/22 [facility] Outpatient Encounter [id number] [id number] 03/08 [facility] [place] [id number] [id number] Diagnos is: ICD-10- CM M54.59 Other low back pain RANDI GARCIA ASE PATIENCE 03/18 [facility] [place] [facility] Outpatient Encounter [id number] [id number] 03/18 [place] [facility] Outpatient Encounter [id number] [id number] 03/22 [facility] Outpatient Encounter [id number] [id number] 04/06 [facility] OFF/OP EST MARCH X REQ PHY/QHP [id number] [id number] Diagnos is: ICD-10- CM B37.0 Kelsi l stomati tis CUSTRED,TO RRI J 04/07 [facility] Outpatient Encounter [id number] [id number] APRIL HAYES RIL L 04/13 [facility] Outpatient Encounter [id number] [id number] 04/14 [facility] Outpatient Encounter [id number] [id number] 04/21 [facility] Outpatient Encounter [id number] [id number] 04/25 [facility] Outpatient Encounter [id number] [id number] 04/26 [facility] Outpatient Encounter [id number] [id number] 04/29 [facility] Outpatient Encounter [id number] [id number] 05/06 [facility] OFFICE O/P EST SF 10 MIN [id number] Diagnos is: ICD-10- CM Z00.01 Encount er for general adult medical exam w abnorma l finding s IVAN DUMONT 05/06 [facility] FUNDUS PHOTOGRAPH Y W/I&R [id number] Diagnos is: ICD-10- CM Z13.5 Encount er for screeni ng for eye and ear disorde rs SHUNWI SAMIR Stein 05/06 [facility] [place] [facility] IMG RTA DETC/MNTR DS PHY/QHP [id number] [id number] Diagnos is: ICD-10- CM Z13.5 Encount er for screeni ng for eye and ear disorde rs ANKITNAOMIRanjit MATTEO SIMPSON 05/06 [place] [facility] En[facility] [id number] SHUNWI SAMIR 05/06 [facility] Outpatient Encounter [id number] IVAN DUMONT 05/09 [facility] MT[facility] BY PHARM ADDL 15 MIN [id number] Diagnos is: ICD-10- CM E11.9 Type 2 diabete s mellitu s without complic ations LINDSEY CRAIG 05/12 [facility] [place] [facility] PERIODIC ORAL EVAL EST [id number] [id number] Diagnos is: ICD-10- CM K08.132 Complet e loss of teeth due to caries, class II YURI SO H 05/13 [place] [facility] EST MAY X REQ PHY/QHP [id number] [id number] Diagnos is: ICD-10- CM R52 Pain, unspeci fied CUSTRED,TO RRI J 05/16 [facility] OFFICE O/P EST LOW 20 MIN [id number] [id number] Diagnos is: ICD-10- CM J18.9 Pneumon ia, unspeci fied organis m YOANA UNGER G 05/16 [facility] OFF/OP EST MARCH X REQ PHY/QHP [id number] [id number] Diagnos is: ICD-10- CM J18.9 Pneumon ia, unspeci michael boone m CUSTRED,TO RRI J 05/31 [facility] [place] [facility] Outpatient Encounter [id number] 06/02 [place] [facility] [place] [facility] Outpatient Encounter [id number] 06/07 [place] [facility] Outpatient Encounter [id number] 06/15 [facility] Outpatient Encounter [id number] IVAN DUMONT 06/20 [facility] OFF/OP EST MARCH X REQ PHY/QHP [id number] [id number] Diagnos is: ICD-10- CM R09.81 Nasal congest ion CUSTRED,TO RRI J 06/22 [facility] OFFICE O/P EST LOW 20 MIN [id number] Diagnos is: ICD-10- CM J01.20 Acute ethmoid al sinusit is, unspeci michael UNGERYOANA G 06/22 [facility] Outpatient Encounter [id number] [id number] Nakul CUELLO 06/29 [facility] Outpatient Encounter [id number] [id number] 06/30 [facility] Outpatient Encounter [id number] 07/08 [facility] CHIROPRACT MANJ 3-4 REGIONS [id number] Diagnos is: ICD-10- CM M54.2 Cervica olvin AGRCIA,RANDI ASE PATIENCE 07/11 [facility] Social History Combined list of available smoking, tobacco, and other social history from Department of Defense and Veterans Affairs facilities. Social History Type Response Date Comment Sour e Tobacco smoking status SCIS VA-TOBACCO NEVER USED 06/10/2024 [facility] History of tobacco use VA-TOBACCO FORMER USER 03/26/2023 [facility] History of tobacco use CURRENT NON-TOBAC CO USER-HX OF USE 12/02/2019 [facility] History of tobacco use VA-TOBACCO QUIT 5 TO < 15 YRS 04/13/2019 [facility] History of tobacco use CURRENT NON-TOBAC CO USER-HX OF USE 12/30/2018 [facility] History of tobacco use CURRENT NON-TOBAC CO USER-HX OF USE 12/30/2018 [facility] History of tobacco use TOBACCO OFFERED P T MEDS (PROVIDER) 05/17/2015 [facility] History of tobacco use TOBACCO OFFERED P T MEDS (PROVIDER) 12/24/2013 [facility] History of tobacco use TOBACCO OFFERED P T MEDS (PROVIDER) 10/12/2012 declined [facility] History of tobacco use TOBACCO OFFERED P T MEDS (PROVIDER) 01/15/2012 declined [facility] History of tobacco use TOBACCO OFFERED P T MEDS (PROVIDER) 10/30/2010 declined [facility] History of tobacco use LIFETIME NON-USER OF TOBACCO 01/26/2009 [facility] History of tobacco use TOBACCO MEDS OFFE RED BUT DECLINED 07/14/2008 [facility] History of tobacco use QUIT TOBACCO >7 Y EARS AGO 07/15/2007 [facility] History of tobacco use CURRENT TOBACCO USER 06/05/2006 [facility] History of tobacco use CURRENT NON-TOBAC CO USER-HX OF USE 10/14/2005 [facility] History of tobacco use CURRENT TOBACCO USER 06/12/2005 [facility] History of tobacco use CURRENT TOBACCO USER 05/13/2005 [facility] History of tobacco use CURRENT TOBACCO USER 04/01/2005 [facility] Plan of Care List of future care activities from Department of [facility] Affairs facilities. Additional future care activities may be listed in the Assessment and Plan section. Date/Time Care Activity Care Activity Detail Facili ty 07/26/2025 AMBULATORY - MEDICINE AMBULATORY - [facility]ICI [facility]
--- NOTE | 2025-07-16 15:27 | XRR_ITS ---
PROCEDURE INFORMATION: Exam: XR Left Shoulder Exam date and time: 07/16/2025 3:58 PM Age: 79 years old Clinical indication: Injury or trauma; Fall; Blunt trauma (contusions or hematomas); Shoulder; Left TECHNIQUE: Imaging protocol: Radiologic exam of the left shoulder. Views: 2 or more views. COMPARISON: CR XR chest 1V portable [id number] 04/14/2025 2:32 PM FINDINGS: Tubes, catheters and devices: Left subclavian central venous catheter in place, with the tip in the distal SVC. Bones/joints: No fracture or dislocation. No suspicious osseous lesions. Mild degenerative changes in the glenohumeral joint and acromioclavicular joint. Soft tissues: Normal. XR/XR shoulder LT min 2V* [id number] IMPRESSION: Mild degenerative changes in the glenohumeral joint and acromioclavicular joint.
[2025-07-16 15:30] VITALS: BP 164/81; PULSE 82; RESP 16; TEMP 36.9; O2SAT 96
--- OUTSIDE RECORDS SUMMARY | 2025-07-16 15:43 | XMS_ITS | Patient Health Record ---
Author Organization [email or web address] Address [address] [place] [address] Care Team Providers Care Labor Relations Officer Name Role Phone RandolphbobyTodd Primary Care Provider SEBASTIAN Martinez Unavailable [phone] Reason For Referral No Information Medications Medication SIG (Take, Route, Frequency, Duration) Notes Start Date End Date Status Gabapentin 100 MG 2 capsules Orally BID Active Potassium Chloride ER 10 MEQ 1 tablet with food Orally Once a day Active Lisinopril 40 MG 1 tablet Orally Once a day Active buPROPion HCl 100 MG 1.5 tablets Orally daily Active hydroCHLOROthiazide 12.5 MG 1 tablet in the morning Orally Once a day Active Aspirin 81 MG 1 tablet Orally Once a day Active Atenolol 50 MG 1 tablet Orally Once a day Active Atorvastatin Calcium 20 MG 1 tablet Oral ly Once a day Active Pantoprazole Sodium 40 MG 1 tablet Orall y Once a day Active amLODIPine Besylate 5 MG 1 tablet Orally Once a day Active metFORMIN HCl 500 MG 1 tablet with a meal Orally bid Active Cholecalciferol 50 MCG (1999 UT) 1 capsule Orally Once a day *Pick strength-form from [facility] for e[employer]* Active Immunizations Vaccine Route Administration Date Status Comme nts Pneumovax 23 Unknown 08/30/2019 Administered Immunizati on Given by from source eCW:: Influenza (split), seasonal, intradermal, preservative free Unknown 09/08/2019 Administered Immunization G iven by from source eCW:: Plan Of Treatment Pending Test Test Name Order Date Blood Urea Nitrogen (BUN) [id number] 05/01/20 20 Creatinine (B) [id number] 05/01/2020 CT Abdomen, Pelvis w/ + w/o Contrast-[id number] 05/01/2020 Insurance Providers Payer Name Payer Address Payer Phone Subscriber Number Group Number Insured Name Patient Relationship to Insured Coverage Start Date Coverage End Date [employer] [address] [place], [place] [id number] Lion Aiken Self - patient is the insured Medical (General) History Medical History History ICD Code hematuria Lymphoma diabetes mellitus hypertension Back Trouble Surgical History Surgery Date(Month/Year) tonsillectomy
--- OUTSIDE RECORDS SUMMARY | 2025-07-16 15:43 | XMS_ITS | Patient Health Record ---
Author Organization [facility] Address [address] [place] [address] Care Team Providers Care Outpatient Therapist Name Role Phone Todd Servin MD Primary Care Provider Unavail able Bryant Waterman [phone] Reason For Referral No Information Medications Medication SIG (Take, Route, Frequency, Duration) Notes Start Date End Date Status Lisinopril 40 MG Tablet 1 tablet Orally Once a day Active Cholecalciferol 50 MCG (1999) Tablet 1 capsule Orally Once a day Active Potassium Chloride ER 10 MEQ Tablet Extended Release 1 tablet with food Orally Once a day Active metFORMIN HCl 500 MG Tablet 1 tablet wit h a meal Orally bid Active Atenolol 50 MG Tablet 1 tablet Orally On ce a day Active Gabapentin 100 MG Capsule 2 capsules Orally BID Active Pantoprazole Sodium 40 MG Tablet Delayed Release 1 tablet Orally Once a day Active amLODIPine Besylate 5 MG Tablet 1 tablet Orally Once a day Active hydroCHLOROthiazide 12.5 MG Tablet 1 tablet in the morning Orally Once a day Active Aspirin 81 MG Tablet Delayed Release 1 tablet Orally Once a day Active Atorvastatin Calcium 20 MG Tablet 1 tablet Orally Once a day Active buPROPion HCl 100 MG Tablet 1.5 tablets Orally daily Active Immunizations Vaccine Route Administration Date Status Comme nts Influenza (split), seasonal, intradermal, preservative free Unknown 09/08/2019 Administered Pneumovax 23 Unknown 08/30/2019 Administered Social History Tobacco Use: Social History Observation Description Date Details (start date - stop date) Never Smoker NA - NA Social History Depression Screening Social Info Question Answer Notes PHQ-9 Little interest or pleasure in doing thin gs Several days Feeling down, depressed, or hopeless Not at all Trouble falling or staying asleep, or sleeping t oo much Not at all Feeling tired or having little energy Not at all Poor appetite or overeating Several days Feeling bad about yourself, or that you are a failure, or have let yourself or your family down Not at all Trouble concentrating on thi ngs, such as reading the newspaper or watching television Not at all Moving or speaking so slowly that other people could have noticed. Or the opposite ? being so fidgety or restless that you have been moving around a lot more than usual Not at all Thoughts that you would be b denis off , or of hurting yourself in some way Not at all Total Score 2 Interpretation Minimal Depression Tobacco Use: Social Info Question Answer Notes xTobacco Use/Smoking Are you a nonsmoker Plan Of Treatment Pending Test Test Name Order Date Blood Urea Nitrogen (BUN) [id number] 05/01/20 20 Creatinine (B) 02115 05/01/2020 CT Abdomen, Pelvis w/ + w/o Contrast-[id number] 05/01/2020 Insurance Providers Payer Name Payer Address Payer Phone Subscriber Number Group Number Insured Name Patient Relationship to Insured Coverage Start Date Coverage End Date [employer] [address] [place] [phone] [id number] Lion Aiken Self - patient is the insured Medical (General) History Medical History History ICD Code hematuria Lymphoma diabetes mellitus hypertension Back Trouble Surgical History Surgery Date(Month/Year) tonsillectomy
--- NOTE | 2025-07-16 17:23 | W.ED.EXTPRO ---
HPI - Extremity Problem General: Chief complaint: Extremity Injury, Upper Stated complaint: lt shoulder inj Time Seen by Provider: 07/16/25 15:37 Source: patient Mode of arrival: ambulatory Limitations: no limitations History of Present Illness: This patient is a 79-year-old male who presents the emergency department complaining of left shoulder injury that occurred around 1500. He states that he was sitting in his office chair, the chair flipped and the patient fell landing directly on his left elbow which shot pain up towards his left shoulder. He notes that the pain at this time is in the left shoulder, is having limited range of motion with a 3/10 pain. No pain or issues with his elbow, and distal neurovascular symptoms are not reported. No abrasion or wound. 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 History of previous lipoma removal from the left lateral shoulder. Denies having taken anything for pain. Unrelated, he is also stating he wants wounds on his feet looked at, he is a diabetic and thinks he was bitten by chiggers and that the wounds are not healing. MD Complaint: joint pain Onset (ago): hour(s) Pain Consistency: constant Location: left and upper extremity (shoulder) Exacerbating factors: range of motion Associated symptoms: Deny chest pain, fever(s) or rash Related Data Home Medications ?Medication ?Instructions ?Recorded ?Confirmed bupropion HCl 150 mg 24 hr tablet, 150 mg PO QAM 07/07/20 06/27/25 extended release cholecalciferol (vitamin D3) 50 50 mcg PO DAILY 07/07/20 06/27/25 mcg (2,000 unit) tablet metformin 1,000 mg tablet 500 mg PO BID 07/07/20 06/27/25 pantoprazole 40 mg tablet,delayed 40 mg PO QAM 07/07/20 06/27/25 release (Protonix) omega 8-tml-sqv-fish oil 1,200 mg 1 cap PO DAILY 02/26/23 06/27/25 (144 mg-216 mg) capsule (Fish Oil) vitamin E (dl, acetate) 45 mg (100 45 mg PO DAILY 07/22/23 06/27/25 unit) capsule sennosides 8.6 mg tablet (senna) 8.6 mg PO ONCE PRN Constipation 04/14/24 06/27/25 folic acid 400 mcg tablet 0.4 mg PO DAILY 12/27/24 06/27/25 gabapentin 300 mg capsule 300 mg PO BID 12/27/24 06/27/25 sitagliptin 100 mg tablet 100 mg PO DAILY 12/27/24 06/27/25 ascorbic acid (vitamin C) 500 mg 500 mg PO BID 04/13/25 06/27/25 tablet (Vitamin C) atorvastatin 80 mg tablet 40 mg PO QPM 04/13/25 06/27/25 ferrous gluconate 324 mg (37.5 mg 324 mg PO DAILY iron deficiency 04/13/25 06/27/25 iron) tablet nystatin 100,000 unit/mL oral 5 - 10 ml PO BID 04/13/25 06/27/25 suspension zinc gluconate 50 mg tablet 50 mg PO DAILY 04/13/25 06/27/25 Previous Rx's ?Medication ?Instructions ?Recorded allopurinol 300 mg tablet 300 mg PO DAILY #30 tabs 07/09/23 lorazepam 1 mg tablet 0.5 - 1 mg (0.5 - 1 x 1 mg) buccal 10/21/23 Q8H PRN severe nausea and vomiting #30 tabs potassium chloride 20 mEq 20 meq PO DAILY #90 tabs 02/01/25 tablet,extended release mupirocin 2 % topical ointment 1 applic topical BID #15 grams 07/16/25 Allergies Allergy/AdvReac Type Severity Reaction Status Date / Time No Known Allergies Allergy Verified 06/27/25 12:30 Review of Systems General: Reports: 10 or more systems reviewed and unremarkable except in HPI and below Const: Denies: fever(s) or chills Card: Denies: chest pain Resp: Denies: dyspnea or productive cough GI: Denies: abdominal pain, nausea, vomiting or diarrhea : Denies: flank pain Musc: Reports: joint pain (left shoulder) and limited range of motion (left shoulder); Denies: neck pain, back pain, extremity pain, extremity swelling, joint swelling, joint redness, joint warmth or muscle weakness Skin/Breast: Denies: rash Neuro: Denies: headache(s), numbness in extremities or weakness in extremities PFSH ED PFSH: Medical History Peripheral neuropathy PTSD (post-traumatic stress disorder) Mantle cell lymphoma Hyperlipidemia GERD (gastroesophageal reflux disease) Hypertension Atrial fibrillation DM type 2 (diabetes mellitus, type 2) Surgical History History of cataract extraction History of colonoscopy History of tonsillectomy Family History Sister Suicide Other Cancer Diabetes Hyperlipidemia Hypertension Denies family history of CAD (coronary artery disease) Clotting disorder Dementia Psychiatric illness Chronic kidney disease (CKD) Anesthesia complication Bleeding disorder Lung disease Stroke Social History Smoking and tobacco/nicotine status: former use of tobacco/nicotine Quit status (tobacco/nicotine): has quit using Year quit tobacco: 2012 Former quit date comment: 20 years Alcohol intake: never Substance/Drug Use: never Physical Exam Const: COMMON NORMALS: no acute distress, patient oriented x3, no limitations, healthy appearing, alert and well nourished HENMT: COMMON NORMALS: normocephalic and atraumatic HEAD & SCALP: normocephalic and atraumatic Neck/C-Spine: COMMON NORMALS: full ROM, supple and no meningeal signs Resp: COMMON NORMALS: normal respiratory effort, No use of accessory muscles and clear to auscultation bilaterally AUSCULTATION: clear to auscultation bilaterally Cardio: COMMON NORMALS: regular rate and regular rhythm RATE: regular rate RHYTHM: regular rhythm Extremity: COMMON NORMALS: capillary refill normal, no joint enlargement and no clubbing, cyanosis or edema NARRATIVE EXTREMITY EXAM: Limited range of motion at the left shoulder secondary to pain. There is no outward sign of injury, no deformity or swelling. Normal elbow examination. Strength is intact, sensations intact distally. Radial pulse palpable. Neuro: COMMON NORMALS: patient oriented x3, moves all extremities, no focal motor deficits and no sensory deficits noted SENSORIUM/ORIENTATION: Yes alert MENINGEAL SIGNS: Yes no meningeal signs Skin: NARRATIVE SKIN EXAM: Scattered scabbed over lesions to bilateral feet in various stages of healing. Course Vital Signs: Vital signs: Vital Signs Temperature 98.4 F 07/16/25 15:30 Pulse Rate 82 07/16/25 15:30 Respiratory Rate 16 07/16/25 15:30 Blood Pressure 164/81 07/16/25 15:30 Pulse Oximetry 96 07/16/25 15:30 Oxygen Delivery Me thod Room Air 07/16/25 15:30 MDM - Extremity (Nontraumatic) Medical Decision Making Patient presented after left shoulder injury after a fall onto his left elbow. There is no deformity on exam and no concern for dislocation, x-ray confirming there is no dislocation or other injury. Degenerative changes associated, however no other explanation for his acute pain after the fall. I do suspect a sprain, he is given sling for comfort and encouraged to follow-up with primary care. Neurovascular exam was intact. In regards to his wounds on his leg, these appear to be bug bite lesions that are delayed in healing, likely secondary to his immunocompromise status from diabetes and we will try topical mupirocin to cover for staph. He is given return precautions, stable for discharge at this time as there is no further necessary workup in the ED. Lab Data Radiology Impressions Shoulder X-Ray 07/16/25 15:27 IMPRESSION: Mild degenerative changes in the glenohumeral joint and acromioclavicular joint. All radiology interpretation(s) finalized by discharge Discharge Plan Discharge Patient Disposition: Home Clinical Impression: Sprain of left shoulder, Bug bite Condition: Stable Prescriptions: New mupirocin 2 % ointment 1 applic topical BID Qty: 15 0RF No Action omega 6-yoc-lnd-fish oil [Fish Oil] 1,200 (144-216) mg capsule 1 cap PO DAILY vitamin E (dl, acetate) 45 mg (100 unit) capsule 45 mg PO DAILY lorazepam 1 mg tablet 0.5 - 1 mg buccal Q8H PRN (Reason: severe nausea and vomiting) Qty: 30 2RF sennosides [senna] 8.6 mg tablet 8.6 mg PO ONCE PRN (Reason: Constipation) potassium chloride 20 mEq tablet extended release 20 meq PO DAILY Qty: 90 0RF allopurinol 300 mg tablet 300 mg PO DAILY Qty: 30 0RF pantoprazole [Protonix] 40 mg Tablet,Delayed Release (Dr/Ec) 40 mg PO QAM Rx Instructions: Take 1 tablet by mouth every morning before a meal . metformin 1,000 mg Tablet 500 mg PO BID Rx Instructions: medication on med list pt brought in bupropion HCl 150 mg Tablet Extended Release 24 Hr 150 mg PO QAM Rx Instructions: medication on med list pt brought in cholecalciferol (vitamin D3) 50 mcg (2,000 unit) Tablet 50 mcg PO DAILY Rx Instructions: medication on med list pt brought in zinc gluconate 50 mg Tablet 50 mg PO DAILY atorvastatin 80 mg Tablet 40 mg PO QPM Rx Instructions: Take 1/2 tablet by mouth every evening to lower Cholesterol ferrous gluconate 324 mg (37.5 mg iron) Tablet 324 mg PO DAILY nystatin 100,000 unit/mL suspension 5 - 10 ml PO BID ascorbic acid (vitamin C) [Vitamin C] 500 mg Tablet 500 mg PO BID folic acid 400 mcg Tablet 0.4 mg PO DAILY gabapentin 300 mg Capsule 300 mg PO BID sitagliptin 100 mg Tablet 100 mg PO DAILY Discharge Orders: Discharge ED (Routine); Ordered 07/16/25 Ordered By: Tj Cameron Referrals: Linda Muller MD [Primary Care Provider, [facility]] Patient Instructions: Patient Portal & Johnson Instructions Activity Restrictions/Additional Instructions: Shoulder Injury Discharge Diagnosis and Management Plan: 79-year-old male with left shoulder pain after upper extremity trauma. Imaging negative for fracture/dislocation; clinical suspicion for shoulder sprain. Sling provided for comfort. Noted lower extremity skin lesions consistent with bug bites, with delayed healing in the context of diabetes. Topical bacitracin prescribed for infection prophylaxis. --- Shoulder Injury (Sprain): - Immobilization: Sling use for comfort is appropriate; duration should be minimized and individualized based on pain and function. Early transition to gentle gqyex-uh-baasyk exercises is recommended to prevent stiffness and promote recovery. There is no evidence supporting a specific duration of sling use; most patients benefit from discontinuing the sling as soon as pain allows. - Pain Management: Acetaminophen and short-term, low-dose NSAIDs may be used for pain control, unless contraindicated. Opioids should be avoided unless pain is severe and not controlled by other measures. - Physical Therapy: Initiate gentle pendulum and passive stretching exercises as tolerated. Progress to active [id number]-ad-wpglpr and strengthening exercises, focusing on rotator cuff and scapular stabilizers. Early mobilization is associated with improved outcomes in elderly patients. Referral to outpatient physical therapy may be considered if functional deficits persist. - Activity: Early ambulation and resumption of daily activities are encouraged, avoiding activities that exacerbate shoulder pain. Gradual return to normal function is expected over several weeks. - Follow-up: Advise follow-up with primary care provider or orthopedics if pain worsens, new neurological symptoms develop, or functional recovery is delayed. Surgical referral is indicated only for specific injuries (e.g., displaced fractures, high-grade acromioclavicular injuries), which are not present in this case. --- Lower Extremity Skin Lesions (Bug Bites, Diabetic Patient): - Wound Care: Cleanse affected areas daily with mild soap and water. Gentle irrigation is recommended; tap water is as effective as sterile saline for wound cleansing. Avoid harsh antiseptics (e.g., povidone-iodine) as they do not improve outcomes. - Topical Antibiotic: Apply a thin layer of bacitracin ointment to affected areas once or twice daily. Topical antibiotics may reduce risk of superficial Staphylococcus infection in minor wounds, especially in patients with diabetes. Monitor for signs of allergic reaction or contact dermatitis. - Dressings: Cover wounds with non-adherent, occlusive dressings to promote moist wound healing and reduce infection risk. Change dressings daily or if soiled. - Monitoring: Watch for signs of infection: increased redness, warmth, swelling, pain, purulent drainage, or systemic symptoms (fever, chills). In diabetic patients, delayed healing and increased risk of infection warrant close observation. - Tetanus Prophylaxis: Confirm tetanus immunization status; update if indicated per current guidelines. - Follow-up: Promptly seek medical attention if wounds worsen, fail to heal, or if systemic symptoms develop. Consider referral to wound care or infectious disease specialists for refractory or complex cases. --- General Instructions: - Medication Adherence: Take prescribed medications as directed. Report any adverse reactions. - Diabetes Management: Maintain optimal glycemic control to support wound healing and reduce infection risk. - Return Precautions: Return to care for worsening pain, new neurological deficits, signs of wound infection, or any other concerning symptoms. --- Summary: This management plan is consistent with current recommendations for conservative treatment of shoulder sprain in older adults and evidence-based wound care in diabetic patients, including topical antibiotic use for superficial skin infections. 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
[2025-07-16] MEDS: bacitracin ointment Pkt 1 EACH TOPICAL (17:34)
== END 2025-07-16 17:47 | disposition home or self-care (01) ==
PROVIDERS: Emergency Provider Physician Assistant; PCP Family Medicine
DX: S43.402A Unspecified sprain of left shoulder joint, initial encounter (principal); Z79.84 Long term (current) use of oral hypoglycemic drugs; Z87.891 Personal history of nicotine dependence; E78.5 Hyperlipidemia, unspecified; I10 Essential (primary) hypertension; E11.42 Type 2 diabetes mellitus with diabetic polyneuropathy; W07.XXXA Fall from chair, initial encounter; S90.862A Insect bite (nonvenomous), left foot, initial encounter; S90.861A Insect bite (nonvenomous), right foot, initial encounter; W57.XXXA Bitten or stung by nonvenomous insect and other nonvenomous arthropods, initial encounter
CPT/HCPCS: 73030; 96372; 99284; J1885; J9999

== ENCOUNTER 2025-07-25 13:05 | Oncology outpatient (recurring) (ONCR) | payer OTHER, SELFPAY ==
[2025-07-25 13:40] LABS: Hematocrit 30.4 % (37-53); Hemoglobin 8.70 g/dL (11.27-16.99); Mean Corpuscular HGB Conc 28.6 g/dL (30-55); Mean Corpuscular Hemoglobin 20.2 pg (27-33); Mean Corpuscular Volume 70.5 fl (82-101); Nucleated Red Blood Cells % 0 %; Platelet Count 133 10^3/cmm (157-399); Red Blood Count 4.31 10^6/uL (3.85-5.65); White Blood Count 4.97 10^3/uL (3.29-11.43)
[2025-07-25 13:57] LABS: Alanine Aminotransferase 10 U/L (0-41); Albumin Level 3.8 g/dL (3.5-5.2); Alkaline Phosphatase 73 U/L (40-130); Anion Gap 11.7 (5-19); Aspartate Amino Transferase 13 U/L (0-40); Blood Urea Nitrogen 11 mg/dL (8-23); Calcium 8.7 mg/dL (8.5-10.5); Carbon Dioxide 26 mmol/L (22-29); Chloride 105 mmol/L (98-107); Globulin 3.7 g/dL (1.3-4.6); Glucose 133 mg/dL (65-115); Osmolality Calculated 289 mOsm/kg (285-295); Potassium 3.7 mmol/L (3.5-5.1); Sodium 139 mmol/L (136-145); Total Protein 7.5 g/dL (6.6-8.7)
== END 2025-08-16 23:59 | disposition home or self-care (01) ==
PROVIDERS: Nurse Practitioner Family; PCP Family Medicine; Visit Provider Internal Medicine Medical Oncology
DX: Z08 Encounter for follow-up examination after completed treatment for malignant neoplasm (principal); Z85.72 Personal history of non-Hodgkin lymphomas; R03.0 Elevated blood-pressure reading, without diagnosis of hypertension; D64.9 Anemia, unspecified; D69.6 Thrombocytopenia, unspecified; Z87.891 Personal history of nicotine dependence
CPT/HCPCS: 36591; 80053; 83615; 85025; 99213

== ENCOUNTER 2025-09-05 08:00 | Oncology outpatient (recurring) (ONCR) | payer OTHER, SELFPAY ==
[2025-08-29 10:25] LABS: Hematocrit 27.6 % (37-53); Hemoglobin 7.90 g/dL (11.27-16.99); Mean Corpuscular HGB Conc 28.6 g/dL (30-55); Mean Corpuscular Hemoglobin 19.5 pg (27-33); Mean Corpuscular Volume 68.0 fl (82-101); Nucleated Red Blood Cells % 0 %; Platelet Count 51 10^3/cmm (157-399); Red Blood Count 4.06 10^6/uL (3.85-5.65); White Blood Count 2.79 10^3/uL (3.29-11.43)
[2025-08-29 10:52] LABS: Slide Review Slide Review Perform
[2025-08-29 11:03] LABS: Alanine Aminotransferase 8 U/L (0-41); Albumin Level 3.7 g/dL (3.5-5.2); Alkaline Phosphatase 83 U/L (40-130); Anion Gap 14.8 (5-19); Aspartate Amino Transferase 12 U/L (0-40); Blood Urea Nitrogen 13 mg/dL (8-23); Calcium 8.4 mg/dL (8.5-10.5); Carbon Dioxide 23 mmol/L (22-29); Chloride 102 mmol/L (98-107); Creatinine Clr Calc Pharmacy 88.2764; Ferritin 730 ng/mL (30-400); Globulin 4.0 g/dL (1.3-4.6); Glucose 152 mg/dL (65-115); Iron 25 ug/dL (59-158); Osmolality Calculated 285 mOsm/kg (285-295); Potassium 3.8 mmol/L (3.5-5.1); Sodium 136 mmol/L (136-145); Total Iron Binding Capacity 202 mcg/dl; Total Protein 7.7 g/dL (6.6-8.7); Unsaturated Iron Binding 177 ug/dL (112-347); Vitamin B12 416 pg/mL (232-1245)
[2025-09-05] VITALS (8 sets, daily range): BP systolic 138–162; BP diastolic 65–81; PULSE 66–72; RESP 16; TEMP 36–36.5; O2SAT 91–97
[2025-09-05 08:12] LABS: Hematocrit 27.7 % (37-53); Hemoglobin 7.80 g/dL (11.27-16.99); Mean Corpuscular HGB Conc 28.2 g/dL (30-55); Mean Corpuscular Hemoglobin 19.4 pg (27-33); Mean Corpuscular Volume 68.7 fl (82-101); Platelet Count 46 10^3/cmm (157-399); Red Blood Count 4.03 10^6/uL (3.85-5.65); White Blood Count 2.44 10^3/uL (3.29-11.43)
[2025-09-05 09:22] LABS: Slide Review Slide Review Perform; Total Cells Counted 50 (0-100)
[2025-09-05 09:23] LABS: Absolute Segmented Neutrophil 0.8 10/cmm (1.6-7.1); Atypical Lymphs 50.0 % (0-5); Band Neutrophils Absolute 0.1 10^3/cmm (0.0-1.2)
== END 2025-09-16 23:59 | disposition home or self-care (01) ==
PROVIDERS: Nurse Practitioner Family; PCP Family Medicine; Visit Provider Internal Medicine Medical Oncology
DX: D64.9 Anemia, unspecified; Z79.899 Other long term (current) drug therapy; Z53.9 Procedure and treatment not carried out, unspecified reason
CPT/HCPCS: 36430; 36591; 80053; 82607; 82728; 82746; 83540; 83550; 85007; 85025; 86850; 86900; 86920; 99214; J7050; J9999; P9040

== ENCOUNTER 2025-10-12 09:00 | Oncology outpatient (recurring) (ONCR) | payer OTHER, SELFPAY ==
[2025-09-20 08:39] LABS: Hematocrit 28.4 % (37-53); Hemoglobin 8.40 g/dL (11.27-16.99); Mean Corpuscular HGB Conc 29.6 g/dL (30-55); Mean Corpuscular Hemoglobin 21.1 pg (27-33); Mean Corpuscular Volume 71.2 fl (82-101); Nucleated Red Blood Cells % 0 %; Red Blood Count 3.99 10^6/uL (3.85-5.65); White Blood Count 1.31 10^3/uL (3.29-11.43)
[2025-09-20 08:59] LABS: Alanine Aminotransferase 13 U/L (0-41); Albumin Level 3.6 g/dL (3.5-5.2); Alkaline Phosphatase 109 U/L (40-130); Anion Gap 14.8 (5-19); Aspartate Amino Transferase 13 U/L (0-40); Blood Urea Nitrogen 14 mg/dL (8-23); Calcium 8.5 mg/dL (8.5-10.5); Carbon Dioxide 22 mmol/L (22-29); Chloride 104 mmol/L (98-107); Globulin 4.0 g/dL (1.3-4.6); Glucose 122 mg/dL (65-115); Osmolality Calculated 286 mOsm/kg (285-295); Potassium 3.8 mmol/L (3.5-5.1); Sodium 137 mmol/L (136-145); Total Protein 7.6 g/dL (6.6-8.7)
[2025-09-20 09:15] LABS: Platelet Count 18 10^3/cmm (157-399); Slide Review Slide Review Perform
[2025-09-22 10:01] LABS: Hematocrit 28.8 % (37-53); Hemoglobin 8.70 g/dL (11.27-16.99); Mean Corpuscular HGB Conc 30.2 g/dL (30-55); Mean Corpuscular Hemoglobin 21.3 pg (27-33); Mean Corpuscular Volume 70.6 fl (82-101); Nucleated Red Blood Cells % 0 %; Red Blood Count 4.08 10^6/uL (3.85-5.65); White Blood Count 1.30 10^3/uL (3.29-11.43)
[2025-09-22 10:25] LABS: Platelet Count 13 10^3/cmm (157-399)
[2025-09-22 10:27] LABS: Slide Review Slide Review Perform
[2025-09-26 07:53] LABS: Hematocrit 26.8 % (37-53); Hemoglobin 8.10 g/dL (11.27-16.99); Mean Corpuscular HGB Conc 30.2 g/dL (30-55); Mean Corpuscular Hemoglobin 21.3 pg (27-33); Mean Corpuscular Volume 70.3 fl (82-101); Nucleated Red Blood Cells % 0 %; Red Blood Count 3.81 10^6/uL (3.85-5.65); White Blood Count 1.16 10^3/uL (3.29-11.43)
[2025-09-26 08:16] LABS: Alanine Aminotransferase 11 U/L (0-41); Albumin Level 3.5 g/dL (3.5-5.2); Alkaline Phosphatase 102 U/L (40-130); Anion Gap 14.6 (5-19); Aspartate Amino Transferase 10 U/L (0-40); Blood Urea Nitrogen 14 mg/dL (8-23); Calcium 8.8 mg/dL (8.5-10.5); Carbon Dioxide 21 mmol/L (22-29); Chloride 103 mmol/L (98-107); Globulin 4.0 g/dL (1.3-4.6); Glucose 138 mg/dL (65-115); Iron 119 ug/dL (59-158); Osmolality Calculated 283 mOsm/kg (285-295); Potassium 3.6 mmol/L (3.5-5.1); Sodium 135 mmol/L (136-145); Total Iron Binding Capacity 184 mcg/dl; Total Protein 7.5 g/dL (6.6-8.7); Unsaturated Iron Binding 65 ug/dL (112-347)
[2025-09-26 08:17] LABS: Slide Review Slide Review Perform
[2025-09-26 08:19] LABS: Platelet Count 5 10^3/cmm (157-399)
[2025-09-26 08:29] LABS: Ferritin 1720 ng/mL (30-400)
[2025-09-26 08:31] LABS: Vitamin B12 303 pg/mL (232-1245)
[2025-09-26 13:17] VITALS: BP 136/61; PULSE 65; RESP 17; TEMP 36.1; O2SAT 99
[2025-09-26 13:35] VITALS: BP 109/69; PULSE 64; RESP 17; TEMP 36.3; O2SAT 99
[2025-09-26 13:39] VITALS: BP 109/69; PULSE 64; RESP 17; TEMP 36.3; O2SAT 99
[2025-09-29] VITALS (9 sets, daily range): BP systolic 111–130; BP diastolic 59–81; PULSE 62–75; RESP 16–17; TEMP 35.7–36.3; O2SAT 95–100
[2025-09-29 08:33] LABS: Hematocrit 24.2 % (37-53); Hemoglobin 7.40 g/dL (11.27-16.99); Mean Corpuscular HGB Conc 30.6 g/dL (30-55); Mean Corpuscular Hemoglobin 21.2 pg (27-33); Mean Corpuscular Volume 69.3 fl (82-101); Nucleated Red Blood Cells % 0 %; Red Blood Count 3.49 10^6/uL (3.85-5.65); White Blood Count 1.56 10^3/uL (3.29-11.43)
[2025-09-29 08:59] LABS: Platelet Count 24 10^3/cmm (157-399); Slide Review Slide Review Perform
[2025-10-03 08:27] LABS: Hematocrit 28.1 % (37-53); Hemoglobin 9.10 g/dL (11.27-16.99); Mean Corpuscular HGB Conc 32.4 g/dL (30-55); Mean Corpuscular Hemoglobin 23.6 pg (27-33); Mean Corpuscular Volume 72.8 fl (82-101); Nucleated Red Blood Cells % 0 %; Red Blood Count 3.86 10^6/uL (3.85-5.65)
[2025-10-03 08:51] LABS: Platelet Count 2 10^3/cmm (157-399); Slide Review Slide Review Perform; White Blood Count 0.79 10^3/uL (3.29-11.43)
[2025-10-03 12:50] VITALS: BP 112/70; PULSE 96; RESP 17; TEMP 36.6; O2SAT 99
[2025-10-03 13:10] VITALS: BP 120/83; PULSE 62; RESP 17; TEMP 36.2; O2SAT 96
[2025-10-03] MEDS: diphenhydrAMINE 50 mg/mL SDV 1mL 25 MG IVP (13:43)
[2025-10-03 13:44] VITALS: BP 166/78; PULSE 69; O2SAT 96
[2025-10-03] MEDS: methylPREDNISolone sod succ 40 mg/mL INJ IVP (13:46)
[2025-10-03 15:09] VITALS: BP 146/74; PULSE 65; RESP 17; TEMP 36.7; O2SAT 97
[2025-10-06 09:42] LABS: Hematocrit 26.5 % (37-53); Hemoglobin 8.40 g/dL (11.27-16.99); Mean Corpuscular HGB Conc 31.7 g/dL (30-55); Mean Corpuscular Hemoglobin 23.1 pg (27-33); Mean Corpuscular Volume 73.0 fl (82-101); Nucleated Red Blood Cells % 0 %; Red Blood Count 3.63 10^6/uL (3.85-5.65)
[2025-10-06 10:14] LABS: Alanine Aminotransferase 11 U/L (0-41); Albumin Level 3.5 g/dL (3.5-5.2); Alkaline Phosphatase 92 U/L (40-130); Anion Gap 12.6 (5-19); Aspartate Amino Transferase 9 U/L (0-40); Blood Urea Nitrogen 12 mg/dL (8-23); Calcium 8.3 mg/dL (8.5-10.5); Carbon Dioxide 25 mmol/L (22-29); Chloride 104 mmol/L (98-107); Globulin 3.6 g/dL (1.3-4.6); Glucose 106 mg/dL (65-115); Osmolality Calculated 286 mOsm/kg (285-295); Potassium 3.6 mmol/L (3.5-5.1); Sodium 138 mmol/L (136-145); Total Protein 7.1 g/dL (6.6-8.7)
[2025-10-06 10:33] LABS: Platelet Count 21 10^3/cmm (157-399); White Blood Count 0.75 10^3/uL (3.29-11.43)
[2025-10-06 10:34] LABS: Slide Review Slide Review Perform
[2025-10-10] VITALS (13 sets, daily range): BP systolic 104–131; BP diastolic 61–74; PULSE 62–91; RESP 16–18; TEMP 36.2–36.6; O2SAT 92–98
[2025-10-10 07:41] LABS: Hematocrit 24.7 % (37-53); Hemoglobin 7.80 g/dL (11.27-16.99); Mean Corpuscular HGB Conc 31.6 g/dL (30-55); Mean Corpuscular Hemoglobin 22.9 pg (27-33); Mean Corpuscular Volume 72.6 fl (82-101); Nucleated Red Blood Cells % 0 %; Red Blood Count 3.40 10^6/uL (3.85-5.65)
[2025-10-10 08:04] LABS: Alanine Aminotransferase 17 U/L (0-41); Albumin Level 3.3 g/dL (3.5-5.2); Alkaline Phosphatase 140 U/L (40-130); Anion Gap 14.8 (5-19); Aspartate Amino Transferase 13 U/L (0-40); Blood Urea Nitrogen 17 mg/dL (8-23); Calcium 8.2 mg/dL (8.5-10.5); Carbon Dioxide 22 mmol/L (22-29); Chloride 100 mmol/L (98-107); Globulin 4.1 g/dL (1.3-4.6); Glucose 157 mg/dL (65-115); Osmolality Calculated 281 mOsm/kg (285-295); Potassium 3.8 mmol/L (3.5-5.1); Sodium 133 mmol/L (136-145); Total Protein 7.4 g/dL (6.6-8.7)
[2025-10-10 08:29] LABS: Platelet Count 3 10^3/cmm (157-399)
[2025-10-10 08:30] LABS: Slide Review Slide Review Perform; White Blood Count 0.95 10^3/uL (3.29-11.43)
[2025-10-10] MEDS: methylPREDNISolone sod succ 125 mg/2 mL INJ 100 MG IV (14:14)
[2025-10-12 08:07] LABS: Hematocrit 30.9 % (37-53); Hemoglobin 10.20 g/dL (11.27-16.99); Mean Corpuscular HGB Conc 33.0 g/dL (30-55); Mean Corpuscular Hemoglobin 24.3 pg (27-33); Mean Corpuscular Volume 73.6 fl (82-101); Nucleated Red Blood Cells % 0 %; Red Blood Count 4.20 10^6/uL (3.85-5.65)
[2025-10-12 08:57] LABS: White Blood Count 0.60 10^3/uL (3.29-11.43)
[2025-10-12 08:58] LABS: Platelet Count 27 10^3/cmm (157-399)
[2025-10-12 08:59] LABS: Slide Review Slide Review Perform
== END 2025-10-16 23:59 | disposition home or self-care (01) ==
PROVIDERS: Internal Medicine; Nurse Practitioner; Nurse Practitioner Family; PCP Family Medicine; Visit Provider Internal Medicine Medical Oncology
DX: D46.9 Myelodysplastic syndrome, unspecified; Z53.9 Procedure and treatment not carried out, unspecified reason
CPT/HCPCS: 36430; 36591; 80053; 80503; 82607; 82728; 82746; 83540; 83550; 83615; 85025; 86850; 86900; 86920; 96360; 96375; 99214; J1200; J2919; J3490; J7040; J7050; J9999; P9037; P9040

== ENCOUNTER 2025-10-20 07:31 | Oncology outpatient (recurring) (ONCR) | payer OTHER, SELFPAY ==
[2025-10-17 08:03] LABS: Hematocrit 29.3 % (37-53); Hemoglobin 9.60 g/dL (11.27-16.99); Mean Corpuscular HGB Conc 32.8 g/dL (30-55); Mean Corpuscular Hemoglobin 24.4 pg (27-33); Mean Corpuscular Volume 74.4 fl (82-101); Nucleated Red Blood Cells % 0 %; Red Blood Count 3.94 10^6/uL (3.85-5.65); White Blood Count 1.15 10^3/uL (3.29-11.43)
[2025-10-17 08:33] LABS: Platelet Count 1 10^3/cmm (157-399)
[2025-10-17 08:34] LABS: Slide Review Slide Review Perform
[2025-10-17] MEDS: methylPREDNISolone sod succ 125 mg/2 mL INJ 100 MG IVP (13:35)
[2025-10-17 13:43] VITALS: BP 123/72; PULSE 100; RESP 17; TEMP 35.8; O2SAT 97
[2025-10-17 13:59] VITALS: BP 121/73; PULSE 84; RESP 17; TEMP 36.1; O2SAT 95
[2025-10-17 14:17] VITALS: BP 121/73; PULSE 84; RESP 17; TEMP 36.1; O2SAT 95
[2025-10-20 08:05] LABS: Hematocrit 28.8 % (37-53); Hemoglobin 9.40 g/dL (11.27-16.99); Mean Corpuscular HGB Conc 32.6 g/dL (30-55); Mean Corpuscular Hemoglobin 24.7 pg (27-33); Mean Corpuscular Volume 75.6 fl (82-101); Nucleated Red Blood Cells % 0 %; Red Blood Count 3.81 10^6/uL (3.85-5.65)
[2025-10-20 08:32] LABS: Alanine Aminotransferase 90 U/L (0-41); Albumin Level 3.3 g/dL (3.5-5.2); Alkaline Phosphatase 216 U/L (40-130); Anion Gap 16.0 (5-19); Aspartate Amino Transferase 25 U/L (0-40); Blood Urea Nitrogen 13 mg/dL (8-23); Calcium 8.7 mg/dL (8.5-10.5); Carbon Dioxide 24 mmol/L (22-29); Chloride 97 mmol/L (98-107); Globulin 4.0 g/dL (1.3-4.6); Glucose 205 mg/dL (65-115); Osmolality Calculated 282 mOsm/kg (285-295); Potassium 4.0 mmol/L (3.5-5.1); Sodium 133 mmol/L (136-145); Total Protein 7.3 g/dL (6.6-8.7)
[2025-10-20 09:24] LABS: Platelet Count 15 10^3/cmm (157-399); White Blood Count 0.97 10^3/uL (3.29-11.43)
[2025-10-20 09:25] LABS: Slide Review Slide Review Perform
[2025-10-20] MEDS: ondansetron 2 mg/ML SDV 2 mL 8 MG IVP (09:55)
[2025-10-20 15:44] LABS: Iron 77 ug/dL (59-158); Total Iron Binding Capacity 114 mcg/dl; Unsaturated Iron Binding 37 ug/dL (112-347)
[2025-10-20 16:02] LABS: Ferritin 5765 ng/mL (30-400)
== END 2025-10-27 23:59 | disposition home or self-care (01) ==
PROVIDERS: Nurse Practitioner; Nurse Practitioner Family; PCP Family Medicine; Visit Provider Internal Medicine Medical Oncology
DX: D61.810 Antineoplastic chemotherapy induced pancytopenia; T45.1X5A Adverse effect of antineoplastic and immunosuppressive drugs, initial encounter; D46.9 Myelodysplastic syndrome, unspecified; Z53.9 Procedure and treatment not carried out, unspecified reason
CPT/HCPCS: 36591; 80053; 82728; 83540; 83550; 85025; 86900; 96360; 96375; J2405; J2919; J3490; J7040; J7050; J9999; P9037